=== PATIENT | female | born 1950 | race Caucasian/White ===

== ENCOUNTER 2020-04-23 10:06 | Inpatient (IN) | payer OTHER ==
[2020-04-23] MEDS ORDERED: methylPREDNISolone SOD SUCCI 125 MG/2 ML VIAL IV STA (10:11)
[2020-04-23] MEDS ORDERED: IPRATROPIUM-ALBUTEROL 3 ML NEB INHALATION STA (10:11)
--- NOTE | 2020-04-23 10:20 | ED ---
General Adult HPI - General Chief complaint: Shortness of Breath Stated complaint: respiratory distress Time Seen by Provider: 04/23/20 10:11 Source: patient, EMS, RN notes reviewed Mode of arrival: EMS Limitations: physical limitation - History of Present Illness Initial comments: Patient is a pleasant 69-year-old female presenting to the emergency department difficulty in breathing by EMS. Patient was having difficulty in breathing at home and became unresponsive for family. EMS found patient awake and short of breath. Pulse ox was 88% without improvement with oxygen and therefore put patient on CPAP. Patient states dyspnea just started this morning. Patient states she does have history of similar symptoms previously associated with her asthma and humidity changes. Patient states this is worse that is been. No chest pain. No headache or weakness or confusion. No cough. - Related Data Home Medications Medication Instructions Recorded Confirmed Clotrimazole/Betamethasone Dip 1 applic TOPICAL BID 04/23/20 04/23/20 [Lotrisone Cream] Irbesartan [Avapro] 150 mg PO DAILY 04/23/20 04/23/20 Levothyroxine Sodium [Tirosint] 200 mcg PO DAILY 04/23/20 04/23/20 Allergies Allergy/AdvReac Type Severity Reaction Status Date / Time furosemide [From Lasix] Allergy Anaphylaxis Verified 04/23/20 10:26 Sulfa (Sulfonamide Allergy Anaphylaxis Verified 04/23/20 10:25 Antibiotics) Review of Systems ROS Statement: Those systems with pertinent positive or pertinent negative responses have been documented in the HPI. ROS Other: All systems not noted in ROS Statement are negative. Constitutional: Denies: fever Eyes: Denies: eye pain ENT: Denies: ear pain Respiratory: Reports: dyspnea. Denies: cough Cardiovascular: Denies: chest pain Endocrine: Denies: fatigue Gastrointestinal: Denies: abdominal pain Genitourinary: Denies: dysuria Musculoskeletal: Denies: back pain Skin: Denies: rash Neurological: Denies: headache Past Medical History Past Medical History: Asthma History of Any Multi-Drug Resistant Organisms: None Reported Past Surgical History: Unable to Obtain Past Psychological History: No Psychological Hx Reported Smoking Status: Never smoker Past Alcohol Use History: Occasional Past Drug Use History: None Reported General Exam Limitations: physical limitation (Patient on CPAP) General appearance: alert Head exam: Present: atraumatic Eye exam: Present: normal appearance, PERRL, EOMI ENT exam: Present: normal exam Neck exam: Present: normal inspection Respiratory exam: Present: respiratory distress, wheezes (Mild expiratory), accessory muscle use, decreased breath sounds Cardiovascular Exam: Present: tachycardia GI/Abdominal exam: Present: soft. Absent: tenderness Extremities exam: Present: normal inspection. Absent: pedal edema, calf tenderness Neurological exam: Present: alert. Absent: motor sensory deficit Expanded Motor strength exam: RUE: 5, LUE: 5, RLE: 5, LLE: 5 Psychiatric exam: Present: normal affect, normal mood Skin exam: Present: normal color Course Vital Signs 04/23/20 04/23/20 04/23/20 10:07 10:35 10:39 Temperature 97.7 F Pulse Rate 94 90 87 Respiratory 26 H 24 Rate Blood Pressure 150/111 145/98 O2 Sat by Pulse 97 100 Oximetry 04/23/20 11:22 Temperature Pulse Rate 86 Respiratory 20 Rate Blood Pressure 122/70 O2 Sat by Pulse 100 Oximetry - Reevaluation(s) Reevaluation #1: 04/23/20 11:28 Patient is criteria for septic shock diagnosed at 11:25 AM. Blood culture and lactic acid ordered. IV antibiotics will be ordered. 04/23/20 11:30 I did fluid bolus of 1840 mL has been ordered based off ideal body weight of 61.4 kg. EKG Findings - EKG Comments: EKG Findings:: Sinus tachycardia with a rate of 108. AR 180. QRS 136. QT 34. QTC 514. Left axis. Left bundle branch block. Nonspecific ST-T wave Medical Decision Making - Medical Decision Making Patient reevaluated and significantly improved with BiPAP. Lung sounds have increased air exchange. Patient updated on results and plan. Dr. Avila was paged for admission, covering for hospital call. There is a question will component of heart failure. Cardiology will be consult and echo will be ordered. Patient also has elevated d-dimer and VQ scan will be ordered. Unable to do computed tomography scan secondary to renal insufficiency. Case was discussed with Dr. man, who will admit. - Lab Data Result diagrams: 04/23/20 10:15 04/23/20 10:15 Lab Results 04/23/20 04/23/20 04/23/20 Range/Units 10:15 10:15 10:15 WBC 15.1 H (3.8-10.6) k/uL RBC 5.00 (3.80-5.40) m/uL Hgb 15.3 (11.4-16.0) gm/dL Hct 49.8 H (34.0-46.0) % MCV 99.6 (80.0-100.0) fL MCH 30.6 (25.0-35.0) pg MCHC 30.7 L (31.0-37.0) g/dL RDW 12.8 (11.5-15.5) % Plt Count 316 (150-450) k/uL MPV 7.9 Neutrophils % 84 % Lymphocytes % 10 % Monocytes % 3 % Eosinophils % 2 % Basophils % 1 % Neutrophils # 12.7 H (1.3-7.7) k/uL Lymphocytes # 1.5 (1.0-4.8) k/uL Monocytes # 0.5 (0-1.0) k/uL Eosinophils # 0.3 (0-0.7) k/uL Basophils # 0.1 (0-0.2) k/uL Hypochromasia Slight PT 10.1 (9.0-12.0) sec INR 0.9 (<1.2) APTT 21.0 L (22.0-30.0) sec D-Dimer 9.24 H (<0.60) mg/L FEU Sodium 138 (137-145) mmol/L Potassium 5.1 (3.5-5.1) mmol/L Chloride 107 (98-107) mmol/L Carbon Dioxide 17 L (22-30) mmol/L Anion Gap 14 mmol/L BUN 39 H (7-17) mg/dL Creatinine 2.17 H (0.52-1.04) mg/dL Est GFR (CKD-EPI)AfAm 26 (>60 ml/min/1.73 sqM) Est GFR (CKD-EPI)NonAf 23 (>60 ml/min/1.73 sqM) Glucose 346 H (74-99) mg/dL Plasma Lactic Acid Casper (0.7-2.0) mmol/L Calcium 8.4 (8.4-10.2) mg/dL Total Bilirubin 0.7 (0.2-1.3) mg/dL AST 77 H (14-36) U/L ALT 53 H (4-34) U/L Alkaline Phosphatase 120 (38-126) U/L Troponin I (0.000-0.034) ng/mL C-Reactive Protein (<10.0) mg/L NT-Pro-B Natriuret Pep pg/mL Total Protein 7.4 (6.3-8.2) g/dL Albumin 3.9 (3.5-5.0) g/dL Coronavirus (PCR) (Not Detectd) 04/23/20 04/23/20 04/23/20 Range/Units 10:15 10:15 10:15 WBC (3.8-10.6) k/uL RBC (3.80-5.40) m/uL Hgb (11.4-16.0) gm/dL Hct (34.0-46.0) % MCV (80.0-100.0) fL MCH (25.0-35.0) pg MCHC (31.0-37.0) g/dL RDW (11.5-15.5) % Plt Count (150-450) k/uL MPV Neutrophils % % Lymphocytes % % Monocytes % % Eosinophils % % Basophils % % Neutrophils # (1.3-7.7) k/uL Lymphocytes # (1.0-4.8) k/uL Monocytes # (0-1.0) k/uL Eosinophils # (0-0.7) k/uL Basophils # (0-0.2) k/uL Hypochromasia PT (9.0-12.0) sec INR (<1.2) APTT (22.0-30.0) sec D-Dimer (<0.60) mg/L FEU Sodium (137-145) mmol/L Potassium (3.5-5.1) mmol/L Chloride (98-107) mmol/L Carbon Dioxide (22-30) mmol/L Anion Gap mmol/L BUN (7-17) mg/dL Creatinine (0.52-1.04) mg/dL Est GFR (CKD-EPI)AfAm (>60 ml/min/1.73 sqM) Est GFR (CKD-EPI)NonAf (>60 ml/min/1.73 sqM) Glucose (74-99) mg/dL Plasma Lactic Acid Casper 6.4 H* (0.7-2.0) mmol/L Calcium (8.4-10.2) mg/dL Total Bilirubin (0.2-1.3) mg/dL AST (14-36) U/L ALT (4-34) U/L Alkaline Phosphatase (38-126) U/L Troponin I 0.049 H* (0.000-0.034) ng/mL C-Reactive Protein (<10.0) mg/L NT-Pro-B Natriuret Pep 5470 pg/mL Total Protein (6.3-8.2) g/dL Albumin (3.5-5.0) g/dL Coronavirus (PCR) (Not Detectd) 04/23/20 04/23/20 04/23/20 Range/Units 10:16 10:31 10:31 WBC (3.8-10.6) k/uL RBC (3.80-5.40) m/uL Hgb (11.4-16.0) gm/dL Hct (34.0-46.0) % MCV (80.0-100.0) fL MCH (25.0-35.0) pg MCHC (31.0-37.0) g/dL RDW (11.5-15.5) % Plt Count (150-450) k/uL MPV Neutrophils % % Lymphocytes % % Monocytes % % Eosinophils % % Basophils % % Neutrophils # (1.3-7.7) k/uL Lymphocytes # (1.0-4.8) k/uL Monocytes # (0-1.0) k/uL Eosinophils # (0-0.7) k/uL Basophils # (0-0.2) k/uL Hypochromasia PT (9.0-12.0) sec INR (<1.2) APTT (22.0-30.0) sec D-Dimer (<0.60) mg/L FEU Sodium (137-145) mmol/L Potassium (3.5-5.1) mmol/L Chloride (98-107) mmol/L Carbon Dioxide (22-30) mmol/L Anion Gap mmol/L BUN (7-17) mg/dL Creatinine (0.52-1.04) mg/dL Est GFR (CKD-EPI)AfAm (>60 ml/min/1.73 sqM) Est GFR (CKD-EPI)NonAf (>60 ml/min/1.73 sqM) Glucose (74-99) mg/dL Plasma Lactic Acid Casper 4.8 H* (0.7-2.0) mmol/L Calcium (8.4-10.2) mg/dL Total Bilirubin (0.2-1.3) mg/dL AST (14-36) U/L ALT (4-34) U/L Alkaline Phosphatase (38-126) U/L Troponin I (0.000-0.034) ng/mL C-Reactive Protein 11.0 H (<10.0) mg/L NT-Pro-B Natriuret Pep pg/mL Total Protein (6.3-8.2) g/dL Albumin (3.5-5.0) g/dL Coronavirus (PCR) Not Detected (Not Detectd) - Radiology Data Radiology results: image reviewed (Chest x-ray shows some increased interstitium. Increased density right lung base with patchy hilar airspace d isease. Correlate for pneumonia versus edema. Question retrocardiac patchy density.) Critical Care Time Critical Care Time: Yes Total Critical Care Time: 33 Disposition Clinical Impression: Septic shock, Pneumonia Disposition: ADMITTED IP TO THIS HOSP Condition: Serious Is patient prescribed a controlled substance at d/c from ED?: No Referrals: None,Stated [REFERRING] - 1-2 days Decision Time: 11:31
[2020-04-23 10:27] LABS: Basophils # (A) 0.1 k/uL (0-0.2); Basophils % (A) 1 %; Eosinophils # (A) 0.3 k/uL (0-0.7); Eosinophils % (A) 2 %; HCT 49.8 % (34.0-46.0); HGB 15.3 gm/dL (11.4-16.0); Hypochromasia Slight; Lymphocytes # (A) 1.5 k/uL (1.0-4.8); Lymphocytes % (A) 10 %; MCH 30.6 pg (25.0-35.0); MCHC 30.7 g/dL (31.0-37.0); MCV 99.6 fL (80.0-100.0); Mean Platelet Volume 7.9; Monocytes # (A) 0.5 k/uL (0-1.0); Monocytes % (A) 3 %; Neutrophils # (A) 12.7 k/uL (1.3-7.7); Neutrophils % (A) 84 %; Platelet Count 316 k/uL (150-450); RDW 12.8 % (11.5-15.5); WBC 15.1 k/uL (3.8-10.6)
--- NOTE | 2020-04-23 10:35 | XR ---
EXAMINATION TYPE: XR chest 1V portable DATE OF EXAM: 04/23/2020 COMPARISON: NONE HISTORY: Dyspnea, shortness of breath TECHNIQUE: Single frontal view of the chest is obtained. FINDINGS: Patient is rotated. Patchy perihilar airspace disease is present on the right, increased d ensity at the right lung base. Heart size may be accentuated by rotation. Suspect aorta is dense. No evident pneumothorax, there are overlying leads. Interstitium is increased. Question retrocardiac pat kelsey density. IMPRESSION: Correlate for pneumonia versus edema, follow-up suggested. Suspect borderline cardiac si ze.
[2020-04-23 10:37] LABS: Albumin 3.9 g/dL (3.5-5.0); Calcium 8.4 mg/dL (8.4-10.2); Potassium 5.1 mmol/L (3.5-5.1); Total Bilirubin 0.7 mg/dL (0.2-1.3); Total Protein 7.4 g/dL (6.3-8.2)
[2020-04-23 10:50] LABS: INR 0.9 (<1.2); Prothrombin Time 10.1 sec (9.0-12.0)
[2020-04-23] MEDS ORDERED: AZITHROMYCIN 500 MG in SODIUM CHLORIDE 0.9% 250 ML IVPB STA (10:54)
[2020-04-23] MEDS ORDERED: PNEUMONIA PROTOCOL UTILIZED 1 EACH MISC PO PRN (10:54)
[2020-04-23] MEDS ORDERED: IPRATROPIUM-ALBUTEROL 3 ML NEB INHALATION PRN (10:54)
[2020-04-23 10:58] LABS: D-Dimer 9.24 mg/L FEU (<0.60)
[2020-04-23] MEDS ORDERED: SODIUM CHLORIDE 0.9% 850 ML IV STA (11:29)
[2020-04-23] MEDS ORDERED: SODIUM CHLORIDE 0.9% 1,000 ML IV STA (11:29)
[2020-04-23] MEDS ORDERED: NALOXONE 0.4 MG/ML 1 ML VIAL IV PRN (11:32)
[2020-04-23] MEDS ORDERED: HEPARIN SODIUM,PORCINE 10,000 UNIT/ML 1 ML VIAL IV ONE (11:36)
[2020-04-23] MEDS ORDERED: HEPARIN SODIUM,PORCINE 5,000 UNIT/ML 1 ML VIAL IV PRN (11:36)
[2020-04-23] MEDS: HEPARIN SOD,PORK IN 0.45% NACL 25,000 UNIT in 0.45% NACL 1 250ML.BAG IV SCH (11:59)
--- NOTE | 2020-04-23 12:12 | ED ---
Medical Decision Making - Medical Decision Making Patient placed on high-dose heparin pending V/Q results - Lab Data Result diagrams: 04/23/20 10:15 04/23/20 10:15 Lab Results 04/23/20 04/23/20 04/23/20 Range/Units 10:15 10:15 10:15 WBC 15.1 H (3.8-10.6) k/uL RBC 5.00 (3.80-5.40) m/uL Hgb 15.3 (11.4-16.0) gm/dL Hct 49.8 H (34.0-46.0) % MCV 99.6 (80.0-100.0) fL MCH 30.6 (25.0-35.0) pg MCHC 30.7 L (31.0-37.0) g/dL RDW 12.8 (11.5-15.5) % Plt Count 316 (150-450) k/uL MPV 7.9 Neutrophils % 84 % Lymphocytes % 10 % Monocytes % 3 % Eosinophils % 2 % Basophils % 1 % Neutrophils # 12.7 H (1.3-7.7) k/uL Lymphocytes # 1.5 (1.0-4.8) k/uL Monocytes # 0.5 (0-1.0) k/uL Eosinophils # 0.3 (0-0.7) k/uL Basophils # 0.1 (0-0.2) k/uL Hypochromasia Slight PT 10.1 (9.0-12.0) sec INR 0.9 (<1.2) APTT 21.0 L (22.0-30.0) sec D-Dimer 9.24 H (<0.60) mg/L FEU Sodium 138 (137-145) mmol/L Potassium 5.1 (3.5-5.1) mmol/L Chloride 107 (98-107) mmol/L Carbon Dioxide 17 L (22-30) mmol/L Anion Gap 14 mmol/L BUN 39 H (7-17) mg/dL Creatinine 2.17 H (0.52-1.04) mg/dL Est GFR (CKD-EPI)AfAm 26 (>60 ml/min/1.73 sqM) Est GFR (CKD-EPI)NonAf 23 (>60 ml/min/1.73 sqM) Glucose 346 H (74-99) mg/dL Plasma Lactic Acid Casper (0.7-2.0) mmol/L Calcium 8.4 (8.4-10.2) mg/dL Total Bilirubin 0.7 (0.2-1.3) mg/dL AST 77 H (14-36) U/L ALT 53 H (4-34) U/L Alkaline Phosphatase 120 (38-126) U/L Troponin I (0.000-0.034) ng/mL C-Reactive Protein (<10.0) mg/L NT-Pro-B Natriuret Pep pg/mL Total Protein 7.4 (6.3-8.2) g/dL Albumin 3.9 (3.5-5.0) g/dL Coronavirus (PCR) (Not Detectd) 04/23/20 04/23/20 04/23/20 Range/Units 10:15 10:15 10:15 WBC (3.8-10.6) k/uL RBC (3.80-5.40) m/uL Hgb (11.4-16.0) gm/dL Hct (34.0-46.0) % MCV (80.0-100.0) fL MCH (25.0-35.0) pg MCHC (31.0-37.0) g/dL RDW (11.5-15.5) % Plt Count (150-450) k/uL MPV Neutrophils % % Lymphocytes % % Monocytes % % Eosinophils % % Basophils % % Neutrophils # (1.3-7.7) k/uL Lymphocytes # (1.0-4.8) k/uL Monocytes # (0-1.0) k/uL Eosinophils # (0-0.7) k/uL Basophils # (0-0.2) k/uL Hypochromasia PT (9.0-12.0) sec INR (<1.2) APTT (22.0-30.0) sec D-Dimer (<0.60) mg/L FEU Sodium (137-145) mmol/L Potassium (3.5-5.1) mmol/L Chloride (98-107) mmol/L Carbon Dioxide (22-30) mmol/L Anion Gap mmol/L BUN (7-17) mg/dL Creatinine (0.52-1.04) mg/dL Est GFR (CKD-EPI)AfAm (>60 ml/min/1.73 sqM) Est GFR (CKD-EPI)NonAf (>60 ml/min/1.73 sqM) Glucose (74-99) mg/dL Plasma Lactic Acid Casper 6.4 H* (0.7-2.0) mmol/L Calcium (8.4-10.2) mg/dL Total Bilirubin (0.2-1.3) mg/dL AST (14-36) U/L ALT (4-34) U/L Alkaline Phosphatase (38-126) U/L Troponin I 0.049 H* (0.000-0.034) ng/mL C-Reactive Protein (<10.0) mg/L NT-Pro-B Natriuret Pep 5470 pg/mL Total Protein (6.3-8.2) g/dL Albumin (3.5-5.0) g/dL Coronavirus (PCR) (Not Detectd) 04/23/20 04/23/20 04/23/20 Range/Units 10:16 10:31 10:31 WBC (3.8-10.6) k/uL RBC (3.80-5.40) m/uL Hgb (11.4-16.0) gm/dL Hct (34.0-46.0) % MCV (80.0-100.0) fL MCH (25.0-35.0) pg MCHC (31.0-37.0) g/dL RDW (11.5-15.5) % Plt Count (150-450) k/uL MPV Neutrophils % % Lymphocytes % % Monocytes % % Eosinophils % % Basophils % % Neutrophils # (1.3-7.7) k/uL Lymphocytes # (1.0-4.8) k/uL Monocytes # (0-1.0) k/uL Eosinophils # (0-0.7) k/uL Basophils # (0-0.2) k/uL Hypochromasia PT (9.0-12.0) sec INR (<1.2) APTT (22.0-30.0) sec D-Dimer (<0.60) mg/L FEU Sodium (137-145) mmol/L Potassium (3.5-5.1) mmol/L Chloride (98-107) mmol/L Carbon Dioxide (22-30) mmol/L Anion Gap mmol/L BUN (7-17) mg/dL Creatinine (0.52-1.04) mg/dL Est GFR (CKD-EPI)AfAm (>60 ml/min/1.73 sqM) Est GFR (CKD-EPI)NonAf (>60 ml/min/1.73 sqM) Glucose (74-99) mg/dL Plasma Lactic Acid Casper 4.8 H* (0.7-2.0) mmol/L Calcium (8.4-10.2) mg/dL Total Bilirubin (0.2-1.3) mg/dL AST (14-36) U/L ALT (4-34) U/L Alkaline Phosphatase (38-126) U/L Troponin I (0.000-0.034) ng/mL C-Reactive Protein 11.0 H (<10.0) mg/L NT-Pro-B Natriuret Pep pg/mL Total Protein (6.3-8.2) g/dL Albumin (3.5-5.0) g/dL Coronavirus (PCR) Not Detected (Not Detectd) Disposition Clinical Impression: Septic shock, Pneumonia Disposition: ADMITTED IP TO THIS HOSP Condition: Serious Is patient prescribed a controlled substance at d/c from ED?: No Procedures - [place] Protocol (Time Out) Nurse: Kayla Delgado - Sepsis Sepsis Focused Exam #1 Time Sepsis Criteria Met: 11:25 Sepsis Focused Exam Date: 04/23/20 Sepsis Focused Exam Time: 12:12 Sepsis Focused Exam Complete: Yes Vital Signs & RN Notes Reviewed: Yes Capillary Refill: < 2 Seconds: Fingers, Toes Peripheral Pulses: Normal: Radial (R), Radial (L) Skin Color: Normal for Patient Respiratory Exam: wheezes Cardiovascular Exam: regular rate, normal rhythm
[2020-04-23 13:18] LABS: Glucose,Whole Blood 167 mg/dL (75-99)
[2020-04-23] MEDS: INSULIN ASPART (NovoLOG) 100 UNIT/ML VIAL SQ SCH ×3 (13:23→20:48)
--- NOTE | 2020-04-23 13:24 | US ---
EXAMINATION TYPE: US venous doppler duplex LE DATE OF EXAM: 04/23/2020 12:16 PM COMPARISON: NONE CLINICAL HISTORY: 69-year-old female edema, elevated d dimer. SIDE PERFORMED: Bilateral TECHNIQUE: The lower extremity deep venous system is examined utilizing real time linear array sonog titi with graded compression, doppler sonography and color-flow sonography. FINDINGS: VESSELS IMAGED: Common Femoral Vein Deep Femoral Vein Greater Saphenous Vein * Femoral Vein Popliteal Vein Small Saphenous Vein * Proximal Calf Veins (* superficial vessels) Right Leg: Negative for DVT Left Leg: Negative for DVT IMPRESSION: No evidence for DVT within the bilateral lower extremities imaged from the groin to the upper calves.
--- NOTE | 2020-04-23 13:28 | ECHOF ---
Referral Reason:Heart failure, respiratory failure MEASUREMENTS -------- HEIGHT: 170.2 cm WEIGHT: 109.8 kg BP: RVIDd: 3.0 cm (< 3.3) IVSd: 1.8 cm (0.6 - 1.1) LVIDd: 4.0 cm (3.9 - 5.3) LVPWd: 1.8 cm (0.6 - 1.1) IVSs: 2.3 cm LVIDs: 2.4 cm LVPWs: 2.5 cm Ao Diam: 3.1 cm (2.0 - 3.7) AV Cusp: 2.3 cm (1.5 - 2.6) LA Diam: 3.3 cm (2.7 - 3.8) MV EXCURSION: 14.013 mm (> 18.000) MV EF SLOPE: 79 mm/s (70 - 150) EPSS: 1.1 cm MV E Mac: 0.58 m/s MV DecT: 192 ms MV A Mac: 0.70 m/s MV E/A Ratio: 0.83 RAP: 5.00 mmHg RVSP: 9.35 mmHg FINDINGS -------- This was a technically difficult study with suboptimal views. Poor apicals. Study taken from [facility] [facility]. The left ventricular size is normal. There is severe concentric left ventricular hypertrophy. Ove rall left ventricular systolic function is normal with, an EF between 55 - 60 %. The right ventricle is normal in size. The left atrial size is normal. The right atrial size is normal. Lumason used The aortic valve is trileaflet and appears structurally normal. The mitral valve is normal. There is trace mitral regurgitation. The tricuspid valve appears structurally normal. Mild tricuspid regurgitation present. Right vent ricular systolic pressure is normal at < 35 mmHg. There is no pulmonic regurgitation present. The ascending aorta is dilated measuring up to 4.2 cm IVC Not well visulized. There is no pericardial effusion. CONCLUSIONS -------- 1. Poor apicals. Study taken from [facility]. 2. The left ventricular size is normal. 3. There is severe concentric left ventricular hypertrophy. 4. Overall left ventricular systolic function is normal with, an EF between 55 - 60 %. 5. There is trace mitral regurgitation. 6. Mild tricuspid regurgitation present. 7. The ascending aorta is dilated measuring up to 4.2 cm 8. There is no pericardial effusion. ADVENTURE GUIDE: Coleen Hunt RDCS
--- NOTE | 2020-04-23 14:20 | P.CNPUL ---
History of Present Illness Consult date: 04/23/20 Reason for consult: dyspnea, asthma, COPD, hypoxemia Chief complaint: Shortness of breath. History of present illness: 69-year-old female who does not see doctors in this area but rather sees physicians at [facility], who apparently comes into the emergency room, brought in by EMS, for difficulty in breathing. Apparently, for the last day or 2, the patient's breathing has gotten more difficult. She apparently became unresponsive according to her family. The patient was found by EMS to be awake and short of breath. Her pulse ox saturations were 88%. The patient was therefore placed on CPAP. She apparently carries with her a diagnosis of asthma, hypothyroidism, and hypertension. Again, we do not see her in this area. She sees a community outreach coordinator at [facility]. Currently, in the emergency department, she is on BiPAP, with settings of 12/6 and 60%. Currently, the patient appears to be short of breath. She also seemed a little lethargic and sleepy. There is no audible wheezing. She was not using accessory muscles. She did have some mild conversational dyspnea, she was made worse by the BiPAP mask. The patient denied any fever or chills. The patient also denied any cough or phlegm production. She was not having any chest pain or chest discomfort. The patient end terminal proBNP was elevated and her chest x-ray my opinion was consistent with either fluid overload/heart failure versus possible pneumonia. She was behaving more like heart failure and she did have lower extremity edema. Review of Systems REVIEW OF SYSTEMS: CONSTITUTIONAL: [Negative.] NEUROLOGIC: [ Negative.] HEENT: [ Negative.] CARDIAC: Lower extremity edema. PULMONARY: Shortness of breath. GI: [Negative.] : [Negative.] RHEUMATOLOGIC: [ Negative.] IMMUNOLOGIC: [ Negative.] ENDOCRINE: [Negative. ] DERMATOLOGIC: [Negative.] Past Medical History Past Medical History: Asthma History of Any Multi-Drug Resistant Organisms: None Reported Past Surgical History: Unable to Obtain Past Psychological History: No Psychological Hx Reported Smoking Status: Never smoker Past Alcohol Use History: Occasional Past Drug Use History: None Reported Medications and Allergies Home Medications Medication Instructions Recorded Confirmed Type Clotrimazole/Betamethasone Dip 1 applic TOPICAL BID 04/23/20 04/23/20 History [Lotrisone Cream] Irbesartan [Avapro] 150 mg PO DAILY 04/23/20 04/23/20 History Levothyroxine Sodium [Tirosint] 200 mcg PO DAILY 04/23/20 04/23/20 History Allergies Allergy/AdvReac Type Severity Reaction Status Date / Time furosemide [From Lasix] Allergy Anaphylaxis Verified 04/23/20 10:26 Sulfa (Sulfonamide Allergy Anaphylaxis Verified 04/23/20 10:25 Antibiotics) Physical Exam Osteopathic Statement: *. No significant issues noted on an osteopathic structural exam other than those noted in the History and Physical/Consult. Vitals: Vital Signs Temp Pulse Resp BP Pulse Ox 04/23/20 13:27 80 20 136/79 97 04/23/20 11:22 86 20 122/70 100 04/23/20 10:39 87 24 145/98 100 04/23/20 10:35 90 04/23/20 10:07 97.7 F 94 26 H 150/111 97 Intake and Output 04/22/20 04/23/20 04/23/20 22:59 06:59 14:59 Other: Weight 109.769 kg Mild conversational dyspnea, no use of accessory muscles or audible wheezing. BiPAP mask in place. HEENT examination is grossly unremarkable. HEENT examination difficult to assess because of the BiPAP device. Neck supple. Full range of motion. No adenopathy thyromegaly or neck vein distention. Cardiovascular examination reveals regular rhythm rate. S1-S2 normal. No S3 or S4. No discernible murmur noted. Heart sounds are distant. Heart rate 80 bpm. Lungs reveal scattered crackles and rhonchi. Breath sounds equal bilaterally. No wheezes. Breath sounds equal bilaterally. Abdomen obese, but soft, without masses or tenderness. Extremities are intact. No cyanosis or clubbing. There is 1-2+ pitting edema in the lower extremities. Skin is without rash or lesion. Neurologic examination is brief but nonfocal. Results - Laboratory Findings CBC and BMP: 04/23/20 10:15 04/23/20 10:15 PT/INR, D-dimer PT 10.1 sec (9.0-12.0) 04/23/20 10:15 INR 0.9 (<1.2) 04/23/20 10:15 D-Dimer 9.24 mg/L FEU (<0.60) H 04/23/20 10:15 Abnormal lab findings: Abnormal Labs 04/23/20 04/23/20 04/23/20 10:15 10:15 10:15 WBC 15.1 H Hct 49.8 H MCHC 30.7 L Neutrophils # 12.7 H APTT 21.0 L D-Dimer 9.24 H Carbon Dioxide 17 L BUN 39 H Creatinine 2.17 H Glucose 346 H POC Glucose (mg/dL) Plasma Lactic Acid Casper AST 77 H ALT 53 H Troponin I C-Reactive Protein 04/23/20 04/23/20 04/23/20 10:15 10:15 10:31 WBC Hct MCHC Neutrophils # APTT D-Dimer Carbon Dioxide BUN Creatinine Glucose POC Glucose (mg/dL) Plasma Lactic Acid Casper 6.4 H* AST ALT Troponin I 0.049 H* C-Reactive Protein 11.0 H 04/23/20 04/23/20 04/23/20 10:31 12:25 13:15 WBC Hct MCHC Neutrophils # APTT D-Dimer Carbon Dioxide BUN Creatinine Glucose POC Glucose (mg/dL) Plasma Lactic Acid Casper 4.8 H* 2.4 H* AST ALT Troponin I 0.474 H* C-Reactive Protein 04/23/20 13:15 WBC Hct MCHC Neutrophils # APTT D-Dimer Carbon Dioxide BUN Creatinine Glucose POC Glucose (mg/dL) 167 H Plasma Lactic Acid Casper AST ALT Troponin I C-Reactive Protein - Diagnostic Findings Chest x-ray: image reviewed (No computed tomography scan as yet.) CT scan - chest: image reviewed U/S of Legs: report reviewed Assessment and Plan Assessment: Acute hypoxemic respiratory failure, likely multifactorial, in part related to the patient's underlying chronic bronchial asthma, possible pneumonia, and probable CHF/heart failure. Obesity. History of chronic bronchial asthma. History of hypertension. History of hypothyroidism. Plan: Plan dated 04/23/2020. The patient will be placed on medications for Pulmicort 1 mg, mixed with formoterol, 20 g, twice a day. She'll also get albuterol and ipratropium bromide updrafts 4 times a day and when necessary. We'll give her side Medrol 60 mg every 6 hours. She should also be evaluated by cardiology for the potential of CHF and have a echocardiogram. It does not appear that she has infection, so I will start antibiotics. I will check a pro-calcitonin level. Additional recommendations and suggestions are forthcoming. Time with Patient: Greater than 30
[2020-04-23 15:06] LABS: Ferritin 136.1 ng/mL (10.0-291.0)
--- NOTE | 2020-04-23 16:08 | NM ---
EXAMINATION TYPE: NM pul perfusion DATE OF EXAM: 04/23/2020 COMPARISON: Correlation radiograph same day HISTORY: 69-year-old female shortness of breath, respiratory failure TECHNIQUE: Following administration of 5 mCi Tc 99m MAA. Images obtained post injection. FINDINGS: There is normal perfusion seen throughout the bilateral lungs. No perfusion defect is identified. IMPRESSION: Very low probability for pulmonary embolus.
[2020-04-23] MEDS: IPRATROPIUM-ALBUTEROL 3 ML NEB INHALATION SCH ×3 (16:40→20:37)
[2020-04-23] MEDS ORDERED: LORazepam 2 MG/ML INJ IV STA (16:42)
[2020-04-23 16:47] LABS: Glucose,Whole Blood 169 mg/dL (75-99)
[2020-04-23] MEDS: methylPREDNISolone SOD SUCCI 125 MG/2 ML VIAL IV SCH (17:42)
[2020-04-23] MEDS ORDERED: FLUMAZENIL 0.1 MG/ML 5 ML VIAL IVP ONE (17:44)
[2020-04-23 17:58] LABS: Glucose,Whole Blood 217 mg/dL (75-99)
[2020-04-23] MEDS ORDERED: METOPROLOL TARTRATE 25 MG TAB PO STA (18:28)
[2020-04-23] MEDS ORDERED: ASPIRIN 325 MG TAB PO SCH (18:30)
--- NOTE | 2020-04-23 18:34 | P.PN ---
Progress Note - Text Progress Note Date: 04/23/20 Rapid response was called because patient became unresponsive. Earlier she received Ativan for some confusion and anxiety. When I arrived to the room-and patient on BiPAP. Due to being unresponsive this was switched to 100% nonrebreather mask. Her sats were in the lower 90s. Initially in the evaluation patient was not following commands but within the next few minutes she started coming along, opening her eyes to commands and squeezing fingers. He was tachycardic in the 110s. Her blood pressure was as high as 180/100. Blood glucose at that time was 217. Assessment and plan Unresponsiveness likely secondary to benzodiazepine Acute myocardial infarction with subsequent congestive heart failure exacerbation Doubt pneumonia Plan Patient was given flumazenil Start aspirin, continue heparin drip Start metoprolol 25 mg twice a day Check procalcitonin Discussed with nursing staff.
[2020-04-23] MEDS ORDERED: ALPRAZolam 0.25 MG TAB PO PRN (19:33)
[2020-04-23] MEDS: BUDESONIDE 1 MG/2 ML NEBU INHALATION SCH (20:37)
[2020-04-23] MEDS: FORMOTEROL FUMARATE 20 MCG/2 ML NEBU INHALATION SCH (20:37)
[2020-04-23 20:44] LABS: Glucose,Whole Blood 189 mg/dL (75-99)
[2020-04-24] MEDS: methylPREDNISolone SOD SUCCI 125 MG/2 ML VIAL IV SCH ×4 (00:13→17:21)
[2020-04-24] MEDS: HEPARIN SOD,PORK IN 0.45% NACL 25,000 UNIT in 0.45% NACL 1 250ML.BAG IV SCH ×2 (05:39→14:45)
[2020-04-24 06:18] LABS: Glucose,Whole Blood 142 mg/dL (75-99)
[2020-04-24] MEDS: INSULIN ASPART (NovoLOG) 100 UNIT/ML VIAL SQ SCH ×4 (06:27→20:56)
--- NOTE | 2020-04-24 07:51 | XR ---
EXAMINATION TYPE: XR chest 1V portable DATE OF EXAM: 04/24/2020 COMPARISON: Prior chest x-ray 04/23/2020 HISTORY: Pneumonia, abnormal chest x-ray shortness of breath TECHNIQUE: Single frontal view of the chest is obtained. FINDINGS: No evident pneumothorax or pleural effusion. Heart size appears accentuated possibly due t o rotation. Bilateral airspace disease is suspected. There are overlying cardiac leads. IMPRESSION: Correlate for pneumonia. Pulmonary edema not excluded. Follow-up recommended.
[2020-04-24] MEDS: FORMOTEROL FUMARATE 20 MCG/2 ML NEBU INHALATION SCH ×2 (08:15→19:33)
[2020-04-24] MEDS: BUDESONIDE 1 MG/2 ML NEBU INHALATION SCH ×2 (08:15→19:33)
[2020-04-24] MEDS: IPRATROPIUM-ALBUTEROL 3 ML NEB INHALATION SCH ×4 (08:15→19:33)
[2020-04-24] MEDS ORDERED: PANTOPRAZOLE 40 MG/10 ML VIAL IV SCH (09:00)
[2020-04-24] MEDS ORDERED: LOSARTAN 50 MG TAB PO SCH (09:00)
[2020-04-24] MEDS: AZITHROMYCIN 500 MG TAB PO SCH (09:22)
[2020-04-24] MEDS: METOPROLOL TARTRATE 25 MG TAB PO SCH ×2 (09:22→20:56)
[2020-04-24] MEDS: ASPIRIN 81 MG PO SCH (09:24)
[2020-04-24 09:32] LABS: Basophils % (A) 0 %; Eosinophils % (A) 0 %; HCT 41.4 % (34.0-46.0); HGB 13.1 gm/dL (11.4-16.0); Hypochromasia Slight; Lymphocytes # (A) 0.8 k/uL (1.0-4.8); Lymphocytes % (A) 5 %; MCH 30.6 pg (25.0-35.0); MCHC 31.6 g/dL (31.0-37.0); MCV 97.1 fL (80.0-100.0); Monocytes # (A) 0.4 k/uL (0-1.0); Monocytes % (A) 2 %; Neutrophils # (A) 14.4 k/uL (1.3-7.7); Neutrophils % (A) 92 %; Platelet Count 235 k/uL (150-450); RBC 4.27 m/uL (3.80-5.40); RDW 12.5 % (11.5-15.5); WBC 15.6 k/uL (3.8-10.6)
[2020-04-24 09:36] LABS: Partial Thromboplastin Time 56.6 sec (22.0-30.0)
--- NOTE | 2020-04-24 09:42 | P.HPIM ---
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 She presents because of 2 days of worsening shortness of breath with coughing and with some phlegm and no chest pain or fever. Patient was very anxious and wanted her mask to be taken off, however she agrees to keep it on with small doses of benzodiazepine 0.5 mg She denies change in urine or bowel habits. Denies headache, syncope or dizziness. No weakness or numbness She denies smoking, alcohol or illicit drugs On admission Vitas looks stable except for patient feels tachypneic at 26 which is improved with BiPAP which was present on admission with oxygen saturation of 97% Labs showing leukocytosis of 15.1 K, INR 0.9, d-dimer is elevated at 9.2. Lactic acid elevated at 6.4, coming down to 2.4 procalcitonin is 0.08, coronavirus not detected VQ scan showed low probability for PE, Doppler of the lower extremity is negative for DVT. Echocardiogram showing normal ejection fraction of 55-60% with severe concentric left ventricular hypertrophy Review of Systems CONSTITUTIONAL: No fever, no malaise, no fatigue. HEENT: No recent visual problems or hearing problems. Denied any sore throat. CARDIOVASCULAR: No PND, no palpitations, no syncope. -PULMONARY: No chest wall tenderness, no hemoptysis. GASTROINTESTINAL: No diarrhea, no nausea, no vomiting, no abdominal pain. Normoactive bowel sounds. NEUROLOGICAL: No headaches, no weakness, no numbness. HEMATOLOGICAL: Denies any bleeding or petechiae. GENITOURINARY: Denies any burning micturition, frequency, or urgency. MUSCULOSKELETAL/RHEUMATOLOGICAL: Denies any joint pain, swelling, or any muscle pain. ENDOCRINE: Denies any polyuria or polydipsia. Past Medical History Past Medical History: Asthma History of Any Multi-Drug Resistant Organisms: None Reported Past Surgical History: Unable to Obtain Past Psychological History: No Psychological Hx Reported Smoking Status: Never smoker Past Alcohol Use History: Occasional Past Drug Use History: None Reported Medications and Allergies Home Medications Medication Instructions Recorded Confirmed Type Clotrimazole/Betamethasone Dip 1 applic TOPICAL BID 04/23/20 04/23/20 History [Lotrisone Cream] Irbesartan [Avapro] 150 mg PO DAILY 04/23/20 04/23/20 History Levothyroxine Sodium [Tirosint] 200 mcg PO DAILY 04/23/20 04/23/20 History Allergies Allergy/AdvReac Type Severity Reaction Status Date / Time furosemide [From Lasix] Allergy Anaphylaxis Verified 04/23/20 10:26 Sulfa (Sulfonamide Allergy Anaphylaxis Verified 04/23/20 10:25 Antibiotics) Physical Exam Vitals: Vital Signs Temp Pulse Resp BP Pulse Ox 04/23/20 13:27 80 20 136/79 97 04/23/20 11:22 86 20 122/70 100 04/23/20 10:39 87 24 145/98 100 04/23/20 10:35 90 04/23/20 10:07 97.7 F 94 26 H 150/111 97 Intake and Output 04/23/20 04/23/20 04/23/20 06:59 14:59 22:59 Other: Weight 109.769 kg -GENERAL: The patient is alert and oriented x3, in mild to moderate respiratory distress, on BiPAP, she looks anxious, has orthopnea HEENT: Pupils are round and equally reacting to light. EOMI. No scleral icterus. No conjunctival pallor. Normocephalic, atraumatic. No pharyngeal erythema. No thyromegaly. CARDIOVASCULAR: S1 and S2 present. No murmurs, rubs, or gallops. -PULMONARY: Chest is clear to auscultation, bilateral scattered wheezing ABDOMEN: Soft, nontender, nondistended, normoactive bowel sounds. No palpable organomegaly. MUSCULOSKELETAL: No joint swelling or deformity. EXTREMITIES: No cyanosis, clubbing, or pedal edema. NEUROLOGICAL: Gross neurological examination did not reveal any focal deficits. SKIN: No rashes. No petechiae Results CBC & Chem 7: 04/23/20 10:15 04/23/20 10:15 Labs: Abnormal Lab Results - Last 24 Hours (Table) 04/23/20 04/23/20 04/23/20 Range/Units 10:15 10:15 10:15 WBC 15.1 H (3.8-10.6) k/uL Hct 49.8 H (34.0-46.0) % MCHC 30.7 L (31.0-37.0) g/dL Neutrophils # 12.7 H (1.3-7.7) k/uL APTT 21.0 L (22.0-30.0) sec D-Dimer 9.24 H (<0.60) mg/L FEU Carbon Dioxide 17 L (22-30) mmol/L BUN 39 H (7-17) mg/dL Creatinine 2.17 H (0.52-1.04) mg/dL Glucose 346 H (74-99) mg/dL POC Glucose (mg/dL) (75-99) mg/dL Plasma Lactic Acid Casper (0.7-2.0) mmol/L AST 77 H (14-36) U/L ALT 53 H (4-34) U/L Troponin I (0.000-0.034) ng/mL C-Reactive Protein (<10.0) mg/L 04/23/20 04/23/20 04/23/20 Range/Units 10:15 10:15 10:31 WBC (3.8-10.6) k/uL Hct (34.0-46.0) % MCHC (31.0-37.0) g/dL Neutrophils # (1.3-7.7) k/uL APTT (22.0-30.0) sec D-Dimer (<0.60) mg/L FEU Carbon Dioxide (22-30) mmol/L BUN (7-17) mg/dL Creatinine (0.52-1.04) mg/dL Glucose (74-99) mg/dL POC Glucose (mg/dL) (75-99) mg/dL Plasma Lactic Acid Casper 6.4 H* (0.7-2.0) mmol/L AST (14-36) U/L ALT (4-34) U/L Troponin I 0.049 H* (0.000-0.034) ng/mL C-Reactive Protein 11.0 H (<10.0) mg/L 04/23/20 04/23/20 04/23/20 Range/Units 10:31 12:25 13:15 WBC (3.8-10.6) k/uL Hct (34.0-46.0) % MCHC (31.0-37.0) g/dL Neutrophils # (1.3-7.7) k/uL APTT (22.0-30.0) sec D-Dimer (<0.60) mg/L FEU Carbon Dioxide (22-30) mmol/L BUN (7-17) mg/dL Creatinine (0.52-1.04) mg/dL Glucose (74-99) mg/dL POC Glucose (mg/dL) (75-99) mg/dL Plasma Lactic Acid Casper 4.8 H* 2.4 H* (0.7-2.0) mmol/L AST (14-36) U/L ALT (4-34) U/L Troponin I 0.474 H* (0.000-0.034) ng/mL C-Reactive Protein (<10.0) mg/L 04/23/20 Range/Units 13:15 WBC (3.8-10.6) k/uL Hct (34.0-46.0) % MCHC (31.0-37.0) g/dL Neutrophils # (1.3-7.7) k/uL APTT (22.0-30.0) sec D-Dimer (<0.60) mg/L FEU Carbon Dioxide (22-30) mmol/L BUN (7-17) mg/dL Creatinine (0.52-1.04) mg/dL Glucose (74-99) mg/dL POC Glucose (mg/dL) 167 H (75-99) mg/dL Plasma Lactic Acid Casper (0.7-2.0) mmol/L AST (14-36) U/L ALT (4-34) U/L Troponin I (0.000-0.034) ng/mL C-Reactive Protein (<10.0) mg/L Assessment and Plan Assessment: Acute asthma exacerbation Rule out acute diastolic CHF, echocardiogram showing severe concentric left ventricular hypertrophy Elevated troponin, rule out cardiac disease. Could be also due to elevated creatinine Elevated creatinine, no baseline. Acute kidney injury versus chronic kidney disease Hyperglycemia Mildly elevated liver enzymes Elevated lactic acid Plan: Continue with steroids, continue with oxygen as needed and BiPAP. Pulmonary and cardiology consult. This is a pleasant 69 years old female who presents with asthma and high troponin. Labs and medication were reviewed.. Continue same treatment. Continue with symptomatic treatment. Resume home medication. Monitor lytes and vitals. DVT and GI prophylaxis. Further recommendations depends on the clinical course of the patient DVT prophylaxis: Subcutaneous heparin GI Prophylaxis: Ppi PT/OT: Pending Prognosis is guarded
[2020-04-24 10:00] LABS: Albumin 3.2 g/dL (3.5-5.0); Calcium 7.9 mg/dL (8.4-10.2); Magnesium 2.2 mg/dL (1.6-2.3); Potassium 4.7 mmol/L (3.5-5.1); Total Bilirubin 0.5 mg/dL (0.2-1.3); Total Protein 6.3 g/dL (6.3-8.2)
[2020-04-24 12:01] LABS: Glucose,Whole Blood 150 mg/dL (75-99)
--- NOTE | 2020-04-24 12:09 | P.PN ---
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 She presents because of 2 days of worsening shortness of breath with coughing and with some phlegm and no chest pain or fever. Patient was very anxious and wanted her mask to be taken off, however she agrees to keep it on with small doses of benzodiazepine 0.5 mg She denies change in urine or bowel habits. Denies headache, syncope or dizziness. No weakness or numbness She denies smoking, alcohol or illicit drugs On admission Vitas looks stable except for patient feels tachypneic at 26 which is improved with BiPAP which was present on admission with oxygen saturation of 97% Labs showing leukocytosis of 15.1 K, INR 0.9, d-dimer is elevated at 9.2. Lactic acid elevated at 6.4, coming down to 2.4 procalcitonin is 0.08, coronavirus not detected VQ scan showed low probability for PE, Doppler of the lower extremity is negative for DVT. Echocardiogram showing normal ejection fraction of 55-60% with severe concentric left ventricular hypertrophy 04/24/2020 Patient is fully awake and alert, more calm and less in respiratory distress compared to yesterday, she is on BiPAP with a breathing rate of about 48. She still have some wheezing. She is oxygen saturation 97% while on BiPAP. She has leukocytosis of 15.6. Creatinine is slightly down to 1.9 Chest x-ray showing right sided pneumonia, possible pulmonary edema Yesterday patient become unresponsive because of extra dose of benzodiazepine, she was placed also on heparin drip and metoprolol added for elevated troponin. Cardiology team on the case Review of Systems CONSTITUTIONAL: No fever, no malaise, no fatigue. HEENT: No recent visual problems or hearing problems. Denied any sore throat. CARDIOVASCULAR: No PND, no palpitations, no syncope. -PULMONARY: No chest wall tenderness, no hemoptysis. GASTROINTESTINAL: No diarrhea, no nausea, no vomiting, no abdominal pain. Normoactive bowel sounds. NEUROLOGICAL: No headaches, no weakness, no numbness. Active Medications Generic Name Dose Route Start Last Admin Trade Name Freq PRN Reason Stop Dose Admin Albuterol/Ipratropium 3 ml 04/23/20 12:00 04/24/20 11:28 Ipratropium-Albuterol 3 Ml Neb INHALATION 3 ml RT-QID JORI Administration Albuterol/Ipratropium 3 ml 04/23/20 10:54 Ipratropium-Albuterol 3 Ml Neb INHALATION RT-Q4H PRN shortness of breath Aspirin 81 mg 04/24/20 09:00 04/24/20 09:24 Aspirin 81 Mg PO 81 mg DAILY JORI Administration Azithromycin 500 mg 04/24/20 09:00 04/24/20 09:22 Azithromycin 500 Mg Tab PO 04/28/20 09:01 500 mg DAILY JORI Administration Betamethasone/Clotrimazole 1 applic 04/24/20 21:00 Clotrimazole/Betameth 1-0.05% Cream 45 Gm Tube TOPICAL BID JORI Budesonide 1 mg 04/23/20 20:00 04/24/20 08:15 Budesonide 1 Mg/2 Ml Nebu INHALATION 1 mg RT-BID JORI Administration Formoterol Fumarate 20 mcg 04/23/20 20:00 04/24/20 08:15 Formoterol Fumarate 20 Mcg/2 Ml Nebu INHALATION 20 mcg RT-BID JORI Administration Heparin Sodium (Porcine) 0 unit 04/23/20 11:36 Heparin Sodium,Porcine 5,000 Unit/Ml 1 Ml Vial IV PER PROTOCOL PRN Low PTT Protocol Ceftriaxone Sodium 2 gm/ 50 mls @ 100 mls/hr 04/24/20 09:00 04/24/20 09:22 Sodium Chloride IVPB 04/26/20 09:01 100 mls/hr Q24HR JORI Administration Heparin Sodium/Sodium Chloride 250 mls @ 19.758 mls/hr 04/23/20 11:45 04/24 10:48 25,000 unit/ Sodium Chloride IV 13.75 units/kg/hr .[id number] JORI 15.093 mls/hr Titration Protocol 18 UNITS/KG/HR Insulin Aspart 0 unit 04/23/20 12:30 04/24/20 06:27 Insulin Aspart (Novolog) 100 Unit/Ml Vial SQ Not Given ACHS [facility] Protocol Levothyroxine Sodium 200 mcg 04/25/20 06:30 Levothyroxine 100 Mcg [place] 0630 [facility] Losartan Potassium 50 mg 04/24/20 09:00 04/24/20 09:22 Losartan 50 Mg Tab PO 50 mg DAILY JORI Administration Methylprednisolone Sodium Succinate 60 mg 04/23/20 18:00 04/24/20 05:40 Methylprednisolone Sod Succi 125 Mg/2 Ml Vial IV 60 mg Q6HR JORI Administration Metoprolol Tartrate 25 mg 04/24/20 09:00 04/24/20 09:22 Metoprolol Tartrate 25 Mg Tab PO 25 mg BID JORI Administration Miscellaneous Information 1 each 04/23/20 10:54 Pneumonia Protocol Utilized 1 Each Misc PO ONCE PRN Per Protocol Naloxone HCl 0.2 mg 04/23/20 11:32 Naloxone 0.4 Mg/Ml 1 Ml Vial IV Q2M PRN Opioid Reversal Pantoprazole Sodium 40 mg 04/24/20 09:00 04/24/20 09:22 Pantoprazole 40 Mg/10 Ml Vial IV 40 mg DAILY JORI Administration Objective - Vital Signs Vital signs: Vital Signs Temp 97.6 F 04/24/20 08:00 Pulse 88 04/24/20 11:37 Resp 18 04/24/20 08:00 BP 138/98 04/24/20 08:00 Pulse Ox 97 04/24/20 08:00 Intake & Output 04/23/20 04/24/20 04/24/20 18:59 06:59 18:59 Intake Total 250.000 77.729 Output Total 500 200 Balance -250.000 -122.271 Weight 109.769 kg 107 kg Intake: Intake, IV Titration 250.000 77.729 Amount Heparin Sod,Pork in 0.45% 250.000 77.729 NaCl 25,000 unit In 0.45 % NaCl 1 250ml.bag @ 18 UNITS/KG/HR 19.758 mls/hr IV .[id number] JORI Rx#: [id number] Oral 0 Output: Urine 500 200 Other: Voiding Method Bedpan Bedpan # Voids 1 1 - Exam -GENERAL: The patient is alert and oriented x3, in mild to moderate respiratory distress, on BiPAP, she looks anxious, has orthopnea HEENT: Pupils are round and equally reacting to light. EOMI. No scleral icterus. No conjunctival pallor. Normocephalic, atraumatic. No pharyngeal erythema. No thyromegaly. CARDIOVASCULAR: S1 and S2 present. No murmurs, rubs, or gallops. -PULMONARY: Chest is clear to auscultation, bilateral scattered wheezing ABDOMEN: Soft, nontender, nondistended, normoactive bowel sounds. No palpable organomegaly. MUSCULOSKELETAL: No joint swelling or deformity. EXTREMITIES: No cyanosis, clubbing, or pedal edema. NEUROLOGICAL: Gross neurological examination did not reveal any focal deficits. SKIN: No rashes. No petechiae - Labs CBC & Chem 7: 04/24/20 09:09 04/24/20 09:09 Labs: Abnormal Lab Results - Last 24 Hours (Table) 04/23/20 04/23/20 04/23/20 Range/Units 12:25 13:15 13:15 WBC (3.8-10.6) k/uL Neutrophils # (1.3-7.7) k/uL Lymphocytes # (1.0-4.8) k/uL APTT (22.0-30.0) sec Chloride (98-107) mmol/L Carbon Dioxide (22-30) mmol/L BUN (7-17) mg/dL Creatinine (0.52-1.04) mg/dL Glucose (74-99) mg/dL POC Glucose (mg/dL) 167 H (75-99) mg/dL Plasma Lactic Acid Casper 2.4 H* (0.7-2.0) mmol/L Calcium (8.4-10.2) mg/dL AST (14-36) U/L ALT (4-34) U/L Troponin I 0.474 H* (0.000-0.034) ng/mL Albumin (3.5-5.0) g/dL Procalcitonin (0.02-0.09) ng/mL 04/23/20 04/23/20 04/23/20 Range/Units 16:29 16:29 16:45 WBC (3.8-10.6) k/uL Neutrophils # (1.3-7.7) k/uL Lymphocytes # (1.0-4.8) k/uL APTT (22.0-30.0) sec Chloride (98-107) mmol/L Carbon Dioxide (22-30) mmol/L BUN (7-17) mg/dL Creatinine (0.52-1.04) mg/dL Glucose (74-99) mg/dL POC Glucose (mg/dL) 169 H (75-99) mg/dL Plasma Lactic Acid Casper 2.4 H* (0.7-2.0) mmol/L Calcium (8.4-10.2) mg/dL AST (14-36) U/L ALT (4-34) U/L Troponin I 2.160 H* (0.000-0.034) ng/mL Albumin (3.5-5.0) g/dL Procalcitonin (0.02-0.09) ng/mL 04/23/20 04/23/20 04/23/20 Range/Units 17:20 17:55 19:44 WBC (3.8-10.6) k/uL Neutrophils # (1.3-7.7) k/uL Lymphocytes # (1.0-4.8) k/uL APTT 187.2 H* (22.0-30.0) sec Chloride (98-107) mmol/L Carbon Dioxide (22-30) mmol/L BUN (7-17) mg/dL Creatinine (0.52-1.04) mg/dL Glucose (74-99) mg/dL POC Glucose (mg/dL) 217 H (75-99) mg/dL Plasma Lactic Acid Casper (0.7-2.0) mmol/L Calcium (8.4-10.2) mg/dL AST (14-36) U/L ALT (4-34) U/L Troponin I (0.000-0.034) ng/mL Albumin (3.5-5.0) g/dL Procalcitonin 7.82 H (0.02-0.09) ng/mL 04/23/20 04/23/20 04/24/20 Range/Units 19:44 20:42 02:16 WBC (3.8-10.6) k/uL Neutrophils # (1.3-7.7) k/uL Lymphocytes # (1.0-4.8) k/uL APTT >200.0 H* (22.0-30.0) sec Chloride (98-107) mmol/L Carbon Dioxide (22-30) mmol/L BUN (7-17) mg/dL Creatinine (0.52-1.04) mg/dL Glucose (74-99) mg/dL POC Glucose (mg/dL) 189 H (75-99) mg/dL Plasma Lactic Acid Casper 2.3 H* (0.7-2.0) mmol/L Calcium (8.4-10.2) mg/dL AST (14-36) U/L ALT (4-34) U/L Troponin I (0.000-0.034) ng/mL Albumin (3.5-5.0) g/dL Procalcitonin (0.02-0.09) ng/mL 04/24/20 04/24/20 04/24/20 Range/Units 06:16 09:09 09:09 WBC 15.6 H (3.8-10.6) k/uL Neutrophils # 14.4 H (1.3-7.7) k/uL Lymphocytes # 0.8 L (1.0-4.8) k/uL APTT (22.0-30.0) sec Chloride 114 H (98-107) mmol/L Carbon Dioxide 21 L (22-30) mmol/L BUN 47 H (7-17) mg/dL Creatinine 1.90 H (0.52-1.04) mg/dL Glucose 164 H (74-99) mg/dL POC Glucose (mg/dL) 142 H (75-99) mg/dL Plasma Lactic Acid Casper (0.7-2.0) mmol/L Calcium 7.9 L (8.4-10.2) mg/dL AST 53 H (14-36) U/L ALT 57 H (4-34) U/L Troponin I (0.000-0.034) ng/mL Albumin 3.2 L (3.5-5.0) g/dL Procalcitonin (0.02-0.09) ng/mL 04/24/20 04/24/20 Range/Units 09:09 11:55 WBC (3.8-10.6) k/uL Neutrophils # (1.3-7.7) k/uL Lymphocytes # (1.0-4.8) k/uL APTT 56.6 H (22.0-30.0) sec Chloride (98-107) mmol/L Carbon Dioxide (22-30) mmol/L BUN (7-17) mg/dL Creatinine (0.52-1.04) mg/dL Glucose (74-99) mg/dL POC Glucose (mg/dL) 150 H (75-99) mg/dL Plasma Lactic Acid Casper (0.7-2.0) mmol/L Calcium (8.4-10.2) mg/dL AST (14-36) U/L ALT (4-34) U/L Troponin I (0.000-0.034) ng/mL Albumin (3.5-5.0) g/dL Procalcitonin (0.02-0.09) ng/mL Assessment and Plan Assessment: Acute asthma exacerbation Possible right-sided pneumonia Rule out acute diastolic CHF, echocardiogram showing severe concentric left ventricular hypertrophy Elevated troponin, rule out cardiac disease. Could be also due to elevated creatinine Elevated creatinine, no baseline. Acute kidney injury versus chronic kidney disease Hyperglycemia Mildly elevated liver enzymes Elevated lactic acid Plan: This is a pleasant 69 years old female who presents with asthma and high troponin. Continue with steroids, continue with oxygen as needed and BiPAP. Pulmonary and cardiology consult. Labs and medication were reviewed.. Continue same treatment. Continue with symptomatic treatment. Resume home medication. Monitor lytes and vitals. DVT and GI prophylaxis. Further recommendations depends on the clinical course of the patient DVT prophylaxis: heparin GI Prophylaxis: Ppi PT/OT: Pending Prognosis is guarded
--- NOTE | 2020-04-24 12:23 | P.CRDCN ---
History of Present Illness History of present illness: HISTORY OF PRESENTING ILLNESS This is a pleasant 69-year-old female past medical history significant for hypertension, asthma, hypothyroidism and possible myocardial infarction in the past exact details unavailable. She follows in the office with a help aid at [facility]. We have been asked to see in consultation for shortness of breath. She presented to the hospital with symptoms of shortness of breath that was somewhat of an acute onset. She denies any sympt oms of chest pain, dizziness or palpitations. EMS arrived and found her pulse ox to be 88%. She was transported to the hospital where BiPAP was applied. She has been initiated on IV antibiotics along with steroids and IV heparin secondary to elevated troponin. The patient states approximately 2 years ago she had a similar type respiratory illness and was treated at [facility] at that time she was told she had a mild heart attack however to her recollection she never underwent cardiac catheterization. She denies any stents or open heart surgery. Echocardiogram obtained on this admission reveals preserved LV systolic function with ejection fraction 55-60%, mild tricuspid regurgitation and ascending aorta dilation measuring 4.2 cm. DIAGNOSTICS EKG reveals sinus tachycardia with left bundle branch block and left axis deviation heart rate of 108. There is no old EKG for review. Telemetry tracings indicate sinus mechanism. Chest xray on admission reveals increased density at the right lung base suspicious for pneumonia. Repeat today reveals pneumonia and pulmonary edema. VQ scan is low probability for PE. Bilateral lower extremity Doppler negative for DVT Laboratory reviewed, WBC 15.6, hemoglobin 13.1, platelets 235, d-dimer 9.24, Covid negative, lactic acid on admission 6. 4 repeat 2.0,. Troponin 0.049, 0.474 and 2.1, creatinine on admission 2.17 repeat today 1.9, NT proBNP 5470 and pro-calcitonin 7.82 Current cardiac medications include irbesartan 150 mg daily. REVIEW OF SYSTEMS At the time of my exam: CONSTITUTIONAL: Denies fever or chills. CARDIOVASCULAR: Complains of shortness of breath. Denies chest pain, shortness of breath, orthopnea, PND or palpitations. RESPIRATORY: Denies cough. GASTROINTESTINAL: Denies abdominal pain, diarrhea, constipation, nausea or vomiting. MUSCULOSKELETAL: Denies myalgias. NEUROLOGIC: Denies numbness, tingling, headacbe or weakness. ENDOCRINE: Denies fatigue, weight change, polydipsia or polyurina. GENITOURINARY: Denies burning, hematuria or urgency with micturation. HEMATOLOGIC: Denies history of anemia or bleeding. PHYSICAL EXAMINATION Blood pressure 138/98 heart rate 88 afebrile and maintaining oxygen saturation on BiPAP. CONSTITUTIONAL: No apparent distress. HEENT: Head is normocephalic. Pupils are equal, round. Sclerae anicteric. Mucous membranes of the mouth are moist. No JVD. No carotid bruit. CHEST EXAMINATION: Scattered rhonchi, faint expiratory wheeze, no rales. No chest wall tenderness is noted on palpation or with deep breathing. HEART EXAMINATION: Regular rate and rhythm. S1, S2 heard. No murmurs, gallops or rub. ABDOMEN: Soft, nontender. Positive bowel sounds. EXTREMITIES: 2+ peripheral pulses, left lower extremity 2+ pitting edema and erythema, trace edema on the right and no calf tenderness. NEUROLOGIC EXAMINATION: Patient is awake, alert and oriented x3. ASSESSMENT Pneumonia Leukocytosis Lactic acidosis Acute kidney injury Non-ST elevated myocardial infarction Hypertension Obesity, BMI 36 PLAN Patient's clinical picture more infectious in nature with elevated procalc itonin, leukocytosis and lactic acidosis. She may have a component of fluid overload secondary to acute kidney injury. Continue heparin infusion for another 24 hours. Initiate aspirin 81 mg daily. Hold irbesartan due to EFREN and repeat BMP in the morning. Request records from her help aid on Sunday. Further recommendations to follow based on clinical course. Thank you kindly for this consultation. Nurse Practitioner note has been reviewed, I agree with a documented findings and plan of care. Patient was seen and examined. Past Medical History Past Medical History: Asthma History of Any Multi-Drug Resistant Organisms: None Reported Past Surgical History: Unable to Obtain Past Anesthesia/Blood Transfusion Reactions: Unable to Obtain Past Psychological History: No Psychological Hx Reported Smoking Status: Never smoker Past Alcohol Use History: Occasional Past Drug Use History: None Reported Medications and Allergies Home Medications Medication Instructions Recorded Confirmed Type Clotrimazole/Betamethasone Dip 1 applic TOPICAL BID 04/23/20 04/23/20 History [Lotrisone Cream] Irbesartan [Avapro] 150 mg PO DAILY 04/23/20 04/23/20 History Levothyroxine Sodium [Tirosint] 200 mcg PO DAILY 04/23/20 04/23/20 History Allergies Allergy/AdvReac Type Severity Reaction Status Date / Time furosemide [From Lasix] Allergy Anaphylaxis Verified 04/23/20 10:26 Sulfa (Sulfonamide Allergy Anaphylaxis Verified 04/23/20 10:25 Antibiotics) Physical Exam Vitals: Vital Signs Temp Pulse Pulse Resp BP BP Pulse Ox 04/24/20 11:37 88 04/24/20 11:28 88 04/24/20 08:34 92 04/24/20 08:25 84 04/24/20 08:17 88 04/24/20 08:00 97.6 F 94 18 138/98 97 04/24/20 04:00 97.8 F 87 32 H 139/78 04/24/20 02:00 28 H 04/24/20 00:48 97.8 F 86 26 H 139/76 04/23/20 20:54 88 04/23/20 20:48 97.9 F 89 32 H 146/86 98 04/23/20 20:47 86 04/23/20 20:37 86 04/23/20 18:43 158/90 04/23/20 17:02 96 04/23/20 17:00 98.7 F 95 22 186/112 95 04/23/20 16:42 96 04/23/20 16:23 95 22 186/112 95 04/23/20 13:27 80 20 136/79 97 Intake and Output 04/23/20 04/24/20 04/24/20 22:59 06:59 14:59 Intake Total 148.844 101.156 77.729 Output Total 500 200 Balance 148.844 -398.844 -122.271 Intake: Intake, IV Titration 148.844 101.156 77.729 Amount Heparin Sod,Pork in 0.45% 148.844 101.156 77.729 NaCl 25,000 unit In 0.45 % NaCl 1 250ml.bag @ 18 UNITS/KG/HR 19.758 mls/hr IV .[id number] [facility] Rx#: [id number] Oral 0 Output: Urine 500 200 Other: Voiding Method Bedpan Bedpan Bedpan # Voids 1 1 Weight 109.769 kg 107 kg Results 04/24/20 09:09 04/24/20 09:09 Cardiac Enzymes 04/23/20 04/23/20 04/24/20 Range/Units 12:25 16:29 09:09 AST 53 H (14-36) U/L Troponin I 0.474 H* 2.160 H* (0.000-0.034) ng/mL Coagulation 04/23/20 04/24/20 04/24/20 Range/Units 17:20 02:16 09:09 PT 11.0 (9.0-12.0) sec APTT 187.2 H* >200.0 H* 56.6 H (22.0-30.0) sec CBC 04/24/20 Range/Units 09:09 WBC 15.6 H (3.8-10.6) k/uL RBC 4.27 (3.80-5.40) m/uL Hgb 13.1 (11.4-16.0) gm/dL Hct 41.4 (34.0-46.0) % Plt Count 235 (150-450) k/uL Comprehensive Metabolic Panel 04/24/20 Range/Units 09:09 Sodium 142 (137-145) mmol/L Potassium 4.7 (3.5-5.1) mmol/L Chloride 114 H (98-107) mmol/L Carbon Dioxide 21 L (22-30) mmol/L BUN 47 H (7-17) mg/dL Creatinine 1.90 H (0.52-1.04) mg/dL Glucose 164 H (74-99) mg/dL Calcium 7.9 L (8.4-10.2) mg/dL AST 53 H (14-36) U/L ALT 57 H (4-34) U/L Alkaline Phosphatase 94 (38-126) U/L Total Protein 6.3 (6.3-8.2) g/dL Albumin 3.2 L (3.5-5.0) g/dL Current Medications Generic Name Dose Route Start Last Admin Trade Name Freq PRN Reason Stop Dose Admin Albuterol/Ipratropium 3 ml 04/23/20 12:00 04/24/20 11:28 Ipratropium-Albuterol 3 Ml Neb INHALATION 3 ml RT-QID JORI Administration Albuterol/Ipratropium 3 ml 04/23/20 10:54 Ipratropium-Albuterol 3 Ml Neb INHALATION RT-Q4H PRN shortness of breath Aspirin 81 mg 04/24/20 09:00 04/24/20 09:24 Aspirin 81 Mg PO 81 mg DAILY JORI Administration Azithromycin 500 mg 04/24/20 09:00 04/24/20 09:22 Azithromycin 500 Mg Tab PO 04/28/20 09:01 500 mg DAILY JORI Administration Betamethasone/Clotrimazole 1 applic 04/24/20 21:00 Clotrimazole/Betameth 1-0.05% Cream 45 Gm Tube TOPICAL BID JORI Budesonide 1 mg 04/23/20 20:00 04/24/20 08:15 Budesonide 1 Mg/2 Ml Nebu INHALATION 1 mg RT-BID JORI Administration Formoterol Fumarate 20 mcg 04/23/20 20:00 04/24/20 08:15 Formoterol Fumarate 20 Mcg/2 Ml Nebu INHALATION 20 mcg RT-BID JORI Administration Heparin Sodium (Porcine) 0 unit 04/23/20 11:36 Heparin Sodium,Porcine 5,000 Unit/Ml 1 Ml Vial IV PER PROTOCOL PRN Low PTT Protocol Ceftriaxone Sodium 2 gm/ 50 mls @ 100 mls/hr 04/24/20 09:00 04/24/20 09:22 Sodium Chloride IVPB 04/26/20 09:01 100 mls/hr Q24HR JORI Administration Heparin Sodium/Sodium Chloride 250 mls @ 19.758 mls/hr 04/23/20 11:45 04/24/20 10:48 25,000 unit/ Sodium Chloride IV 13.75 units/kg/hr .[id number] [facility] 15.093 mls/hr Titration Protocol 18 UNITS/KG/HR Insulin Aspart 0 unit 04/23/20 12:30 04/24/20 06:27 Insulin Aspart (Novolog) 100 Unit/Ml Vial SQ Not Given ACHS [facility] Protocol Levothyroxine Sodium 200 mcg 04/25/20 06:30 Levothyroxine 100 Mc[place] 0630 JORI Losartan Potassium 50 mg 04/24/20 09:00 04/24/20 09:22 Losartan 50 Mg Tab PO 50 mg DAILY JORI Administration Methylprednisolone Sodium Succinate 60 mg 04/23/20 18:00 04/24/20 05:40 Methylprednisolone Sod Succi 125 Mg/2 Ml Vial IV 60 mg Q6HR JORI Administration Metoprolol Tartrate 25 mg 04/24/20 09:00 04/24/20 09:22 Metoprolol Tartrate 25 Mg Tab PO 25 mg BID JORI Administration Miscellaneous Information 1 each 04/23/20 10:54 Pneumonia Protocol Utilized 1 Each Misc PO ONCE PRN Per Protocol Naloxone HCl 0.2 mg 04/23/20 11:32 Naloxone 0.4 Mg/Ml 1 Ml Vial IV Q2M PRN Opioid Reversal Pantoprazole Sodium 40 mg 04/24/20 09:00 04/24/20 09:22 Pantoprazole 40 Mg/10 Ml Vial IV 40 mg DAILY JORI Administration Intake and Output 04/23/20 04/24/20 04/24/20 22:59 06:59 14:59 Intake Total 148.844 101.156 77.729 Output Total 500 200 Balance 148.844 -398.844 -122.271 Intake: Intake, IV Titration 148.844 101.156 77.729 Amount Heparin Sod,Pork in 0.45% 148.844 101.156 77.729 NaCl 25,000 unit In 0.45 % NaCl 1 250ml.bag @ 18 UNITS/KG/HR 19.758 mls/hr IV .[id number] [facility] Rx#: [id number] Oral 0 Output: Urine 500 200 Other: Voiding Method Bedpan Bedpan Bedpan # Voids 1 1 Weight 109.769 kg 107 kg 04/24/20 09:09 04/24/20 09:09
--- NOTE | 2020-04-24 16:16 | P.PN ---
Subjective Progress Note Date: 04/24/20 Principal diagnosis: Acute exacerbation of chronic obstructive pulmonary disease/asthma 69-year-old female who does not see doctors in this area but rather sees physicians at [facility], who apparently comes into the emergency room, brought in by EMS, for difficulty in breathing. Apparently, for the last day or 2, the patient's breathing has gotten more difficult. She apparently became unresponsive according to her family. The patient was found by EMS to be awake and short of breath. Her pulse ox saturations were 88%. The patient was therefore placed on CPAP. She apparently carries with her a diagnosis of asthma, hypothyroidism, and hypertension. Again, we do not see her in this area. She sees a development scientist at [facility]. Currently, in the emergency department, she is on BiPAP, with settings of 12/6 and 60%. Currently, the patient appears to be short of breath. She also seemed a little lethargic and sleepy. There is no audible wheezing. She was not using accessory muscles. She did have some mild conversational dyspnea, she was made worse by the BiPAP mask. The patient denied any fever or chills. The patient also denied any cough or phlegm production. She was not having any chest pain or chest discomfort. The patient end terminal proBNP was elevated and her chest x-ray my opinion was consistent with either fluid overload/heart failure versus possible pneumonia. She was behaving more like heart failure and she did have lower extremity edema. The patient is seen today 09/22/2020 and follow-up on the selective care unit. She is currently resting comfortably in bed. Awake and alert in no acute distress. Maintained on BiPAP 12/6 and 50% FiO2. 0.9 normal sinus 25 ML's per hour. Currently on a heparin drip. Chest x-ray reveals bilateral airspace disease. No pneumothorax. Possible pulmonary edema. Echocardiogram reveals preserved left ventricular systolic function with ejection fraction 55-60% Dopplers were negative for DVT of the bilateral lower extremities. Sodium 142. Potassium 4.7. Creatinine 1.90. White count 15.6. Hemoglobin 13.1. Peak troponin 2.16. Pro-calcitonin 7.82. She remains on ceftriaxone and azithromycin along with bronchodilators. Objective - Vital Signs Vital signs: Vital Signs Temp 97.6 F 04/24/20 08:00 Pulse 88 04/24/20 16:00 Resp 18 04/24/20 14:00 BP 131/84 04/24/20 12:00 Pulse Ox 95 04/24/20 12:00 Intake & Output 04/23/20 04/24/20 04/24/20 18:59 06:59 18:59 Intake Total 250.000 77.729 Output Total 500 200 Balance -250.000 -122.271 Weight 109.769 kg 107 kg Intake: Intake, IV Titration 250.000 77.729 Amount Heparin Sod,Pork in 0.45% 250.000 77.729 NaCl 25,000 unit In 0.45 % NaCl 1 250ml.bag @ 18 UNITS/KG/HR 19.758 mls/hr IV .[id number] [facility] Rx#: [id number] Oral 0 Output: Urine 500 200 Other: Voiding Method Bedpan Bedpan # Voids 1 1 - Exam GENERAL EXAM: Alert, wasn't 69-year-old female patient currently on BiPAP comfortable in no apparent distress. HEAD: Normocephalic. EYES: Normal reaction of pupils, equal size. NOSE: Clear with pink turbinates. THROAT: No erythema or exudates. NECK: No masses, no JVD. CHEST: No chest wall deformity. LUNGS: Equal air entry with basilar crackles CVS: S1 and S2 normal with no audible murmur, regular rhythm. ABDOMEN: No hepatosplenomegaly, normal bowel sounds, no guarding or rigidity. SPINE: No scoliosis or deformity SKIN: No rashes CENTRAL NERVOUS SYSTEM: No focal deficits, tone is normal in all 4 extremities. EXTREMITIES: There is no peripheral edema. No clubbing, no cyanosis. Pe ripheral pulses are intact. - Labs CBC & Chem 7: 04/24/20 09:09 04/24/20 09:09 Labs: Abnormal Lab Results - Last 24 Hours (Table) 04/23/20 04/23/20 04/23/20 Range/Units 16:29 16:29 16:45 WBC (3.8-10.6) k/uL Neutrophils # (1.3-7.7) k/uL Lymphocytes # (1.0-4.8) k/uL APTT (22.0-30.0) sec Chloride (98-107) mmol/L Carbon Dioxide (22-30) mmol/L BUN (7-17) mg/dL Creatinine (0.52-1.04) mg/dL Glucose (74-99) mg/dL POC Glucose (mg/dL) 169 H (75-99) mg/dL Plasma Lactic Acid Casper 2.4 H* (0.7-2.0) mmol/L Calcium (8.4-10.2) mg/dL AST (14-36) U/L ALT (4-34) U/L Troponin I 2.160 H* (0.000-0.034) ng/mL Albumin (3.5-5.0) g/dL Procalcitonin (0.02-0.09) ng/mL 04/23/20 04/23/20 04/23/20 Range/Units 17:20 17:55 19:44 WBC (3.8-10.6) k/uL Neutrophils # (1.3-7.7) k/uL Lymphocytes # (1.0-4.8) k/uL APTT 187.2 H* (22.0-30.0) sec Chloride (98-107) mmol/L Carbon Dioxide (22-30) mmol/L BUN (7-17) mg/dL Creatinine (0.52-1.04) mg/dL Glucose (74-99) mg/dL POC Glucose (mg/dL) 217 H (75-99) mg/dL Plasma Lactic Acid Casper (0.7-2.0) mmol/L Calcium (8.4-10.2) mg/dL AST (14-36) U/L ALT (4-34) U/L Troponin I (0.000-0.034) ng/mL Albumin (3.5-5.0) g/dL Procalcitonin 7.82 H (0.02-0.09) ng/mL 04/23/20 04/23/20 04/24/20 Range/Units 19:44 20:42 02:16 WBC (3.8-10.6) k/uL Neutrophils # (1.3-7.7) k/uL Lymphocytes # (1.0-4.8) k/uL APTT >200.0 H* (22.0-30.0) sec Chloride (98-107) mmol/L Carbon Dioxide (22-30) mmol/L BUN (7-17) mg/dL Creatinine (0.52-1.04) mg/dL Glucose (74-99) mg/dL POC Glucose (mg/dL) 189 H (75-99) mg/dL Plasma Lactic Acid Casper 2.3 H* (0.7-2.0) mmol/L Calcium (8.4-10.2) mg/dL AST (14-36) U/L ALT (4-34) U/L Troponin I (0.000-0.034) ng/mL Albumin (3.5-5.0) g/dL Procalcitonin (0.02-0.09) ng/mL 04/24/20 04/24/20 04/24/20 Range/Units 06:16 09:09 09:09 WBC 15.6 H (3.8-10.6) k/uL Neutrophils # 14.4 H (1.3-7.7) k/uL Lymphocytes # 0.8 L (1.0-4.8) k/uL APTT (22.0-30.0) sec Chloride 114 H (98-107) mmol/L Carbon Dioxide 21 L (22-30) mmol/L BUN 47 H (7-17) mg/dL Creatinine 1.90 H (0.52-1.04) mg/dL Glucose 164 H (74-99) mg/dL POC Glucose (mg/dL) 142 H (75-99) mg/dL Plasma Lactic Acid Casper (0.7-2.0) mmol/L Calcium 7.9 L (8.4-10.2) mg/dL AST 53 H (14-36) U/L ALT 57 H (4-34) U/L Troponin I (0.000-0.034) ng/mL Albumin 3.2 L (3.5-5.0) g/dL Procalcitonin (0.02-0.09) ng/mL 04/24/20 04/24/20 Range/Units 09:09 11:55 WBC (3.8-10.6) k/uL Neutrophils # (1.3-7.7) k/uL Lymphocytes # (1.0-4.8) k/uL APTT 56.6 H (22.0-30.0) sec Chloride (98-107) mmol/L Carbon Dioxide (22-30) mmol/L BUN (7-17) mg/dL Creatinine (0.52-1.04) mg/dL Glucose (74-99) mg/dL POC Glucose (mg/dL) 150 H (75-99) mg/dL Plasma Lactic Acid Casper (0.7-2.0) mmol/L Calcium (8.4-10.2) mg/dL AST (14-36) U/L ALT (4-34) U/L Troponin I (0.000-0.034) ng/mL Albumin (3.5-5.0) g/dL Procalcitonin (0.02-0.09) ng/mL Microbiology - Last 24 Hours (Table) 04/23/20 11:09 Blood Culture - Preliminary Blood No Growth after 24 hours Assessment and Plan Assessment: 1 Acute hypoxemic respiratory failure, likely multifactorial, in part related to the patient's underlying acute exacerbation of chronic bronchial asthma, possible pneumonia, and probable diastolic CHF. 2 Troponin leak, currently on heparin drip 3 Obesity. 4 History of chronic bronchial asthma. 5 History of hypertension. 6 History of hypothyroidism. Plan: The patient was seen and evaluated by Dr. Stevenson Continue current treatment plan Follow-up chest x-ray in a.m. We'll continue to follow. I, the cosigning physician, performed a history & physical examination of the patient. Lungs sounds bibasilar crackles. Maintaining good O2 saturations in the 90s on 50% FiO2 via BiPAP. I discussed the assessment and plan of care with my nurse practitioner, Mini John. I attest to the above note as dictated by her.
[2020-04-24 17:04] LABS: Glucose,Whole Blood 156 mg/dL (75-99)
[2020-04-24 20:38] LABS: Glucose,Whole Blood 222 mg/dL (75-99)
[2020-04-24] MEDS: CLOTRIMAZOLE/BETAMETH 1-0.05% CREAM 45 GM TUBE TOPICAL SCH (20:56)
[2020-04-25] MEDS: methylPREDNISolone SOD SUCCI 125 MG/2 ML VIAL IV SCH ×5 (00:14→23:40)
[2020-04-25 06:02] LABS: Glucose,Whole Blood 193 mg/dL (75-99)
[2020-04-25] MEDS: INSULIN ASPART (NovoLOG) 100 UNIT/ML VIAL SQ SCH ×4 (06:23→20:44)
[2020-04-25] MEDS: HEPARIN SOD,PORK IN 0.45% NACL 25,000 UNIT in 0.45% NACL 1 250ML.BAG IV SCH ×2 (06:27→17:31)
[2020-04-25] MEDS ORDERED: LEVOTHYROXINE 100 MCG TAB PO SCH (06:30)
[2020-04-25] MEDS: METOPROLOL TARTRATE 25 MG TAB PO SCH ×2 (08:11→20:43)
[2020-04-25] MEDS: AZITHROMYCIN 500 MG TAB PO SCH (08:11)
[2020-04-25] MEDS: PANTOPRAZOLE 40 MG TABLET PO SCH (08:11)
[2020-04-25] MEDS: ASPIRIN 81 MG PO SCH (08:11)
[2020-04-25] MEDS: CLOTRIMAZOLE/BETAMETH 1-0.05% CREAM 45 GM TUBE TOPICAL SCH ×2 (08:12→20:43)
[2020-04-25] MEDS: FORMOTEROL FUMARATE 20 MCG/2 ML NEBU INHALATION SCH ×2 (08:15→20:11)
[2020-04-25] MEDS: BUDESONIDE 1 MG/2 ML NEBU INHALATION SCH ×2 (08:15→20:11)
[2020-04-25] MEDS: IPRATROPIUM-ALBUTEROL 3 ML NEB INHALATION SCH ×4 (08:15→20:11)
[2020-04-25] MEDS: LEVOTHYROXINE 100 MCG TAB PO SCH (09:20)
[2020-04-25] MEDS: ALPRAZolam 0.25 MG TAB PO PRN ×2 (09:25→20:42)
[2020-04-25 09:37] LABS: Basophils % (A) 0 %; Eosinophils % (A) 0 %; HCT 42.7 % (34.0-46.0); HGB 13.4 gm/dL (11.4-16.0); Hypochromasia Slight; Lymphocytes # (A) 0.7 k/uL (1.0-4.8); Lymphocytes % (A) 3 %; MCH 30.6 pg (25.0-35.0); MCHC 31.2 g/dL (31.0-37.0); MCV 98.1 fL (80.0-100.0); Mean Platelet Volume 8.8; Monocytes % (A) 5 %; Neutrophils % (A) 92 %; Platelet Count 268 k/uL (150-450); RBC 4.36 m/uL (3.80-5.40); WBC 21.9 k/uL (3.8-10.6)
[2020-04-25 10:17] LABS: INR 1.1 (<1.2); Partial Thromboplastin Time 98.1 sec (22.0-30.0); Prothrombin Time 11.3 sec (9.0-12.0)
[2020-04-25 10:36] LABS: Calcium 8.2 mg/dL (8.4-10.2); Potassium 4.8 mmol/L (3.5-5.1)
--- NOTE | 2020-04-25 10:47 | P.PN ---
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 She presents because of 2 days of worsening shortness of breath with coughing and with some phlegm and no chest pain or fever. Patient was very anxious and wanted her mask to be taken off, however she agrees to keep it on with small doses of benzodiazepine 0.5 mg She denies change in urine or bowel habits. Denies headache, syncope or dizziness. No weakness or numbness She denies smoking, alcohol or illicit drugs On admission Vitas looks stable except for patient feels tachypneic at 26 which is improved with BiPAP which was present on admission with oxygen saturation of 97% Labs showing leukocytosis of 15.1 K, INR 0.9, d-dimer is elevated at 9.2. Lactic acid elevated at 6.4, coming down to 2.4 procalcitonin is 0.08, coronavirus not detected VQ scan showed low probability for PE, Doppler of the lower extremity is negative for DVT. Echocardiogram showing normal ejection fraction of 55-60% with severe concentric left ventricular hypertrophy 04/24/2020 Patient is fully awake and alert, more calm and less in respiratory distress compared to yesterday, she is on BiPAP with a breathing rate of about 48. She still have some wheezing. She is oxygen saturation 97% while on BiPAP. She has leukocytosis of 15.6. Creatinine is slightly down to 1.9 Chest x-ray showing right sided pneumonia, possible pulmonary edema Yesterday patient become unresponsive because of extra dose of benzodiazepine, she was placed also on heparin drip and metoprolol added for elevated troponin. Cardiology team on the case 04/25/2020 This is a pleasant 69 years old female who was admitted with respiratory distress needind BiPAP for the first 24-48 hours. Her respiratory status improved however she still dyspneic needing 5-6 L oxygen and she is somewhat tachypneic. She is coughing but denies chest pain. There are some Vitas looks stable. Her leukocytosis went up to 21.9 but she is on steroids. Creatinine is stable at 1.9. Her pro-calcitonin is elevated at 7.8 Patient currently is covered with Rocephin and Zithromax. Also she is on some Medrol 60 mg per pulmonology team recommendation. She is on heparin drip for high troponin. Bellows Assembler recommended discontinue heparin and 24 hours Losartan stopped due to EFREN. No reflux is added for hypertension Review of Systems CONSTITUTIONAL: No fever, no malaise, no fatigue. HEENT: No recent visual problems or hearing problems. Denied any sore throat. CARDIOVASCULAR: No PND, no palpitations, no syncope. -PULMONARY: No chest wall tenderness, no hemoptysis. GASTROINTESTINAL: No diarrhea, no nausea, no vomiting, no abdominal pain. Normoactive bowel sounds. NEUROLOGICAL: No headaches, no weakness, no numbness. Active Medications Generic Name Dose Route Start Last Admin Trade Name Freq PRN Reason Stop Dose Admin Albuterol/Ipratropium 3 ml 04/23/20 12:00 04/25/20 08:15 Ipratropium-Albuterol 3 Ml Neb INHALATION 3 ml RT-QID JORI Administration Albuterol/Ipratropium 3 ml 04/23/20 10:54 Ipratropium-Albuterol 3 Ml Neb INHALATION RT-Q4H PRN shortness of breath Alprazolam 0.25 mg 04/25/20 08:47 04/25/20 09:25 Alprazolam 0.25 Mg Tab PO 0.25 mg BID PRN Administration Anxiety Aspirin 81 mg 04/24/20 09:00 04/25/20 08:11 Aspirin 81 Mg PO 81 mg DAILY JORI Administration Azithromycin 500 mg 04/24/20 09:00 04/25/20 08:11 Azithromycin 500 Mg Tab PO 04/28/20 09:01 500 mg DAILY JORI Administration Betamethasone/Clotrimazole 1 applic 04/24/20 21:00 04/25/20 08:12 Clotrimazole/Betameth 1-0.05% Cream 45 Gm Tube TOPICAL 1 applic BID JORI Administration Budesonide 1 mg 04/23/20 20:00 04/25/20 08:15 Budesonide 1 Mg/2 Ml Nebu INHALATION 1 mg RT-BID JORI Administration Formoterol Fumarate 20 mcg 04/23/20 20:00 04/25/20 08:15 Formoterol Fumarate 20 Mcg/2 Ml Nebu INHALATION 20 mcg RT-BID JORI Administration Heparin Sodium (Porcine) 0 unit 04/23/20 11:36 Heparin Sodium,Porcine 5,000 Unit/Ml 1 Ml Vial IV PER PROTOCOL PRN Low PTT Protocol Ceftriaxone Sodium 2 gm/ 50 mls @ 100 mls/hr 04/24/20 09:00 04/25/20 08:11 Sodium Chloride IVPB 04/26/20 09:01 100 mls/hr Q24HR JORI Administration Heparin Sodium/Sodium Chloride 250 mls @ 19.758 mls/hr 04/23/20 11:45 04/25/20 10:27 25,000 unit/ Sodium Chloride IV 0 units/kg/hr .[id number] JORI 0 mls/hr Titration Protocol 18 UNITS/KG/HR Insulin Aspart 0 unit 04/23/20 12:30 04/25/20 06:23 Insulin Aspart (Novolog) 100 Unit/Ml Vial SQ 2 unit ACHS JORI Administration Protocol Levothyroxine Sodium 200 mcg 04/25/20 08:30 04/25/20 09:20 Levothyroxine 100 Mcg Tab PO 200 mcg 0630 JORI Administration Methylprednisolone Sodium Succinate 60 mg 04/23/20 18:00 04/25/20 06:23 Methylprednisolone Sod Succi 125 Mg/2 Ml Vial IV 60 mg Q6HR JORI Administration Metoprolol Tartrate 25 mg 04/24/20 09:00 04/25/20 08:11 Metoprolol Tartrate 25 Mg Tab PO 25 mg BID JORI Administration Miscellaneous Information 1 each 04/23/20 10:54 Pneumonia Protocol Utilized 1 Each Misc PO ONCE PRN Per Protocol Naloxone HCl 0.2 mg 04/23/20 11:32 Naloxone 0.4 Mg/Ml 1 Ml Vial IV Q2M PRN Opioid Reversal Pantoprazole Sodium 40 mg 04/25/20 09:00 04/25/20 08:11 Pantoprazole 40 Mg Tablet PO 40 mg DAILY JORI Administration Objective - Vital Signs Vital signs: Vital Signs Temp 98.3 F 04/25/20 08:00 Pulse 100 04/25/20 08:40 Resp 27 H 04/25/20 08:00 BP 175/102 04/25/20 08:00 Pulse Ox 95 04/25/20 08:00 Intake & Output 04/24/20 04/25/20 04/25/20 18:59 06:59 18:59 Intake Total 77.729 172.271 60.372 Output Total 600 Balance -522.271 172.271 60.372 Weight 106.5 kg Intake: Intake, IV Titration 77.729 172.271 60.372 Amount Heparin Sod,Pork in 0.45% 77.729 172.271 60.372 NaCl 25,000 unit In 0.45 % NaCl 1 250ml.bag @ 18 UNITS/KG/HR 19.758 mls/hr IV .[id number] [facility] Rx#: [id number] Output: Urine 600 Other: Voiding Method Bedpan Bedpan Bedpan # Voids 1 1 # Bowel Movements 1 - Exam -GENERAL: The patient is alert and oriented x3, in mild to moderate respiratory distress, on BiPAP, she looks anxious, has orthopnea HEENT: Pupils are round and equally reacting to light. EOMI. No scleral icterus. No conjunctival pallor. Normocephalic, atraumatic. No pharyngeal erythema. No thyromegaly. CARDIOVASCULAR: S1 and S2 present. No murmurs, rubs, or gallops. -PULMONARY: Chest is clear to auscultation, bilateral scattered wheezing ABDOMEN: Soft, nontender, nondistended, normoactive bowel sounds. No palpable organomegaly. MUSCULOSKELETAL: No joint swelling or deformity. EXTREMITIES: No cyanosis, clubbing, or pedal edema. NEUROLOGICAL: Gross neurological examination did not reveal any focal deficits. SKIN: No rashes. No petechiae - Labs CBC & Chem 7: 04/25/20 08:37 04/25/20 08:37 Labs: Abnormal Lab Results - Last 24 Hours (Table) 04/24/20 04/24/20 04/24/20 Range/Units 11:55 16:54 20:37 WBC (3.8-10.6) k/uL Neutrophils # (1.3-7.7) k/uL Lymphocytes # (1.0-4.8) k/uL APTT (22.0-30.0) sec Chloride (98-107) mmol/L Carbon Dioxide (22-30) mmol/L BUN (7-17) mg/dL Creatinine (0.52-1.04) mg/dL Glucose (74-99) mg/dL POC Glucose (mg/dL) 150 H 156 H 222 H (75-99) mg/dL Calcium (8.4-10.2) mg/dL 04/25/20 04/25/20 04/25/20 Range/Units 06:01 08:37 08:37 WBC (3.8-10.6) k/uL Neutrophils # (1.3-7.7) k/uL Lymphocytes # (1.0-4.8) k/uL APTT 98.1 H (22.0-30.0) sec Chloride 111 H (98-107) mmol/L Carbon Dioxide 20 L (22-30) mmol/L BUN 61 H (7-17) mg/dL Creatinine 1.94 H (0.52-1.04) mg/dL Glucose 200 H (74-99) mg/dL POC Glucose (mg/dL) 193 H (75-99) mg/dL Calcium 8.2 L (8.4-10.2) mg/dL 04/25/20 Range/Units 08:37 WBC 21.9 H (3.8-10.6) k/uL Neutrophils # 20.0 H (1.3-7.7) k/uL Lymphocytes # 0.7 L (1.0-4.8) k/uL APTT (22.0-30.0) sec Chloride (98-107) mmol/L Carbon Dioxide (22-30) mmol/L BUN (7-17) mg/dL Creatinine (0.52-1.04) mg/dL Glucose (74-99) mg/dL POC Glucose (mg/dL) (75-99) mg/dL Calcium (8.4-10.2) mg/dL Microbiology - Last 24 Hours (Table) 04/23/20 11:09 Blood Culture - Preliminary Blood No Growth after 24 hours Assessment and Plan Assessment: Acute hypoxic respiratory failure Most likely right-sided pneumonia, rather than acute asthma exacerbation Rule out acute diastolic CHF, echocardiogram showing severe concentric left ventricular hypertrophy Elevated troponin, rule out cardiac disease. Could be also due to elevated creatinine Elevated creatinine, no baseline. Acute kidney injury versus chronic kidney disease Hyperglycemia Mildly elevated liver enzymes Elevated lactic acid Plan: This is a pleasant 69 years old female who presents with asthma and high troponin. Continue with steroids, continue with oxygen as needed and BiPAP. Pulmonary and cardiology consult. Labs and medication were reviewed.. Continue same treatment. Continue with symptomatic treatment. Resume home medication. Monitor lytes and vitals. DVT and GI prophylaxis. Further recommendations depends on the clinical course of the patient DVT prophylaxis: heparin GI Prophylaxis: Ppi PT/OT: Pending Prognosis is guarded
[2020-04-25] MEDS: amLODIPine 5 MG TAB PO SCH (11:25)
[2020-04-25 11:51] LABS: Glucose,Whole Blood 216 mg/dL (75-99)
--- NOTE | 2020-04-25 15:43 | P.PN ---
Subjective Progress Note Date: 04/25/20 Principal diagnosis: Shortness of breath. 69-year-old female who does not see doctors in this area but rather sees physicians at [facility], who apparently comes into the emergency room, brought in by EMS, for difficulty in breathing. Apparently, for the last day or 2, the patient's breathing has gotten more difficult. She apparently became unresponsive according to her family. The patient was found by EMS to be awake and short of breath. Her pulse ox saturations were 88%. The patient was therefore placed on CPAP. She apparently carries with her a diagnosis of asthma, hypothyroidism, and hypertension. Again, we do not see her in this area. 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 Currently, in the emergency department, she is on BiPAP, with settings of 12/6 and 60%. Currently, the patient appears to be short of breath. She also seemed a little lethargic and sleepy. There is no audible wheezing. She was not using accessory muscles. She did have some mild conversational dyspnea, she was made worse by the BiPAP mask. The patient denied any fever or chills. The patient also denied any cough or phlegm production. She was not having any chest pain or chest discomfort. The patient end terminal proBNP was elevated and her chest x-ray my opinion was consistent with either fluid overload/heart failure versus possible pneumonia. She was behaving more like heart failure and she did have lower extremity edema. The patient is seen today 09/22/2020 and follow-up on the selective care unit. She is currently resting comfortably in bed. Awake and alert in no acute distress. Maintained on BiPAP 12/6 and 50% FiO2. 0.9 normal sinus 25 ML's per hour. Currently on a heparin drip. Chest x-ray reveals bilateral airspace disease. No pneumothorax. Possible pulmonary edema. Echocardiogram reveals preserved left ventricular systolic function with ejection fraction 55-60% Dopplers were negative for DVT of the bilateral lower extremities. Sodium 142. Potassium 4.7. Creatinine 1.90. White count 15.6. Hemoglobin 13.1. Peak t roponin 2.16. Pro-calcitonin 7.82. She remains on ceftriaxone and azithromycin along with bronchodilators. Progress note dated 04/25/2020. Currently, the patient's on 6 L nasal cannula. She is afebrile. Heart rate is 83, and respiratory rate is about 20 breaths per minute. She remains on a he alla drip, via weightbase protocol, and saline at 20 mL an hour. The patient appears to be resting comfortably. She has no complaints today. Currently, white count is 21.9, hemoglobin 13.4, hematocrit 42.7, and platelet count 268,000. Sodium is 140 with a potassium of 4.8, chloride is 111, CO2 20, anion gap 9, BUN 61, and creatinine 1.94. She carries with her a diagnosis of hypertension, hypothyroidism, and chronic bronchial asthma. Objective - Vital Signs Vital signs: Vital Signs Temp 98.3 F 04/25/20 08:00 Pulse 83 04/25/20 12:46 Resp 24 04/25/20 12:46 BP 160/90 04/25/20 11:40 Pulse Ox 92 L 04/25/20 11:40 Intake & Output 04/24/20 04/25/20 04/25/20 18:59 06:59 18:59 Intake Total 77.729 172.271 60.372 Output Total 600 300 Balance -522.271 172.271 -239.628 Weight 106.5 kg Intake: Intake, IV Titration 77.729 172.271 60.372 Amount Heparin Sod,Pork in 0.45% 77.729 172.271 60.372 NaCl 25,000 unit In 0.45 % NaCl 1 250ml.bag @ 18 UNITS/KG/HR 19.758 mls/hr IV .[id number] [facility] Rx#: [id number] Output: Urine 600 300 Other: Voiding Method Bedpan Bedpan Bedpan # Voids 1 1 # Bowel Movements 1 - Exam No acute distress, oriented 3. Currently, the patient's on 6 L nasal cannula. HEENT examination is grossly unremarkable. Mucous membranes are moist. No oral lesions. Neck supple. Full range of motion. No adenopathy thyromegaly or neck vein distention. Cardiovascular examination reveals regular rhythm rate. S1-S2 normal. No S3 or S4. No discernible murmur noted. Lungs reveal bibasilar crackles. Breath sounds equal. No wheezes or rhonchi.. Abdomen soft bowel sounds are heard. No masses or tenderness. Extremities are intact. No cyanosis clubbing or edema. Skin is without rash or lesion. Neurologic examination is brief but nonfocal. - Labs CBC & Chem 7: 04/25/20 08:37 04/25/20 08:37 Labs: Abnormal Lab Results - Last 24 Hours (Table) 04/24/20 04/24/20 04/25/20 Range/Units 16:54 20:37 06:01 WBC (3.8-10.6) k/uL Neutrophils # (1.3-7.7) k/uL Lymphocytes # (1.0-4.8) k/uL APTT (22.0-30.0) sec Chloride (98-107) mmol/L Carbon Dioxide (22-30) mmol/L BUN (7-17) mg/dL Creatinine (0.52-1.04) mg/dL Glucose (74-99) mg/dL POC Glucose (mg/dL) 156 H 222 H 193 H (75-99) mg/dL Calcium (8.4-10.2) mg/dL 04/25/20 04/25/20 04/25/20 Range/Units 08:37 08:37 08:37 WBC 21.9 H (3.8-10.6) k/uL Neutrophils # 20.0 H (1.3-7.7) k/uL Lymphocytes # 0.7 L (1.0-4.8) k/uL APTT 98.1 H (22.0-30.0) sec Chloride 111 H (98-107) mmol/L Carbon Dioxide 20 L (22-30) mmol/L BUN 61 H (7-17) mg/dL Creatinine 1.94 H (0.52-1.04) mg/dL Glucose 200 H (74-99) mg/dL POC Glucose (mg/dL) (75-99) mg/dL Calcium 8.2 L (8.4-10.2) mg/dL 04/25/20 Range/Units 11:38 WBC (3.8-10.6) k/uL Neutrophils # (1.3-7.7) k/uL Lymphocytes # (1.0-4.8) k/uL APTT (22.0-30.0) sec Chloride (98-107) mmol/L Carbon Dioxide (22-30) mmol/L BUN (7-17) mg/dL Creatinine (0.52-1.04) mg/dL Glucose (74-99) mg/dL POC Glucose (mg/dL) 216 H (75-99) mg/dL Calcium (8.4-10.2) mg/dL Microbiology - Last 24 Hours (Table) 04/23/20 11:09 Blood Culture - Preliminary Blood No Growth after 48 hours Assessment and Plan Assessment: Acute hypoxemic respiratory failure, likely multifactorial, in part related to the patient's underlying chronic bronchial asthma, possible pneumonia, and probable CHF/heart failure. Elevated troponins, rule out cardiac ischemia. Obesity. History of chronic bronchial asthma. History of hypertension. History of hypothyroidism. Plan: Plan dated 04/25/2020. Currently, the patient seemed to be doing better. We first met her, she was in the trauma one room in the emergency department. At that time, she was requiring BiPAP. Currently, the patient's on 6 L nasal cannula. She remains on IV heparin. Her saline IV is running at 20 mL an hour. Her respiratory status is much improved. Chest x-ray, dated 04/24/2020 is consistent with either pneumonia and/or heart failure. The patient remains on albuterol sulfate and ipratropium bromide, corticosteroids, as well as Pulmicort and formoterol. We will continue to follow. Prognosis is guarded. No additional recommendations are made at this time. Time with Patient: Less than 30
[2020-04-25 16:53] LABS: Glucose,Whole Blood 199 mg/dL (75-99)
--- NOTE | 2020-04-25 19:14 | P.PN ---
Subjective HISTORY OF PRESENTING ILLNESS This is a pleasant 69-year-old female past medical history significant for hypertension, asthma, hypothyroidism and possible myocardial infarction in the past exact details unavailable. She follows in the office with a office machinery or equipment installer at [facility]. We have been asked to see in consultation for shortness of breath. She presented to the hospital with symptoms of shortness of breath that was somewhat of an acute onset. She denies any symptoms of chest pain, dizziness or palpitations. EMS arrived and found her pulse ox to be 88%. She was transported to the hospital where BiPAP was applied. She has been initiated on IV antibiotics along with steroids and IV heparin secondary to elevated troponin. The patient states approximately 2 years ago she had a similar type respiratory illness and was treated at [facility] at that time she was told she had a mild heart attack however to h er recollection she never underwent cardiac catheterization. She denies any stents or open heart surgery. Echocardiogram obtained on this admission reveals preserved LV systolic function with ejection fraction 55-60%, mild tricuspid regurgitation and ascending aorta dilation measuring 4.2 cm. 04/25/20 Patient seen and examined. Patient feels her breathing is somewhat more labored today. She denies any chest pain or pressure. She states overall she is not feeling as well as yesterday mainly from a respiratory standpoint however has not been on the BiPAP recently. REVIEW OF SYSTEMS At the time of my exam: CONSTITUTIONAL: Denies fever or chills. CARDIOVASCULAR: Complains of shortness of breath. Denies chest pain, shortness of breath, orthopnea, PND or palpitations. RESPIRATORY: Denies cough. GASTROINTESTINAL: Denies abdominal pain, diarrhea, constipation, nausea or vomiting. MUSCULOSKELETAL: Denies myalgias. NEUROLOGIC: Denies numbness, tingling, headacbe or weakness. ENDOCRINE: Denies fatigue, weight change, polydipsia or polyurina. GENITOURINARY: Denies burning, hematuria or urgency with micturation. HEMATOLOGIC: Denies history of anemia or bleeding. PHYSICAL EXAMINATION Blood pressure 145/72 heart rate 86 afebrile and maintaining oxygen saturation on 6 L high flow CONSTITUTIONAL: Ill-appearing HEENT: Head is normocephalic. Pupils are equal, round. Sclerae anicteric. Mucous membranes of the mouth are moist. No JVD. No carotid bruit. CHEST EXAMINATION: Scattered rhonchi, faint expiratory wheeze, no rales. No chest wall tenderness is noted on palpation or with deep breathing. HEART EXAMINATION: Regular rate and rhythm. S1, S2 heard. No murmurs, gallops or rub. ABDOMEN: Soft, nontender. Positive bowel sounds. EXTREMITIES: 2+ peripheral pulses, left lower extremity 2+ pitting edema and erythema, trace edema on the right and no calf tenderness. NEUROLOGIC EXAMINATION: Patient is awake, alert and oriented x3. ASSESSMENT Pneumonia Leukocytosis Lactic acidosis Acute kidney injury Non-ST elevated myocardial infarction Hypertension Obesity, BMI 36 Acute on chronic respiratory failure PLAN Patient's clinical picture more infectious in nature with elevated procalcitonin, leukocytosis and lactic acidosis. She may have a component of fluid overload secondary to acute kidney injury, diastolic heart failure. Continue heparin infusion pending further workup Continue aspirin 81 mg daily. Hold irbesartan due to EFREN and repeat BMP in the morning. Request records from her office machinery or equipment installer on Sunday. If fluid status or heart failure is a concern or if her respiratory status is deteriorating, may consider right heart catheterization to assess left and righ t-sided filling pressures however suspicion of majority of symptoms related to infectious etiology at this time. Objective - Vital Signs Vital signs: Vital Signs Temp 98.3 F 04/25/20 08:00 Pulse 86 04/25/20 16:00 Resp 22 04/25/20 16:00 BP 145/72 04/25/20 16:00 Pulse Ox 97 04/25/20 16:00 Intake & Output 04/25/20 04/25/20 04/26/20 06:59 18:59 06:59 Intake Total 172.271 139.910 Output Total 300 Balance 172.271 -160.090 Weight 106.5 kg Intake: Intake, IV Titration 172.271 139.910 Amount Heparin Sod,Pork in 0.45% 172.271 139.910 NaCl 25,000 unit In 0.45 % NaCl 1 250ml.bag @ 18 UNITS/KG/HR 19.758 mls/hr IV .[id number] ON LICENSE OF [facility] Rx#: [id number] Output: Urine 300 Other: Voiding Method Bedpan Bedpan # Voids 1 # Bowel Movements 1 - Labs CBC & Chem 7: 04/25/20 08:37 04/25/20 08:37 Labs: Abnormal Lab Results - Last 24 Hours (Table) 04/24/20 04/25/20 04/25/20 Range/Units 20:37 06:01 08:37 WBC (3.8-10.6) k/uL Neutrophils # (1.3-7.7) k/uL Lymphocytes # (1.0-4.8) k/uL APTT 98.1 H (22.0-30.0) sec Chloride (98-107) mmol/L Carbon Dioxide (22-30) mmol/L BUN (7-17) mg/dL Creatinine (0.52-1.04) mg/dL Glucose (74-99) mg/dL POC Glucose (mg/dL) 222 H 193 H (75-99) mg/dL Calcium (8.4-10.2) mg/dL 04/25/20 04/25/20 04/25/20 Range/Units 08:37 08:37 11:38 WBC 21.9 H (3.8-10.6) k/uL Neutrophils # 20.0 H (1.3-7.7) k/uL Lymphocytes # 0.7 L (1.0-4.8) k/uL APTT (22.0-30.0) sec Chloride 111 H (98-107) mmol/L Carbon Dioxide 20 L (22-30) mmol/L BUN 61 H (7-17) mg/dL Creatinine 1.94 H (0.52-1.04) mg/dL Glucose 200 H (74-99) mg/dL POC Glucose (mg/dL) 216 H (75-99) mg/dL Calcium 8.2 L (8.4-10.2) mg/dL 04/25/20 04/25/20 Range/Units 15:24 16:38 WBC (3.8-10.6) k/uL Neutrophils # (1.3-7.7) k/uL Lymphocytes # (1.0-4.8) k/uL APTT 44.2 H (22.0-30.0) sec Chloride (98-107) mmol/L Carbon Dioxide (22-30) mmol/L BUN (7-17) mg/dL Creatinine (0.52-1.04) mg/dL Glucose (74-99) mg/dL POC Glucose (mg/dL) 199 H (75-99) mg/dL Calcium (8.4-10.2) mg/dL Microbiology - Last 24 Hours (Table) 04/23/20 11:09 Blood Culture - Preliminary Blood No Growth after 48 hours
[2020-04-25 20:21] LABS: Glucose,Whole Blood 196 mg/dL (75-99)
[2020-04-26] MEDS: LEVOTHYROXINE 100 MCG TAB PO SCH (06:26)
[2020-04-26] MEDS: methylPREDNISolone SOD SUCCI 125 MG/2 ML VIAL IV SCH ×3 (06:31→17:25)
[2020-04-26 06:34] LABS: Glucose,Whole Blood 173 mg/dL (75-99)
[2020-04-26] MEDS: INSULIN ASPART (NovoLOG) 100 UNIT/ML VIAL SQ SCH ×4 (06:57→21:55)
[2020-04-26] MEDS: HEPARIN SOD,PORK IN 0.45% NACL 25,000 UNIT in 0.45% NACL 1 250ML.BAG IV SCH (06:58)
[2020-04-26 07:28] LABS: Basophils % (A) 0 %; Eosinophils % (A) 0 %; HCT 40.5 % (34.0-46.0); HGB 13.1 gm/dL (11.4-16.0); Hypochromasia Slight; Lymphocytes # (A) 0.3 k/uL (1.0-4.8); Lymphocytes % (A) 2 %; MCH 31.6 pg (25.0-35.0); MCHC 32.2 g/dL (31.0-37.0); MCV 98.1 fL (80.0-100.0); Mean Platelet Volume 8.3; Monocytes # (A) 0.6 k/uL (0-1.0); Monocytes % (A) 4 %; Neutrophils # (A) 16.3 k/uL (1.3-7.7); Neutrophils % (A) 94 %; Platelet Count 208 k/uL (150-450); RBC 4.13 m/uL (3.80-5.40); RDW 12.6 % (11.5-15.5); WBC 17.3 k/uL (3.8-10.6)
[2020-04-26 07:34] LABS: Partial Thromboplastin Time 63.4 sec (22.0-30.0); Prothrombin Time 10.7 sec (9.0-12.0)
[2020-04-26] MEDS: IPRATROPIUM-ALBUTEROL 3 ML NEB INHALATION SCH ×4 (08:30→19:15)
[2020-04-26] MEDS: FORMOTEROL FUMARATE 20 MCG/2 ML NEBU INHALATION SCH ×2 (08:30→19:14)
[2020-04-26] MEDS: BUDESONIDE 1 MG/2 ML NEBU INHALATION SCH ×2 (08:30→19:14)
[2020-04-26] MEDS: amLODIPine 5 MG TAB PO SCH (08:53)
[2020-04-26] MEDS: PANTOPRAZOLE 40 MG TABLET PO SCH (08:53)
[2020-04-26] MEDS: ASPIRIN 81 MG PO SCH (08:53)
[2020-04-26] MEDS: METOPROLOL TARTRATE 25 MG TAB PO SCH ×2 (08:53→21:54)
[2020-04-26] MEDS: AZITHROMYCIN 500 MG TAB PO SCH (08:53)
[2020-04-26] MEDS: ALPRAZolam 0.25 MG TAB PO PRN ×2 (08:54→21:54)
[2020-04-26] MEDS: CLOTRIMAZOLE/BETAMETH 1-0.05% CREAM 45 GM TUBE TOPICAL SCH ×2 (08:58→21:57)
--- NOTE | 2020-04-26 10:49 | P.PN ---
Subjective Progress Note Date: 04/26/20 69-year-old female who does not see doctors in this area but rather sees physicians at [facility], who apparently comes into the emergency room, brought in by EMS, for difficulty in breathing. Apparently, for the last day or 2, the patient's breathing has gotten more difficult. She apparently became unresponsive according to her family. The patient was found by EMS to be awake and short of breath. Her pulse ox saturations were 88%. The patient was therefore placed on CPAP. She apparently carries with her a diagnosis of asthma, hypothyroidism, and hypertension. Again, we do not see her in this area. She sees a meeting planner at [facility]. Currently, in the emergency department, she is on BiPAP, with settings of 12/6 and 60%. Currently, the patient appears to be short of breath. She also seemed a little lethargic and sleepy. She has been initiated on IV antibiotics along with steroids and IV heparin secondary to elevated troponin. The patient states approximately 2 years ago she had a similar type respiratory illness and was treated at [facility] at that time she was told she had a mild heart attack however to her recollection she never underwent cardiac catheterization. She denies any stents or open heart surgery. Echocardiogram obtained on this admission reveals preserved LV systolic function with ejection fraction 55-60%, mild tricuspid regurgitation and ascending aorta dilation measuring 4.2 cm. Sodium 142. Potassium 4.7. Creatinine 1.90. White count 15.6. Hemoglobin 13.1. Peak troponin 2.16. Pro-calcitonin 7.82. She remains on ceftriaxone and azithromycin along with bronchodilators. The procalcitonin is elevated the CXR is showing a consolidation of the RLL consistent with pneumonias. On 04/26/2020, the patient was sent remains to be elevated. The patient is still on BiPAP at a pressure of 12/6 cm of water with an FiO2 of 50%. Earlier this morning, while having breakfast, she was taken off the BiPAP. She does much better while on the BiPAP. On examination, she is still having crackles in lung bases bilaterally. The chest x-ray was showing breath and pulmonary infiltrates worse on the right. No fever. No altered mentation. Her minute ventilation is still high as 15 L and the patient is able to generate tidal volumes of about 500 respiratory rate ranging between 30 and 32. Objective - Vital Signs Vital signs: Vital Signs Temp 98.2 F 04/26/20 08:00 Pulse 82 04/26/20 08:40 Resp 20 04/26/20 08:00 BP 170/102 04/26/20 08:00 Pulse Ox 94 L 04/26/20 09:04 Intake & Output 04/25/20 04/26/20 04/26/20 18:59 06:59 18:59 Intake Total 139.910 600 125 Output Total 300 1000 260 Balance -160.090 -400 -135 Weight 109 kg Intake: Intake, IV Titration 139.910 Amount Heparin Sod,Pork in 0.45% 139.910 NaCl 25,000 unit In 0.45 % NaCl 1 250ml.bag @ 18 UNITS/KG/HR 19.758 mls/hr IV .[id number] JORI Rx#: [id number] Oral 600 125 Output: Urine 300 1000 260 Other: Voiding Method Bedpan External Catheter External Catheter # Voids 1 - Exam No acute distress, oriented 3. Currently, patient is on BiPAP. Nevertheless she is alternating between BiPAP and high flow oxygen by nasal cannula HEENT examination is grossly unremarkable. Mucous membranes are moist. No oral lesions. Neck supple. Full range of motion. No adenopathy thyromegaly or neck vein distention. Cardiovascular examination reveals regular rhythm rate. S1-S2 normal. No S3 or S4. No discernible murmur noted. Lungs reveal bibasilar crackles. Breath sounds equal. No wheezes or rhonchi.. Abdomen soft bowel sounds are heard. No masses or tenderness. Extremities are intact. No cyanosis clubbing or edema. Skin is without rash or lesion. Neurologic examination is brief but nonfocal. - Labs CBC & Chem 7: 04/26/20 06:50 04/25/20 08:37 Labs: Abnormal Lab Results - Last 24 Hours (Table) 04/25/20 04/25/20 04/25/20 Range/Units 11:38 15:24 16:38 WBC (3.8-10.6) k/uL Neutrophils # (1.3-7.7) k/uL Lymphocytes # (1.0-4.8) k/uL APTT 44.2 H (22.0-30.0) sec POC Glucose (mg/dL) 216 H 199 H (75-99) mg/dL 04/25/20 04/26/20 04/26/20 Range/Units 20:12 06:24 06:50 WBC 17.3 H (3.8-10.6) k/uL Neutrophils # 16.3 H (1.3-7.7) k/uL Lymphocytes # 0.3 L (1.0-4.8) k/uL APTT (22.0-30.0) sec POC Glucose (mg/dL) 196 H 173 H (75-99) mg/dL 04/26/20 Range/Units 06:50 WBC (3.8-10.6) k/uL Neutrophils # (1.3-7.7) k/uL Lymphocytes # (1.0-4.8) k/uL APTT 63.4 H (22.0-30.0) sec POC Glucose (mg/dL) (75-99) mg/dL Microbiology - Last 24 Hours (Table) 04/23/20 11:09 Blood Culture - Preliminary Blood No Growth after 48 hours Assessment and Plan Plan: 1 Acute hypoxemic respiratory failure, likely multifactorial, in part related to the patient's underlying chronic bronchial asthma, bilateral pneumonia (right more than left), and probable CHF/heart failure. Patient is on a combination of antibiotics including Rocephin and zithromax. Echo showed a normal LV function 2 Elevated troponins, rule out cardiac ischemia. 3 Obesity. 4 History of chronic bronchial asthma. 5 History of hypertension. 6 History of hypothyroidism. 7 EFREN, improving Plan: Obtain follow-up chest x-ray, patient is back on BiPAP, she states she is uncomfortable BiPAP nasal cannula. We'll prevent breaks off the BiPAP and high flow nasal cannula for meals. Continue same antibiotics. We'll obtain CT chest Inflammatory markers The patient remains on albuterol sulfate and ipratropium bromide, corticosteroids, as well as Pulmicort and formoterol. We will continue to follow. Prognosis is guarded. Time with Patient: Less than 30
--- NOTE | 2020-04-26 10:54 | P.PN ---
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 She presents because of 2 days of worsening shortness of breath with coughing and with some phlegm and no chest pain or fever. Patient was very anxious and wanted her mask to be taken off, however she agrees to keep it on with small doses of benzodiazepine 0.5 mg She denies change in urine or bowel habits. Denies headache, syncope or dizziness. No weakness or numbness She denies smoking, alcohol or illicit drugs On admission Vitas looks stable except for patient feels tachypneic at 26 which is improved with BiPAP which was present on admission with oxygen saturation of 97% Labs showing leukocytosis of 15.1 K, INR 0.9, d-dimer is elevated at 9.2. Lactic acid elevated at 6.4, coming down to 2.4 procalcitonin is 0.08, coronavirus not detected VQ scan showed low probability for PE, Doppler of the lower extremity is negative for DVT. Echocardiogram showing normal ejection fraction of 55-60% with severe concentric left ventricular hypertrophy 04/24/2020 Patient is fully awake and alert, more calm and less in respiratory distress compared to yesterday, she is on BiPAP with a breathing rate of about 48. She still have some wheezing. She is oxygen saturation 97% while on BiPAP. She has leukocytosis of 15.6. Creatinine is slightly down to 1.9 Chest x-ray showing right sided pneumonia, possible pulmonary edema Yesterday patient become unresponsive because of extra dose of benzodiazepine, she was placed also on heparin drip and metoprolol added for elevated troponin. Cardiology team on the case 04/25/2020 This is a pleasant 69 years old female who was admitted with respiratory distress needind BiPAP for the first 24-48 hours. Her respiratory status improved however she still dyspneic needing 5-6 L oxygen and she is somewhat tachypneic. She is coughing but denies chest pain. There are some Vitas looks stable. Her leukocytosis went up to 21.9 but she is on steroids. Creatinine is stable at 1.9. Her pro-calcitonin is elevated at 7.8 Patient currently is covered with Rocephin and Zithromax. Also she is on some Medrol 60 mg per pulmonology team recommendation. She is on heparin drip for high troponin. Real Estate Leasing Manager recommended discontinue heparin and 24 hours Losartan stopped due to EFREN. No reflux is added for hypertension 04/26/2020 Patient is awake and sitting up in bed, she uses BiPAP most of the time however this morning when she was off BiPAP for eating she was really tachypneic with breathing rate 22 through 26/m, her oxygen saturation was 90s on 5-6 L via nasal cannula. Blood pressure on the high side 170/102, on examination she has mild prolonged expiratory wheezing WBC 17.3, creatinine is stable at 1.9, it looks like patient has chronic kidney disease however patient does not know about previous kidney disease She still on heparin drip, which might be stopped today. Real Estate Leasing Manager. Most likely patient has pneumonia on the right side with elevated pro-calcitonin at 7.8, patient continue on some traction on Zithromax. Also she is on some Medrol 60 mg. She is on aspirin and metoprolol for high troponin. Pulmonary team input is appreciated and they recommended CAT scan of the chest without contrast Review of Systems CONSTITUTIONAL: No fever, no malaise, no fatigue. HEENT: No recent visual problems or hearing problems. Denied any sore throat. CARDIOVASCULAR: no palpitations, no syncope. -PULMONARY: No chest wall tenderness, no hemoptysis. GASTROINTESTINAL: No diarrhea, no nausea, no vomiting, no abdominal pain. Normoactive bowel sounds. Active Medications Generic Name Dose Route Start Last Admin Trade Name Freq PRN Reason Stop Dose Admin Albuterol/Ipratropium 3 ml 04/23/20 12:00 04/26/20 08:30 Ipratropium-Albuterol 3 Ml Neb INHALATION 3 ml RT-QID JORI Administration Albuterol/Ipratropium 3 ml 04/23/20 10:54 Ipratropium-Albuterol 3 Ml Neb INHALATION RT-Q4H PRN shortness of breath Alprazolam 0.25 mg 04/25/20 08:47 04/26/20 08:54 Alprazolam 0.25 Mg Tab PO 0.25 mg BID PRN Administration Anxiety Amlodipine Besylate 5 mg 04/25/20 11:00 04/26/20 08:53 Amlodipine 5 Mg Tab PO 5 mg DAILY JORI Administration Aspirin 81 mg 04/24/20 09:00 04/26/20 08:53 Aspirin 81 Mg PO 81 mg DAILY JORI Administration Azithromycin 500 mg 04/24/20 09:00 04/26/20 08:53 Azithromycin 500 Mg Tab PO 04/28/20 09:01 500 mg DAILY JORI Administration Betamethasone/Clotrimazole 1 applic 04/24/20 21:00 04/26/20 08:58 Clotrimazole/Betameth 1-0.05% Cream 45 Gm Tube TOPICAL 1 applic BID JORI Administration Budesonide 1 mg 04/23/20 20:00 04/26/20 08:30 Budesonide 1 Mg/2 Ml Nebu INHALATION 1 mg RT-BID JORI Administration Formoterol Fumarate 20 mcg 04/23/20 20:00 04/26/20 08:30 Formoterol Fumarate 20 Mcg/2 Ml Nebu INHALATION 20 mcg RT-BID JORI Administration Heparin Sodium (Porcine) 5,000 unit 04/26/20 16:00 Heparin Sodium,Porcine 5,000 Unit/Ml 1 Ml Vial SQ Q8HR [facility] Insulin Aspart 0 unit 04/23/20 12:30 04/26/20 06:57 Insulin Aspart (Novolog) 100 Unit/Ml Vial SQ 2 unit ACHS JORI Administration Protocol Levothyroxine Sodium 200 mcg 04/25/20 08:30 04/26/20 06:26 Levothyroxine 100 Mcg Tab PO Not Given 0630 [facility] Methylprednisolone Sodium Succinate 60 mg 04/23/20 18:00 04/26/20 06:31 Methylprednisolone Sod Succi 125 Mg/2 Ml Vial IV 60 mg Q6HR JORI Administration Metoprolol Tartrate 25 mg 04/24/20 09:00 04/26/20 08:53 Metoprolol Tartrate 25 Mg Tab PO 25 mg BID JORI Administration Miscellaneous Information 1 each 04/23/20 10:54 Pneumonia Protocol Utilized 1 Each Misc PO ONCE PRN Per Protocol Naloxone HCl 0.2 mg 04/23/20 11:32 Naloxone 0.4 Mg/Ml 1 Ml Vial IV Q2M PRN Opioid Reversal Pantoprazole Sodium 40 mg 04/25/20 09:00 04/26/20 08:53 Pantoprazole 40 Mg Tablet PO 40 mg DAILY JORI Administration Objective - Vital Signs Vital signs: Vital Signs Temp 98.2 F 04/26/20 08:00 Pulse 82 04/26/20 08:40 Resp 20 04/26/20 08:00 BP 170/102 04/26/20 08:00 Pulse Ox 94 L 04/26/20 09:04 Intake & Output 04/25/20 04/26/20 04/26/20 18:59 06:59 18:59 Intake Total 139.910 600 125 Output Total 300 1000 260 Balance -160.090 -400 -135 Weight 109 kg Intake: Intake, IV Titration 139.910 Amount Heparin Sod,Pork in 0.45% 139.910 NaCl 25,000 unit In 0.45 % NaCl 1 250ml.bag @ 18 UNITS/KG/HR 19.758 mls/hr IV .[id number] JORI Rx#: [id number] Oral 600 125 Output: Urine 300 1000 260 Other: Voiding Method Bedpan External Catheter External Catheter # Voids 1 - Exam -GENERAL: The patient is alert and oriented x3, in mild to moderate respiratory distress, on BiPAP, she looks anxious, has orthopnea HEENT: Pupils are round and equally reacting to light. EOMI. No scleral icterus. No conjunctival pallor. Normocephalic, atraumatic. No pharyngeal erythema. No thyromegaly. CARDIOVASCULAR: S1 and S2 present. No murmurs, rubs, or gallops. -PULMONARY: Chest is clear to auscultation, bilateral scattered wheezing ABDOMEN: Soft, nontender, nondistended, normoactive bowel sounds. No palpable organomegaly. MUSCULOSKELETAL: No joint swelling or deformity. EXTREMITIES: No cyanosis, clubbing, or pedal edema. NEUROLOGICAL: Gross neurological examination did not reveal any focal deficits. SKIN: No rashes. No petechiae - Labs CBC & Chem 7: 04/26/20 06:50 04/25/20 08:37 Labs: Abnormal Lab Results - Last 24 Hours (Table) 04/25/20 04/25/20 04/25/20 Range/Units 11:38 15:24 16:38 WBC (3.8-10.6) k/uL Neutrophils # (1.3-7.7) k/uL Lymphocytes # (1.0-4.8) k/uL APTT 44.2 H (22.0-30.0) sec POC Glucose (mg/dL) 216 H 199 H (75-99) mg/dL 04/25/20 04/26/20 04/26/20 Range/Units 20:12 06:24 06:50 WBC 17.3 H (3.8-10.6) k/uL Neutrophils # 16.3 H (1.3-7.7) k/uL Lymphocytes # 0.3 L (1.0-4.8) k/uL APTT (22.0-30.0) sec POC Glucose (mg/dL) 196 H 173 H (75-99) mg/dL 04/26/20 Range/Units 06:50 WBC (3.8-10.6) k/uL Neutrophils # (1.3-7.7) k/uL Lymphocytes # (1.0-4.8) k/uL APTT 63.4 H (22.0-30.0) sec POC Glucose (mg/dL) (75-99) mg/dL Microbiology - Last 24 Hours (Table) 04/23/20 11:09 Blood Culture - Preliminary Blood No Growth after 48 hours Assessment and Plan Assessment: Acute hypoxic respiratory failure Most likely right-sided pneumonia, rather than acute asthma exacerbation Rule out acute diastolic CHF, echocardiogram showing severe concentric left ventricular hypertrophy, normal ejection fraction Elevated troponin, rule out cardiac disease. Could be also due to elevated creatinine Elevated creatinine, no baseline. Acute kidney injury versus chronic kidney disease Hyperglycemia Mildly elevated liver enzymes Elevated lactic acid Plan: This is a pleasant 69 years old female who presents with asthma and high troponin. Continue with steroids, continue with oxygen as needed and BiPAP. Pulmonary and cardiology consult. Labs and medication were reviewed.. Continue same treatment. Continue with symptomatic treatment. Resume home medication. Monitor lytes and vitals. DVT and GI prophylaxis. Further recommendations depends on the clinical course of the patient DVT prophylaxis: heparin GI Prophylaxis: Ppi PT/OT: Pending Prognosis is guarded continue with ceftriaxone and Zithromax.
[2020-04-26 11:27] LABS: C Reactive Protein <5.0 mg/L (<10.0); LDH 746 U/L (313-618)
--- NOTE | 2020-04-26 11:39 | XR ---
EXAMINATION TYPE: XR chest 1V portable DATE OF EXAM: 04/26/2020 Comparison: 04/24/2020 Clinical History: 69-year-old female pneumonia Findings: Leftward patient rotation alters the normal cardiac and mediastinal contours. Heart is borderline enl arged. Left base underpenetrated and not well assessed. Diffuse interstitial densities. Continued pat kelsey opacity right lower lobe. Impression: Interstitial infiltrates increased from 04/24/2020. Patchy airspace disease right lower lobe persists. Correlate for possible worsening in CHF with pulmonary vascular congestion and persistent right lowe r lobe pneumonia. Left base underpenetrated and not well assessed.
[2020-04-26 12:24] LABS: Glucose,Whole Blood 171 mg/dL (75-99)
--- NOTE | 2020-04-26 12:29 | CT ---
EXAMINATION TYPE: CT chest wo con DATE OF EXAM: 04/26/2020 COMPARISON: Chest x-ray earlier today and older x-rays April 23, 2020 HISTORY: Follow up pneumonia. CT DLP: 496.9 mGycm. Automated Exposure Control for Dose Reduction was Utilized. TECHNIQUE: CT scan of the thorax is performed without IV contrast. FINDINGS: LUNGS: There are small to tiny bilateral pleural effusions with associated compressive atelectasis. M ultifocal groundglass opacities in the upper lungs extend into the lower lungs with areas of organizi ng consolidation identified bilaterally in the lower lungs. Largest area in the left lower lobe measu res roughly 4.5 x 3.2 cm axial image 30 is slightly more suspicious without air bronchograms, underly ing mass cannot be excluded and will need follow-up. No pneumothorax seen bilaterally. MEDIASTINUM: Lack of IV contrast is noted to limit evaluation for mediastinal and especially hilar ad enopathy. There are no definitive greater than 1 cm mediastinal lymph nodes. Prominent but subcentim eter right tracheobronchial lymph node on image 20 incidentally noted. No significant pericardial eff usion is seen. Cardiomegaly is present with moderate left atrial and mild to moderate left ventricula r dilatation thought present. Enlarged main pulmonary artery of 3.[address] findings suggesting underl joan pulmonary hypertension. The adjacent ascending aorta measures up to 4.9 cm in diameter axial yazmin ge 24. No aneurysm extension into the arch or descending aorta. Bovine type arch which is normal vari ant. Thyroid may be surgically absent or atrophic, correlate clinically. OTHER: Prominent bilateral axillary lymph nodes , for reference right axillary lymph node measures 1. 4 x 1.2 cm axial image 15. Stone filled somewhat contracted gallbladder partially imaged. Subtle unde rlying scoliotic curvature with multilevel spurring. IMPRESSION: Small bilateral pleural effusions. Multifocal groundglass opacities and organizing consol idations, correlate clinically for covid 19 infection. One area left lower lobe slightly more suspici ous, underlying mass is not excluded. Follow-up CT and/or PET CT after treatment is advised. Underlyi ng cardiomegaly along with ascending aortic aneurysm and pulmonary artery hypertension. Slightly enla rged right axillary lymph node noted also requires nonurgent follow-up.
--- NOTE | 2020-04-26 13:23 | P.PN ---
Subjective Progress Note Date: 04/26/20 HISTORY OF PRESENT ILLNESS: Patient examined at the bedside. She continues to complain of shortness of breath. She remains on a BiPAP at 50%. Denies chest pain or pressure. Echocardiogram completed reveals ejection fraction 55-60% with mild tricuspid regurgitation. She remains on IV antibiotic for pneumonia. WBC 17.3. PHYSICAL EXAM: VITAL SIGNS: Reviewed. GENERAL: Well-developed in no acute distress. NECK: Supple. No JVD or thyromegaly LUNGS: Respirations even and unlabored. Lungs finished with scattered rhonchi. HEART: Regular rate and rhythm. S1 and S2 heard. EXTREMITIES: Normal range of motion. No clubbing or cyanosis. Peripheral pulses intact. Trace bilateral lower extremity edema ASSESSMENT: Pneumonia Acute hypoxic respiratory failure, currently on BiPAP Leukocytosis Lactic acidosis Acute kidney injury Abnormal troponins, may be secondary to infectious process, no evidence of acute coronary syndrome Hypertension Obesity, BMI 36 PLAN: Continue antibiotic therapy for pneumonia Discontinue IV heparin Begin subcu heparin Irbesartan on hold due to EFREN. Repeat kidney function in AM Obtain records from patients rod placer, Dr Zhou, out of [facility] Further recommendations pending patient's course Nurse practitioner note has been reviewed by physician. Signing provider agrees with the documented findings, assessment, and plan of care. Objective - Vital Signs Vital signs: Vital Signs Temp 98.2 F 04/26/20 08:00 Pulse 84 04/26/20 11:58 Resp 28 H 04/26/20 12:24 BP 168/89 04/26/20 11:18 Pulse Ox 91 L 04/26/20 12:24 Intake & Output 04/25/20 04/26/20 04/26/20 18:59 06:59 18:59 Intake Total 139.910 600 125 Output Total 300 1000 260 Balance -160.090 -400 -135 Weight 109 kg Intake: Intake, IV Titration 139.910 Amount Heparin Sod,Pork in 0.45% 139.910 NaCl 25,000 unit In 0.45 % NaCl 1 250ml.bag @ 18 UNITS/KG/HR 19.758 mls/hr IV .[id number] JORI Rx#: [id number] Oral 600 125 Output: Urine 300 1000 260 Other: Voiding Method Bedpan External Catheter External Catheter # Voids 1 - Labs CBC & Chem 7: 04/26/20 06:50 04/25/20 08:37 Labs: Abnormal Lab Results - Last 24 Hours (Table) 04/25/20 04/25/20 04/25/20 Range/Units 15:24 16:38 20:12 WBC (3.8-10.6) k/uL Neutrophils # (1.3-7.7) k/uL Lymphocytes # (1.0-4.8) k/uL APTT 44.2 H (22.0-30.0) sec POC Glucose (mg/dL) 199 H 196 H (75-99) mg/dL Lactate Dehydrogenase (313-618) U/L 04/26/20 04/26/20 04/26/20 Range/Units 06:24 06:50 06:50 WBC 17.3 H (3.8-10.6) k/uL Neutrophils # 16.3 H (1.3-7.7) k/uL Lymphocytes # 0.3 L (1.0-4.8) k/uL APTT 63.4 H (22.0-30.0) sec POC Glucose (mg/dL) 173 H (75-99) mg/dL Lactate Dehydrogenase (313-618) U/L 04/26/20 04/26/20 Range/Units 06:50 12:18 WBC (3.8-10.6) k/uL Neutrophils # (1.3-7.7) k/uL Lymphocytes # (1.0-4.8) k/uL APTT (22.0-30.0) sec POC Glucose (mg/dL) 171 H (75-99) mg/dL Lactate Dehydrogenase 746 H (313-618) U/L Microbiology - Last 24 Hours (Table) 04/23/20 11:09 Blood Culture - Preliminary Blood No Growth after 48 hours
[2020-04-26 16:34] LABS: Glucose,Whole Blood 212 mg/dL (75-99)
[2020-04-26] MEDS: HEPARIN SODIUM,PORCINE 5,000 UNIT/ML 1 ML VIAL SQ SCH (17:25)
[2020-04-26 20:54] LABS: Glucose,Whole Blood 255 mg/dL (75-99)
[2020-04-27] MEDS: HEPARIN SODIUM,PORCINE 5,000 UNIT/ML 1 ML VIAL SQ SCH ×4 (00:20→23:34)
[2020-04-27] MEDS: methylPREDNISolone SOD SUCCI 125 MG/2 ML VIAL IV SCH ×5 (00:20→23:33)
[2020-04-27 06:20] LABS: Glucose,Whole Blood 167 mg/dL (75-99)
[2020-04-27] MEDS: LEVOTHYROXINE 100 MCG TAB PO SCH (06:49)
[2020-04-27] MEDS: INSULIN ASPART (NovoLOG) 100 UNIT/ML VIAL SQ SCH ×4 (06:49→20:55)
[2020-04-27] MEDS: FORMOTEROL FUMARATE 20 MCG/2 ML NEBU INHALATION SCH ×2 (08:29→20:47)
[2020-04-27] MEDS: BUDESONIDE 1 MG/2 ML NEBU INHALATION SCH ×2 (08:29→20:47)
[2020-04-27] MEDS: IPRATROPIUM-ALBUTEROL 3 ML NEB INHALATION SCH ×4 (08:29→20:47)
[2020-04-27 08:30] LABS: Basophils % (A) 0 %; Eosinophils % (A) 0 %; HGB 13.4 gm/dL (11.4-16.0); Lymphocytes # (A) 0.4 k/uL (1.0-4.8); Lymphocytes % (A) 3 %; MCH 30.8 pg (25.0-35.0); MCV 96.4 fL (80.0-100.0); Mean Platelet Volume 8.4; Monocytes # (A) 0.7 k/uL (0-1.0); Monocytes % (A) 5 %; Neutrophils # (A) 13.1 k/uL (1.3-7.7); Neutrophils % (A) 92 %; Platelet Count 232 k/uL (150-450); RBC 4.36 m/uL (3.80-5.40); RDW 12.7 % (11.5-15.5); WBC 14.2 k/uL (3.8-10.6)
[2020-04-27 08:38] LABS: Calcium 8.5 mg/dL (8.4-10.2); Potassium 4.7 mmol/L (3.5-5.1)
[2020-04-27] MEDS: METOPROLOL TARTRATE 25 MG TAB PO SCH ×2 (09:21→20:55)
[2020-04-27] MEDS: ASPIRIN 81 MG PO SCH (09:21)
[2020-04-27] MEDS: amLODIPine 5 MG TAB PO SCH (09:21)
[2020-04-27] MEDS: CLOTRIMAZOLE/BETAMETH 1-0.05% CREAM 45 GM TUBE TOPICAL SCH ×2 (09:21→20:55)
[2020-04-27] MEDS: AZITHROMYCIN 500 MG TAB PO SCH (09:21)
[2020-04-27] MEDS: PANTOPRAZOLE 40 MG TABLET PO SCH (09:21)
--- NOTE | 2020-04-27 10:58 | P.PN ---
Subjective Progress Note Date: 04/27/20 69-year-old female who does not see doctors in this area but rather sees physicians at [facility], who apparently comes into the emergency room, brought in by EMS, for difficulty in breathing. Apparently, for the last day or 2, the patient's breathing has gotten more difficult. She apparently became unresponsive according to her family. The patient was found by EMS to be awake and short of breath. Her pulse ox saturations were 88%. The patient was therefore placed on CPAP. She apparently carries with her a diagnosis of asthma, hypothyroidism, and hypertension. Again, we do not see her in this area. She sees a patient companion at [facility]. Currently, in the emergency department, she is on BiPAP, with settings of 12/6 and 60%. Currently, the patient appears to be short of breath. She also seemed a little lethargic and sleepy. She has been initiated on IV antibiotics along with steroids and IV heparin secondary to elevated troponin. The patient states approximately 2 years ago she had a similar type respiratory illness and was treated at [facility] at that time she was told she had a mild heart attack however to her recollection she never underwent cardiac catheterization. She denies any stents or open heart surgery. Echocardiogram obtained on this admission reveals preserved LV systolic function with ejection fraction 55-60%, mild tricuspid regurgitation and ascending aorta dilation measuring 4.2 cm. Sodium 142. Potassium 4.7. Creatinine 1.90. White count 15.6. Hemoglobin 13.1. Peak troponin 2.16. Pro-calcitonin 7.82. She remains on ceftriaxone and azithromycin along with bronchodilators. The procalcitonin is elevated the CXR is showing a consolidation of the RLL consistent with pneumonias. On 04/26/2020, the patient was sent remains to be elevated. The patient is still on BiPAP at a pressure of 12/6 cm of water with an FiO2 of 50%. Earlier this morning, while having breakfast, she was taken off the BiPAP. She does much better while on the BiPAP. On examination, she is still having crackles in lung bases bilaterally. The chest x-ray was showing breath and pulmonary infiltrates worse on the right. No fever. No altered mentation. Her minute ventilation is still high as 15 L and the patient is able to generate tidal volumes of about 500 respiratory rate ranging between 30 and 32. Location of 04/27/2020, the patient is feeling slightly better compared to yesterday. Note that she was quite short of breath and she was placed on a BiPAP and currently she is weaned down to 6 L of oxygen by nasal cannula. She is able to sit up on a recliner. Her pulse ox is 95% on 6 L of oxygen by nasal cannula. The chest CAT scan of the chest was done yesterday and the CAT scan showed bilateral pulmonary infiltrates with areas of consolidation of the left lower lobe. There was also small bilateral pleural effusions. There was areas of multifocal groundglass opacities in the upper lobes yet the findings are more consolidating in the left lower lobe and this along with an elevated pro- calcitonin level is highly suggestive of an underlying bacterial infection. Initial pro-calcitonin level was at 7.8 and a drop down to 4.6. The white cell count is also improving and is down to 14.2 from as high as 21.9. The renal function is also improving and the creatinine is at 1.62. The patient free of any chest pain. She is on subcu heparin for now. She is on DuoNeb nebulized treatments around the clock. Echocardiogram that was obtained on 04/23/2019 showed a preserved LV function. Note that she had a non-STEMI with an elevated troponin level of 2.1 Objective - Vital Signs Vital signs: Vital Signs Temp 97.5 F L 04/26/20 20:00 Pulse 86 04/27/20 08:52 Resp 24 04/27/20 04:00 BP 139/85 04/27/20 04:00 Pulse Ox 98 04/27/20 04:00 Intake & Output 04/26/20 04/27/20 04/27/20 18:59 06:59 18:59 Intake Total 597 236 Output Total 1420 1050 Balance -823 -1050 236 Weight 108 kg Intake: Oral 597 236 Output: Urine 1420 1050 Other: Voiding Method External Catheter External Catheter - Exam No acute distress, oriented 3. Currently, patient is on 6 L of oxygen by nasal cannula and she is currently off the BiPAP. She is able to speak of longer sentences. She is not using a scissor muscles of breathing. HEENT examination is grossly unremarkable. Mucous membranes are moist. No oral lesions. Neck supple. Full range of motion. No adenopathy thyromegaly or neck vein distention. Cardiovascular examination reveals regular rhythm rate. S1-S2 normal. No S3 or S4. No discernible murmur noted. Lungs reveal bibasilar crackles. Breath sounds equal. No wheezes or rhonchi.. Abdomen soft bowel sounds are heard. No masses or tenderness. Extremities are intact. No cyanosis clubbing or edema. Skin is without rash or lesion. Neurologic examination is brief but nonfocal. - Labs CBC & Chem 7: 04/27/20 07:56 04/27/20 07:56 Labs: Abnormal Lab Results - Last 24 Hours (Table) 04/26/20 04/26/20 04/26/20 Range/Units 06:50 06:50 12:18 WBC (3.8-10.6) k/uL Neutrophils # (1.3-7.7) k/uL Lymphocytes # (1.0-4.8) k/uL Chloride (98-107) mmol/L BUN (7-17) mg/dL Creatinine (0.52-1.04) mg/dL Glucose (74-99) mg/dL POC Glucose (mg/dL) 171 H (75-99) mg/dL Lactate Dehydrogenase 746 H (313-618) U/L Procalcitonin 4.63 H (0.02-0.09) ng/mL 04/26/20 04/26/20 04/27/20 Range/Units 16:33 20:51 06:18 WBC (3.8-10.6) k/uL Neutrophils # (1.3-7.7) k/uL Lymphocytes # (1.0-4.8) k/uL Chloride (98-107) mmol/L BUN (7-17) mg/dL Creatinine (0.52-1.04) mg/dL Glucose (74-99) mg/dL POC Glucose (mg/dL) 212 H 255 H 167 H (75-99) mg/dL Lactate Dehydrogenase (313-618) U/L Procalcitonin (0.02-0.09) ng/mL 04/27/20 04/27/20 Range/Units 07:56 07:56 WBC 14.2 H (3.8-10.6) k/uL Neutrophils # 13.1 H (1.3-7.7) k/uL Lymphocytes # 0.4 L (1.0-4.8) k/uL Chloride 108 H (98-107) mmol/L BUN 61 H (7-17) mg/dL Creatinine 1.62 H (0.52-1.04) mg/dL Glucose 171 H (74-99) mg/dL POC Glucose (mg/dL) (75-99) mg/dL Lactate Dehydrogenase (313-618) U/L Procalcitonin (0.02-0.09) ng/mL Microbiology - Last 24 Hours (Table) 04/23/20 11:09 Blood Culture - Preliminary Blood No Growth after 72 hours Assessment and Plan Plan: Plan: 1 Acute hypoxemic respiratory failure, likely multifactorial, in part related to the patient's underlying chronic bronchial asthma, bilateral pneumonia (right more than left), and probable CHF/heart failure. Patient is on a combination of antibiotics including Rocephin and zithromax. Echo showed a normal LV function. I was concerned about her respiratory status and the CAT scan of the chest was obtained yesterday that showed bilateral groundglass changes with areas of consolidation of the left lower lobe and this along with an elevated pro- calcitonin level and elevated white cell count is consistent with bacterial infection/pneumonia. Cultures of been negative and the patient was given a combination of Rocephin and Zithromax. Her white cell count is improving. Clinically she is also improving. She is down to 6 L of oxygen by nasal cannula and currently she is off the BiPAP. 2 Elevated troponins, most likely consistent with an acute non-STEMI, this occurred in the setting of an acute pneumonia, currently free of any chest pain and the patient's echocardiogram is within normal limits and she is currently off IV heparin. 3 Obesity. 4 History of chronic bronchial asthma. 5 History of hypertension. 6 History of hypothyroidism. 7 EFREN, improving , creatinine is improving Plan: Repeat chest x-ray tomorrow Repeat pro-calcitonin level tomorrow Continue antibiotic coverage with a combination of cefepime and Zithromax I noted the development of small bilateral pleural effusion that is going to be monitored Take the patient off the BiPAP and keep her on 6 L of oxygen by nasal cannula The patient remains on albuterol sulfate and ipratropium bromide, corticosteroids, as well as Pulmicort and formoterol. We will continue to follow. Prognosis is guarded. Time with Patient: Less than 30
--- NOTE | 2020-04-27 11:09 | P.PN ---
Subjective This is a pleasant 69 years old female with past medical history of asthma, she follows up with knobber at [facility]. She presents because of 2 days of worsening shortness of breath with coughing and with some phlegm and no chest pain or fever. Patient was very anxious and wanted her mask to be taken off, however she agrees to keep it on with small doses of benzodiazepine 0.5 mg She denies change in urine or bowel habits. Denies headache, syncope or dizziness. No weakness or numbness She denies smoking, alcohol or illicit drugs On admission Vitas looks stable except for patient feels tachypneic at 26 which is improved with BiPAP which was present on admission with oxygen saturation of 97% Labs showing leukocytosis of 15.1 K, INR 0.9, d-dimer is elevated at 9.2. Lactic acid elevated at 6.4, coming down to 2.4 procalcitonin is 0.08, coronavirus not detected VQ scan showed low probability for PE, Doppler of the lower extremity is negative for DVT. Echocardiogram showing normal ejection fraction of 55-60% with severe concentric left ventricular hypertrophy 04/24/2020 Patient is fully awake and alert, more calm and less in respiratory distress compared to yesterday, she is on BiPAP with a breathing rate of about 48. She still have some wheezing. She is oxygen saturation 97% while on BiPAP. She has leukocytosis of 15.6. Creatinine is slightly down to 1.9 Chest x-ray showing right sided pneumonia, possible pulmonary edema Yesterday patient become unresponsive because of extra dose of benzodiazepine, she was placed also on heparin drip and metoprolol added for elevated troponin. Cardiology team on the case 04/25/2020 This is a pleasant 69 years old female who was admitted with respiratory distress needind BiPAP for the first 24-48 hours. Her respiratory status improved however she still dyspneic needing 5-6 L oxygen and she is somewhat tachypneic. She is coughing but denies chest pain. There are some Vitas looks stable. Her leukocytosis went up to 21.9 but she is on steroids. Creatinine is stable at 1.9. Her pro-calcitonin is elevated at 7.8 Patient currently is covered with Rocephin and Zithromax. Also she is on some Medrol 60 mg per pulmonology team recommendation. She is on heparin drip for high troponin. Engineering Laboratory Technician recommended discontinue heparin and 24 hours Losartan stopped due to EFREN. No reflux is added for hypertension 04/26/2020 Patient is awake and sitting up in bed, she uses BiPAP most of the time however this morning when she was off BiPAP for eating she was really tachypneic with breathing rate 22 through 26/m, her oxygen saturation was 90s on 5-6 L via nasal cannula. Blood pressure on the high side 170/102, on examination she has mild prolonged expiratory wheezing WBC 17.3, creatinine is stable at 1.9, it looks like patient has chronic kidney disease however patient does not know about previous kidney disease She still on heparin drip, which might be stopped today. Engineering Laboratory Technician. Most likely patient has pneumonia on the right side with elevated pro-calcitonin at 7.8, patient continue on some traction on Zithromax. Also she is on some Medrol 60 mg. She is on aspirin and metoprolol for high troponin. Pulmonary team input is appreciated and they recommended CAT scan of the chest without contrast 04/27/2020 Patient remains significantly dyspneic however it looks better for me compared to yesterday. She still needs 6 L of oxygen to keep her oxygen saturation in the 90s WBC is trending down, creatinine is down from 1.9 down to 1.6. Glucose controlled. Coronavirus not detected. Chest CAT scan showed bilateral groundglass opacity with left lower lobe area suspicious for a mass and they recommended either follow-up CAT scan for need for PET scan. Indwelling chest x-ray yesterday showed more CHF with right lower lobe pneumonia. Workup for pneumonia with urine legionella is still pending. Her pro-calcitonin is trending down She is currently on ceftriaxone, Zithromax, Solu-Medrol for possible asthma, no diuretics and heparin drip was stopped and switched to subcu heparin Review of Systems CONSTITUTIONAL: No fever, no malaise, no fatigue. HEENT: No recent visual problems or hearing problems. Denied any sore throat. CARDIOVASCULAR: no palpitations, no syncope. -PULMONARY: No chest wall tenderness, no hemoptysis. GASTROINTESTINAL: No diarrhea, no nausea, no vomiting, no abdominal pain. Normoactive bowel sounds. Active Medications Generic Name Dose Route Start Last Admin Trade Name Freq PRN Reason Stop Dose Admin Albuterol/Ipratropium 3 ml 04/23/20 12:00 04/27/20 08:29 Ipratropium-Albuterol 3 Ml Neb INHALATION 3 ml RT-QID JORI Administration Albuterol/Ipratropium 3 ml 04/23/20 10:54 Ipratropium-Albuterol 3 Ml Neb INHALATION RT-Q4H PRN shortness of breath Alprazolam 0.25 mg 04/25/20 08:47 04/26/20 21:54 Alprazolam 0.25 Mg Tab PO 0.25 mg BID PRN Administration Anxiety Amlodipine Besylate 5 mg 04/25/20 11:00 04/27/20 09:21 Amlodipine 5 Mg Tab PO 5 mg DAILY JORI Administration Aspirin 81 mg 04/24/20 09:00 04/27/20 09:21 Aspirin 81 Mg PO 81 mg DAILY JORI Administration Azithromycin 500 mg 04/28/20 09:00 Azithromycin 500 Mg Tab PO DAILY JORI Betamethasone/Clotrimazole 1 applic 04/24/20 21:00 04/27/20 09:21 Clotrimazole/Betameth 1-0.05% Cream 45 Gm Tube TOPICAL 1 applic BID JORI Administration Budesonide 1 mg 04/23/20 20:00 04/27/20 08:29 Budesonide 1 Mg/2 Ml Nebu INHALATION 1 mg RT-BID JORI Administration Formoterol Fumarate 20 mcg 04/23/20 20:00 04/27/20 08:29 Formoterol Fumarate 20 Mcg/2 Ml Nebu INHALATION 20 mcg RT-BID JORI Administration Heparin Sodium (Porcine) 5,000 unit 04/26/20 16:00 04/27/20 09:21 Heparin Sodium,Porcine 5,000 Unit/Ml 1 Ml Vial SQ 5,000 unit Q8HR JORI Administration Cefepime HCl 1 gm/ Sodium 50 mls @ 12.5 mls/hr 04/27/20 11:00 Chloride IVPB Q12HR JORI Insulin Aspart 0 unit 04/23/20 12:30 04/27/20 06:49 Insulin Aspart (Novolog) 100 Unit/Ml Vial SQ 2 unit ACHS JORI Administration Protocol Levothyroxine Sodium 200 mcg 04/25/20 08:30 04/27/20 06:49 Levothyroxine 100 Mcg Tab PO 200 mcg 0630 JORI Administration Methylprednisolone Sodium Succinate 60 mg 04/23/20 18:00 04/27/20 06:50 Methylprednisolone Sod Succi 125 Mg/2 Ml Vial IV 60 mg Q6HR JORI Administration Metoprolol Tartrate 25 mg 04/24/20 09:00 04/27/20 09:21 Metoprolol Tartrate 25 Mg Tab PO 25 mg BID JORI Administration Miscellaneous Information 1 each 04/23/20 10:54 Pneumonia Protocol Utilized 1 Each Misc PO ONCE PRN Per Protocol Naloxone HCl 0.2 mg 04/23/20 11:32 Naloxone 0.4 Mg/Ml 1 Ml Vial IV Q2M PRN Opioid Reversal Pantoprazole Sodium 40 mg 04/25/20 09:00 04/27/20 09:21 Pantoprazole 40 Mg Tablet PO 40 mg DAILY JORI Administration Objective - Vital Signs Vital signs: Vital Signs Temp 97.6 F 04/27/20 08:00 Pulse 86 04/27/20 08:52 Resp 22 04/27/20 08:00 BP 173/86 04/27/20 08:00 Pulse Ox 95 04/27/20 08:00 Intake & Output 04/26/20 04/27/20 04/27/20 18:59 06:59 18:59 Intake Total 597 236 Output Total 1420 1050 Balance -823 -1050 236 Weight 108 kg Intake: Oral 597 236 Output: Urine 1420 1050 Other: Voiding Method External Catheter External Catheter - Exam -GENERAL: The patient is alert and oriented x3, in mild to moderate respiratory distress, on BiPAP, she looks anxious, has orthopnea HEENT: Pupils are round and equally reacting to light. EOMI. No scleral icterus. No conjunctival pallor. Normocephalic, atraumatic. No pharyngeal erythema. No thyromegaly. CARDIOVASCULAR: S1 and S2 present. No murmurs, rubs, or gallops. -PULMONARY: Chest is clear to auscultation, bilateral scattered wheezing ABDOMEN: Soft, nontender, nondistended, normoactive bowel sounds. No palpable organomegaly. MUSCULOSKELETAL: No joint swelling or deformity. EXTREMITIES: No cyanosis, clubbing, or pedal edema. NEUROLOGICAL: Gross neurological examination did not reveal any focal deficits. SKIN: No rashes. No petechiae - Labs CBC & Chem 7: 04/27/20 07:56 04/27/20 07:56 Labs: Abnormal Lab Results - Last 24 Hours (Table) 04/26/20 04/26/20 04/26/20 Range/Units 06:50 06:50 12:18 WBC (3.8-10.6) k/uL Neutrophils # (1.3-7.7) k/uL Lymphocytes # (1.0-4.8) k/uL Chloride (98-107) mmol/L BUN (7-17) mg/dL Creatinine (0.52-1.04) mg/dL Glucose (74-99) mg/dL POC Glucose (mg/dL) 171 H (75-99) mg/dL Lactate Dehydrogenase 746 H (313-618) U/L Procalcitonin 4.63 H (0.02-0.09) ng/mL 04/26/20 04/26/20 04/27/20 Range/Units 16:33 20:51 06:18 WBC (3.8-10.6) k/uL Neutrophils # (1.3-7.7) k/uL Lymphocytes # (1.0-4.8) k/uL Chloride (98-107) mmol/L BUN (7-17) mg/dL Creatinine (0.52-1.04) mg/dL Glucose (74-99) mg/dL POC Glucose (mg/dL) 212 H 255 H 167 H (75-99) mg/dL Lactate Dehydrogenase (313-618) U/L Procalcitonin (0.02-0.09) ng/mL 04/27/20 04/27/20 Range/Units 07:56 07:56 WBC 14.2 H (3.8-10.6) k/uL Neutrophils # 13.1 H (1.3-7.7) k/uL Lymphocytes # 0.4 L (1.0-4.8) k/uL Chloride 108 H (98-107) mmol/L BUN 61 H (7-17) mg/dL Creatinine 1.62 H (0.52-1.04) mg/dL Glucose 171 H (74-99) mg/dL POC Glucose (mg/dL) (75-99) mg/dL Lactate Dehydrogenase (313-618) U/L Procalcitonin (0.02-0.09) ng/mL Microbiology - Last 24 Hours (Table) 01/15/21 11:09 Blood Culture - Preliminary Blood No Growth after 72 hours Assessment and Plan Assessment: Acute hypoxic respiratory failure Most likely right-sided pneumonia, rather than acute asthma exacerbation, CHF is less likely Elevated troponin, rule out cardiac disease. Could be also due to elevated creatinine Elevated creatinine, no baseline. Acute kidney injury versus chronic kidney dis ease Hyperglycemia Mildly elevated liver enzymes Elevated lactic acid Plan: This is a pleasant 69 years old female who presents with asthma and high troponin. Continue with steroids, continue with oxygen as needed and BiPAP. Pulmonary and cardiology consult. Labs and medication were reviewed.. Continue same treatment. Continue with symptomatic treatment. Resume home medication. Monitor lytes and vitals. DVT and GI prophylaxis. Further recommendations depends on the clinical course of the patient DVT prophylaxis: heparin GI Prophylaxis: Ppi PT/OT: Pending Prognosis is guarded continue with ceftriaxone and Zithromax.
[2020-04-27 11:50] LABS: Glucose,Whole Blood 198 mg/dL (75-99)
[2020-04-27] MEDS: CEFEPIME 1 GM in SODIUM CHLORIDE 0.9% 50 ML IVPB SCH ×2 (12:22→20:54)
--- NOTE | 2020-04-27 12:26 | CDI ---
Documentation Clarification Form Date: 04/27/2020 12:22 PM CDS: Le MadrigalVegaGABRIEL smith, CCDS Admit Date: 04/23/2020 11:32 AM Patient Name: Marleni Layton Discharge Date: ATTENTION: The Clinical Documentation Specialists (CDI) and [facility] Coding Staff appreciate your assistance in clarifying documentation. Please respond to the clarification below the line at the bottom and electronically sign. The CDI & [facility] Coding staff will review the response and follow-up if needed. Please note: Queries are made part of the Legal Health Record. If you have any questions, please contact the author of this message via ITS. Dear Dr. Hodge Sheet: Myocardial Infarction is documented in the following notes: Per the 04/23 H/P: "Rule out acute diastolic CHF, echocardiogram showing severe concentric left ventricular hypertrophy Elevated troponin, rule out cardiac disease." Per the 04/23 Rapid Response Team Progress Note: "Acute myocardial infarction with subsequent congestive heart failure exacerbation." Per the 04/24 Cardiology Consult and subsequent 04/25 Progress Note: "Non-ST elevated myocardial infarction." Per the 04/27 Pulmonary Progress Note: "Note that she had a non-STEMI with an elevated troponin. Patient History/Risk Factors: Asthma, Hypertension, Hypothyroidism, possible previous DE per patient. Clinical Indicators: Presented to the ED on 04/23 with SOB in respiratory distress via EMS. ED Impression: Septic shock & Pneumonia. Per H/P, admitted with Acute asthma exacerbation, r/o acute diastolic CHF, Elevated troponin, r/o cardiac disease, EFREN vs CKD, Hyperglycemia, Mildly elevated liver enzymes and Elevated Lactic Acid. Troponin 04/23: 0.049^^, 0.474^^, 2.160^^ EKG Results 04/23: R 108 Sinus tachycardia w/PACs, Left axis deviation, LBBB, abnormal. Treatment 04/23: INH Duoneb: Albuterol/Ipratropium, IV Soumedrol, IV Azithromycin, IV Rocephin, IV fluid bolus 850 mls @ 999 mls/hr q52M & 1,000 mls @ 999 mls/hr q1, IV Heparin In order to capture the severity of condition and necessary documentation specificity, please clarify: Myocardial Infarction ruled out Myocardial Infarction ruled in, please specify type: o NSTEMI o NSTEMI, Type II Unable to determine Other Condition, please specify Present on Admission: Yes or No (Last Revision: January 2017) i will refer to cardiology note (Abnormal troponins, may be secondary to infectious process, no evidence of acute coronary syndrome) [facility]
--- NOTE | 2020-04-27 15:04 | P.PN ---
Subjective Progress Note Date: 04/27/20 HISTORY OF PRESENT ILLNESS: 04/26/2020 Patient examined at the bedside. She continues to complain of shortness of breath. She remains on a BiPAP at 50%. Denies chest pain or pressure. Echocardiogram completed reveals ejection fraction 55-60% with mild tricuspid regurgitation. She remains on IV antibiotic for pneumonia. WBC 17.3. 04/27/2020 Patient examined sitting up in the chair. She still complains of being short of breath today. She is currently on 6 L nasal cannula. She denies chest pain or pressure. Creatinine has improved today to 1.62. WBC 14.2. She remains on antibiotics. PHYSICAL EXAM: VITAL SIGNS: Reviewed. GENERAL: Well-developed in no acute distress. NECK: Supple. No JVD or thyromegaly LUNGS: Respirations even and unlabored. Lungs diminished with scattered rhonchi. HEART: Regular rate and rhythm. S1 and S2 heard. EXTREMITIES: Normal range of motion. No clubbing or cyanosis. Peripheral pulses intact. Trace bilateral lower extremity edema ASSESSMENT: Pneumonia Acute hypoxic respiratory failure Leukocytosis Lactic acidosis Acute kidney injury Abnormal troponins, may be secondary to infectious process, no evidence of acute coronary syndrome Hypertension Obesity, BMI 36 PLAN: Continue antibiotic therapy for pneumonia Pulmonary following Irbesartan on hold due to EFREN. Repeat kidney function in AM Still awaiting records from patients dental insurance coordinator, Dr Zhou, out of [facility] No plans for cardiac cath at this time Further recommendations pending patient's course Nurse practitioner note has been reviewed by physician. Signing provider agrees with the documented findings, assessment, and plan of care. Objective - Vital Signs Vital signs: Vital Signs Temp 97.6 F 04/27/20 08:00 Pulse 77 04/27/20 12:00 Resp 20 04/27/20 12:00 BP 137/78 04/27/20 12:00 Pulse Ox 97 04/27/20 12:00 Intake & Output 04/26/20 04/27/20 04/27/20 18:59 06:59 18:59 Intake Total 597 472 Output Total 1420 1050 Balance -823 -1050 472 Weight 108 kg Intake: Oral 597 472 Output: Urine 1420 1050 Other: Voiding Method External Catheter External Catheter External Catheter - Labs CBC & Chem 7: 04/27/20 07:56 04/27/20 07:56 Labs: Abnormal Lab Results - Last 24 Hours (Table) 04/26/20 04/26/20 04/26/20 Range/Units 06:50 16:33 20:51 WBC (3.8-10.6) k/uL Neutrophils # (1.3-7.7) k/uL Lymphocytes # (1.0-4.8) k/uL Chloride (98-107) mmol/L BUN (7-17) mg/dL Creatinine (0.52-1.04) mg/dL Glucose (74-99) mg/dL POC Glucose (mg/dL) 212 H 255 H (75-99) mg/dL Procalcitonin 4.63 H (0.02-0.09) ng/mL 04/27/20 04/27/20 04/27/20 Range/Units 06:18 07:56 07:56 WBC 14.2 H (3.8-10.6) k/uL Neutrophils # 13.1 H (1.3-7.7) k/uL Lymphocytes # 0.4 L (1.0-4.8) k/uL Chloride 108 H (98-107) mmol/L BUN 61 H (7-17) mg/dL Creatinine 1.62 H (0.52-1.04) mg/dL Glucose 171 H (74-99) mg/dL POC Glucose (mg/dL) 167 H (75-99) mg/dL Procalcitonin (0.02-0.09) ng/mL 04/27/20 Range/Units 11:41 WBC (3.8-10.6) k/uL Neutrophils # (1.3-7.7) k/uL Lymphocytes # (1.0-4.8) k/uL Chloride (98-107) mmol/L BUN (7-17) mg/dL Creatinine (0.52-1.04) mg/dL Glucose (74-99) mg/dL POC Glucose (mg/dL) 198 H (75-99) mg/dL Procalcitonin (0.02-0.09) ng/mL Microbiology - Last 24 Hours (Table) 04/23/20 11:09 Blood Culture - Preliminary Blood No Growth after 96 hours
[2020-04-27 16:55] LABS: Glucose,Whole Blood 253 mg/dL (75-99)
[2020-04-27 20:50] LABS: Glucose,Whole Blood 227 mg/dL (75-99)
[2020-04-28 05:53] LABS: Glucose,Whole Blood 161 mg/dL (75-99)
[2020-04-28] MEDS: LEVOTHYROXINE 100 MCG TAB PO SCH (06:36)
[2020-04-28] MEDS: methylPREDNISolone SOD SUCCI 125 MG/2 ML VIAL IV SCH ×4 (06:36→23:43)
[2020-04-28] MEDS: INSULIN ASPART (NovoLOG) 100 UNIT/ML VIAL SQ SCH ×4 (06:36→21:12)
[2020-04-28] MEDS: BUDESONIDE 1 MG/2 ML NEBU INHALATION SCH ×2 (07:57→19:00)
[2020-04-28] MEDS: FORMOTEROL FUMARATE 20 MCG/2 ML NEBU INHALATION SCH ×2 (07:57→19:01)
[2020-04-28] MEDS: IPRATROPIUM-ALBUTEROL 3 ML NEB INHALATION SCH ×4 (07:58→19:00)
[2020-04-28 09:26] LABS: Calcium 8.2 mg/dL (8.4-10.2); Potassium 4.9 mmol/L (3.5-5.1)
--- NOTE | 2020-04-28 10:04 | XR ---
EXAMINATION TYPE: XR chest 1V portable DATE OF EXAM: 04/28/2020 COMPARISON: 04/26/2020 INDICATION: Pneumonia TECHNIQUE: Single frontal view of the chest is obtained. FINDINGS: The heart size is mildly prominent. The pulmonary vasculature is prominent. Some minimal increased lung markings are present which are nonspecific. Consider resolving volume ove rload. Resolving atypical pneumonia could be considered. Findings are improving from comparison IMPRESSION: 1. Improving mild lung infiltrates. Resolving atypical pneumonia or volume overload could be consider ed.
--- NOTE | 2020-04-28 10:39 | P.PN ---
Subjective Progress Note Date: 04/28/20 69-year-old female who does not see doctors in this area but rather sees physicians at [facility], who apparently comes into the emergency room, brought in by EMS, for difficulty in breathing. Apparently, for the last day or 2, the patient's breathing has gotten more difficult. She apparently became unresponsive according to her family. The patient was found by EMS to be awake and short of breath. Her pulse ox saturations were 88%. The patient was therefore placed on CPAP. She apparently carries with her a diagnosis of asthma, hypothyroidism, and hypertension. Again, we do not see her in this area. She sees a experimental plastics fabricator at [facility]. Currently, in the emergency department, she is on BiPAP, with settings of 12/6 and 60%. Currently, the patient appears to be short of breath. She also seemed a little lethargic and sleepy. She has been initiated on IV antibiotics along with steroids and IV heparin secondary to elevated troponin. The patient states approximately 2 years ago she had a similar type respiratory illness and was treated at [facility] at that time she was told she had a mild heart attack however to her recollection she never underwent cardiac catheterization. She denies any stents or open heart surgery. Echocardiogram obtained on this admission reveals preserved LV systolic function with ejection fraction 55-60%, mild tricuspid regurgitation and ascending aorta dilation measuring 4.2 cm. Sodium 142. Potassium 4.7. Creatinine 1.90. White count 15.6. Hemoglobin 13.1. Peak troponin 2.16. Pro-calcitonin 7.82. She remains on ceftriaxone and azithromycin along with bronchodilators. The procalcitonin is elevated the CXR is showing a consolidation of the RLL consistent with pneumonias. On 04/26/2020, the patient was sent remains to be elevated. The patient is still on BiPAP at a pressure of 12/6 cm of water with an FiO2 of 50%. Earlier this morning, while having breakfast, she was taken off the BiPAP. She does much better while on the BiPAP. On examination, she is still having crackles in lung bases bilaterally. The chest x-ray was showing breath and pulmonary infiltrates worse on the right. No fever. No altered mentation. Her minute ventilation is still high as 15 L and the patient is able to generate tidal volumes of about 500 respiratory rate ranging between 30 and 32. 04/27/2020, the patient is feeling slightly better compared to yesterday. Note that she was quite short of breath and she was placed on a BiPAP and currently she is weaned down to 6 L of oxygen by nasal cannula. She is able to sit up on a recliner. Her pulse ox is 95% on 6 L of oxygen by nasal cannula. The chest CAT scan of the chest was done yesterday and the CAT scan showed bilateral pulmonary infiltrates with areas of consolidation of the left lower lobe. There was also small bilateral pleural effusions. There was areas of multifocal groundglass opacities in the upper lobes yet the findings are more consolidating in the left lower lobe and this along with an elevated pro-calcitonin level is highly suggestive of an underlying bacterial infection. Initial pro-calcitonin level was at 7.8 and a drop down to 4.6. The white cell count is also improving and is down to 14.2 from as high as 21.9. The renal function is also improving and the creatinine is at 1.62. The patient free of any chest pain. She is on subcu heparin for now. She is on DuoNeb nebulized treatments around the clock. Echocardiogram that was obtained on 04/23/2019 showed a preserved LV function. Note that she had a non-STEMI with an elevated troponin level of 2.1 04/28/2020, the patient is doing better. She is a bit angry while watching television as the patient is unhappy with the results of the presidential election. I told her to get politics out of her head and concentrate on her pneumonia recovery for now. A repeat chest x-ray was done and is gradually improvement of the bilateral pulmonary infiltrates described earlier. The patient remains on examination of Rocephin and Zithromax. Her pro-calcitonin level was improving. She also has improvement in her renal function and creatinine is down to 1.57. Oxidation is also improved and she is down to 3 L about 2 by nasal cannula. No significant sputum production. No fever or chills. Troponin peaked at 2.1 and she had an obvious non-STEMI. She sees a grain combine driver Dr. Krishnamurthy and a experimental plastics fabricator, Dr. mcnair at [facility] in Levels Objective - Vital Signs Vital signs: Vital Signs Temp 98.2 F 04/28/20 04:00 Pulse 80 04/28/20 08:15 Resp 23 04/28/20 04:00 BP 158/90 04/28/20 04:00 Pulse Ox 95 04/28/20 04:00 Intake & Output 04/27/20 04/28/20 04/28/20 18:59 06:59 18:59 Intake Total 712 240 Output Total 1350 Balance 712 -1350 240 Weight 109.5 kg Intake: Oral 712 240 Output: Urine 1350 Other: Voiding Method External Catheter External Catheter - Exam No acute distress, oriented 3. Currently, patient is on 3 L of oxygen by nasal cannula and she is currently off the BiPAP. She is able to speak of longer sentences. She is not using a scissor muscles of breathing. HEENT examination is grossly unremarkable. Mucous membranes are moist. No oral lesions. Neck supple. Full range of motion. No adenopathy thyromegaly or neck vein distention. Cardiovascular examination reveals regular rhythm rate. S1-S2 normal. No S3 or S4. No discernible murmur noted. Lungs reveal bibasilar crackles. Breath sounds equal. No wheezes or rhonchi.. Abdomen soft bowel sounds are heard. No masses or tenderness. Extremities are intact. No cyanosis clubbing or edema. Skin is without rash or lesion. Neurologic examination is brief but nonfocal. - Labs CBC & Chem 7: 04/27/20 07:56 04/28/20 08:06 Labs: Abnormal Lab Results - Last 24 Hours (Table) 04/27/20 04/27/20 04/27/20 Range/Units 11:41 16:43 20:48 D-Dimer (<0.60) mg/L FEU BUN (7-17) mg/dL Creatinine (0.52-1.04) mg/dL Glucose (74-99) mg/dL POC Glucose (mg/dL) 198 H 253 H 227 H (75-99) mg/dL Calcium (8.4-10.2) mg/dL 04/28/20 04/28/20 04/28/20 Range/Units 05:52 08:06 08:06 D-Dimer 1.01 H (<0.60) mg/L FEU BUN 66 H (7-17) mg/dL Creatinine 1.57 H (0.52-1.04) mg/dL Glucose 219 H (74-99) mg/dL POC Glucose (mg/dL) 161 H (75-99) mg/dL Calcium 8.2 L (8.4-10.2) mg/dL Microbiology - Last 24 Hours (Table) 04/23/20 11:09 Blood Culture - Preliminary Blood No Growth after 96 hours Assessment and Plan Plan: Plan: 1 Acute hypoxemic respiratory failure, likely multifactorial, in part related to the patient's underlying chronic bronchial asthma, bilateral pneumonia (right more than left), and probable CHF/heart failure. Patient is on a combination of antibiotics including Rocephin and zithromax. Echo showed a normal LV function. I was concerned about her respiratory status and the CAT scan of the chest was obtained yesterday that showed bilateral groundglass changes with areas of consolidation of the left lower lobe and this along with an elevated pro- calcitonin level and elevated white cell count is consistent with bacterial infection/pneumonia. Cultures of been negative and the patient was given a combination of Rocephin and Zithromax. Her white cell count is improving. Clinically she is also improving. She is down to 3 L of oxygen by nasal cannula and currently she is off the BiPAP. Today's evaluation, I still some further improvement in the patient's respiratory status and I also saw some further improvement in the chest x-ray findings which shows improvement in the groundglass changes in the consolidation specially on the right. Clinically the patient is also improving. 2 Elevated troponins, most likely consistent with an acute non-STEMI, this occurred in the setting of an acute pneumonia, currently free of any chest pain and the patient's echocardiogram is within normal limits and she is currently off IV heparin. 3 Obesity. 4 History of chronic bronchial asthma. 5 History of hypertension. 6 History of hypothyroidism. 7 EFREN, improving , creatinine is improving, creatinine is down to 1.57 Plan: Wean down the FiO2 further currently she is at 3 L per minute nasal cannula Continue antibiotic coverage with a combination of cefepime and Zithromax I noted the development of small bilateral pleural effusion that is going to be monitored The patient remains on albuterol sulfate and ipratropium bromide, corticosteroids, as well as Pulmicort and formoterol. We will continue to follow. Prognosis is guarded. Time with Patient: Less than 30
[2020-04-28] MEDS: METOPROLOL TARTRATE 25 MG TAB PO SCH ×2 (10:49→21:13)
[2020-04-28] MEDS: amLODIPine 5 MG TAB PO SCH (10:49)
[2020-04-28] MEDS: PANTOPRAZOLE 40 MG TABLET PO SCH (10:49)
[2020-04-28] MEDS: ASPIRIN 81 MG PO SCH (10:49)
[2020-04-28] MEDS: AZITHROMYCIN 500 MG TAB PO SCH (10:50)
[2020-04-28] MEDS: HEPARIN SODIUM,PORCINE 5,000 UNIT/ML 1 ML VIAL SQ SCH ×3 (10:50→23:44)
[2020-04-28] MEDS: CEFEPIME 1 GM in SODIUM CHLORIDE 0.9% 50 ML IVPB SCH ×2 (10:52→21:12)
[2020-04-28] MEDS: CLOTRIMAZOLE/BETAMETH 1-0.05% CREAM 45 GM TUBE TOPICAL SCH ×2 (10:53→21:12)
--- NOTE | 2020-04-28 12:01 | P.PN ---
Subjective This is a pleasant 69 years old female with past medical history of asthma, she follows up with cake cutter machine at [facility]. She presents because of 2 days of worsening shortness of breath with coughing and with some phlegm and no chest pain or fever. Patient was very anxious and wanted her mask to be taken off, however she agrees to keep it on with small doses of benzodiazepine 0.5 mg She denies change in urine or bowel habits. Denies headache, syncope or dizziness. No weakness or numbness She denies smoking, alcohol or illicit drugs On admission Vitas looks stable except for patient feels tachypneic at 26 which is improved with BiPAP which was present on admission with oxygen saturation of 97% Labs showing leukocytosis of 15.1 K, INR 0.9, d-dimer is elevated at 9.2. Lactic acid elevated at 6.4, coming down to 2.4 procalcitonin is 0.08, coronavirus not detected VQ scan showed low probability for PE, Doppler of the lower extremity is negative for DVT. Echocardiogram showing normal ejection fraction of 55-60% with severe concentric left ventricular hypertrophy 04/24/2020 Patient is fully awake and alert, more calm and less in respiratory distress compared to yesterday, she is on BiPAP with a breathing rate of about 48. She still have some wheezing. She is oxygen saturation 97% while on BiPAP. She has leukocytosis of 15.6. Creatinine is slightly down to 1.9 Chest x-ray showing right sided pneumonia, possible pulmonary edema Yesterday patient become unresponsive because of extra dose of benzodiazepine, she was placed also on heparin drip and metoprolol added for elevated troponin. Cardiology team on the case 04/25/2020 This is a pleasant 69 years old female who was admitted with respiratory distress needind BiPAP for the first 24-48 hours. Her respiratory status improved however she still dyspneic needing 5-6 L oxygen and she is somewhat tachypneic. She is coughing but denies chest pain. There are some Vitas looks stable. Her leukocytosis went up to 21.9 but she is on steroids. Creatinine is stable at 1.9. Her pro-calcitonin is elevated at 7.8 Patient currently is covered with Rocephin and Zithromax. Also she is on some Medrol 60 mg per pulmonology team recommendation. She is on heparin drip for high troponin. Leather Colorer recommended discontinue heparin and 24 hours Losartan stopped due to EFREN. No reflux is added for hypertension 04/26/2020 Patient is awake and sitting up in bed, she uses BiPAP most of the time however this morning when she was off BiPAP for eating she was really tachypneic with breathing rate 22 through 26/m, her oxygen saturation was 90s on 5-6 L via nasal cannula. Blood pressure on the high side 170/102, on examination she has mild prolonged expiratory wheezing WBC 17.3, creatinine is stable at 1.9, it looks like patient has chronic kidney disease however patient does not know about previous kidney disease She still on heparin drip, which might be stopped today. Leather Colorer. Most likely patient has pneumonia on the right side with elevated pro-calcitonin at 7.8, patient continue on some traction on Zithromax. Also she is on some Medrol 60 mg. She is on aspirin and metoprolol for high troponin. Pulmonary team input is appreciated and they recommended CAT scan of the chest without contrast 04/27/2020 Patient remains significantly dyspneic however it looks better for me compared to yesterday. She still needs 6 L of oxygen to keep her oxygen saturation in the 90s WBC is trending down, creatinine is down from 1.9 down to 1.6. Glucose controlled. Coronavirus not detected. Chest CAT scan showed bilateral groundglass opacity with left lower lobe area suspicious for a mass and they recommended either follow-up CAT scan for need for PET scan. Indwelling chest x-ray yesterday showed more CHF with right lower lobe pneumonia. Workup for pneumonia with urine legionella is still pending. Her pro-calcitonin is trending down She is currently on ceftriaxone, Zithromax, Solu-Medrol for possible asthma, no diuretics and heparin drip was stopped and switched to subcu heparin 04/28/2020 Patient dyspnea is improving an improving myoclonic infiltrates. Resolving atypical pneumonia or volume overload could be considered. d currently she is saturating 95% on 3-4 L oxygen via nasal cannula, her breathing is still difficult for her about its improving and she can say it. She still uses BiPAP at night only. No chest pain. No other significant complaint Repeat chest x-ray today: Improving mild infiltrates of the lungs. Resolving atypical pneumonia Creatinine is trending down to 1.6 to 1.5. D-dimer is trending down from 9 down to 1. Sugar is controlled. The rest vitals are stable Her antibiotics were changed to cefepime and continued with Zithromax. She is also on Solu-Medrol 60 mg. Objective - Vital Signs Vital signs: Vital Signs Temp 97.6 F 04/28/20 08:00 Pulse 72 04/28/20 11:44 Resp 23 04/28/20 04:00 BP 158/92 04/28/20 08:00 Pulse Ox 95 04/28/20 08:00 Intake & Output 04/27/20 04/28/20 04/28/20 18:59 06:59 18:59 Intake Total 712 290 Output Total 1350 Balance 712 -1350 290 Weight 109.5 kg Intake: Intake, IV Titration 50 Amount Cefepime 1 gm In Sodium 50 Chloride 0.9% 50 ml @ 12. 5 mls/hr IVPB Q12HR [facility] Rx#:[id number] Oral 712 240 Output: Urine 1350 Other: Voiding Method External Catheter External Catheter External Catheter - Exam -GENERAL: The patient is alert and oriented x3, in mild to moderate respiratory distress, on BiPAP, she looks anxious, has orthopnea HEENT: Pupils are round and equally reacting to light. EOMI. No scleral icterus. No conjunctival pallor. Normocephalic, atraumatic. No pharyngeal erythema. No thyromegaly. CARDIOVASCULAR: S1 and S2 present. No murmurs, rubs, or gallops. -PULMONARY: Chest is clear to auscultation, bilateral scattered wheezing ABDOMEN: Soft, nontender, nondistended, normoactive bowel sounds. No palpable organomegaly. MUSCULOSKELETAL: No joint swelling or deformity. EXTREMITIES: No cyanosis, clubbing, or pedal edema. NEUROLOGICAL: Gross neurological examination did not reveal any focal deficits. SKIN: No rashes. No petechiae - Labs CBC & Chem 7: 04/27/20 07:56 04/28/20 08:06 Labs: Abnormal Lab Results - Last 24 Hours (Table) 04/27/20 04/27/20 04/28/20 Range/Units 16:43 20:48 05:52 D-Dimer (<0.60) mg/L FEU BUN (7-17) mg/dL Creatinine (0.52-1.04) mg/dL Glucose (74-99) mg/dL POC Glucose (mg/dL) 253 H 227 H 161 H (75-99) mg/dL Calcium (8.4-10.2) mg/dL 04/28/20 04/28/20 Range/Units 08:06 08:06 D-Dimer 1.01 H (<0.60) mg/L FEU BUN 66 H (7-17) mg/dL Creatinine 1.57 H (0.52-1.04) mg/dL Glucose 219 H (74-99) mg/dL POC Glucose (mg/dL) (75-99) mg/dL Calcium 8.2 L (8.4-10.2) mg/dL Microbiology - Last 24 Hours (Table) 04/23/20 11:09 Blood Culture - Preliminary Blood No Growth after 96 hours Assessment and Plan Assessment: Acute hypoxic respiratory failure Most likely right-sided pneumonia, rather than acute asthma exacerbation, CHF is less likely Elevated troponin, rule out cardiac disease. Could be also due to elevated creatinine Elevated creatinine, no baseline. Acute kidney injury versus chronic kidney disease Hyperglycemia Mildly elevated liver enzymes Elevated lactic acid Plan: This is a pleasant 69 years old female who presents with asthma and high troponin. Continue with steroids, continue with oxygen as needed and BiPAP. Pu lmonary and cardiology consult. Labs and medication were reviewed.. Continue same treatment. Continue with symptomatic treatment. Resume home medication. Monitor lytes and vitals. DVT and GI prophylaxis. Further recommendations depends on the clinical course of the patient DVT prophylaxis: heparin GI Prophylaxis: Ppi PT/OT: Pending Prognosis is guarded continue with ceftriaxone and Zithromax.
[2020-04-28 12:12] LABS: Glucose,Whole Blood 204 mg/dL (75-99)
--- NOTE | 2020-04-28 14:06 | P.PN ---
Subjective Progress Note Date: 04/28/20 HISTORY OF PRESENT ILLNESS: 04/26/2020 Patient examined at the bedside. She continues to complain of shortness of breath. She remains on a BiPAP at 50%. Denies chest pain or pressure. Echocardiogram completed reveals ejection fraction 55-60% with mild tricuspid regurgitation. She remains on IV antibiotic for pneumonia. WBC 17.3. 04/27/2020 Patient examined sitting up in the chair. She still complains of being short of breath today. She is currently on 6 L nasal cannula. She denies chest pain or pressure. Creatinine has improved today to 1.62. WBC 14.2. She remains on antibiotics. 04/28/2020 Patient examined this morning at the bedside. Patient is currently on 3 L nasal cannula. She states her shortness of breath is improving. Creatinine today is 1.57. PHYSICAL EXAM: VITAL SIGNS: Reviewed. GENERAL: Well-developed in no acute distress. NECK: Supple. No JVD or thyromegaly LUNGS: Respirations even and unlabored. Lungs diminished with scattered rhonchi. HEART: Regular rate and rhythm. S1 and S2 heard. EXTREMITIES: Normal range of motion. No clubbing or cyanosis. Peripheral pulses intact. Trace bilateral lower extremity edema ASSESSMENT: Pneumonia Acute hypoxic respiratory failure Leukocytosis Lactic acidosis Acute kidney injury Abnormal troponins, may be secondary to infectious process, no evidence of acute coronary syndrome Hypertension Obesity, BMI 36 PLAN: Continue antibiotic therapy for pneumonia Pulmonary following Irbesartan on hold due to EFREN. 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 Signing provider agrees with the documented findings, assessment, and plan of care. Objective - Vital Signs Vital signs: Vital Signs Temp 97.6 F 04/28/20 08:00 Pulse 72 04/28/20 11:44 Resp 23 04/28/20 04:00 BP 158/92 04/28/20 08:00 Pulse Ox 95 04/28/20 08:00 Intake & Output 04/27/20 04/28/20 04/28/20 18:59 06:59 18:59 Intake Total 712 290 Output Total 1350 Balance 712 -1350 290 Weight 109.5 kg Intake: Intake, IV Titration 50 Amount Cefepime 1 gm In Sodium 50 Chloride 0.9% 50 ml @ 12. 5 mls/hr IVPB Q12HR [facility] Rx#:[id number] Oral 712 240 Output: Urine 1350 Other: Voiding Method External Catheter External Catheter External Catheter - Labs CBC & Chem 7: 04/27/20 07:56 04/28/20 08:06 Labs: Abnormal Lab Results - Last 24 Hours (Table) 04/27/20 04/27/20 04/28/20 Range/Units 16:43 20:48 05:52 D-Dimer (<0.60) mg/L FEU BUN (7-17) mg/dL Creatinine (0.52-1.04) mg/dL Glucose (74-99) mg/dL POC Glucose (mg/dL) 253 H 227 H 161 H (75-99) mg/dL Calcium (8.4-10.2) mg/dL 04/28/20 04/28/20 04/28/20 Range/Units 08:06 08:06 12:11 D-Dimer 1.01 H (<0.60) mg/L FEU BUN 66 H (7-17) mg/dL Creatinine 1.57 H (0.52-1.04) mg/dL Glucose 219 H (74-99) mg/dL POC Glucose (mg/dL) 204 H (75-99) mg/dL Calcium 8.2 L (8.4-10.2) mg/dL Microbiology - Last 24 Hours (Table) 04/23/20 11:09 Blood Culture - Preliminary Blood No Growth after 120 hours
[2020-04-28 16:46] LABS: Glucose,Whole Blood 182 mg/dL (75-99)
[2020-04-28 20:55] LABS: Glucose,Whole Blood 277 mg/dL (75-99)
[2020-04-29 06:07] LABS: Glucose,Whole Blood 175 mg/dL (75-99)
[2020-04-29] MEDS: LEVOTHYROXINE 100 MCG TAB PO SCH (06:33)
[2020-04-29] MEDS: INSULIN ASPART (NovoLOG) 100 UNIT/ML VIAL SQ SCH ×4 (06:33→21:50)
[2020-04-29] MEDS: methylPREDNISolone SOD SUCCI 125 MG/2 ML VIAL IV SCH (06:33)
[2020-04-29] MEDS: BUDESONIDE 1 MG/2 ML NEBU INHALATION SCH ×2 (08:12→19:18)
[2020-04-29] MEDS: IPRATROPIUM-ALBUTEROL 3 ML NEB INHALATION SCH ×4 (08:12→19:18)
[2020-04-29] MEDS: FORMOTEROL FUMARATE 20 MCG/2 ML NEBU INHALATION SCH ×2 (08:12→19:19)
[2020-04-29 08:32] LABS: Calcium 8.3 mg/dL (8.4-10.2); Potassium 4.7 mmol/L (3.5-5.1)
[2020-04-29] MEDS: ASPIRIN 81 MG PO SCH (09:46)
[2020-04-29] MEDS: amLODIPine 5 MG TAB PO SCH (09:46)
[2020-04-29] MEDS: PANTOPRAZOLE 40 MG TABLET PO SCH (09:46)
[2020-04-29] MEDS: HEPARIN SODIUM,PORCINE 5,000 UNIT/ML 1 ML VIAL SQ SCH ×3 (09:46→23:23)
[2020-04-29] MEDS: AZITHROMYCIN 500 MG TAB PO SCH (09:46)
[2020-04-29] MEDS: METOPROLOL TARTRATE 25 MG TAB PO SCH ×2 (09:46→21:50)
[2020-04-29] MEDS: CLOTRIMAZOLE/BETAMETH 1-0.05% CREAM 45 GM TUBE TOPICAL SCH ×2 (09:46→21:50)
--- NOTE | 2020-04-29 10:22 | P.PN ---
Subjective Progress Note Date: 04/29/20 69-year-old female who does not see doctors in this area but rather sees physicians at [facility], who apparently comes into the emergency room, brought in by EMS, for difficulty in breathing. Apparently, for the last day or 2, the patient's breathing has gotten more difficult. She apparently became unresponsive according to her family. The patient was found by EMS to be awake and short of breath. Her pulse ox saturations were 88%. The patient was therefore placed on CPAP. She apparently carries with her a diagnosis of asthma, hypothyroidism, and hypertension. Again, we do not see her in this area. She sees a commercial project manager at [facility]. Currently, in the emergency department, she is on BiPAP, with settings of 12/6 and 60%. Currently, the patient appears to be short of breath. She also seemed a little lethargic and sleepy. She has been initiated on IV antibiotics along with steroids and IV heparin secondary to elevated troponin. The patient states approximately 2 years ago she had a similar type respiratory illness and was treated at [facility] at that time she was told she had a mild heart attack however to her recollection she never underwent cardiac catheterization. She denies any stents or open heart surgery. Echocardiogram obtained on this admission reveals preserved LV systolic function with ejection fraction 55-60%, mild tricuspid regurgitation and ascending aorta dilation measuring 4.2 cm. Sodium 142. Potassium 4.7. Creatinine 1.90. White count 15.6. Hemoglobin 13.1. Peak troponin 2.16. Pro-calcitonin 7.82. She remains on ceftriaxone and azithromycin along with bronchodilators. The procalcitonin is elevated the CXR is showing a consolidation of the RLL consistent with pneumonias. On 04/26/2020, the patient was sent remains to be elevated. The patient is still on BiPAP at a pressure of 12/6 cm of water with an FiO2 of 50%. Earlier this morning, while having breakfast, she was taken off the BiPAP. She does much better while on the BiPAP. On examination, she is still having crackles in lung bases bilaterally. The chest x-ray was showing breath and pulmonary infiltrates worse on the right. No fever. No altered mentation. Her minute ventilation is still high as 15 L and the patient is able to generate tidal volumes of about 500 respiratory rate ranging between 30 and 32. 04/27/2020, the patient is feeling slightly better compared to yesterday. Note that she was quite short of breath and she was placed on a BiPAP and currently she is weaned down to 6 L of oxygen by nasal cannula. She is able to sit up on a recliner. Her pulse ox is 95% on 6 L of oxygen by nasal cannula. The chest CAT scan of the chest was done yesterday and the CAT scan showed bilateral pulmonary infiltrates with areas of consolidation of the left lower lobe. There was also small bilateral pleural effusions. There was areas of multifocal groundglass opacities in the upper lobes yet the findings are more consolidating in the left lower lobe and this along with an elevated pro-calcitonin level is highly suggestive of an underlying bacterial infection. Initial pro-calcitonin level was at 7.8 and a drop down to 4.6. The white cell count is also improving and is down to 14.2 from as high as 21.9. The renal function is also improving and the creatinine is at 1.62. The patient free of any chest pain. She is on subcu heparin for now. She is on DuoNeb nebulized treatments around the clock. Echocardiogram that was obtained on 04/23/2019 showed a preserved LV function. Note that she had a non-STEMI with an elevated troponin level of 2.1 04/28/2020, the patient is doing better. She is a bit angry while watching television as the patient is unhappy with the results of the presidential election. I told her to get politics out of her head and concentrate on her pneumonia recovery for now. A repeat chest x-ray was done and is gradually improvement of the bilateral pulmonary infiltrates described earlier. The patient remains on examination of Rocephin and Zithromax. Her pro-calcitonin level was improving. She also has improvement in her renal function and creatinine is down to 1.57. Oxidation is also improved and she is down to 3 L about 2 by nasal cannula. No significant sputum production. No fever or chills. Troponin peaked at 2.1 and she had an obvious non-STEMI. She sees a ui developer Dr. Krishnamurthy and a commercial project manager, Dr. mcnair at [facility] in [place] [address], the patient is doing better. She is less short of breath. She is coughing up some minimal amount of brownish mucus. She is on 2 L of oxygen by nasal cannula and she is using incentive spirometer and she is pulling approximately 1500. She remains on antibiotics. She remains on IV Solu-Medrol. Her pro-calcitonin level was on the decline. She is less short of breath. She is weak. She is moving around without help of a walker. She may need some rehabilitation at a later stage. Meanwhile, no fever. No chills. No significant leukocytosis and the patient is with a hemoglobin of 13.4. Objective - Vital Signs Vital signs: Vital Signs Temp 98.9 F 04/28/20 20:00 Pulse 72 04/29/20 08:28 Resp 17 04/29/20 04:00 BP 139/76 04/29/20 00:00 Pulse Ox 98 04/29/20 04:00 Intake & Output 04/28/20 04/29/20 04/29/20 18:59 06:59 18:59 Intake Total 1220 540 Output Total 600 Balance 1220 -600 540 Weight 79 kg Intake: Intake, IV Titration 100 Amount Cefepime 1 gm In Sodium 100 Chloride 0.9% 50 ml @ 12. 5 mls/hr IVPB Q12HR [facility] Rx#:[id number] Oral 1120 540 Output: Urine 600 Other: Voiding Method External Catheter External Catheter # Voids 1 # Bowel Movements 1 - Exam No acute distress, oriented 3. Currently, patient is on 3 L of oxygen by nasal cannula and she is currently off the BiPAP. She is able to speak of longer sentences. She is not using a scissor muscles of breathing. HEENT examination is grossly unremarkable. Mucous membranes are moist. No oral lesions. Neck supple. Full range of motion. No adenopathy thyromegaly or neck vein distention. Cardiovascular examination reveals regular rhythm rate. S1-S2 normal. No S3 or S4. No discernible murmur noted. Lungs reveal bibasilar crackles. Breath sounds equal. No wheezes or rhonchi.. Abdomen soft bowel sounds are heard. No masses or tenderness. Extremities are intact. No cyanosis clubbing or edema. Skin is without rash or lesion. Neurologic examination is brief but nonfocal. - Labs CBC & Chem 7: 04/27/20 07:56 04/29/20 07:41 Labs: Abnormal Lab Results - Last 24 Hours (Table) 04/28/20 04/28/20 04/28/20 Range/Units 08:06 12:11 16:44 Chloride (98-107) mmol/L BUN (7-17) mg/dL Creatinine (0.52-1.04) mg/dL Glucose (74-99) mg/dL POC Glucose (mg/dL) 204 H 182 H (75-99) mg/dL Calcium (8.4-10.2) mg/dL Procalcitonin 1.04 H (0.02-0.09) ng/mL 04/28/20 04/29/20 04/29/20 Range/Units 20:53 05:59 07:41 Chloride 108 H (98-107) mmol/L BUN 70 H (7-17) mg/dL Creatinine 1.50 H (0.52-1.04) mg/dL Glucose 171 H (74-99) mg/dL POC Glucose (mg/dL) 277 H 175 H (75-99) mg/dL Calcium 8.3 L (8.4-10.2) mg/dL Procalcitonin (0.02-0.09) ng/mL Microbiology - Last 24 Hours (Table) 04/23/20 11:09 Blood Culture - Preliminary Blood No Growth after 120 hours Assessment and Plan Plan: Plan: 1 Acute hypoxemic respiratory failure, likely multifactorial, in part related to the patient's underlying chronic bronchial asthma, bilateral pneumonia (right more than left), and probable CHF/heart failure. Patient is on a combination of antibiotics including Rocephin and zithromax. Echo showed a normal LV function. I was concerned about her respiratory status and the CAT scan of the chest was obtained yesterday that showed bilateral groundglass changes with areas of consolidation of the left lower lobe and this along with an elevated pro- calcitonin level and elevated white cell count is consistent with bacterial infection/pneumonia. Cultures of been negative and the patient was given a combination of Rocephin and Zithromax. Her white cell count is improving. Clinically she is also improving. She is down to 3 L of oxygen by nasal cannula and currently she is off the BiPAP. Today's evaluation, I still some further improvement in the patient's respiratory status and I also saw some further improvement in the chest x-ray findings which shows improvement in the groundglass changes in the consolidation specially on the right. Clinically the patient is also improving. 2 Elevated troponins, most likely consistent with an acute non-STEMI, this occurred in the setting of an acute pneumonia, currently free of any chest pain and the patient's echocardiogram is within normal limits and she is currently off IV heparin. 3 Obesity. 4 History of chronic bronchial asthma. 5 History of hypertension. 6 History of hypothyroidism. 7 EFREN, improving , creatinine is improving, creatinine is down to 1.50 Plan: Wean down the FiO2 further currently she is at 2 L per minute nasal cannula Continue antibiotic coverage with a combination of cefepime and Zithromax Repeat chest x-ray in the morning Stopped IV Solu Medrol and proceed with a prednisone burst taper I noted the development of small bilateral pleural effusion that is going to be monitored The patient remains on albuterol sulfate and ipratropium bromide, corticosteroids, as well as Pulmicort and formoterol. Possible further cardiac workup for non-STEMI at a later stage We will continue to follow. Prognosis is guarded. Time with Patient: Less than 30
--- NOTE | 2020-04-29 11:10 | P.PN ---
Subjective This is a pleasant 69 years old female with past medical history of asthma, she follows up with enrollment clerk at [facility]. She presents because of 2 days of worsening shortness of breath with coughing and with some phlegm and no chest pain or fever. Patient was very anxious and wanted her mask to be taken off, however she agrees to keep it on with small doses of benzodiazepine 0.5 mg She denies change in urine or bowel habits. Denies headache, syncope or dizziness. No weakness or numbness She denies smoking, alcohol or illicit drugs On admission Vitas looks stable except for patient feels tachypneic at 26 which is improved with BiPAP which was present on admission with oxygen saturation of 97% Labs showing leukocytosis of 15.1 K, INR 0.9, d-dimer is elevated at 9.2. Lactic acid elevated at 6.4, coming down to 2.4 procalcitonin is 0.08, coronavirus not detected VQ scan showed low probability for PE, Doppler of the lower extremity is negative for DVT. Echocardiogram showing normal ejection fraction of 55-60% with severe concentric left ventricular hypertrophy 04/24/2020 Patient is fully awake and alert, more calm and less in respiratory distress compared to yesterday, she is on BiPAP with a breathing rate of about 48. She still have some wheezing. She is oxygen saturation 97% while on BiPAP. She has leukocytosis of 15.6. Creatinine is slightly down to 1.9 Chest x-ray showing right sided pneumonia, possible pulmonary edema Yesterday patient become unresponsive because of extra dose of benzodiazepine, she was placed also on heparin drip and metoprolol added for elevated troponin. Cardiology team on the case 04/25/2020 This is a pleasant 69 years old female who was admitted with respiratory distress needind BiPAP for the first 24-48 hours. Her respiratory status improved however she still dyspneic needing 5-6 L oxygen and she is somewhat tachypneic. She is coughing but denies chest pain. There are some Vitas looks stable. Her leukocytosis went up to 21.9 but she is on steroids. Creatinine is stable at 1.9. Her pro-calcitonin is elevated at 7.8 Patient currently is covered with Rocephin and Zithromax. Also she is on some Medrol 60 mg per pulmonology team recommendation. She is on heparin drip for high troponin. Environmental Services Aide recommended discontinue heparin and 24 hours Losartan stopped due to EFREN. No reflux is added for hypertension 04/26/2020 Patient is awake and sitting up in bed, she uses BiPAP most of the time however this morning when she was off BiPAP for eating she was really tachypneic with breathing rate 22 through 26/m, her oxygen saturation was 90s on 5-6 L via nasal cannula. Blood pressure on the high side 170/102, on examination she has mild prolonged expiratory wheezing WBC 17.3, creatinine is stable at 1.9, it looks like patient has chronic kidney disease however patient does not know about previous kidney disease She still on heparin drip, which might be stopped today. Environmental Services Aide. Most likely patient has pneumonia on the right side with elevated pro-calcitonin at 7.8, patient continue on some traction on Zithromax. Also she is on some Medrol 60 mg. She is on aspirin and metoprolol for high troponin. Pulmonary team input is appreciated and they recommended CAT scan of the chest without contrast 04/27/2020 Patient remains significantly dyspneic however it looks better for me compared to yesterday. She still needs 6 L of oxygen to keep her oxygen saturation in the 90s WBC is trending down, creatinine is down from 1.9 down to 1.6. Glucose controlled. Coronavirus not detected. Chest CAT scan showed bilateral groundglass opacity with left lower lobe area suspicious for a mass and they recommended either follow-up CAT scan for need for PET scan. Indwelling chest x-ray yesterday showed more CHF with right lower lobe pneumonia. Workup for pneumonia with urine legionella is still pending. Her pro-calcitonin is trending down She is currently on ceftriaxone, Zithromax, Solu-Medrol for possible asthma, no diuretics and heparin drip was stopped and switched to subcu heparin 04/28/2020 Patient dyspnea is improving an improving myoclonic infiltrates. Resolving atypical pneumonia or volume overload could be considered. d currently she is saturating 95% on 3-4 L oxygen via nasal cannula, her breathing is still difficult for her about its improving and she can say it. She still uses BiPAP at night only. No chest pain. No other significant complaint Repeat chest x-ray today: Improving mild infiltrates of the lungs. Resolving atypical pneumonia Creatinine is trending down to 1.6 to 1.5. D-dimer is trending down from 9 down to 1. Sugar is controlled. The rest vitals are stable Her antibiotics were changed to cefepime and continued with Zithromax. She is also on Solu-Medrol 60 mg. 04/29/2020 Patient is alert and awake, she is breathing easier although she still somewhat tachypneic at 20 breaths per minute. She is saturating 94% on 2 L oxygen via nasal cannula Creatinine is stable at 1.5 which looks like her chronic kidney disease level, with GFR of 36 make her stage III. Sugar is controlled. Environmental Services Aide on board for her elevated troponin, pending records from [facility]. Change her Solu-Medrol to prednisone. Continue with antibiotics of cefepime and Zithromax. Objective - Vital Signs Vital signs: Vital Signs Temp 97.8 F 04/29/20 08:00 Pulse 72 04/29/20 08:28 Resp 17 04/29/20 04:00 BP 151/81 04/29/20 08:00 Pulse Ox 94 L 04/29/20 08:00 Intake & Output 04/28/20 04/29/20 04/29/20 18:59 06:59 18:59 Intake Total 1220 540 Output Total 600 Balance 1220 -600 540 Weight 79 kg Intake: Intake, IV Titration 100 Amount Cefepime 1 gm In Sodium 100 Chloride 0.9% 50 ml @ 12. 5 mls/hr IVPB Q12HR [facility] Rx#:[id number] Oral 1120 540 Output: Urine 600 Other: Voiding Method External Catheter External Catheter External Catheter # Voids 1 # Bowel Movements 1 - Exam -GENERAL: The patient is alert and oriented x3,no respiratory distress, HEENT: Pupils are round and equally reacting to light. EOMI. No scleral icterus. No conjunctival pallor. Normocephalic, atraumatic. No pharyngeal erythema. No thyromegaly. CARDIOVASCULAR: S1 and S2 present. No murmurs, rubs, or gallops. -PULMONARY: Chest is clear to auscultation, no wheezing. Mild crepitation in the right ABDOMEN: Soft, nontender, nondistended, normoactive bowel sounds. No palpable organomegaly. MUSCULOSKELETAL: No joint swelling or deformity. EXTREMITIES: No cyanosis, clubbing, or pedal edema. NEUROLOGICAL: Gross neurological examination did not reveal any focal deficits. SKIN: No rashes. No petechiae - Labs CBC & Chem 7: 04/27/20 07:56 04/29/20 07:41 Labs: Abnormal Lab Results - Last 24 Hours (Table) 04/28/20 04/28/20 04/28/20 Range/Units 08:06 12:11 16:44 Chloride (98-107) mmol/L BUN (7-17) mg/dL Creatinine (0.52-1.04) mg/dL Glucose (74-99) mg/dL POC Glucose (mg/dL) 204 H 182 H (75-99) mg/dL Calcium (8.4-10.2) mg/dL Procalcitonin 1.04 H (0.02-0.09) ng/mL 04/28/20 04/29/20 04/29/20 Range/Units 20:53 05:59 07:41 Chloride 108 H (98-107) mmol/L BUN 70 H (7-17) mg/dL Creatinine 1.50 H (0.52-1.04) mg/dL Glucose 171 H (74-99) mg/dL POC Glucose (mg/dL) 277 H 175 H (75-99) mg/dL Calcium 8.3 L (8.4-10.2) mg/dL Procalcitonin (0.02-0.09) ng/mL Microbiology - Last 24 Hours (Table) 04/23/20 11:09 Blood Culture - Preliminary Blood No Growth after 120 hours Assessment and Plan Assessment: Acute hypoxic respiratory failure right-sided pneumonia, rather than acute asthma exacerbation, CHF is less likely Elevated troponin, rule out cardiac disease. Could be also due to elevated creatinine Elevated creatinine, no baseline. Acute kidney injury versus chronic kidney disease Hyperglycemia Mildly elevated liver enzymes Elevated lactic acid Plan: This is a pleasant 69 years old female who presents with asthma and high troponin. Continue with steroids, continue with oxygen as needed and BiPAP. Pulmonary and cardiology consult. continue with ceftriaxone and Zithromax. Labs and medication were reviewed.. Continue same treatment. Continue with symptomatic treatment. Resume home medication. Monitor lytes and vitals. DVT and GI prophylaxis. Further recommendations depends on the clinical course of the patient DVT prophylaxis: heparin GI Prophylaxis: Ppi PT/OT: Subacute rehab to which patient agrees to talk to social work Prognosis is guarded
[2020-04-29 11:23] VITALS: BMI 27.2
[2020-04-29 12:25] LABS: Glucose,Whole Blood 173 mg/dL (75-99)
[2020-04-29] MEDS: CEFEPIME 1 GM in SODIUM CHLORIDE 0.9% 50 ML IVPB SCH ×2 (13:06→21:50)
--- NOTE | 2020-04-29 13:52 | P.PN ---
Subjective Progress Note Date: 04/29/20 HISTORY OF PRESENT ILLNESS: 04/26/2020 Patient examined at the bedside. She continues to complain of shortness of breath. She remains on a BiPAP at 50%. Denies chest pain or pressure. Echocardiogram completed reveals ejection fraction 55-60% with mild tricuspid regurgitation. She remains on IV antibiotic for pneumonia. WBC 17.3. 04/27/2020 Patient examined sitting up in the chair. She still complains of being short of breath today. She is currently on 6 L nasal cannula. She denies chest pain or pressure. Creatinine has improved today to 1.62. WBC 14.2. She remains on antibiotics. 04/28/2020 Patient examined this morning at the bedside. Patient is currently on 3 L nasal cannula. She states her shortness of breath is improving. Creatinine today is 1.57. 04/29/2020 Patient examined at the bedside with Dr. Cesar. Patient denies chest pain or pressure. She states her shortness of breath is improving. She remains on 2 L nasal cannula with oxygen saturations greater than 92%. Vital signs are stable. Creatinine 1.50. Records from Dr. Zhou reviewed. No evidence of previous myocardial infarction per records obtained. PHYSICAL EXAM: VITAL SIGNS: Reviewed. GENERAL: Well-developed in no acute distress. NECK: Supple. No JVD or thyromegaly LUNGS: Respirations even and unlabored. Lungs diminished with scattered rhonchi. HEART: Regular rate and rhythm. S1 and S2 heard. EXTREMITIES: Normal range of motion. No clubbing or cyanosis. Peripheral pulses intact. Trace bilateral lower extremity edema ASSESSMENT: Pneumonia Acute hypoxic respiratory failure Leukocytosis Lactic acidosis Acute kidney injury Abnormal troponins, may be secondary to infectious process, no evidence of acute coronary syndrome Hypertension Obesity, BMI 36 PLAN: Continue antibiotic therapy for pneumonia Pulmonary following Irbesartan on hold due to EFREN. Repeat kidney function in AM No plans for cardiac cath at this time. When patient is more stable, she will require further workup for CAD. She may follow up with Dr. Hills locally or with Dr. Zhou, whichever patient prefers. We will sign off. Please reconsult if needed. Nurse practitioner note has been reviewed by physician. Signing provider agrees with the documented findings, assessment, and plan of care. Objective - Vital Signs Vital signs: Vital Signs Temp 97.8 F 04/29/20 08:00 Pulse 68 04/29/20 11:36 Resp 17 04/29/20 04:00 BP 151/81 04/29/20 08:00 Pulse Ox 94 L 04/29/20 08:00 Intake & Output 04/28/20 04/29/20 04/29/20 18:59 06:59 18:59 Intake Total 1220 540 Output Total 600 Balance 1220 -600 540 Weight 79 kg 79 kg Intake: Intake, IV Titration 100 Amount Cefepime 1 gm In Sodium 100 Chloride 0.9% 50 ml @ 12. 5 mls/hr IVPB Q12HR [facility] Rx#:[id number] Oral 1120 540 Output: Urine 600 Other: Voiding Method External Catheter External Catheter External Catheter # Voids 1 # Bowel Movements 1 - Labs CBC & Chem 7: 04/27/20 07:56 04/29/20 07:41 Labs: Abnormal Lab Results - Last 24 Hours (Table) 04/28/20 04/28/20 04/28/20 Range/Units 08:06 16:44 20:53 Chloride (98-107) mmol/L BUN (7-17) mg/dL Creatinine (0.52-1.04) mg/dL Glucose (74-99) mg/dL POC Glucose (mg/dL) 182 H 277 H (75-99) mg/dL Calcium (8.4-10.2) mg/dL Procalcitonin 1.04 H (0.02-0.09) ng/mL 04/29/20 04/29/20 04/29/20 Range/Units 05:59 07:41 12:23 Chloride 108 H (98-107) mmol/L BUN 70 H (7-17) mg/dL Creatinine 1.50 H (0.52-1.04) mg/dL Glucose 171 H (74-99) mg/dL POC Glucose (mg/dL) 175 H 173 H (75-99) mg/dL Calcium 8.3 L (8.4-10.2) mg/dL Procalcitonin (0.02-0.09) ng/mL Microbiology - Last 24 Hours (Table) 04/23/20 11:09 Blood Culture - Final Blood No Growth after 144 hours
[2020-04-29 17:09] LABS: Glucose,Whole Blood 236 mg/dL (75-99)
[2020-04-29 20:47] LABS: Glucose,Whole Blood 251 mg/dL (75-99)
[2020-04-30 06:06] LABS: Glucose,Whole Blood 107 mg/dL (75-99)
[2020-04-30] MEDS: INSULIN ASPART (NovoLOG) 100 UNIT/ML VIAL SQ SCH ×4 (06:08→20:04)
[2020-04-30] MEDS: LEVOTHYROXINE 100 MCG TAB PO SCH (06:31)
--- NOTE | 2020-04-30 07:25 | XR ---
EXAMINATION TYPE: XR chest 1V portable DATE OF EXAM: 04/30/2020 COMPARISON: 04/28/2020 HISTORY: Shortness of breath. TECHNIQUE: Single frontal view of the chest is obtained. FINDINGS: There is diffuse interstitial pattern with cardiomegaly. No pneumothorax. No sizable pleur al effusion. Hypertrophic and degenerative changes of the spine. IMPRESSION: Stable interstitial pattern correlate for interstitial pneumonia.
[2020-04-30] MEDS: BUDESONIDE 1 MG/2 ML NEBU INHALATION SCH ×2 (08:01→20:43)
[2020-04-30] MEDS: IPRATROPIUM-ALBUTEROL 3 ML NEB INHALATION SCH ×4 (08:02→20:43)
[2020-04-30] MEDS: FORMOTEROL FUMARATE 20 MCG/2 ML NEBU INHALATION SCH ×2 (08:02→20:43)
[2020-04-30 08:10] LABS: Basophils # (A) 0.1 k/uL (0-0.2); Basophils % (A) 1 %; Eosinophils # (A) 0.2 k/uL (0-0.7); Eosinophils % (A) 1 %; HGB 14.4 gm/dL (11.4-16.0); Lymphocytes # (A) 1.2 k/uL (1.0-4.8); Lymphocytes % (A) 6 %; MCH 31.4 pg (25.0-35.0); MCHC 32.8 g/dL (31.0-37.0); MCV 95.8 fL (80.0-100.0); Mean Platelet Volume 7.8; Monocytes # (A) 1.1 k/uL (0-1.0); Monocytes % (A) 5 %; Neutrophils # (A) 17.4 k/uL (1.3-7.7); Neutrophils % (A) 87 %; Platelet Count 217 k/uL (150-450); RBC 4.59 m/uL (3.80-5.40); RDW 12.9 % (11.5-15.5); WBC 20.1 k/uL (3.8-10.6)
[2020-04-30] MEDS: CEFEPIME 1 GM in SODIUM CHLORIDE 0.9% 50 ML IVPB SCH ×2 (09:25→20:04)
[2020-04-30] MEDS: PANTOPRAZOLE 40 MG TABLET PO SCH (09:26)
[2020-04-30] MEDS: predniSONE 20 MG TAB PO SCH (09:26)
[2020-04-30] MEDS: amLODIPine 5 MG TAB PO SCH (09:26)
[2020-04-30] MEDS: ASPIRIN 81 MG PO SCH (09:26)
[2020-04-30] MEDS: HEPARIN SODIUM,PORCINE 5,000 UNIT/ML 1 ML VIAL SQ SCH ×3 (09:26→23:16)
[2020-04-30] MEDS: CLOTRIMAZOLE/BETAMETH 1-0.05% CREAM 45 GM TUBE TOPICAL SCH ×2 (09:26→20:04)
[2020-04-30] MEDS: AZITHROMYCIN 500 MG TAB PO SCH (09:26)
[2020-04-30] MEDS: METOPROLOL TARTRATE 25 MG TAB PO SCH ×2 (09:26→20:04)
[2020-04-30 12:17] LABS: Glucose,Whole Blood 106 mg/dL (75-99)
--- NOTE | 2020-04-30 12:55 | P.PN ---
Subjective This is a pleasant 69 years old female with past medical history of asthma, she follows up with typewriter repairer at [facility]. She presents because of 2 days of worsening shortness of breath with coughing and with some phlegm and no chest pain or fever. Patient was very anxious and wanted her mask to be taken off, however she agrees to keep it on with small doses of benzodiazepine 0.5 mg She denies change in urine or bowel habits. Denies headache, syncope or dizziness. No weakness or numbness She denies smoking, alcohol or illicit drugs On admission Vitas looks stable except for patient feels tachypneic at 26 which is improved with BiPAP which was present on admission with oxygen saturation of 97% Labs showing leukocytosis of 15.1 K, INR 0.9, d-dimer is elevated at 9.2. Lactic acid elevated at 6.4, coming down to 2.4 procalcitonin is 0.08, coronavirus not detected VQ scan showed low probability for PE, Doppler of the lower extremity is negative for DVT. Echocardiogram showing normal ejection fraction of 55-60% with severe concentric left ventricular hypertrophy 04/24/2020 Patient is fully awake and alert, more calm and less in respiratory distress compared to yesterday, she is on BiPAP with a breathing rate of about 48. She still have some wheezing. She is oxygen saturation 97% while on BiPAP. She has leukocytosis of 15.6. Creatinine is slightly down to 1.9 Chest x-ray showing right sided pneumonia, possible pulmonary edema Yesterday patient become unresponsive because of extra dose of benzodiazepine, she was placed also on heparin drip and metoprolol added for elevated troponin. Cardiology team on the case 04/25/2020 This is a pleasant 69 years old female who was admitted with respiratory distress needind BiPAP for the first 24-48 hours. Her respiratory status improved however she still dyspneic needing 5-6 L oxygen and she is somewhat tachypneic. She is coughing but denies chest pain. There are some Vitas looks stable. Her leukocytosis went up to 21.9 but she is on steroids. Creatinine is stable at 1.9. Her pro-calcitonin is elevated at 7.8 Patient currently is covered with Rocephin and Zithromax. Also she is on some Medrol 60 mg per pulmonology team recommendation. She is on heparin drip for high troponin. Hole Digger recommended discontinue heparin and 24 hours Losartan stopped due to EFREN. No reflux is added for hypertension 04/26/2020 Patient is awake and sitting up in bed, she uses BiPAP most of the time however this morning when she was off BiPAP for eating she was really tachypneic with breathing rate 22 through 26/m, her oxygen saturation was 90s on 5-6 L via nasal cannula. Blood pressure on the high side 170/102, on examination she has mild prolonged expiratory wheezing WBC 17.3, creatinine is stable at 1.9, it looks like patient has chronic kidney disease however patient does not know about previous kidney disease She still on heparin drip, which might be stopped today. Hole Digger. Most likely patient has pneumonia on the right side with elevated pro-calcitonin at 7.8, patient continue on some traction on Zithromax. Also she is on some Medrol 60 mg. She is on aspirin and metoprolol for high troponin. Pulmonary team input is appreciated and they recommended CAT scan of the chest without contrast 04/27/2020 Patient remains significantly dyspneic however it looks better for me compared to yesterday. She still needs 6 L of oxygen to keep her oxygen saturation in the 90s WBC is trending down, creatinine is down from 1.9 down to 1.6. Glucose controlled. Coronavirus not detected. Chest CAT scan showed bilateral groundglass opacity with left lower lobe area suspicious for a mass and they recommended either follow-up CAT scan for need for PET scan. Indwelling chest x-ray yesterday showed more CHF with right lower lobe pneumonia. Workup for pneumonia with urine legionella is still pending. Her pro-calcitonin is trending down She is currently on ceftriaxone, Zithromax, Solu-Medrol for possible asthma, no diuretics and heparin drip was stopped and switched to subcu heparin 04/28/2020 Patient dyspnea is improving an improving myoclonic infiltrates. Resolving atypical pneumonia or volume overload could be considered. d currently she is saturating 95% on 3-4 L oxygen via nasal cannula, her breathing is still difficult for her about its improving and she can say it. She still uses BiPAP at night only. No chest pain. No other significant complaint Repeat chest x-ray today: Improving mild infiltrates of the lungs. Resolving atypical pneumonia Creatinine is trending down to 1.6 to 1.5. D-dimer is trending down from 9 down to 1. Sugar is controlled. The rest vitals are stable Her antibiotics were changed to cefepime and continued with Zithromax. She is also on Solu-Medrol 60 mg. 04/29/2020 Patient is alert and awake, she is breathing easier although she still somewhat tachypneic at 20 breaths per minute. She is saturating 94% on 2 L oxygen via nasal cannula Creatinine is stable at 1.5 which looks like her chronic kidney disease level, with GFR of 36 make her stage III. Sugar is controlled. Hole Digger on board for her elevated troponin, pending records from [facility]. Change her Solu-Medrol to prednisone. Continue with antibiotics of cefepime and Zithromax. 04/30/2020 Patient is doing better every day although she still dyspneic but she is improving. Currently she saturating 95% on 2 L oxygen via nasal cannula. Rectal vitals are stable. WBC is 20.1 while she is on steroids. Chest x-ray: Stable interstitial pneumonia. Hole Digger sign of the case. Pulmonary team are still following and most likely we will clear the patient for discharge I discussed the case with the social services coordinator, patient has complex insurance and that will delay her discharge most likely coming Sunday. Objective - Vital Signs Vital signs: Vital Signs Temp 98.2 F 04/30/20 09:23 Pulse 80 04/30/20 11:43 Resp 16 04/30/20 09:23 BP 124/69 04/30/20 09:23 Pulse Ox 95 04/30/20 09:23 Intake & Output 04/29/20 04/30/20 04/30/20 18:59 06:59 18:59 Intake Total 1670 870 Output Total 1100 675 600 Balance 570 -675 270 Weight 79 kg 102.3 kg Intake: Intake, IV Titration 50 Amount Cefepime 1 gm In Sodium 50 Chloride 0.9% 50 ml @ 12. 5 mls/hr IVPB Q12HR [facility] Rx#:[id number] Oral 1620 870 Output: Urine 1100 675 600 Other: Voiding Method External Catheter External Catheter External Catheter - Exam -GENERAL: The patient is alert and oriented x3,no respiratory distress, HEENT: Pupils are round and equally reacting to light. EOMI. No scleral icterus. No conjunctival pallor. Normocephalic, atraumatic. No pharyngeal erythema. No thyromegaly. CARDIOVASCULAR: S1 and S2 present. No murmurs, rubs, or gallops. -PULMONARY: Chest is clear to auscultation, no wheezing. Mild crepitation in the right ABDOMEN: Soft, nontender, nondistended, normoactive bowel sounds. No palpable organomegaly. MUSCULOSKELETAL: No joint swelling or deformity. EXTREMITIES: No cyanosis, clubbing, or pedal edema. NEUROLOGICAL: Gross neurological examination did not reveal any focal deficits. SKIN: No rashes. No petechiae - Labs CBC & Chem 7: 04/30/20 07:52 04/29/20 07:41 Labs: Abnormal Lab Results - Last 24 Hours (Table) 04/29/20 04/29/20 04/30/20 Range/Units 17:05 20:46 06:05 WBC (3.8-10.6) k/uL Neutrophils # (1.3-7.7) k/uL Monocytes # (0-1.0) k/uL POC Glucose (mg/dL) 236 H 251 H 107 H (75-99) mg/dL 04/30/20 04/30/20 Range/Units 07:52 12:14 WBC 20.1 H (3.8-10.6) k/uL Neutrophils # 17.4 H (1.3-7.7) k/uL Monocytes # 1.1 H (0-1.0) k/uL POC Glucose (mg/dL) 106 H (75-99) mg/dL Microbiology - Last 24 Hours (Table) 04/23/20 11:09 Blood Culture - Final Blood No Growth after 144 hours Assessment and Plan Assessment: Acute hypoxic respiratory failure right-sided pneumonia, rather than acute asthma exacerbation, CHF is less likely Elevated troponin, rule out cardiac disease. Could be also due to elevated creatinine Elevated creatinine, no baseline. Acute kidney injury versus chronic kidney disease Hyperglycemia Mildly elevated liver enzymes Elevated lactic acid Plan: This is a pleasant 69 years old female who presents with asthma and high troponin. Continue with steroids, continue with oxygen as needed and BiPAP. Pulmonary and cardiology consult. continue with ceftriaxone and Zithromax. Labs and medication were reviewed.. Continue same treatment. Continue with symptomatic treatment. Resume home medication. Monitor lytes and vitals. DVT and GI prophylaxis. Further recommendations depends on the clinical course of the patient DVT prophylaxis: heparin GI Prophylaxis: Ppi PT/OT: Subacute rehab to which patient agrees to talk to social work Patient is medically stable for discharge pending placement
--- NOTE | 2020-04-30 13:41 | P.PN ---
Subjective Progress Note Date: 04/30/20 Principal diagnosis: Acute exacerbation of chronic obstructive pulmonary disease/asthma 69-year-old female who does not see doctors in this area but rather sees physicians at [facility], who apparently comes into the emergency room, brought in by EMS, for difficulty in breathing. Apparently, for the last day or 2, the patient's breathing has gotten more difficult. She apparently became unresponsive according to her family. The patient was found by EMS to be awake and short of breath. Her pulse ox saturations were 88%. The patient was therefore placed on CPAP. She apparently carries with her a diagnosis of asthma, hypothyroidism, and hypertension. Again, we do not see her in this area. She sees a electric power line examiner at [facility]. Currently, in the emergency department, she is on BiPAP, with settings of 12/6 and 60%. Currently, the patient appears to be short of breath. She also seemed a little lethargic and sleepy. There is no audible wheezing. She was not using accessory muscles. She did have some mild conversational dyspnea, she was made worse by the BiPAP mask. The patient denied any fever or chills. The patient also denied any cough or phlegm production. She was not having any chest pain or chest discomfort. The patient end terminal proBNP was elevated and her chest x-ray my opinion was consistent with either fluid overload/heart failure versus possible pneumonia. She was behaving more like heart failure and she did have lower extremity edema. The patient is seen today 04/24/2020 and follow-up on the selective care unit. She is currently resting comfortably in bed. Awake and alert in no acute distress. Maintained on BiPAP 12/6 and 50% FiO2. 0.9 normal sinus 25 ML's per hour. Currently on a heparin drip. Chest x-ray reveals bilateral airspace disease. No pneumothorax. Possible pulmonary edema. Echocardiogram reveals preserved left ventricular systolic function with ejection fraction 55-60% Dopplers were negative for DVT of the bilateral lower extremities. Sodium 142. Potassium 4.7. Creatinine 1.90. White count 15.6. Hemoglobin 13.1. Peak troponin 2.16. Pro-calcitonin 7.82. She remains on ceftriaxone and azithromycin along with bronchodilators. The patient is seen today 04/30/2020 in follow-up on the selective care unit. She is currently sitting up in bed. Awake and alert in no acute distress. Maintaining O2 saturations in the mid 90s on 2 L/m per nasal cannula. She's afebrile. Hemodynamically stable. Asked x-ray reveals diffuse interstitial pattern with cardiomegaly. No pneumothorax. No sizable pleural effusion. Stable compared to previous. Blood culture reveals no growth. White count 20.1. Hemoglobin 14.4. Remains on DuoNeb inhalations, Pulmicort inhalations. Antibiotics in the form of cefepime and azithromycin, prednisone taper. Objective - Vital Signs Vital signs: Vital Signs Temp 98.2 F 04/30/20 09:23 Pulse 80 04/30/20 11:43 Resp 16 04/30/20 09:23 BP 124/69 04/30/20 09:23 Pulse Ox 95 04/30/20 09:23 Intake & Output 04/29/20 04/30/20 04/30/20 18:59 06:59 18:59 Intake Total 1670 870 Output Total 1100 675 600 Balance 570 -675 270 Weight 79 kg 102.3 kg Intake: Intake, IV Titration 50 Amount Cefepime 1 gm In Sodium 50 Chloride 0.9% 50 ml @ 12. 5 mls/hr IVPB Q12HR [facility] Rx#:[id number] Oral 1620 870 Output: Urine 1100 675 600 Other: Voiding Method External Catheter External Catheter External Catheter - Exam GENERAL EXAM: Alert, pleasant 70-year-old female patient currently on 2 L/m per nasal cannula, comfortable in no apparent distress. HEAD: Normocephalic. EYES: Normal reaction of pupils, equal size. NOSE: Clear with pink turbinates. THROAT: No erythema or exudates. NECK: No masses, no JVD. CHEST: No chest wall deformity. LUNGS: Equal air entry with basilar crackles CVS: S1 and S2 normal with no audible murmur, regular rhythm. ABDOMEN: No hepatosplenomegaly, normal bowel sounds, no guarding or rigidity. SPINE: No scoliosis or deformity SKIN: No rashes CENTRAL NERVOUS SYSTEM: No focal deficits, tone is normal in all 4 extremities. EXTREMITIES: There is no peripheral edema. No clubbing, no cyanosis. Peripheral pulses are intact. - Labs CBC & Chem 7: 04/30/20 07:52 04/29/20 07:41 Labs: Abnormal Lab Results - Last 24 Hours (Table) 04/29/20 04/29/20 04/30/20 Range/Units 17:05 20:46 06:05 WBC (3.8-10.6) k/uL Neutrophils # (1.3-7.7) k/uL Monocytes # (0-1.0) k/uL POC Glucose (mg/dL) 236 H 251 H 107 H (75-99) mg/dL 04/30/20 04/30/20 Range/Units 07:52 12:14 WBC 20.1 H (3.8-10.6) k/uL Neutrophils # 17.4 H (1.3-7.7) k/uL Monocytes # 1.1 H (0-1.0) k/uL POC Glucose (mg/dL) 106 H (75-99) mg/dL Microbiology - Last 24 Hours (Table) 04/23/20 11:09 Blood Culture - Final Blood No Growth after 144 hours Assessment and Plan Assessment: 1 Acute hypoxemic respiratory failure, likely multifactorial, in part related to the patient's underlying pneumonia, acute exacerbation of chronic bronchial asthma, possible pneumonia, and diastolic CHF. Preserved left ventricular systolic function with ejection fraction 55-60%. 2 Troponin leak, no plans for intervention per cardiology. 3 Obesity. 4 History of chronic bronchial asthma. 5 History of hypertension. 6 History of hypothyroidism. Plan: The patient was seen and evaluated by Dr. Ruperto Zhu from the pulmonary standpoint Continue bronchodilators and prednisone taper Complete course of antibiotics The plan is for discharge to subacute rehabilitation I, the cosigning physician, performed a history & physical examination of the patient. Lungs sounds bibasilar crackles. Maintaining good O2 saturations in the 90s on 2 L/m per nasal cannula. I discussed the assessment and plan of care with my nurse practitioner, Mini John. I attest to the above note as dictated by her.
[2020-04-30 16:55] LABS: Glucose,Whole Blood 178 mg/dL (75-99)
[2020-04-30 19:57] LABS: Glucose,Whole Blood 208 mg/dL (75-99)
[2020-05-01 06:08] LABS: Glucose,Whole Blood 92 mg/dL (75-99)
[2020-05-01] MEDS: INSULIN ASPART (NovoLOG) 100 UNIT/ML VIAL SQ SCH ×4 (06:19→21:07)
[2020-05-01] MEDS: LEVOTHYROXINE 100 MCG TAB PO SCH (06:52)
[2020-05-01] MEDS: FORMOTEROL FUMARATE 20 MCG/2 ML NEBU INHALATION SCH ×2 (08:18→21:08)
[2020-05-01] MEDS: BUDESONIDE 1 MG/2 ML NEBU INHALATION SCH ×2 (08:18→21:07)
[2020-05-01] MEDS: IPRATROPIUM-ALBUTEROL 3 ML NEB INHALATION SCH ×4 (08:18→21:08)
[2020-05-01] MEDS: AZITHROMYCIN 500 MG TAB PO SCH (09:31)
[2020-05-01] MEDS: predniSONE 20 MG TAB PO SCH (09:31)
[2020-05-01] MEDS: METOPROLOL TARTRATE 25 MG TAB PO SCH ×2 (09:31→21:06)
[2020-05-01] MEDS: CEFEPIME 1 GM in SODIUM CHLORIDE 0.9% 50 ML IVPB SCH ×3 (09:31→21:10)
[2020-05-01] MEDS: PANTOPRAZOLE 40 MG TABLET PO SCH (09:31)
[2020-05-01] MEDS: ASPIRIN 81 MG PO SCH (09:31)
[2020-05-01] MEDS: amLODIPine 5 MG TAB PO SCH (09:31)
[2020-05-01] MEDS: HEPARIN SODIUM,PORCINE 5,000 UNIT/ML 1 ML VIAL SQ SCH ×3 (09:32→23:13)
[2020-05-01] MEDS: CLOTRIMAZOLE/BETAMETH 1-0.05% CREAM 45 GM TUBE TOPICAL SCH ×2 (09:32→21:07)
--- NOTE | 2020-05-01 10:15 | P.PN ---
Subjective Progress Note Date: 05/01/20 69-year-old female who does not see doctors in this area but rather sees physicians at [facility], who apparently comes into the emergency room, brought in by EMS, for difficulty in breathing. Apparently, for the last day or 2, the patient's breathing has gotten more difficult. She apparently became unresponsive according to her family. The patient was found by EMS to be awake and short of breath. Her pulse ox saturations were 88%. The patient was therefore placed on CPAP. She apparently carries with her a diagnosis of asthma, hypothyroidism, and hypertension. Again, we do not see her in this area. She sees a biometrics analyst at [facility]. Currently, in the emergency department, she is on BiPAP, with settings of 12/6 and 60%. Currently, the patient appears to be short of breath. She also seemed a little lethargic and sleepy. She has been initiated on IV antibiotics along with steroids and IV heparin secondary to elevated troponin. The patient states approximately 2 years ago she had a similar type respiratory illness and was treated at [facility] at that time she was told she had a mild heart attack however to her recollection she never underwent cardiac catheterization. She denies any stents or open heart surgery. Echocardiogram obtained on this admission reveals preserved LV systolic function with ejection fraction 55-60%, mild tricuspid regurgitation and ascending aorta dilation measuring 4.2 cm. Sodium 142. Potassium 4.7. Creatinine 1.90. White count 15.6. Hemoglobin 13.1. Peak troponin 2.16. Pro-calcitonin 7.82. She remains on ceftriaxone and azithromycin along with bronchodilators. The procalcitonin is elevated the CXR is showing a consolidation of the RLL consistent with pneumonias. On 04/26/2020, the patient was sent remains to be elevated. The patient is still on BiPAP at a pressure of 12/6 cm of water with an FiO2 of 50%. Earlier this morning, while having breakfast, she was taken off the BiPAP. She does much better while on the BiPAP. On examination, she is still having crackles in lung bases bilaterally. The chest x-ray was showing breath and pulmonary infiltrates worse on the right. No fever. No altered mentation. Her minute ventilation is still high as 15 L and the patient is able to generate tidal volumes of about 500 respiratory rate ranging between 30 and 32. 04/27/2020, the patient is feeling slightly better compared to yesterday. Note that she was quite short of breath and she was placed on a BiPAP and currently she is weaned down to 6 L of oxygen by nasal cannula. She is able to sit up on a recliner. Her pulse ox is 95% on 6 L of oxygen by nasal cannula. The chest CAT scan of the chest was done yesterday and the CAT scan showed bilateral pulmonary infiltrates with areas of consolidation of the left lower lobe. There was also small bilateral pleural effusions. There was areas of multifocal groundglass opacities in the upper lobes yet the findings are more consolidating in the left lower lobe and this along with an elevated pro-calcitonin level is highly suggestive of an underlying bacterial infection. Initial pro-calcitonin level was at 7.8 and a drop down to 4.6. The white cell count is also improving and is down to 14.2 from as high as 21.9. The renal function is also improving and the creatinine is at 1.62. The patient free of any chest pain. She is on subcu heparin for now. She is on DuoNeb nebulized treatments around the clock. Echocardiogram that was obtained on 04/23/2019 showed a preserved LV function. Note that she had a non-STEMI with an elevated troponin level of 2.1 04/28/2020, the patient is doing better. She is a bit angry while watching television as the patient is unhappy with the results of the presidential election. I told her to get politics out of her head and concentrate on her pneumonia recovery for now. A repeat chest x-ray was done and is gradually improvement of the bilateral pulmonary infiltrates described earlier. The patient remains on examination of Rocephin and Zithromax. Her pro-calcitonin level was improving. She also has improvement in her renal function and creatinine is down to 1.57. Oxidation is also improved and she is down to 3 L about 2 by nasal cannula. No significant sputum production. No fever or chills. Troponin peaked at 2.1 and she had an obvious non-STEMI. She sees a business project manager Dr. Krishnamurthy and a biometrics analyst, Dr. mcnair at [facility] in [place] [address], the patient is doing better. She is less short of breath. She is coughing up some minimal amount of brownish mucus. She is on 2 L of oxygen by nasal cannula and she is using incentive spirometer and she is pulling approximately 1500. She remains on antibiotics. She remains on IV Solu-Medrol. Her pro-calcitonin level was on the decline. She is less short of breath. She is weak. She is moving around without help of a walker. She may need some rehabilitation at a later stage. Meanwhile, no fever. No chills. No significant leukocytosis and the patient is with a hemoglobin of 13.4. On 05/01/2020 on seeing the patient for a follow-up and she is on room air oxygen and she is feeling better. She is less short of breath. She remains on a combination of cefepime and Zithromax and she is completing a prednisone burst taper. In terms of her labs, the patient's blood work is still pending from this morning. The blood sugars from this morning's at 92. No chest pain. No angina. No palpitation. She is weak and she may be considering rehabilitation at time of discharge. Objective - Vital Signs Vital signs: Vital Signs Temp 97.1 F L 05/01/20 08:30 Pulse 86 05/01/20 08:48 Resp 18 05/01/20 08:30 BP 140/81 05/01/20 08:30 Pulse Ox 97 05/01/20 08:30 Intake & Output 04/30/20 05/01/20 05/01/20 18:59 06:59 18:59 Intake Total 1890 540 Output Total 1600 500 Balance 290 -500 540 Weight 101.4 kg Intake: Oral 1890 540 Output: Urine 1600 500 Other: Voiding Method External Catheter Toilet # Voids 2 1 # Bowel Movements 2 - Exam No acute distress, oriented 3. Currently, patient is on 2 L of oxygen by nasal cannula . HEENT examination is grossly unremarkable. Mucous membranes are moist. No oral lesions. Neck supple. Full range of motion. No adenopathy thyromegaly or neck vein distention. Cardiovascular examination reveals regular rhythm rate. S1-S2 normal. No S3 or S4. No discernible murmur noted. Lungs reveal bibasilar crackles. Breath sounds equal. No wheezes or rhonchi.. Abdomen soft bowel sounds are heard. No masses or tenderness. Extremities are intact. No cyanosis clubbing or edema. Skin is without rash or lesion. Neurologic examination is brief but nonfocal. Generalized global weakness. - Labs CBC & Chem 7: 04/30/20 07:52 04/29/20 07:41 Labs: Abnormal Lab Results - Last 24 Hours (Table) 04/30/20 04/30/20 04/30/20 Range/Units 12:14 16:50 19:56 POC Glucose (mg/dL) 106 H 178 H 208 H (75-99) mg/dL Assessment and Plan Plan: Plan: 1 Acute hypoxemic respiratory failure, likely multifactorial, in part related to the patient's underlying chronic bronchial asthma, bilateral pneumonia (right more than left), and probable CHF/heart failure. Patient is on a combination of antibiotics including cefepime and zithromax. Echo showed a normal LV function. I was concerned about her respiratory status and the CAT scan of the chest was obtained yesterday that showed bilateral groundglass changes with areas of consolidation of the left lower lobe and this along with an elevated pro- calcitonin level and elevated white cell count is consistent with bacterial infection/pneumonia. Note that the patient over the past few days has been progressively improving. The pro-calcitonin level was declining. Her chest x- ray was also clearing. She was taken done on an FiO2 and I'm putting her on room air oxygen today. She has global generalized weakness and she would benefit from rehabilitation, she may benefit from going to [facility] and this is the plan for Sunday. 2 Elevated troponins, most likely consistent with an acute non-STEMI, this occurred in the setting of an acute pneumonia, currently free of any chest pain and the patient's echocardiogram is within normal limits and she is currently off IV heparin. 3 Obesity. 4 History of chronic bronchial asthma. 5 History of hypertension. 6 History of hypothyroidism. 7 EFREN, improving , creatinine is improving, creatinine is down to 1.50 awaiting a follow-up creatinine level from today. Plan: Pro-calcitonin level and wean down the FiO2 possibly down to room air Continue antibiotic coverage with a combination of cefepime and Zithromax prednisone burst taper I noted the development of small bilateral pleural effusion that is going to be monitored The patient remains on albuterol sulfate and ipratropium bromide, corticosteroids, as well as Pulmicort and formoterol. Possible further cardiac workup for non-STEMI at a later stage We will continue to follow. We are looking for possible discharge on Sunday to [facility]
[2020-05-01 12:10] LABS: Glucose,Whole Blood 109 mg/dL (75-99)
--- NOTE | 2020-05-01 14:59 | P.PN ---
Subjective This is a pleasant 69 years old female with past medical history of asthma, she follows up with loan and credit manager at [facility]. She presents because of 2 days of worsening shortness of breath with coughing and with some phlegm and no chest pain or fever. Patient was very anxious and wanted her mask to be taken off, however she agrees to keep it on with small doses of benzodiazepine 0.5 mg She denies change in urine or bowel habits. Denies headache, syncope or dizziness. No weakness or numbness She denies smoking, alcohol or illicit drugs On admission Vitas looks stable except for patient feels tachypneic at 26 which is improved with BiPAP which was present on admission with oxygen saturation of 97% Labs showing leukocytosis of 15.1 K, INR 0.9, d-dimer is elevated at 9.2. Lactic acid elevated at 6.4, coming down to 2.4 procalcitonin is 0.08, coronavirus not detected VQ scan showed low probability for PE, Doppler of the lower extremity is negative for DVT. Echocardiogram showing normal ejection fraction of 55-60% with severe concentric left ventricular hypertrophy 04/24/2020 Patient is fully awake and alert, more calm and less in respiratory distress compared to yesterday, she is on BiPAP with a breathing rate of about 48. She still have some wheezing. She is oxygen saturation 97% while on BiPAP. She has leukocytosis of 15.6. Creatinine is slightly down to 1.9 Chest x-ray showing right sided pneumonia, possible pulmonary edema Yesterday patient become unresponsive because of extra dose of benzodiazepine, she was placed also on heparin drip and metoprolol added for elevated troponin. Cardiology team on the case 04/25/2020 This is a pleasant 69 years old female who was admitted with respiratory distress needind BiPAP for the first 24-48 hours. Her respiratory status improved however she still dyspneic needing 5-6 L oxygen and she is somewhat tachypneic. She is coughing but denies chest pain. There are some Vitas looks stable. Her leukocytosis went up to 21.9 but she is on steroids. Creatinine is stable at 1.9. Her pro-calcitonin is elevated at 7.8 Patient currently is covered with Rocephin and Zithromax. Also she is on some Medrol 60 mg per pulmonology team recommendation. She is on heparin drip for high troponin. Head Strength And Conditioning Coach recommended discontinue heparin and 24 hours Losartan stopped due to EFREN. No reflux is added for hypertension 04/26/2020 Patient is awake and sitting up in bed, she uses BiPAP most of the time however this morning when she was off BiPAP for eating she was really tachypneic with breathing rate 22 through 26/m, her oxygen saturation was 90s on 5-6 L via nasal cannula. Blood pressure on the high side 170/102, on examination she has mild prolonged expiratory wheezing WBC 17.3, creatinine is stable at 1.9, it looks like patient has chronic kidney disease however patient does not know about previous kidney disease She still on heparin drip, which might be stopped today. Head Strength And Conditioning Coach. Most likely patient has pneumonia on the right side with elevated pro-calcitonin at 7.8, patient continue on some traction on Zithromax. Also she is on some Medrol 60 mg. She is on aspirin and metoprolol for high troponin. Pulmonary team input is appreciated and they recommended CAT scan of the chest without contrast 04/27/2020 Patient remains significantly dyspneic however it looks better for me compared to yesterday. She still needs 6 L of oxygen to keep her oxygen saturation in the 90s WBC is trending down, creatinine is down from 1.9 down to 1.6. Glucose controlled. Coronavirus not detected. Chest CAT scan showed bilateral groundglass opacity with left lower lobe area suspicious for a mass and they recommended either follow-up CAT scan for need for PET scan. Indwelling chest x-ray yesterday showed more CHF with right lower lobe pneumonia. Workup for pneumonia with urine legionella is still pending. Her pro-calcitonin is trending down She is currently on ceftriaxone, Zithromax, Solu-Medrol for possible asthma, no diuretics and heparin drip was stopped and switched to subcu heparin 04/28/2020 Patient dyspnea is improving an improving myoclonic infiltrates. Resolving atypical pneumonia or volume overload could be considered. d currently she is saturating 95% on 3-4 L oxygen via nasal cannula, her breathing is still difficult for her about its improving and she can say it. She still uses BiPAP at night only. No chest pain. No other significant complaint Repeat chest x-ray today: Improving mild infiltrates of the lungs. Resolving atypical pneumonia Creatinine is trending down to 1.6 to 1.5. D-dimer is trending down from 9 down to 1. Sugar is controlled. The rest vitals are stable Her antibiotics were changed to cefepime and continued with Zithromax. She is also on Solu-Medrol 60 mg. 04/29/2020 Patient is alert and awake, she is breathing easier although she still somewhat tachypneic at 20 breaths per minute. She is saturating 94% on 2 L oxygen via nasal cannula Creatinine is stable at 1.5 which looks like her chronic kidney disease level, with GFR of 36 make her stage III. Sugar is controlled. Head Strength And Conditioning Coach on board for her elevated troponin, pending records from [facility]. Change her Solu-Medrol to prednisone. Continue with antibiotics of cefepime and Zithromax. 04/30/2020 Patient is doing better every day although she still dyspneic but she is improving. Currently she saturating 95% on 2 L oxygen via nasal cannula. Rectal vitals are stable. WBC is 20.1 while she is on steroids. Chest x-ray: Stable interstitial pneumonia. Head Strength And Conditioning Coach sign of the case. Pulmonary team are still following and most likely we will clear the patient for discharge I discussed the case with the social media manager, patient has complex insurance and that will delay her discharge most likely coming Sunday. 05/01/2020 Patient breathing is a stable, even she could go to the bathroom while on room air She's continued on antibiotics with cefepime and Zithromax, also she is on a prednisone 40 mg Patient is medically stable pending placement Objective - Vital Signs Vital signs: Vital Signs Temp 97.1 F L 05/01/20 08:30 Pulse 80 05/01/20 12:19 Resp 17 05/01/20 12:00 BP 115/69 05/01/20 12:00 Pulse Ox 98 05/01/20 12:00 Intake & Output 04/30/20 05/01/20 05/01/20 18:59 06:59 18:59 Intake Total 1890 1080 Output Total 1600 500 600 Balance 290 -500 480 Weight 101.4 kg Intake: Oral 1890 1080 Output: Urine 1600 500 600 Other: Voiding Method External Catheter Toilet # Voids 2 1 2 # Bowel Movements 2 - Exam -GENERAL: The patient is alert and oriented x3,no respiratory distress, HEENT: Pupils are round and equally reacting to light. EOMI. No scleral icterus. No conjunctival pallor. Normocephalic, atraumatic. No pharyngeal erythema. No thyromegaly. CARDIOVASCULAR: S1 and S2 present. No murmurs, rubs, or gallops. -PULMONARY: Chest is clear to auscultation, no wheezing. Mild crepitation in the right ABDOMEN: Soft, nontender, nondistended, normoactive bowel sounds. No palpable organomegaly. MUSCULOSKELETAL: No joint swelling or deformity. EXTREMITIES: No cyanosis, clubbing, or pedal edema. NEUROLOGICAL: Gross neurological examination did not reveal any focal deficits. SKIN: No rashes. No petechiae - Labs CBC & Chem 7: 04/30/20 07:52 04/29/20 07:41 Labs: Abnormal Lab Results - Last 24 Hours (Table) 04/30/20 04/30/20 05/01/20 Range/Units 16:50 19:56 12:08 POC Glucose (mg/dL) 178 H 208 H 109 H (75-99) mg/dL Assessment and Plan Assessment: Acute hypoxic respiratory failure right-sided pneumonia, rather than acute asthma exacerbation, CHF is less likely Elevated troponin, rule out cardiac disease. Could be also due to elevated creatinine Elevated creatinine, no baseline. Acute kidney injury versus chronic kidney disease Hyperglycemia Mildly elevated liver enzymes Elevated lactic acid Plan: This is a pleasant 69 years old female who presents with asthma and high troponin. Continue with steroids, continue with oxygen as needed and BiPAP. P ulmonary and cardiology consult. continue with ceftriaxone and Zithromax. Labs and medication were reviewed.. Continue same treatment. Continue with symptomatic treatment. Resume home medication. Monitor lytes and vitals. DVT and GI prophylaxis. Further recommendations depends on the clinical course of the patient DVT prophylaxis: heparin GI Prophylaxis: Ppi PT/OT: Subacute rehab to which patient agrees to talk to social work Patient is medically stable for discharge pending placement
[2020-05-01 16:47] LABS: Glucose,Whole Blood 235 mg/dL (75-99)
[2020-05-01 20:23] LABS: Glucose,Whole Blood 220 mg/dL (75-99)
[2020-05-02] MEDS: LEVOTHYROXINE 100 MCG TAB PO SCH (05:40)
[2020-05-02 07:02] LABS: Glucose,Whole Blood 85 mg/dL (75-99)
[2020-05-02] MEDS: INSULIN ASPART (NovoLOG) 100 UNIT/ML VIAL SQ SCH ×4 (07:15→20:47)
[2020-05-02] MEDS: HEPARIN SODIUM,PORCINE 5,000 UNIT/ML 1 ML VIAL SQ SCH ×3 (07:58→23:09)
[2020-05-02] MEDS: predniSONE 20 MG TAB PO SCH (07:58)
[2020-05-02] MEDS: METOPROLOL TARTRATE 25 MG TAB PO SCH ×2 (07:59→20:47)
[2020-05-02] MEDS: AZITHROMYCIN 500 MG TAB PO SCH (07:59)
[2020-05-02] MEDS: PANTOPRAZOLE 40 MG TABLET PO SCH (07:59)
[2020-05-02] MEDS: ASPIRIN 81 MG PO SCH (07:59)
[2020-05-02] MEDS: amLODIPine 5 MG TAB PO SCH (07:59)
[2020-05-02] MEDS: CLOTRIMAZOLE/BETAMETH 1-0.05% CREAM 45 GM TUBE TOPICAL SCH ×2 (08:00→20:47)
[2020-05-02 08:15] LABS: Basophils # (A) 0.1 k/uL (0-0.2); Basophils % (A) 1 %; Eosinophils # (A) 0.4 k/uL (0-0.7); Eosinophils % (A) 3 %; HCT 42.8 % (34.0-46.0); Lymphocytes # (A) 1.2 k/uL (1.0-4.8); Lymphocytes % (A) 8 %; MCH 31.4 pg (25.0-35.0); MCHC 32.7 g/dL (31.0-37.0); MCV 95.9 fL (80.0-100.0); Mean Platelet Volume 8.1; Monocytes # (A) 0.9 k/uL (0-1.0); Monocytes % (A) 6 %; Neutrophils # (A) 12.4 k/uL (1.3-7.7); Neutrophils % (A) 82 %; Platelet Count 184 k/uL (150-450); RBC 4.47 m/uL (3.80-5.40); RDW 12.9 % (11.5-15.5); WBC 15.2 k/uL (3.8-10.6)
[2020-05-02] MEDS: IPRATROPIUM-ALBUTEROL 3 ML NEB INHALATION SCH ×4 (09:00→19:20)
[2020-05-02] MEDS: BUDESONIDE 1 MG/2 ML NEBU INHALATION SCH (09:00)
[2020-05-02] MEDS: FORMOTEROL FUMARATE 20 MCG/2 ML NEBU INHALATION SCH (09:00)
--- NOTE | 2020-05-02 10:30 | P.PN ---
Subjective Progress Note Date: 05/02/20 69-year-old female who does not see doctors in this area but rather sees physicians at [facility], who apparently comes into the emergency room, brought in by EMS, for difficulty in breathing. Apparently, for the last day or 2, the patient's breathing has gotten more difficult. She apparently became unresponsive according to her family. The patient was found by EMS to be awake and short of breath. Her pulse ox saturations were 88%. The patient was therefore placed on CPAP. She apparently carries with her a diagnosis of asthma, hypothyroidism, and hypertension. Again, we do not see her in this area. She sees a inpatient services rn at [facility]. Currently, in the emergency department, she is on BiPAP, with settings of 12/6 and 60%. Currently, the patient appears to be short of breath. She also seemed a little lethargic and sleepy. She has been initiated on IV antibiotics along with steroids and IV heparin secondary to elevated troponin. The patient states approximately 2 years ago she had a similar type respiratory illness and was treated at [facility] at that time she was told she had a mild heart attack however to her recollection she never underwent cardiac catheterization. She denies any stents or open heart surgery. Echocardiogram obtained on this admission reveals preserved LV systolic function with ejection fraction 55-60%, mild tricuspid regurgitation and ascending aorta dilation measuring 4.2 cm. Sodium 142. Potassium 4.7. Creatinine 1.90. White count 15.6. Hemoglobin 13.1. Peak troponin 2.16. Pro-calcitonin 7.82. She remains on ceftriaxone and azithromycin along with bronchodilators. The procalcitonin is elevated the CXR is showing a consolidation of the RLL consistent with pneumonias. On 04/26/2020, the patient was sent remains to be elevated. The patient is still on BiPAP at a pressure of 12/6 cm of water with an FiO2 of 50%. Earlier this morning, while having breakfast, she was taken off the BiPAP. She does much better while on the BiPAP. On examination, she is still having crackles in lung bases bilaterally. The chest x-ray was showing breath and pulmonary infiltrates worse on the right. No fever. No altered mentation. Her minute ventilation is still high as 15 L and the patient is able to generate tidal volumes of about 500 respiratory rate ranging between 30 and 32. 04/27/2020, the patient is feeling slightly better compared to yesterday. Note that she was quite short of breath and she was placed on a BiPAP and currently she is weaned down to 6 L of oxygen by nasal cannula. She is able to sit up on a recliner. Her pulse ox is 95% on 6 L of oxygen by nasal cannula. The chest CAT scan of the chest was done yesterday and the CAT scan showed bilateral pulmonary infiltrates with areas of consolidation of the left lower lobe. There was also small bilateral pleural effusions. There was areas of multifocal groundglass opacities in the upper lobes yet the findings are more consolidating in the left lower lobe and this along with an elevated pro-calcitonin level is highly suggestive of an underlying bacterial infection. Initial pro-calcitonin level was at 7.8 and a drop down to 4.6. The white cell count is also improving and is down to 14.2 from as high as 21.9. The renal function is also improving and the creatinine is at 1.62. The patient free of any chest pain. She is on subcu heparin for now. She is on DuoNeb nebulized treatments around the clock. Echocardiogram that was obtained on 04/23/2019 showed a preserved LV function. Note that she had a non-STEMI with an elevated troponin level of 2.1 04/28/2020, the patient is doing better. She is a bit angry while watching television as the patient is unhappy with the results of the presidential election. I told her to get politics out of her head and concentrate on her pneumonia recovery for now. A repeat chest x-ray was done and is gradually improvement of the bilateral pulmonary infiltrates described earlier. The patient remains on examination of Rocephin and Zithromax. Her pro-calcitonin level was improving. She also has improvement in her renal function and creatinine is down to 1.57. Oxidation is also improved and she is down to 3 L about 2 by nasal cannula. No significant sputum production. No fever or chills. Troponin peaked at 2.1 and she had an obvious non-STEMI. She sees a environmental air specialist Dr. Krishnamurthy and a inpatient services rn, Dr. mcnair at [facility] in [place] [address], the patient is doing better. She is less short of breath. She is coughing up some minimal amount of brownish mucus. She is on 2 L of oxygen by nasal cannula and she is using incentive spirometer and she is pulling approximately 1500. She remains on antibiotics. She remains on IV Solu-Medrol. Her pro-calcitonin level was on the decline. She is less short of breath. She is weak. She is moving around without help of a walker. She may need some rehabilitation at a later stage. Meanwhile, no fever. No chills. No significant leukocytosis and the patient is with a hemoglobin of 13.4. On 05/01/2020 on seeing the patient for a follow-up and she is on room air oxygen and she is feeling better. She is less short of breath. She remains on a combination of cefepime and Zithromax and she is completing a prednisone burst taper. In terms of her labs, the patient's blood work is still pending from this morning. The blood sugars from this morning's at 92. No chest pain. No angina. No palpitation. She is weak and she may be considering rehabilitation at time of discharge. 05/02/2020, the patient is weak. Overall poor status is stabilized. The lilia hidalgo is currently on room air oxygen. The pro-calcitonin level has dropped down to 0.24. She remains on a combination of cefepime and Zithromax. She is also completing a prednisone burst taper. The white cell count from today is 15.2. She should be able to get out of the bed and she has a walker at the bedside. She is not utilizing any BiPAP. The plan is to send this patient to [facility] at [place] the next 24 hours. Objective - Vital Signs Vital signs: Vital Signs Temp 98.2 F 05/02/20 07:34 Pulse 84 05/02/20 09:24 Resp 16 05/02/20 08:00 BP 142/85 05/02/20 07:34 Pulse Ox 90 L 05/02/20 07:34 Intake & Output 05/01/20 05/02/20 05/02/20 18:59 06:59 18:59 Intake Total 1080 Output Total 600 Balance 480 Weight 98.3 kg Intake: Oral 1080 Output: Urine 600 Other: Voiding Method Toilet Incontinent # Voids 2 4 - Exam No acute distress, oriented 3. Currently, patient is on 2 L of oxygen by nasal cannula . HEENT examination is grossly unremarkable. Mucous membranes are moist. No oral lesions. Neck supple. Full range of motion. No adenopathy thyromegaly or neck vein distention. Cardiovascular examination reveals regular rhythm rate. S1-S2 normal. No S3 or S4. No discernible murmur noted. Lungs reveal bibasilar crackles. Breath sounds equal. No wheezes or rhonchi.. Abdomen soft bowel sounds are heard. No masses or tenderness. Extremities are intact. No cyanosis clubbing or edema. Skin is without rash or lesion. Neurologic examination is brief but nonfocal. Generalized global weakness. - Labs CBC & Chem 7: 05/02/20 07:40 04/29/20 07:41 Labs: Abnormal Lab Results - Last 24 Hours (Table) 05/01/20 05/01/20 05/01/20 Range/Units 10:30 12:08 16:45 WBC (3.8-10.6) k/uL Neutrophils # (1.3-7.7) k/uL POC Glucose (mg/dL) 109 H 235 H (75-99) mg/dL Procalcitonin 0.24 H (0.02-0.09) ng/mL 05/01/20 05/02/20 Range/Units 20:20 07:40 WBC 15.2 H (3.8-10.6) k/uL Neutrophils # 12.4 H (1.3-7.7) k/uL POC Glucose (mg/dL) 220 H (75-99) mg/dL Procalcitonin (0.02-0.09) ng/mL Assessment and Plan Plan: Plan: 1 Acute hypoxemic respiratory failure, likely multifactorial, in part related to the patient's underlying chronic bronchial asthma, bilateral pneumonia (right more than left), and probable CHF/heart failure. Patient is on a combination of antibiotics including cefepime and zithromax. Echo showed a normal LV function. I was concerned about her respiratory status and the CAT scan of the chest was obtained yesterday that showed bilateral groundglass changes with areas of consolidation of the left lower lobe and this along with an elevated pro-c alcitonin level and elevated white cell count is consistent with bacterial infection/pneumonia. Note that the patient over the past few days has been progressively improving. The pro-calcitonin level was declining. Her chest x- ray was also clearing. She was taken done on an FiO2 and I'm putting her on room air oxygen today. She has global generalized weakness and she would benefit from rehabilitation, she may benefit from going to [facility]CF and this is the plan for Sunday. 2 Elevated troponins, most likely consistent with an acute non-STEMI, this occurred in the setting of an acute pneumonia, currently free of any chest pain and the patient's echocardiogram is within normal limits and she is currently off IV heparin. 3 Obesity. 4 History of chronic bronchial asthma. 5 History of hypertension. 6 History of hypothyroidism. 7 EFREN, improving , creatinine is improving, creatinine is down to 1.50 awaiting a follow-up creatinine level from today. Plan: Pro-calcitonin level is improving and the FiO2 possibly down to room air Continue antibiotic coverage with a combination of cefepime and Zithromax for a combination of Ceftin and oral Zithromax to complete a total of 10 day course at the time of discharge. prednisone burst taper to be continued at a time of discharge I noted the development of small bilateral pleural effusion that is going to be monitored The patient remains on albuterol sulfate and ipratropium bromide and I'm going to stop the Pulmicort and the Perforomist for now Possible further cardiac workup for non-STEMI at a later stage We will continue to follow. We are looking for [facility]
[2020-05-02] MEDS: CEFEPIME 1 GM in SODIUM CHLORIDE 0.9% 50 ML IVPB SCH ×2 (10:40→20:47)
[2020-05-02 10:55] LABS: African American GFR (CKD) 41.1 (60.0-200.0); Albumin 3.4 g/dL (3.80-4.90); Albumin/Globulin Ratio 1.7 (1.60-3.17); Anion Gap 4.7 mmol/L (4.00-12.00); Calcium 8.2 mg/dL (8.7-10.3); Carbon Dioxide 27.3 mmol/L (21.6-31.8); Non-African American GFR(CKD) 35.4 (60.0-200.0); Potassium 4.9 mmol/L (3.5-5.5); Total Bilirubin 0.9 mg/dL (0.3-1.2); Total Protein 5.4 g/dL (6.2-8.2)
[2020-05-02 11:58] LABS: Glucose,Whole Blood 117 mg/dL (75-99)
--- NOTE | 2020-05-02 13:42 | P.PN ---
Subjective This is a pleasant 69 years old female with past medical history of asthma, she follows up with gastroenterology physician at [facility]. She presents because of 2 days of worsening shortness of breath with coughing and with some phlegm and no chest pain or fever. Patient was very anxious and wanted her mask to be taken off, however she agrees to keep it on with small doses of benzodiazepine 0.5 mg She denies change in urine or bowel habits. Denies headache, syncope or dizziness. No weakness or numbness She denies smoking, alcohol or illicit drugs On admission Vitas looks stable except for patient feels tachypneic at 26 which is improved with BiPAP which was present on admission with oxygen saturation of 97% Labs showing leukocytosis of 15.1 K, INR 0.9, d-dimer is elevated at 9.2. Lactic acid elevated at 6.4, coming down to 2.4 procalcitonin is 0.08, coronavirus not detected VQ scan showed low probability for PE, Doppler of the lower extremity is negative for DVT. Echocardiogram showing normal ejection fraction of 55-60% with severe concentric left ventricular hypertrophy 04/24/2020 Patient is fully awake and alert, more calm and less in respiratory distress compared to yesterday, she is on BiPAP with a breathing rate of about 48. She still have some wheezing. She is oxygen saturation 97% while on BiPAP. She has leukocytosis of 15.6. Creatinine is slightly down to 1.9 Chest x-ray showing right sided pneumonia, possible pulmonary edema Yesterday patient become unresponsive because of extra dose of benzodiazepine, she was placed also on heparin drip and metoprolol added for elevated troponin. Cardiology team on the case 04/25/2020 This is a pleasant 69 years old female who was admitted with respiratory distress needind BiPAP for the first 24-48 hours. Her respiratory status improved however she still dyspneic needing 5-6 L oxygen and she is somewhat tachypneic. She is coughing but denies chest pain. There are some Vitas looks stable. Her leukocytosis went up to 21.9 but she is on steroids. Creatinine is stable at 1.9. Her pro-calcitonin is elevated at 7.8 Patient currently is covered with Rocephin and Zithromax. Also she is on some Medrol 60 mg per pulmonology team recommendation. She is on heparin drip for high troponin. Dry Clipper Tender recommended discontinue heparin and 24 hours Losartan stopped due to EFREN. No reflux is added for hypertension 04/26/2020 Patient is awake and sitting up in bed, she uses BiPAP most of the time however this morning when she was off BiPAP for eating she was really tachypneic with breathing rate 22 through 26/m, her oxygen saturation was 90s on 5-6 L via nasal cannula. Blood pressure on the high side 170/102, on examination she has mild prolonged expiratory wheezing WBC 17.3, creatinine is stable at 1.9, it looks like patient has chronic kidney disease however patient does not know about previous kidney disease She still on heparin drip, which might be stopped today. Dry Clipper Tender. Most likely patient has pneumonia on the right side with elevated pro-calcitonin at 7.8, patient continue on some traction on Zithromax. Also she is on some Medrol 60 mg. She is on aspirin and metoprolol for high troponin. Pulmonary team input is appreciated and they recommended CAT scan of the chest without contrast 04/27/2020 Patient remains significantly dyspneic however it looks better for me compared to yesterday. She still needs 6 L of oxygen to keep her oxygen saturation in the 90s WBC is trending down, creatinine is down from 1.9 down to 1.6. Glucose controlled. Coronavirus not detected. Chest CAT scan showed bilateral groundglass opacity with left lower lobe area suspicious for a mass and they recommended either follow-up CAT scan for need for PET scan. Indwelling chest x-ray yesterday showed more CHF with right lower lobe pneumonia. Workup for pneumonia with urine legionella is still pending. Her pro-calcitonin is trending down She is currently on ceftriaxone, Zithromax, Solu-Medrol for possible asthma, no diuretics and heparin drip was stopped and switched to subcu heparin 04/28/2020 Patient dyspnea is improving an improving myoclonic infiltrates. Resolving atypical pneumonia or volume overload could be considered. d currently she is saturating 95% on 3-4 L oxygen via nasal cannula, her breathing is still difficult for her about its improving and she can say it. She still uses BiPAP at night only. No chest pain. No other significant complaint Repeat chest x-ray today: Improving mild infiltrates of the lungs. Resolving atypical pneumonia Creatinine is trending down to 1.6 to 1.5. D-dimer is trending down from 9 down to 1. Sugar is controlled. The rest vitals are stable Her antibiotics were changed to cefepime and continued with Zithromax. She is also on Solu-Medrol 60 mg. 04/29/2020 Patient is alert and awake, she is breathing easier although she still somewhat tachypneic at 20 breaths per minute. She is saturating 94% on 2 L oxygen via nasal cannula Creatinine is stable at 1.5 which looks like her chronic kidney disease level, with GFR of 36 make her stage III. Sugar is controlled. Dry Clipper Tender on board for her elevated troponin, pending records from [facility]. Change her Solu-Medrol to prednisone. Continue with antibiotics of cefepime and Zithromax. 04/30/2020 Patient is doing better every day although she still dyspneic but she is improving. Currently she saturating 95% on 2 L oxygen via nasal cannula. Rectal vitals are stable. WBC is 20.1 while she is on steroids. Chest x-ray: Stable interstitial pneumonia. Dry Clipper Tender sign of the case. Pulmonary team are still following and most likely we will clear the patient for discharge I discussed the case with the social contact worker, patient has complex insurance and that will delay her discharge most likely coming Sunday. 05/01/2020 Patient breathing is a stable, even she could go to the bathroom while on room air She's continued on antibiotics with cefepime and Zithromax, also she is on a prednisone 40 mg Patient is medically stable pending placement 05/02/2020 Patient is clinically doing well, she is on room air now although she still have some shortness of breath even at rest, I explained for the patient and this is expected because of her pneumonia and asthma and that she still been treated with oral antibiotics and prednisone All her questions were answered. Also she agrees to go to rehab. Also I instructed the patient to follow-up with take out waitress Dr. Hills in 1 week after discharge and she agrees to call and make appointment Objective - Vital Signs Vital signs: Vital Signs Temp 97.6 F 05/02/20 11:58 Pulse 81 05/02/20 12:38 Resp 17 05/02/20 11:58 BP 131/70 05/02/20 11:58 Pulse Ox 96 05/02/20 11:58 Intake & Output 05/01/20 05/02/20 05/02/20 18:59 06:59 18:59 Intake Total 1080 Output Total 600 Balance 480 Weight 98.3 kg Intake: Oral 1080 Output: Urine 600 Other: Voiding Method Toilet Incontinent # Voids 2 4 - Exam -GENERAL: The patient is alert and oriented x3,no respiratory distress, HEENT: Pupils are round and equally reacting to light. EOMI. No scleral icterus. No conjunctival pallor. Normocephalic, atraumatic. No pharyngeal erythema. No thyromegaly. CARDIOVASCULAR: S1 and S2 present. No murmurs, rubs, or gallops. -PULMONARY: Chest is clear to auscultation, no wheezing. Mild crepitation in the right ABDOMEN: Soft, nontender, nondistended, normoactive bowel sounds. No palpable organomegaly. MUSCULOSKELETAL: No joint swelling or deformity. EXTREMITIES: No cyanosis, clubbing, or pedal edema. NEUROLOGICAL: Gross neurological examination did not reveal any focal deficits. SKIN: No rashes. No petechiae - Labs CBC & Chem 7: 05/02/20 07:40 05/02/20 07:40 Labs: Abnormal Lab Results - Last 24 Hours (Table) 05/01/20 05/01/20 05/01/20 Range/Units 10:30 16:45 20:20 WBC (3.8-10.6) k/uL Neutrophils # (1.3-7.7) k/uL BUN (9.0-27.0) mg/dL Est GFR (CKD-EPI)AfAm (60.0-200.0) Est GFR (CKD-EPI)NonAf (60.0-200.0) BUN/Creatinine Ratio (12.00-20.00) Ratio POC Glucose (mg/dL) 235 H 220 H (75-99) mg/dL Calcium (8.7-10.3) mg/dL AST (13-35) U/L ALT (8-44) U/L Total Protein (6.2-8.2) g/dL Albumin (3.80-4.90) g/dL Procalcitonin 0.24 H (0.02-0.09) ng/mL 01/24/21 01/24/21 01/24/21 Range/Units 07:40 07:40 11:55 WBC 15.2 H (3.8-10.6) k/uL Neutrophils # 12.4 H (1.3-7.7) k/uL BUN 54.0 H (9.0-27.0) mg/dL Est GFR (CKD-EPI)AfAm 41.1 L (60.0-200.0) Est GFR (CKD-EPI)NonAf 35.4 L (60.0-200.0) BUN/Creatinine Ratio 36.00 H (12.00-20.00) Ratio POC Glucose (mg/dL) 117 H (75-99) mg/dL Calcium 8.2 L (8.7-10.3) mg/dL AST 37 H (13-35) U/L ALT 89 H (8-44) U/L Total Protein 5.4 L (6.2-8.2) g/dL Albumin 3.40 L (3.80-4.90) g/dL Procalcitonin (0.02-0.09) ng/mL Assessment and Plan Assessment: Acute hypoxic respiratory failure right-sided pneumonia, rather than acute asthma exacerbation, CHF is less likely Elevated troponin, rule out cardiac disease. Could be also due to elevated creatinine Elevated creatinine, no baseline. Acute kidney injury versus chronic kidney disease Hyperglycemia Mildly elevated liver enzymes Elevated lactic acid Plan: This is a pleasant 69 years old female who presents with asthma and high troponin. Continue with steroids, continue with oxygen as needed and BiPAP. Pulmonary and cardiology consult. continue with ceftriaxone and Zithromax. Labs and medication were reviewed.. Continue same treatment. Continue with symptomatic treatment. Resume home medication. Monitor lytes and vitals. DVT and GI prophylaxis. Further recommendations depends on the clinical course of the patient DVT prophylaxis: heparin GI Prophylaxis: Ppi PT/OT: Subacute rehab to which patient agrees to talk to social work Patient is medically stable for discharge pending placement
[2020-05-02 17:02] LABS: Glucose,Whole Blood 211 mg/dL (75-99)
[2020-05-02 20:40] LABS: Glucose,Whole Blood 239 mg/dL (75-99)
[2020-05-03] MEDS: LEVOTHYROXINE 100 MCG TAB PO SCH (05:56)
[2020-05-03 07:33] LABS: Glucose,Whole Blood 72 mg/dL (75-99)
[2020-05-03] MEDS: INSULIN ASPART (NovoLOG) 100 UNIT/ML VIAL SQ SCH ×4 (07:35→20:55)
[2020-05-03 08:15] LABS: Basophils % (A) 0 %; Eosinophils # (A) 0.4 k/uL (0-0.7); Eosinophils % (A) 3 %; HCT 43.3 % (34.0-46.0); HGB 13.8 gm/dL (11.4-16.0); Lymphocytes # (A) 1.5 k/uL (1.0-4.8); Lymphocytes % (A) 11 %; MCH 30.4 pg (25.0-35.0); MCHC 31.8 g/dL (31.0-37.0); MCV 95.4 fL (80.0-100.0); Mean Platelet Volume 8.1; Monocytes # (A) 0.7 k/uL (0-1.0); Monocytes % (A) 5 %; Neutrophils # (A) 11.1 k/uL (1.3-7.7); Neutrophils % (A) 80 %; Platelet Count 175 k/uL (150-450); RBC 4.54 m/uL (3.80-5.40); RDW 13.2 % (11.5-15.5); WBC 13.9 k/uL (3.8-10.6)
[2020-05-03] MEDS: AZITHROMYCIN 500 MG TAB PO SCH (08:15)
[2020-05-03] MEDS: ASPIRIN 81 MG PO SCH (08:15)
[2020-05-03] MEDS: METOPROLOL TARTRATE 25 MG TAB PO SCH ×2 (08:15→20:55)
[2020-05-03] MEDS: amLODIPine 5 MG TAB PO SCH (08:15)
[2020-05-03] MEDS: predniSONE 20 MG TAB PO SCH (08:15)
[2020-05-03] MEDS: CLOTRIMAZOLE/BETAMETH 1-0.05% CREAM 45 GM TUBE TOPICAL SCH ×2 (08:16→20:54)
[2020-05-03] MEDS: HEPARIN SODIUM,PORCINE 5,000 UNIT/ML 1 ML VIAL SQ SCH ×3 (08:16→22:56)
[2020-05-03] MEDS: PANTOPRAZOLE 40 MG TABLET PO SCH (08:16)
[2020-05-03] MEDS: CEFEPIME 1 GM in SODIUM CHLORIDE 0.9% 50 ML IVPB SCH ×2 (08:16→20:55)
[2020-05-03] MEDS: IPRATROPIUM-ALBUTEROL 3 ML NEB INHALATION SCH ×4 (08:28→21:34)
[2020-05-03 10:58] LABS: African American GFR (CKD) 48.8 (60.0-200.0); Albumin 3.3 g/dL (3.80-4.90); Albumin/Globulin Ratio 1.74 (1.60-3.17); Anion Gap 8.3 mmol/L (4.00-12.00); BUN/Creat Ratio 37.69 Ratio (12.00-20.00); Calcium 8.3 mg/dL (8.7-10.3); Carbon Dioxide 27.7 mmol/L (21.6-31.8); Globulin 1.9 g/dL (1.6-3.3); Non-African American GFR(CKD) 42.1 (60.0-200.0); Potassium 4.6 mmol/L (3.5-5.5); Total Protein 5.2 g/dL (6.2-8.2)
[2020-05-03 11:37] LABS: Glucose,Whole Blood 102 mg/dL (75-99)
--- NOTE | 2020-05-03 14:15 | P.DS ---
Providers Date of admission: 04/23/20 11:32 Attending physician: Naveen Aranda MD Consults: 04/23/20 11:32 Consult Physician Urgent Consulting Provider: Nabeel Stevenson Consult Reason/Comments: Respiratory failure, pneumonia, septic shock Do you want consulting provider notified?: Yes Primary care physician: Physician Nonstaff Hospital Course: 69 years old female with past medical history of asthma, she follows up with lead burner supervisor at [facility]. She presents because of 2 days of worsening shortness of breath with coughing and with some phlegm and no chest pain or fever. Patient was very anxious and wanted her mask to be taken off, however she agrees to keep it on with small doses of benzodiazepine 0.5 mg She denies change in urine or bowel habits. Denies headache, syncope or dizz iness. No weakness or numbness She denies smoking, alcohol or illicit drugs On admission Vitas looks stable except for patient feels tachypneic at 26 which is improved with BiPAP which was present on admission with oxygen saturation of 97% Labs showing leukocytosis of 15.1 K, INR 0.9, d-dimer is elevated at 9.2. Lactic acid elevated at 6.4, coming down to 2.4 procalcitonin is 0.08, coronavirus not detected VQ scan showed low probability for PE, Doppler of the lower extremity is negative for DVT. Echocardiogram showing normal ejection fraction of 55-60% with severe concentric left ventricular hypertrophy 04/24/2020 Patient is fully awake and alert, more calm and less in respiratory distress compared to yesterday, she is on BiPAP with a breathing rate of about 48. She still have some wheezing. She is oxygen saturation 97% while on BiPAP. She has leukocytosis of 15.6. Creatinine is slightly down to 1.9 Chest x-ray showing right sided pneumonia, possible pulmonary edema Yesterday patient become unresponsive because of extra dose of benzodiazepine, she was placed also on heparin drip and metoprolol added for elevated troponin. Cardiology team on the case 04/25/2020 This is a pleasant 69 years old female who was admitted with respiratory distress needind BiPAP for the first 24-48 hours. Her respiratory status improved however she still dyspneic needing 5-6 L oxygen and she is somewhat tachypneic. She is coughing but denies chest pain. There are some Vitas looks stable. Her leukocytosis went up to 21.9 but she is on steroids. Creatinine is stable at 1.9. Her pro-calcitonin is elevated at 7.8 Patient currently is covered with Rocephin and Zithromax. Also she is on some Medrol 60 mg per pulmonology team recommendation. She is on heparin drip for high troponin. Disability Examiner recommended discontinue heparin and 24 hours Losartan stopped due to EFREN. No reflux is added for hypertension 04/26/2020 Patient is awake and sitting up in bed, she uses BiPAP most of the time however this morning when she was off BiPAP for eating she was really tachypneic with breathing rate 22 through 26/m, her oxygen saturation was 90s on 5-6 L via nasal cannula. Blood pressure on the high side 170/102, on examination she has mild prolonged expiratory wheezing WBC 17.3, creatinine is stable at 1.9, it looks like patient has chronic kidney disease however patient does not know about previous kidney disease She still on heparin drip, which might be stopped today. Disability Examiner. Most likely patient has pneumonia on the right side with elevated pro-calcitonin at 7.8, patient continue on some traction on Zithromax. Also she is on some Medrol 60 mg. She is on aspirin and metoprolol for high troponin. Pulmonary team input is appreciated and they recommended CAT scan of the chest without contrast 04/27/2020 Patient remains significantly dyspneic however it looks better for me compared to yesterday. She still needs 6 L of oxygen to keep her oxygen saturation in th e 90s WBC is trending down, creatinine is down from 1.9 down to 1.6. Glucose controlled. Coronavirus not detected. Chest CAT scan showed bilateral groundglass opacity with left lower lobe area suspicious for a mass and they recommended either follow-up CAT scan for need for PET scan. Indwelling chest x-ray yesterday showed more CHF with right lower lobe pneumonia. Workup for pneumonia with urine legionella is still pending. Her pro-calcitonin is trending down She is currently on ceftriaxone, Zithromax, Solu-Medrol for possible asthma, no diuretics and heparin drip was stopped and switched to subcu heparin 04/28/2020 Patient dyspnea is improving an improving myoclonic infiltrates. Resolving atypical pneumonia or volume overload could be considered. d currently she is saturating 95% on 3-4 L oxygen via nasal cannula, her breathing is still difficult for her about its improving and she can say it. She still uses BiPAP at night only. No chest pain. No other significant complaint Repeat chest x-ray today: Improving mild infiltrates of the lungs. Resolving atypical pneumonia Creatinine is trending down to 1.6 to 1.5. D-dimer is trending down from 9 down to 1. Sugar is controlled. The rest vitals are stable Her antibiotics were changed to cefepime and continued with Zithromax. She is also on Solu-Medrol 60 mg. 04/29/2020 Patient is alert and awake, she is breathing easier although she still somewhat tachypneic at 20 breaths per minute. She is saturating 94% on 2 L oxygen via nasal cannula Creatinine is stable at 1.5 which looks like her chronic kidney disease level, with GFR of 36 make her stage III. Sugar is controlled. Disability Examiner on board for her elevated troponin, pending records from [facility]. Change her Solu-Medrol to prednisone. Continue with antibiotics of cefepime and Zithromax. 04/30/2020 Patient is doing better every day although she still dyspneic but she is improving. Currently she saturating 95% on 2 L oxygen via nasal cannula. Rectal vitals are stable. WBC is 20.1 while she is on steroids. Chest x-ray: Stable interstitial pneumonia. Disability Examiner sign of the case. Pulmonary team are still following and most likely we will clear the patient for discharge I discussed the case with the social insurance administrator, patient has complex insurance and that will delay her discharge most likely coming Sunday. 05/01/2020 Patient breathing is a stable, even she could go to the bathroom while on room air She's continued on antibiotics with cefepime and Zithromax, also she is on a prednisone 40 mg Patient is medically stable pending placement 05/02/2020 Patient is clinically doing well, she is on room air now although she still have some shortness of breath even at rest, I explained for the patient and this is expected because of her pneumonia and asthma and that she still been treated with oral antibiotics and prednisone All her questions were answered. Also she agrees to go to rehab. Also I instructed the patient to follow-up with university demonstrator Dr. Hills in 1 week after discharge and she agrees to call and make appointment 05/03/2020 Patient is not requiring oxygen clinically doing well and completed 10 days of antibiotic therapy will not require any more antibiotics patient will be discharged to subacute rehabilitation today - Exam -GENERAL: The patient is alert and oriented x3,no respiratory distress, HEENT: Pupils are round and equally reacting to light. EOMI. No scleral icterus. No conjunctival pallor. Normocephalic, atraumatic. No pharyngeal erythema. No thyromegaly. CARDIOVASCULAR: S1 and S2 present. No murmurs, rubs, or gallops. -PULMONARY: Chest is clear to auscultation, no wheezing. Mild crepitation in the right ABDOMEN: Soft, nontender, nondistended, normoactive bowel sounds. No palpable organomegaly. MUSCULOSKELETAL: No joint swelling or deformity. EXTREMITIES: No cyanosis, clubbing, or pedal edema. NEUROLOGICAL: Gross neurological examination did not reveal any focal deficits. SKIN: No rashes. No petechiae Assessment and Plan Assessment: Acute hypoxic respiratory failure secondary to pneumonia with possible asthma exacerbation right-sided pneumonia Elevated troponin, secondary to sepsis and hypoxemia Elevated creatinine, no baseline. Acute kidney injury versus chronic kidney disease Hyperglycemia Mildly elevated liver enzymes Elevated lactic acid Patient Condition at Discharge: Serious Plan - Discharge Summary Discharge Rx Participant: No New Discharge Prescriptions: New Aspirin 81 mg PO DAILY chew Metoprolol Tartrate [Lopressor] 25 mg PO BID #0 tab amLODIPine [Norvasc] 5 mg PO DAILY tab Famotidine [Pepcid] 20 mg PO BID #30 tablet predniSONE 10 mg PO DAILY #30 tab Continue Levothyroxine Sodium [Tirosint] 200 mcg PO DAILY Clotrimazole/Betamethasone Dip [Lotrisone Cream] 1 applic TOPICAL BID Discontinued Irbesartan [Avapro] 150 mg PO DAILY Discharge Medication List Clotrimazole/Betamethasone Dip [Lotrisone Cream] 1 applic TOPICAL BID 04/23/20 [History] Levothyroxine Sodium [Tirosint] 200 mcg PO DAILY 04/23/20 [History] Aspirin 81 mg PO DAILY chew 05/03/20 [Rx] Famotidine [Pepcid] 20 mg PO BID #30 tablet 05/03/20 [Rx] Metoprolol Tartrate [Lopressor] 25 mg PO BID #0 tab 05/03/20 [Rx] amLODIPine [Norvasc] 5 mg PO DAILY tab 05/03/20 [Rx] predniSONE 10 mg PO DAILY #30 tab 05/03/20 [Rx] Follow up Appointment(s)/Referral(s): Oliver Hills DO [STAFF PHYSICIAN] - 1 Week ([facility] will call patient with a time and date for a follow up appointment, Per Caroline/office staff. ) Nabeel Stevenson DO [Doctor of Osteopathic Medicine] - 05/06/20 1:30 pm () None,Stated [REFERRING] - 1-2 days Activity/Diet/Wound Care/Special Instructions: Heart healthy diet Activities restricted until you see your doctor We are comment U Need further workup for your heart disease [coronary artery disease, CAD] either with Dr. Hills locally or with your university demonstrator Dr. Zhou
--- NOTE | 2020-05-03 14:25 | P.PN ---
Subjective Progress Note Date: 05/03/20 Principal diagnosis: Acute hypoxemic respiratory failure, multifactorial 69-year-old female who does not see doctors in this area but rather sees physicians at [facility], who apparently comes into the emergency room, brought in by EMS, for difficulty in breathing. Apparently, for the last day or 2, the patient's breathing has gotten more difficult. She apparently became unresponsive according to her family. The patient was found by EMS to be awake and short of breath. Her pulse ox saturations were 88%. The patient was therefore placed on CPAP. She apparently carries with her a diagnosis of asthma, hypothyroidism, and hypertension. Again, we do not see her in this area. She sees a chemical process equipment operator at [facility]. Currently, in the emergency department, she is on BiPAP, with settings of 12/6 and 60%. Currently, the patient appears to be short of breath. She also seemed a little lethargic and sleepy. She has been initiated on IV antibiotics along with steroids and IV heparin secondary to elevated troponin. The patient states approximately 2 years ago she had a similar type respiratory illness and was treated at [facility] at that time she was told she had a mild heart attack however to her recollection she never underwent cardiac catheterization. She denies any stents or open heart surgery. Echocardiogram obtained on this admission reveals preserved LV systolic function with ejection fraction 55-60%, mild tricuspid regurgitation and ascending aorta dilation measuring 4.2 cm. Sodium 142. Potassium 4.7. Creatinine 1.90. White count 15.6. Hemoglobin 13.1. Peak troponin 2.16. Pro-calcitonin 7.82. She remains on ceftriaxone and azithromycin along with bronchodilators. The procalcitonin is elevated the CXR is showing a consolidation of the RLL consistent with pneumonias. On 04/26/2020, the patient was sent remains to be elevated. The patient is still on BiPAP at a pressure of 12/6 cm of water with an FiO2 of 50%. Earlier this morning, while having breakfast, she was taken off the BiPAP. She does much b shreya while on the BiPAP. On examination, she is still having crackles in lung bases bilaterally. The chest x-ray was showing breath and pulmonary infiltrates worse on the right. No fever. No altered mentation. Her minute ventilation is still high as 15 L and the patient is able to generate tidal volumes of about 500 respiratory rate ranging between 30 and 32. 04/27/2020, the patient is feeling slightly better compared to yesterday. Note that she was quite short of breath and she was placed on a BiPAP and currently she is weaned down to 6 L of oxygen by nasal cannula. She is able to sit up on a recliner. Her pulse ox is 95% on 6 L of oxygen by nasal cannula. The chest CAT scan of the chest was done yesterday and the CAT scan showed bilateral pulmonary infiltrates with areas of consolidation of the left lower lobe. There was also small bilateral pleural effusions. There was areas of multifocal groundglass opacities in the upper lobes yet the findings are more consolidating in the left lower lobe and this along with an elevated pro-calcitonin level is highly suggestive of an underlying bacterial infection. Initial pro-calcitonin level was at 7.8 and a drop down to 4.6. The white cell count is also improving and is down to 14.2 from as high as 21.9. The renal function is also improving and the creatinine is at 1.62. The patient free of any chest pain. She is on subcu heparin for now. She is on DuoNeb nebulized treatments around the clock. Echocardiogram that was obtained on 04/23/2019 showed a preserved LV function. Note that she had a non-STEMI with an elevated troponin level of 2.1 04/28/2020, the patient is doing better. She is a bit angry while watching television as the patient is unhappy with the results of the presidential election. I told her to get politics out of her head and concentrate on her pneumonia recovery for now. A repeat chest x-ray was done and is gradually improvement of the bilateral pulmonary infiltrates described earlier. The patient remains on examination of Rocephin and Zithromax. Her pro-calcitonin level was improving. She also has improvement in her renal function and creatinine is down to 1.57. Oxidation is also improved and she is down to 3 L about 2 by nasal cannula. No significant sputum production. No fever or chills. Troponin peaked at 2.1 and she had an obvious non-STEMI. She sees a living nurse Dr. Krishnamurthy and a chemical process equipment operator, done at [facility] in [place] [address], the patient is doing better. She is less short of breath. She is coughing up some minimal amount of brownish mucus. She is on 2 L of oxygen by nasal cannula and she is using incentive spirometer and she is pulling approximately 1500. She remains on antibiotics. She remains on IV Solu-Medrol. Her pro-calcitonin level was on the decline. She is less short of breath. She is weak. She is moving around without help of a walker. She may need some rehabilitation at a later stage. Meanwhile, no fever. No chills. No significant leukocytosis and the patient is with a hemoglobin of 13.4. On 05/01/2020 on seeing the patient for a follow-up and she is on room air oxygen and she is feeling better. She is less short of breath. She remains on a combination of cefepime and Zithromax and she is completing a prednisone burst taper. In terms of her labs, the patient's blood work is still pending from this morning. The blood sugars from this morning's at 92. No chest pain. No angina. No palpitation. She is weak and she may be considering rehabilitation at time of discharge. 05/02/2020, the patient is weak. Overall poor status is stabilized. The pat iemirna is currently on room air oxygen. The pro-calcitonin level has dropped down to 0.24. She remains on a combination of cefepime and Zithromax. She is also completing a prednisone burst taper. The white cell count from today is 15.2. She should be able to get out of the bed and she has a walker at the bedside. She is not utilizing any BiPAP. The plan is to send this patient to medical [place] [facility] [place] the next 24 hours. On 05/03/2020 patient seen in follow-up on medical floor, she is calm and comfortable, sitting up in the recliner, no worsening dyspnea, breathing comfortably, room air pulse ox is 93-95%, no fever or chills, she remains on cefepime and azithromycin, blood cultures have shown no growth, her last chest x-ray was on 04/30/2020 showing stable interstitial pattern. No significant cough or congestion, she does have exertional dyspnea. No chest discomfort, no hemoptysis. Vital signs have been stable overnight, today's labs have been reviewed showing white blood cell count of 13.9, trending down, hemoglobin is 13.8, electrolytes are within normal limits, BUN is 49 creatinine is 1.3, her last pro-calcitonin on now 05/01/2023 was down to 0.24 from 7.82 on 04/23/2020 Objective - Vital Signs Vital signs: Vital Signs Temp 97.6 F 05/03/20 07:14 Pulse 72 05/03/20 12:12 Resp 16 05/03/20 12:12 BP 124/82 05/03/20 07:14 Pulse Ox 93 L 05/03/20 07:14 Intake & Output 05/02/20 05/03/20 05/03/20 18:59 06:59 18:59 Intake Total 360 Balance 360 Weight 98.1 kg Intake: Oral 360 Other: Voiding Method Toilet Diaper Incontinent # Voids 2 1 # Bowel Movements 1 1 - Exam GENERAL EXAM: Alert, very pleasant, 70-year-old white female on room air with pulse ox of 93-95% comfortable in no apparent distress. HEAD: Normocephalic/atraumatic. EYES: Normal reaction of pupils, equal size. Conjunctiva pink, sclera white. NOSE: Clear with pink turbinates. THROAT: No erythema or exudates. NECK: No masses, no JVD, no thyroid enlargement, no adenopathy. CHEST: No chest wall deformity. Symmetrical expansion. LUNGS: Equal air entry with bibasilar crackles CVS: Regular rate and rhythm, normal S1 and S2, no gallops, no murmurs, no rubs ABDOMEN: Soft, nontender. No hepatosplenomegaly, normal bowel sounds, no guarding or rigidity. EXTREMITIES: No clubbing, no edema, no cyanosis, 2+ pulses and upper and lower extremities. MUSCULOSKELETAL: Muscle strength and tone normal. SPINE: No scoliosis or deformity SKIN: No rashes CENTRAL NERVOUS SYSTEM: Alert and oriented -3. No focal deficits, tone is normal in all 4 extremities. PSYCHIATRIC: Alert and oriented -3. Appropriate affect. Intact judgment and insight. - Labs CBC & Chem 7: 05/03/20 07:28 05/03/20 07:28 Labs: Abnormal Lab Results - Last 24 Hours (Table) 05/02/20 05/02/20 05/03/20 Range/Units 16:56 20:38 07:28 WBC 13.9 H (3.8-10.6) k/uL Neutrophils # 11.1 H (1.3-7.7) k/uL BUN (9.0-27.0) mg/dL Est GFR (CKD-EPI)AfAm (60.0-200.0) Est GFR (CKD-EPI)NonAf (60.0-200.0) BUN/Creatinine Ratio (12.00-20.00) Ratio POC Glucose (mg/dL) 211 H 239 H (75-99) mg/dL Calcium (8.7-10.3) mg/dL ALT (8-44) U/L Total Protein (6.2-8.2) g/dL Albumin (3.80-4.90) g/dL 05/03/20 05/03/20 05/03/20 Range/Units 07:28 07:30 11:35 WBC (3.8-10.6) k/uL Neutrophils # (1.3-7.7) k/uL BUN 49.0 H (9.0-27.0) mg/dL Est GFR (CKD-EPI)AfAm 48.8 L (60.0-200.0) Est GFR (CKD-EPI)NonAf 42.1 L (60.0-200.0) BUN/Creatinine Ratio 37.69 H (12.00-20.00) Ratio POC Glucose (mg/dL) 72 L 102 H (75-99) mg/dL Calcium 8.3 L (8.7-10.3) mg/dL ALT 85 H (8-44) U/L Total Protein 5.2 L (6.2-8.2) g/dL Albumin 3.30 L (3.80-4.90) g/dL Assessment and Plan Plan: Assessment: 1 Acute hypoxemic respiratory failure, likely multifactorial, in part related to the patient's underlying chronic bronchial asthma, bilateral pneumonia (right more than left), and probable CHF/heart failure. Patient is on a combination of antibiotics including cefepime and zithromax. Echo showed a normal LV function. I was concerned about her respiratory status and the CAT scan of the chest was obtained yesterday that showed bilateral groundglass changes with areas of consolidation of the left lower lobe and this along with an elevated pro- calcitonin level and elevated white cell count is consistent with bacterial i nfection/pneumonia. Note that the patient over the past few days has been progressively improving. The pro-calcitonin level was declining. Her chest x- ray was also clearing. She was taken done on an FiO2 and I'm putting her on room air oxygen today. She has global generalized weakness and she would benefit from rehabilitation, she may benefit from going to ECF and this is the plan for Sunday. 2 Elevated troponins, most likely consistent with an acute non-STEMI, this occurred in the setting of an acute pneumonia, currently free of any chest pain and the patient's echocardiogram is within normal limits and she is currently off IV heparin. 3 Obesity. 4 History of chronic bronchial asthma. 5 History of hypertension. 6 History of hypothyroidism. 7 EFREN, improving, today's creatinine on 05/03/2020 is down to 1.3 Plan: Patient continues to improve from pulmonary perspective, no worsening dyspnea, she remains on room air, her pro-calcitonin level is improving, she continues on cefepime and azithromycin, she's had no fever or chills, blood cultures show no growth, no altered mentation, however she is a generally weak, and the plan is for discharge to ECF for rehabilitation. From pulmonary perspective patient is stable for discharge to ECF today and she will need outpatient follow-up with Dr. Stevenson in the office in 7-10 days I performed a history & physical examination of the patient and discussed their management with my nurse practitioner, Brina Nick. I reviewed the nurse practitioner's note and agree with the documented findings and plan of care. Lung sounds are positive for diminished breath sounds at the bases. The findings and the impression was discussed with the patient. I attest to the documentation by the nurse practitioner. Time with Patient: Less than 30
[2020-05-03 16:50] LABS: Glucose,Whole Blood 247 mg/dL (75-99)
--- NOTE | 2020-05-03 16:56 | CDI ---
Documentation Clarification Form Date: 05/03/2020 CDS: Le VegaGABRIEL, CCDS Admit Date: 04/23/2020 11:32 Patient Name: Marleni Layton Discharge Date: ATTENTION: The Clinical Documentation Specialists (CDI) and [facility] Coding Staff appreciate your assistance in clarifying documentation. Please respond to the clarification below the line at the bottom and electronically sign. The CDI & [facility] Coding staff will review the response and follow-up if needed. Please note: Queries are made part of the Legal Health Record. If you have any questions, please contact the author of this message via ITS. Dear Dr. Sharona Balderrama: Asthma without further specificity is documented throughout the chart beginning in the 04/23 ED note. Per the 04/23 Pulmonary Consult: History of Chronic bronchial asthma. Per the 04/23 History & Physical, Subsequent Progress Notes and the 05/03 Discharge Summary: Acute asthma exacerbation. History/risk factors: Asthma, Non Smoker, Clinical Indicators: Presented to the ED on 04/23 with SOB via EMS. Having difficulty breathing and became unresponsive at home per family. Per EMS: PO 88 w/o improvement with O2, put on CPAP. ED impression: Septic shock & pneumonia. Per 04/23 History & Physical Assessment: Acute asthma exacerbation, rule out Acute Diastolic CHF, Elevated troponin, rule out cardiac cause, EFREN vs CKD, Hyperglycemia, Mildly elevated liver enzymes and Elevated Lactic Acid. 04/23 VS: T 97.7, P 94, R 26^, BP 150/111^, PO 97 BiPAP RAD: 04/23 CXR: Correlate for pneumonia vs edema. Treatment: INH Duoneb, IV Solumedrol, IV Azithromycin, IV Rocephin, IV fluid bolus 850 mls @ 999 mls/hr q1, IV fluid bolus 1,000 mls @ 999 mls/hr q1, IV Heparin, IV Romazicon, INH Pulmicort, INH Perforomist In your professional opinion, can you please further specify the following, if known? Asthma: o With Acute Exacerbation o Without Acute Exacerbation o With Status asthmaticus o With COPD (specify with or without exacerbation) o Other, please specify o Unable to determine Severity: o Mild intermittent o Mild persistent o Moderate persistent o Severe persistent o Other, please specify ____ o Unable to determine Form or Type o Cough variant o Exercise induced bronchospasm o Extrinsic allergic o Intrinsic nonallergic o Late-onset o Mixed o Other, please specify____ o Unable to determine (Last Revision: July 2017) MTDD
[2020-05-03 20:43] LABS: Glucose,Whole Blood 206 mg/dL (75-99)
[2020-05-04] MEDS: LEVOTHYROXINE 100 MCG TAB PO SCH (04:39)
[2020-05-04 06:56] LABS: Glucose,Whole Blood 79 mg/dL (75-99)
[2020-05-04 07:01] LABS: HCT 41.8 % (34.0-46.0); HGB 13.7 gm/dL (11.4-16.0); MCH 31.6 pg (25.0-35.0); MCHC 32.7 g/dL (31.0-37.0); MCV 96.6 fL (80.0-100.0); Mean Platelet Volume 8.4; Platelet Count 170 k/uL (150-450); RBC 4.32 m/uL (3.80-5.40); RDW 12.9 % (11.5-15.5); WBC 15.2 k/uL (3.8-10.6)
[2020-05-04] MEDS: INSULIN ASPART (NovoLOG) 100 UNIT/ML VIAL SQ SCH ×3 (07:57→17:15)
[2020-05-04] MEDS: METOPROLOL TARTRATE 25 MG TAB PO SCH (08:06)
[2020-05-04] MEDS: predniSONE 20 MG TAB PO SCH (08:06)
[2020-05-04] MEDS: CEFEPIME 1 GM in SODIUM CHLORIDE 0.9% 50 ML IVPB SCH (08:06)
[2020-05-04] MEDS: ASPIRIN 81 MG PO SCH (08:06)
[2020-05-04] MEDS: AZITHROMYCIN 500 MG TAB PO SCH (08:07)
[2020-05-04] MEDS: amLODIPine 5 MG TAB PO SCH (08:07)
[2020-05-04] MEDS: HEPARIN SODIUM,PORCINE 5,000 UNIT/ML 1 ML VIAL SQ SCH ×2 (08:07→16:04)
[2020-05-04] MEDS: PANTOPRAZOLE 40 MG TABLET PO SCH (08:07)
[2020-05-04] MEDS: IPRATROPIUM-ALBUTEROL 3 ML NEB INHALATION SCH ×3 (08:29→15:40)
[2020-05-04 08:41] VITALS: RESP 18
[2020-05-04 11:39] LABS: Glucose,Whole Blood 153 mg/dL (75-99)
--- NOTE | 2020-05-04 12:48 | P.DS ---
Providers Date of admission: 04/23/20 11:32 Attending physician: Naveen Aranda MD Consults: 04/23/20 11:32 Consult Physician Urgent Consulting Provider: Nabeel Stevenson Consult Reason/Comments: Respiratory failure, pneumonia, septic shock Do you want consulting provider notified?: Yes Primary care physician: Physician Nonstaff Hospital Course: 89 years old male with past medical history of dementia and atrial fibrillation. Patient presents because of altered mental status. Patient is poor historian and could not provide information so it was obtained from the records.and could not remember most of the information . As per document Patient was eating with a family history when he become unresponsive for about 12 hours a walk up but he was confused for the rest of the day and this morning he remained to be confused where he had 2-3 hours episodes of unresponsiveness Patient was brought to emergency room per recommendation of his doctor . As per report patient also has history of dementia which can contribute to his confusion Patient he does not on the hospital, he does not know the name of the hospital or the city. He could not tell the ureter or the name of the president, he cou ld not know why he was in the hospital however he [employer] Conversation and Follows Commands As per staff patient fell at home and he has skin tears in both forearms. Patient himself look not in distress and not in pain and comfortable. He is complaining of from cough and some phlegm for the last 4-5 days also he has diarrhea about 2 times per day. Also complaining of from increased frequency of urination but no dysuria. His urine analysis is negative on admission Also he states that he lost weight but he could not tell how much and over how along, patient looks emaciated. pro-calcitonin is normal at 0.08. ProBNP is mildly elevated at 6.4. Vitas looks unremarkable and stable, he had periods of bradycardia at 57-64. Labs are unremarkable including CBC, BMP, liver enzymes, INR, urine analysis and urine drug screen. Chest x-ray: No acute process. CT of the brain showing no acute hemorrhage or midline shift. There is age- related cerebral atrophy Chest x-ray showed CHF versus interstitial pneumonia EKG showed junctional rhythm at [address]-T changes and QTC of 457 In the emergency room patient received ceftriaxone 2 g, Lasix 20 mg once and also was found at 50 mL/h On examination no weakness is appreciated during my examination and his infection both upper and lower extremity looks symmetrical. Cranial nerves are grossly intact 05/02/2020 Today patient is sitting in bed, pleasant is a little bit disoriented but much better than yesterday, he thought he is in the longterm and I told him his hospital he did not remember its [place] but he could say this is [place] referred to [place], he could not remember the year or the name of the president, however he looks oriented to the surrounding. Of note patient is on 2-dimensional medication at home. He denies any specific symptoms, no chest pain, no dyspnea, no coughing, no dizziness, no previous of unresponsiveness, no palpitation. No change in urine or bowel habits. No fever. Repeat urine analysis is negative and we stop his antibiotic. He remains on Eliquis Histopathologist evaluation is appreciated, I recommended to continue monitoring and resume Coreg and amiodarone. Also recommended neurological evaluation. There is no neurologist coverage over the weekend. Besides the patient is back to his baseline and there is no neurological complaint, no weakness or numbness or headache or blurred vision. However we'll keep monitoring for now line discussed with staff 05/03/2020 His mental status is at his baseline. Patient's altered mental status at home is secondary to toxic encephalopathy from medications and his medications of trazodone and tramadol doses were decreased after which patient had significant improvement in his clinical condition there is no evidence of sepsis or urinary tract infection at this time. Patient will be discharged either home with home care or to subacute rehabilitation. Physical therapy and occupational therapy evaluated the patient. Patient is alert oriented 2-3 patient may have some baseline dementia which is probably vascular dementia 05/04/2020 patient is awaiting prior authorization from her insurance for discharge. PHYSICAL EXAMINATION: GENERAL: The patient is alert and oriented x2-3, not in any acute distress. Well developed, well nourished. HEENT: Pupils are round and equally reacting to light. EOMI. No scleral icterus. No conjunctival pallor. Normocephalic, atraumatic. No pharyngeal erythema. No thyromegaly. CARDIOVASCULAR: S1 and S2 present. No murmurs, rubs, or gallops. PULMONARY: Chest is clear to auscultation, no wheezing or crackles. ABDOMEN: Soft, nontender, nondistended, normoactive bowel sounds. No palpable organomegaly. MUSCULOSKELETAL: No joint swelling or deformity. EXTREMITIES: No cyanosis, clubbing, or pedal edema. NEUROLOGICAL: Gross neurological examination did not reveal any focal deficits. SKIN: No rashes. Assessment and Plan Assessment: -Altered mental status: Toxic encephalopathy from medications as mentioned above Periods of unresponsiveness, there is a concern about syncope from atrial fibrillation patient was evaluated by cardiology no further recommendations from them Eliquis is being continued and patient will be continued on present doses of amiodarone and Coreg Dementia: Probably vascular -Hyperlipidemia -Hypertension Paroxysmal atrial fibrillation, on Eliquis Patient Condition at Discharge: Serious Plan - Discharge Summary Discharge Rx Participant: No New Discharge Prescriptions: New Aspirin 81 mg PO DAILY chew Metoprolol Tartrate [Lopressor] 25 mg PO BID #0 tab amLODIPine [Norvasc] 5 mg PO DAILY tab Famotidine [Pepcid] 20 mg PO BID #30 tablet predniSONE 10 mg PO DAILY #30 tab Continue Levothyroxine Sodium [Tirosint] 200 mcg PO DAILY Clotrimazole/Betamethasone Dip [Lotrisone Cream] 1 applic TOPICAL BID Discontinued Irbesartan [Avapro] 150 mg PO DAILY Discharge Medication List Clotrimazole/Betamethasone Dip [Lotrisone Cream] 1 applic TOPICAL BID 04/23/20 [History] Levothyroxine Sodium [Tirosint] 200 mcg PO DAILY 04/23/20 [History] Aspirin 81 mg PO DAILY chew 05/03/20 [Rx] Famotidine [Pepcid] 20 mg PO BID #30 tablet 05/03/20 [Rx] Metoprolol Tartrate [Lopressor] 25 mg PO BID #0 tab 05/03/20 [Rx] amLODIPine [Norvasc] 5 mg PO DAILY tab 05/03/20 [Rx] predniSONE 10 mg PO DAILY #30 tab 05/03/20 [Rx] Follow up Appointment(s)/Referral(s): Kings Duncan MD [REFERRING] - 1 Week Oliver Hills DO [STAFF PHYSICIAN] - 1 Week ([facility] will call patient with a time and date for a follow up appointment, Per Caroline/office staff. ) Nabeel Stevenson DO [Doctor of Osteopathic Medicine] - 05/06/20 1:30 pm () Patient Instructions/Handouts: Pneumonia (DC) Activity/Diet/Wound Care/Special Instructions: Heart healthy diet Activities restricted until you see your doctor We are comment U Need further workup for your heart disease [coronary artery disease, CAD] either with Dr. Hills locally or with your rn gyn Dr. Zhou Discharge Disposition: TRANSFER TO SNF/ECF
[2020-05-04 12:52] LABS: Anion Gap 7.7 mmol/L (4.00-12.00); BUN/Creat Ratio 31.88 Ratio (12.00-20.00); Calcium 8.3 mg/dL (8.7-10.3); Carbon Dioxide 26.3 mmol/L (21.6-31.8); Non-African American GFR(CKD) 32.8 (60.0-200.0); Potassium 4.8 mmol/L (3.5-5.5)
[2020-05-04 15:07] VITALS: BP 148/74; TEMP 98.5
--- NOTE | 2020-05-04 15:10 | P.PN ---
Subjective Progress Note Date: 05/04/20 Principal diagnosis: Acute hypoxemic respiratory failure, multifactorial 69-year-old female who does not see doctors in this area but rather sees physicians at [facility], who apparently comes into the emergency room, brought in by EMS, for difficulty in breathing. Apparently, for the last day or 2, the patient's breathing has gotten more difficult. She apparently became unresponsive according to her family. The patient was found by EMS to be awake and short of breath. Her pulse ox saturations were 88%. The patient was therefore placed on CPAP. She apparently carries with her a diagnosis of asthma, hypothyroidism, and hypertension. Again, we do not see her in this area. She sees a tapeman at [facility]. Currently, in the emergency department, she is on BiPAP, with settings of 12/6 and 60%. Currently, the patient appears to be short of breath. She also seemed a little lethargic and sleepy. She has been initiated on IV antibiotics along with steroids and IV heparin secondary to elevated troponin. The patient states approximately 2 years ago she had a similar type respiratory illness and was treated at [facility] at that time she was told she had a mild heart attack however to her recollection she never underwent cardiac catheterization. She denies any stents or open heart surgery. Echocardiogram obtained on this admission reveals preserved LV systolic function with ejection fraction 55-60%, mild tricuspid regurgitation and ascending aorta dilation measuring 4.2 cm. Sodium 142. Potassium 4.7. Creatinine 1.90. White count 15.6. Hemoglobin 13.1. Peak troponin 2.16. Pro-calcitonin 7.82. She remains on ceftriaxone and azithromycin along with bronchodilators. The procalcitonin is elevated the CXR is showing a consolidation of the RLL consistent with pneumonias. On 04/26/2020, the patient was sent remains to be elevated. The patient is still on BiPAP at a pressure of 12/6 cm of water with an FiO2 of 50%. Earlier this morning, while having breakfast, she was taken off the BiPAP. She does much b shreya while on the BiPAP. On examination, she is still having crackles in lung bases bilaterally. The chest x-ray was showing breath and pulmonary infiltrates worse on the right. No fever. No altered mentation. Her minute ventilation is still high as 15 L and the patient is able to generate tidal volumes of about 500 respiratory rate ranging between 30 and 32. 04/27/2020, the patient is feeling slightly better compared to yesterday. Note that she was quite short of breath and she was placed on a BiPAP and currently she is weaned down to 6 L of oxygen by nasal cannula. She is able to sit up on a recliner. Her pulse ox is 95% on 6 L of oxygen by nasal cannula. The chest CAT scan of the chest was done yesterday and the CAT scan showed bilateral pulmonary infiltrates with areas of consolidation of the left lower lobe. There was also small bilateral pleural effusions. There was areas of multifocal groundglass opacities in the upper lobes yet the findings are more consolidating in the left lower lobe and this along with an elevated pro-calcitonin level is highly suggestive of an underlying bacterial infection. Initial pro-calcitonin level was at 7.8 and a drop down to 4.6. The white cell count is also improving and is down to 14.2 from as high as 21.9. The renal function is also improving and the creatinine is at 1.62. The patient free of any chest pain. She is on subcu heparin for now. She is on DuoNeb nebulized treatments around the clock. Echocardiogram that was obtained on 04/23/2019 showed a preserved LV function. Note that she had a non-STEMI with an elevated troponin level of 2.1 04/28/2020, the patient is doing better. She is a bit angry while watching television as the patient is unhappy with the results of the presidential election. I told her to get politics out of her head and concentrate on her pneumonia recovery for now. A repeat chest x-ray was done and is gradually improvement of the bilateral pulmonary infiltrates described earlier. The patient remains on examination of Rocephin and Zithromax. Her pro-calcitonin level was improving. She also has improvement in her renal function and creatinine is down to 1.57. Oxidation is also improved and she is down to 3 L about 2 by nasal cannula. No significant sputum production. No fever or chills. Troponin peaked at 2.1 and she had an obvious non-STEMI. She sees a director retail brand development Dr. Krishnamurthy and a tapeman, done at [facility] in [place] [address], the patient is doing better. She is less short of breath. She is coughing up some minimal amount of brownish mucus. She is on 2 L of oxygen by nasal cannula and she is using incentive spirometer and she is pulling approximately 1500. She remains on antibiotics. She remains on IV Solu-Medrol. Her pro-calcitonin level was on the decline. She is less short of breath. She is weak. She is moving around without help of a walker. She may need some rehabilitation at a later stage. Meanwhile, no fever. No chills. No significant leukocytosis and the patient is with a hemoglobin of 13.4. On 05/01/2020 on seeing the patient for a follow-up and she is on room air oxygen and she is feeling better. She is less short of breath. She remains on a combination of cefepime and Zithromax and she is completing a prednisone burst taper. In terms of her labs, the patient's blood work is still pending from this morning. The blood sugars from this morning's at 92. No chest pain. No angina. No palpitation. She is weak and she may be considering rehabilitation at time of discharge. 05/02/2020, the patient is weak. Overall poor status is stabilized. The pat iemirna is currently on room air oxygen. The pro-calcitonin level has dropped down to 0.24. She remains on a combination of cefepime and Zithromax. She is also completing a prednisone burst taper. The white cell count from today is 15.2. She should be able to get out of the bed and she has a walker at the bedside. She is not utilizing any BiPAP. The plan is to send this patient to medical [place] at [place] the next 24 hours. On 05/03/2020 patient seen in follow-up on medical floor, she is calm and comfortable, sitting up in the recliner, no worsening dyspnea, breathing comfortably, room air pulse ox is 93-95%, no fever or chills, she remains on cefepime and azithromycin, blood cultures have shown no growth, her last chest x-ray was on 04/30/2020 showing stable interstitial pattern. No significant cough or congestion, she does have exertional dyspnea. No chest discomfort, no hemoptysis. Vital signs have been stable overnight, today's labs have been reviewed showing white blood cell count of 13.9, trending down, hemoglobin is 13.8, electrolytes are within normal limits, BUN is 49 creatinine is 1.3, her last pro-calcitonin on now 05/01/2023 was down to 0.24 from 7.82 on 04/23/2020 On 05/04/2020 patient seen in follow-up on medical floor, she is up in the recliner, no worsening dyspnea, she is awake and alert, oriented 3, she is a generally weak, but appears to be in no acute distress, breathing comfortably, no cough, no chest discomfort. Vital signs have been stable, has been afebrile, room air pulse ox of 95%. No acute events overnight, today's labs have been reviewed showing white blood cell count of 15.2, hemoglobin of 13.7, electrolytes within normal limits, BUN 51 creatinine is 1.6. Her proCalcitonin has significantly improved, her blood cultures have shown no growth, patient has been treated with cefepime and azithromycin. She remains on oral prednisone 40 mg daily in addition to nebulized bronchodilators. Objective - Vital Signs Vital signs: Vital Signs Temp 97.4 F L 05/04/20 07:17 Pulse 103 H 05/04/20 12:17 Resp 18 05/04/20 12:17 BP 147/90 05/04/20 07:17 Pulse Ox 94 L 05/04/20 07:17 Intake & Output 05/03/20 05/04/20 05/04/20 18:59 06:59 18:59 Weight 98.9 kg Other: Voiding Method Toilet Toilet Diaper Diaper Incontinent Incontinent # Voids 3 4 - Exam GENERAL EXAM: Alert, very pleasant, 70-year-old white female on room air with pulse ox of 93-95% comfortable in no apparent distress. HEAD: Normocephalic/atraumatic. EYES: Normal reaction of pupils, equal size. Conjunctiva pink, sclera white. NOSE: Clear with pink turbinates. THROAT: No erythema or exudates. NECK: No masses, no JVD, no thyroid enlargement, no adenopathy. CHEST: No chest wall deformity. Symmetrical expansion. LUNGS: Equal air entry with bibasilar crackles CVS: Regular rate and rhythm, normal S1 and S2, no gallops, no murmurs, no rubs ABDOMEN: Soft, nontender. No hepatosplenomegaly, normal bowel sounds, no guarding or rigidity. EXTREMITIES: No clubbing, no edema, no cyanosis, 2+ pulses and upper and lower extremities. MUSCULOSKELETAL: Muscle strength and tone normal. SPINE: No scoliosis or deformity SKIN: No rashes CENTRAL NERVOUS SYSTEM: Alert and oriented -3. No focal deficits, tone is normal in all 4 extremities. PSYCHIATRIC: Alert and oriented -3. Appropriate affect. Intact judgment and insight. - Labs CBC & Chem 7: 05/04/20 06:39 05/04/20 06:39 Labs: Abnormal Lab Results - Last 24 Hours (Table) 05/03/20 05/03/20 05/04/20 Range/Units 16:47 20:41 06:39 WBC 15.2 H (3.8-10.6) k/uL BUN (9.0-27.0) mg/dL Creatinine (0.6-1.5) mg/dL Est GFR (CKD-EPI)AfAm (60.0-200.0) Est GFR (CKD-EPI)NonAf (60.0-200.0) BUN/Creatinine Ratio (12.00-20.00) Ratio POC Glucose (mg/dL) 247 H 206 H (75-99) mg/dL Calcium (8.7-10.3) mg/dL 05/04/20 05/04/20 Range/Units 06:39 11:37 WBC (3.8-10.6) k/uL BUN 51.0 H (9.0-27.0) mg/dL Creatinine 1.6 H (0.6-1.5) mg/dL Est GFR (CKD-EPI)AfAm 38.0 L (60.0-200.0) Est GFR (CKD-EPI)NonAf 32.8 L (60.0-200.0) BUN/Creatinine Ratio 31.88 H (12.00-20.00) Ratio POC Glucose (mg/dL) 153 H (75-99) mg/dL Calcium 8.3 L (8.7-10.3) mg/dL Assessment and Plan Plan: Assessment: 1 Acute hypoxemic respiratory failure, likely multifactorial, in part related to the patient's underlying chronic bronchial asthma, bilateral pneumonia (right more than left), and probable CHF/heart failure. Patient is on a combination of antibiotics including cefepime and zithromax. Echo showed a normal LV function. I was concerned about her respiratory status and the CAT scan of the chest was obtained yesterday that showed bilateral groundglass changes with areas of consolidation of the left lower lobe and this along with an elevated pro- calcitonin level and elevated white cell count is consistent with bacterial infection/pneumonia. Note that the patient over the past few days has been progressively improving. The pro-calcitonin level was declining. Her chest x- ray was also clearing. She was taken done on an FiO2 and I'm putting her on room air oxygen today. She has global generalized weakness and she would benefit from rehabilitation, she may benefit from going to ECF and this is the plan for Sunday. 2 Elevated troponins, most likely consistent with an acute non-STEMI, this occurred in the setting of an acute pneumonia, currently free of any chest pain and the patient's echocardiogram is within normal limits and she is currently off IV heparin. 3 Obesity. 4 History of chronic bronchial asthma. 5 History of hypertension. 6 History of hypothyroidism. 7 EFREN, improved Plan: Patient has been stable in the last 24 hours a pulmonary perspective, no worsening dyspnea she is on room air, pro-calcitonin has been improving, patient has been treated with cefepime and azithromycin, her last chest x-ray showed stable interstitial pattern. She's had no fever or chills, blood cultures have shown no growth, vital signs have been stable, patient is generally weak, she is awaiting placement to ECF possibly today. She will need outpatient follow-up with in the office in 7-10 days I performed a history & physical examination of the patient and discussed their management with my nurse practitioner, Brina Nick. I reviewed the nurse practitioner's note and agree with the documented findings and plan of care. Lung sounds are positive for diminished breath sounds at the bases. The findings and the impression was discussed with the patient. I attest to the documentation by the nurse practitioner. Time with Patient: Less than 30
[2020-05-04 15:58] VITALS: PULSE 102
[2020-05-04 17:01] LABS: Glucose,Whole Blood 206 mg/dL (75-99)
[2020-05-04] MEDS: CLOTRIMAZOLE/BETAMETH 1-0.05% CREAM 45 GM TUBE TOPICAL SCH (18:07)
[2020-05-05] MEDS ORDERED: CEFEPIME 1 GM in SODIUM CHLORIDE 0.9% 50 ML IVPB SCH (09:00)
--- NOTE | 2020-05-06 10:42 | CDI ---
Documentation Clarification Form Date: 05/06/2020 10:40:00 AM From: Ruth Horne CCS Phone: If you have a question about this query, please contact Zahida Menendez Denitrator at [phone] between 8am and 5pm Admit Date: 04/23/2020 11:32:00 AM Patient Name: Marleni Layton Visit Number: [id number] Discharge Date: 05/04/2020 07:30:00 PM ATTENTION: The Clinical Documentation Specialists (CDI) and [facility] Coding Staff appreciate your assistance in clarifying documentation. Please respond to the clarification below the line at the bottom and electronically sign. The CDI & [facility] Coding staff will review the response and follow-up if needed. Please note: Queries are made part of the Legal Health Record. If you have any questions, please contact the author of this message via ITS. Dr. Naveen Aranda Septic shock is documented in the ED and DS but not is subsequent notes. PN 05/03 documents: right-sided pneumonia Elevated troponin, secondary to sepsis and hypoxemia Elevated creatinine, no baseline. History/Risk Factors: PNA, COPD exac, Acute resp failure, Acidosis, CKD, EFREN Clinical Indicators: Organ failure, tachycardia, Acidosis WBC: 15.1. 15.6, 21.9 Lactic acid: 6.4, 4.8, 2.4 Blood cultures: No growth after 144 hours Vitals signs on admission: BP 145/98, RR 26, NC 94, Temp 97.7, O2 Sat 97 (on CPAP) Treatment: Maxipime 1 gm IV, Rocephin 2 gm IV IV Bolus: 1,000 ml IV 999 mls/hr Other: In your professional opinion, please clarify if these findings signify one of the following conditions, whether the condition is POA, and cause, if known: Condition Sepsis ruled out Sepsis Severe Sepsis Septic Shock Other, please specify Unable to determine Present on Admission Yes No SIRS Criteria (2 or more of the following may indicate SIRS): -Temperature < 96.8F (36C) or > 101.0F (38.3C) -Heart Rate > 90 bpm -Respiratory Rate > 20 breaths/min or PaCO2 < 32 mmHg -White Blood Cell Count > 12,000 or < 4,000 cells/mm3 or > 10% bands -Lactate >2.0 mmol/L (>4.0 is equivalent to septic shock) no sepsis MTDD
== END 2020-05-04 19:30 | DRG 193 ==
LOC: EC 10:06 → 3SCARD 11:32 → 4SSUR 05-01 13:01
PROVIDERS: ADMIT Internal Medicine; ATTEND Internal Medicine
PROC: 5A09557 Assistance with Respiratory Ventilation, Greater than 96 Consecutive Hours, Continuous Positive Airway Pressure (ICD-10-PCS; principal; 2020-04-23)
DX: J18.9 Pneumonia, unspecified organism (principal); J96.01 Acute respiratory failure with hypoxia; I50.31 Acute diastolic (congestive) heart failure; N17.9 Acute kidney failure, unspecified; E87.2 Acidosis; I13.0 Hypertensive heart and chronic kidney disease with heart failure and stage 1 through stage 4 chronic kidney disease, or unspecified chronic kidney disease; J45.21 Mild intermittent asthma with (acute) exacerbation; J44.0 Chronic obstructive pulmonary disease with (acute) lower respiratory infection; J44.1 Chronic obstructive pulmonary disease with (acute) exacerbation; N18.30 Chronic kidney disease, stage 3 unspecified; Z20.822 Contact with and (suspected) exposure to COVID-19; I44.7 Left bundle-branch block, unspecified; R77.8 Other specified abnormalities of plasma proteins; R74.8 Abnormal levels of other serum enzymes; E03.9 Hypothyroidism, unspecified; E66.9 Obesity, unspecified; I25.2 Old myocardial infarction; I07.1 Rheumatic tricuspid insufficiency; F41.9 Anxiety disorder, unspecified; R73.9 Hyperglycemia, unspecified; I77.810 Thoracic aortic ectasia; R00.0 Tachycardia, unspecified; Z71.3 Dietary counseling and surveillance; Z68.27 Body mass index [BMI] 27.0-27.9, adult; Z79.899 Other long term (current) drug therapy; Z79.890 Hormone replacement therapy; Z88.2 Allergy status to sulfonamides; Z88.8 Allergy status to other drugs, medicaments and biological substances
CPT/HCPCS: 36415; 71045; 71250; 78580; 80048; 80053; 82728; 83605; 83615; 83735; 83880; 84145; 84484; 85025; 85027; 85379; 85610; 85730; 86140; 87040; 87449; 87635; 93005; 93306; 93970; 94640; 94660; 96361; 96365; 96366; 96375; 96376; 99291

== ENCOUNTER 2020-05-25 12:29 | Inpatient (IN) | payer OTHER ==
[2020-05-25] MEDS ORDERED: IPRATROPIUM-ALBUTEROL 3 ML NEB INHALATION STA (12:39)
[2020-05-25] MEDS ORDERED: SODIUM CHLORIDE 0.9% 500 ML 500 ML IV STA (12:39)
[2020-05-25] MEDS ORDERED: DILTIAZEM DRIP BOLUS FROM BAG 1 MG SOLN IV ONE ×2 (12:57→16:14)
[2020-05-25] MEDS ORDERED: DILTIAZEM 125 MG in SODIUM CHLORIDE 0.9% 100 ML IV SCH (13:00)
[2020-05-25 13:10] LABS: Basophils # (A) 0.1 k/uL (0-0.2); Basophils % (A) 1 %; Eosinophils # (A) 0.2 k/uL (0-0.7); Eosinophils % (A) 3 %; HCT 37.4 % (34.0-46.0); HGB 12.2 gm/dL (11.4-16.0); Lymphocytes # (A) 0.5 k/uL (1.0-4.8); Lymphocytes % (A) 6 %; MCH 31.2 pg (25.0-35.0); MCHC 32.6 g/dL (31.0-37.0); MCV 95.9 fL (80.0-100.0); Mean Platelet Volume 8.3; Monocytes # (A) 0.7 k/uL (0-1.0); Monocytes % (A) 8 %; Neutrophils # (A) 7.2 k/uL (1.3-7.7); Neutrophils % (A) 82 %; Platelet Count 299 k/uL (150-450); RDW 13.3 % (11.5-15.5); WBC 8.7 k/uL (3.8-10.6)
[2020-05-25 13:14] LABS: Partial Thromboplastin Time 23.8 sec (22.0-30.0); Prothrombin Time 10.7 sec (9.0-12.0)
[2020-05-25 13:17] LABS: Albumin 3.1 g/dL (3.5-5.0); Calcium 8.6 mg/dL (8.4-10.2); Magnesium 2.4 mg/dL (1.6-2.3); Total Bilirubin 1.1 mg/dL (0.2-1.3); Total Protein 6.1 g/dL (6.3-8.2)
--- NOTE | 2020-05-25 13:33 | ED ---
General Adult HPI - General Chief complaint: Shortness of Breath Stated complaint: weakness Time Seen by Provider: 05/25/20 12:32 Source: patient, EMS, RN notes reviewed Mode of arrival: EMS Limitations: no limitations - History of Present Illness Initial comments: This a 62-year-old female presents emergency department via EMS from [facility] with chief complaint shortness of breath. Patient states she's been having increasing shortness breath or last 5 days. Patient states that she believes it was from the cold air bothering her asthma. She states breathing treatments have been helping some but states that she still does not feel well. Patient's found to be tachycardic but patient denies any history of atrial fibrillation no history of CHF. Patient's trauma history is asthma. She states that she was sent to [facility] after hospitalization here from septic shock, pneumonia.Patient states that she became more weak or last few days where she states is difficult to ambulate. Patient denies any chest pain no headache no dizziness currently.Patient states she has mild leg swelling but states that her left leg is usually more swollen than her right. - Related Data Home Medications Medication Instructions Recorded Confirmed Clotrimazole/Betamethasone Dip 1 applic TOPICAL BID 04/23/20 04/23/20 [Lotrisone Cream] Levothyroxine Sodium [Tirosint] 200 mcg PO DAILY 04/23/20 04/23/20 Previous Rx's Medication Instructions Recorded Aspirin 81 mg PO DAILY chew 05/03/20 Famotidine [Pepcid] 20 mg PO BID #30 tablet 05/03/20 Metoprolol Tartrate [Lopressor] 25 mg PO BID #0 tab 05/03/20 amLODIPine [Norvasc] 5 mg PO DAILY tab 05/03/20 predniSONE 10 mg PO DAILY #30 tab 05/03/20 Allergies Allergy/AdvReac Type Severity Reaction Status Date / Time furosemide [From Lasix] Allergy Anaphylaxis Verified 04/23/20 10:26 methimazole Allergy Anaphylaxis Verified 05/25/20 12:42 Sulfa (Sulfonamide Allergy Anaphylaxis Verified 04/23/20 10:25 Antibiotics) Review of Systems ROS Statement: Those systems with pertinent positive or pertinent negative responses have been documented in the HPI. ROS Other: All systems not noted in ROS Statement are negative. Past Medical History Past Medical History: Asthma, Hypertension, Pneumonia, Thyroid Disorder Additional Past Medical History / Comment(s): hyperthyroid, chest tube left, History of Any Multi-Drug Resistant Organisms: None Reported Past Surgical History: Section Additional Past Surgical History / Comment(s): thyroidectomy, Past Anesthesia/Blood Transfusion Reactions: Unable to Obtain Past Psychological History: No Psychological Hx Reported Smoking Status: Never smoker Past Alcohol Use History: Occasional Past Drug Use History: None Reported General Exam Limitations: no limitations General appearance: alert, in no apparent distress Head exam: Present: atraumatic, normocephalic, normal inspection Eye exam: Present: normal appearance, PERRL, EOMI. Absent: scleral icterus, conjunctival injection, periorbital swelling ENT exam: Present: normal exam, normal oropharynx, mucous membranes moist Neck exam: Present: normal inspection, full ROM. Absent: tenderness, meningismus, lymphadenopathy Respiratory exam: Present: wheezes. Absent: normal lung sounds bilaterally, respiratory distress, rales, rhonchi, stridor Cardiovascular Exam: Present: tachycardia, irregular rhythm, normal heart sound s. Absent: regular rate, normal rhythm, systolic murmur, diastolic murmur, rubs, gallop, clicks GI/Abdominal exam: Present: soft, normal bowel sounds. Absent: distended, ten derness, guarding, rebound, rigid Extremities exam: Present: pedal edema (Minimal, Left Greater than right). Absent: calf tenderness Neurological exam: Present: alert, oriented X3, reflexes normal. Absent: motor sensory deficit Skin exam: Present: warm, dry, intact, normal color. Absent: rash Course Vital Signs 05/25/20 05/25/20 05/25/20 12:34 12:57 13:06 Temperature 97.9 F Pulse Rate 150 H 141 H 134 H Respiratory 18 Rate Blood Pressure 108/80 O2 Sat by Pulse 96 Oximetry 05/25/20 05/25/20 13:29 14:14 Temperature Pulse Rate 144 H 120 H Respiratory 18 18 Rate Blood Pressure 105/61 100/73 O2 Sat by Pulse 95 95 Oximetry EKG Findings - EKG Comments: EKG Findings:: EKG performed at 12:52 A. fib with RVR rate of 147 QRS 132 QT/QTC 302/472 - EKG Results: EKG: interpreted by ARON Medical Decision Making - Lab Data Result diagrams: 05/25/20 12:52 05/25/20 12:52 Lab Results 05/25/20 05/25/20 05/25/20 Range/Units 12:52 12:52 12:52 WBC 8.7 (3.8-10.6) k/uL RBC 3.90 (3.80-5.40) m/uL Hgb 12.2 (11.4-16.0) gm/dL Hct 37.4 (34.0-46.0) % MCV 95.9 (80.0-100.0) fL MCH 31.2 (25.0-35.0) pg MCHC 32.6 (31.0-37.0) g/dL RDW 13.3 (11.5-15.5) % Plt Count 299 (150-450) k/uL MPV 8.3 Neutrophils % 82 % Lymphocytes % 6 % Monocytes % 8 % Eosinophils % 3 % Basophils % 1 % Neutrophils # 7.2 (1.3-7.7) k/uL Lymphocytes # 0.5 L (1.0-4.8) k/uL Monocytes # 0.7 (0-1.0) k/uL Eosinophils # 0.2 (0-0.7) k/uL Basophils # 0.1 (0-0.2) k/uL PT 10.7 (9.0-12.0) sec INR 1.0 (<1.2) APTT 23.8 (22.0-30.0) sec Sodium 133 L (137-145) mmol/L Potassium 5.6 H (3.5-5.1) mmol/L Chloride 104 (98-107) mmol/L Carbon Dioxide 20 L (22-30) mmol/L Anion Gap 9 mmol/L BUN 37 H (7-17) mg/dL Creatinine 1.63 H (0.52-1.04) mg/dL Est GFR (CKD-EPI)AfAm 37 (>60 ml/min/1.73 sqM) Est GFR (CKD-EPI)NonAf 32 (>60 ml/min/1.73 sqM) Glucose 130 H (74-99) mg/dL Plasma Lactic Acid Casper (0.7-2.0) mmol/L Calcium 8.6 (8.4-10.2) mg/dL Magnesium 2.4 H (1.6-2.3) mg/dL Total Bilirubin 1.1 (0.2-1.3) mg/dL AST 45 H (14-36) U/L ALT 38 H (4-34) U/L Alkaline Phosphatase 71 (38-126) U/L Troponin I (0.000-0.034) ng/mL Total Protein 6.1 L (6.3-8.2) g/dL Albumin 3.1 L (3.5-5.0) g/dL 05/25/20 05/25/20 Range/Units 12:52 12:52 WBC (3.8-10.6) k/uL RBC (3.80-5.40) m/uL Hgb (11.4-16.0) gm/dL Hct (34.0-46.0) % MCV (80.0-100.0) fL MCH (25.0-35.0) pg MCHC (31.0-37.0) g/dL RDW (11.5-15.5) % Plt Count (150-450) k/uL MPV Neutrophils % % Lymphocytes % % Monocytes % % Eosinophils % % Basophils % % Neutrophils # (1.3-7.7) k/uL Lymphocytes # (1.0-4.8) k/uL Monocytes # (0-1.0) k/uL Eosinophils # (0-0.7) k/uL Basophils # (0-0.2) k/uL PT (9.0-12.0) sec INR (<1.2) APTT (22.0-30.0) sec Sodium (137-145) mmol/L Potassium (3.5-5.1) mmol/L Chloride (98-107) mmol/L Carbon Dioxide (22-30) mmol/L Anion Gap mmol/L BUN (7-17) mg/dL Creatinine (0.52-1.04) mg/dL Est GFR (CKD-EPI)AfAm (>60 ml/min/1.73 sqM) Est GFR (CKD-EPI)NonAf (>60 ml/min/1.73 sqM) Glucose (74-99) mg/dL Plasma Lactic Acid Casper 1.8 (0.7-2.0) mmol/L Calcium (8.4-10.2) mg/dL Magnesium (1.6-2.3) mg/dL Total Bilirubin (0.2-1.3) mg/dL AST (14-36) U/L ALT (4-34) U/L Alkaline Phosphatase (38-126) U/L Troponin I 0.013 (0.000-0.034) ng/mL Total Protein (6.3-8.2) g/dL Albumin (3.5-5.0) g/dL Critical Care Time Critical Care Time: Yes Total Critical Care Time: 35 Critical Care Time: 35 minutes of critical care time. She initially evaluated patient, the past medical history according lab EKG chest x-ray. Patient upon a be in A. fib which is new onset. Patient was started on Cardizem with 5 mg bolus. Patient was also given heparin as she new-onset A. fib. Patient's labs are reviewed patient does have slight hypokalemia though it is hemolyzed. We'll have repeat labs. Case discussed with Dr. Cohen patient will be admitted for further treatment and management with consult cardiology. Patient's x-ray reviewed shows evidence of possible Bibasilar pneumonia. Patient was started on broad spectrum antibiotics. Disposition Clinical Impression: New onset a-fib, Atrial fibrillation with RVR, Pneumonia Disposition: ADMITTED IP TO THIS HOSP Condition: Fair Referrals: None,Stated [Primary Care Provider] - 1-2 days
[2020-05-25 13:36] LABS: Potassium 5.6 mmol/L (3.5-5.1)
--- NOTE | 2020-05-25 13:40 | XR ---
EXAMINATION TYPE: XR chest 2V DATE OF EXAM: 05/25/2020 COMPARISON: 04/30/2020 INDICATION: Difficulty breathing TECHNIQUE: Single frontal view of the chest is obtained. FINDINGS: The heart size is enlarged. The pulmonary vasculature is normal. Some mild lower lobe infiltrate may be present. Correlate for atelectasis. Follow-up can be performed as clinically indicated. IMPRESSION: 1. Mild bibasilar infiltrates. Correlate for atelectasis. Pneumonia could be considered. Follow-up ca n be performed as clinically indicated.
[2020-05-25] MEDS ORDERED: HEPARIN SODIUM,PORCINE 5,000 UNIT/ML 1 ML VIAL IV ONE (14:25)
[2020-05-25] MEDS ORDERED: NALOXONE 0.4 MG/ML 1 ML VIAL IV PRN (14:29)
[2020-05-25] MEDS ORDERED: ACETAMINOPHEN TAB 325 MG TAB PO PRN (14:29)
[2020-05-25] MEDS ORDERED: ONDANSETRON 4 MG/2 ML VIAL IVP PRN (14:29)
[2020-05-25] MEDS ORDERED: AZITHROMYCIN 500 MG in SODIUM CHLORIDE 0.9% 250 ML IVPB STA (14:30)
[2020-05-25 14:35] LABS: Appearance,Urine Cloudy (Clear); Bilirubin,Urine Negative (Negative); Blood,Urine Negative (Negative); Color,Urine Yellow; Glucose,Urine (UA) Negative (Negative); Ketones,Urine Negative (Negative); Leukocyte Esterase,Urine Negative (Negative); Mucus,Urine Rare /hpf; Nitrite,Urine Negative (Negative); Protein,Urine Trace (Negative); RBC,Urine <1 /hpf (0-5); Specific Gravity,Urine 1.017 (1.001-1.035); Squamous Epithelial Cell,Urine 4 /hpf (0-4); Urobilinogen,Urine <2.0 mg/dL (<2.0); WBC,Urine 1 /hpf (0-5)
[2020-05-25] MEDS: HEPARIN SOD,PORK IN 0.45% NACL 25,000 UNIT in 0.45% NACL 1 250ML.BAG IV SCH (15:22)
[2020-05-25] MEDS ORDERED: SODIUM POLYSTYRENE SULFONATE 15 GM/60 ML BOTTLE PO ONE (16:53)
[2020-05-25] MEDS ORDERED: HYDROcodone/APAP 5-325MG 1 EACH TAB PO PRN (16:53)
[2020-05-25 17:29] LABS: C Reactive Protein 64.7 mg/L (<10.0)
--- NOTE | 2020-05-25 17:31 | HP ---
HISTORY AND PHYSICAL DATE OF SERVICE: 05/25/2020 CHIEF COMPLAINT: Shortness of breath. HISTORY OF PRESENT ILLNESS: This 70-year-old woman with a past medical history of multiple medical problems, including asthma, hypertension, pneumonia, hyperthyroid, chest tube on the left side, history of thyroidectomy, [facility], recently was admitted with acute asthma, acute exacerbation, as well as right- sided pneumonia with sepsis and multiple other medical problems. The patient also had elevated troponin and elevated creatinine. Because of gait dysfunction and weakness, the patient was sent to [facility]. The patient apparently was complaining of shortness of breath and the patient was taken to [facility] and admitted for further. Acute exacerbation of asthma was suspected. The patient also had atrial fibrillation with fast ventricular rate. The patient was started on Cardizem drip and IV heparin drip with Cardizem 10 mg/hour. The heart rate is in the 120s. The patient was admitted for further evaluation. There is no history of any fever, rigor or chills. No history of headache, loss of consciousness, seizures. The patient reports that she had pneumonia secondary to using a mask. PAST MEDICAL HISTORY: History of asthma, hypertension, history of pneumonia, history of hyperthyroidism, thyroidectomy. MEDICATIONS: Medications prior to admission: Albuterol, Lopressor, Tirosint, pravastatin, Norvasc, Cozaar, Levaquin, aspirin. ALLERGIES: LASIX, METHIMAZOLE, SULFA. FAMILY HISTORY: No history of heart disease or strokes in the family. SOCIAL HISTORY: No history of smoking. Occasional alcohol intake. REVIEW OF SYSTEMS: ENT: No diminished hearing. No diminished vision. CARDIOVASCULAR SYSTEM: As mentioned earlier. RESPIRATORY SYSTEM: As mentioned earlier. GI: No nausea, vomiting. : No dysuria or retention. NERVOUS SYSTEM: No numbness, weakness. ALLERGY/IMMUNOLOGY: No asthma, hayfever. MUSCULOSKELETAL: As mentioned earlier. HEMATOLOGY/ONCOLOGY: No history of anemia. ENDOCRINE: As mentioned earlier. CONSTITUTIONAL: As mentioned earlier. DERMATOLOGY: Negative. RHEUMATOLOGY: Negative. PSYCHIATRY: As mentioned earlier. PHYSICAL EXAMINATION: Patient alert and oriented x3. Pulse is 130, . Blood pressure is 112/81, respiration 18, temperature normal, pulse ox 96% on 2 L. HEENT: Conjunctivae normal. Oral mucosa moist. NECK: No jugular venous distention. No carotid bruit. No lymph node enlargement. CARDIOVASCULAR: Tachycardic, irregular. RESPIRATORY SYSTEM: Breath sounds diminished at the bases. A few scattered rhonchi and crackles. ABDOMEN: Soft, non-tender. LEGS: Bilateral leg edema. Dry skin also present. NERVOUS SYSTEM: Higher functions as mentioned earlier. Moves all 4 limbs. No focal motor or sensory deficit. LYMPHATICS: No lymph node palpable in neck, axillae or groin. SKIN: As mentioned earlier. JOINTS: No active deforming arthropathy. LABS: WBC 8.6, hemoglobin 12.2. Sodium 133, potassium 5.6. Creatinine is 1.63. The baseline creatinine was 1.6 last month. ASSESSMENT: 1. Atrial fibrillation with a fast ventricular rate. 2. Shortness of breath; possible acute asthma exacerbation. 3. History of recent right lower lobe pneumonia as well as sepsis. 4. Gait dysfunction. 5. Chronic kidney disease, stage 3. 6. Hyperkalemia. 7. Hyponatremia. 8. Elevated AST, ALT. 9. Obesity with body mass index of 32.9. 10.History of asthma. 11.Hypertension. 12.History of pneumonia. 13.History of hyperthyroidism. 14.History of left chest tube insertion. 15.History of thyroidectomy. 16.FULL CODE. RECOMMENDATIONS AND DISCUSSION: In this 70-year-old woman who presented with multiple complex medical issues, we will monitor the patient closely, continue the current medications, continue with symptomatic treatment. Otherwise, Cardizem drip. Continue the beta blockers. I would also recommend a TSH evaluation. I would also recommend a D-dimer, inflammatory markers, as well as procalcitonin. I would also recommend COVID-19 testing. The prognosis is guarded because of multiple complex medical issues. Further recommendations to follow. I also recommend that the patient follow up with primary physician closely after discharge. The patient understands and agrees. MMODL / IJN: [id number] / CHIKI
--- NOTE | 2020-05-25 17:45 | CT ---
EXAMINATION TYPE: CT chest wo con DATE OF EXAM: 05/25/2020 COMPARISON: 04/26/2020 HISTORY: Shortness of breath. CT DLP: 551.5 mGycm Automated exposure control for dose reduction was used. Images obtained from the thoracic inlet to the diaphragm without contrast. There is bilateral pleural effusions and larger on the left side. There is patchy airspace infiltrate and atelectasis in both lower lobes. There is patchy rounded areas of consolidation in the right and left lower lobe. Heart is enlarged. There is no pericardial effusion. There are a few mediastinal ly mph nodes that measure up to 13 mm. Thoracic aorta is dilated involving the ascending aorta measuring up to 4.8 cm. The thoracic vertebra appear intact. There is degenerative hypertrophic spur formation in the thoraci c spine. The upper abdominal soft tissues are intact. IMPRESSION: Patchy bilateral airspace infiltrates and atelectasis mainly in the lower lobes which is improved in the left lower lobe and slightly improved in the right lower lobe compared to recent exam. Bilateral pleural effusions not significantly changed. Cardiomegaly.
[2020-05-25 18:40] LABS: T4, Free (Free Thyroxine) 2.85 ng/dL (0.78-2.19)
[2020-05-25] MEDS ORDERED: ASPIRIN 81 MG PO SCH (21:00)
[2020-05-25] MEDS ORDERED: FAMOTIDINE 20 MG TAB PO SCH (21:00)
[2020-05-25] MEDS: ALPRAZolam 0.25 MG TAB PO PRN (21:17)
[2020-05-25] MEDS: HEPARIN SODIUM,PORCINE 5,000 UNIT/ML 1 ML VIAL IV PRN (21:47)
[2020-05-25] MEDS ORDERED: IPRATROPIUM-ALBUTEROL 3 ML NEB INHALATION PRN (23:22)
[2020-05-25] MEDS: IPRATROPIUM-ALBUTEROL 3 ML NEB INHALATION SCH (23:56)
--- NOTE | 2020-05-26 00:07 | NM ---
EXAMINATION TYPE: NM pul perfusion DATE OF EXAM: 05/25/2020 COMPARISON: 04/23/2020 HISTORY: Short of breath Following administration of 5.3 mCi Tc 99m MAA. Images obtained post injection. FINDINGS: Heart appears enlarged. There are small subsegmental peripheral perfusion defects. There is no segmen mavis type defect. The remainder of exam is unremarkable. IMPRESSION: There is a low probability of pulmonary embolism. There is cardiomegaly. The scan is not significantl y different than old exam.
--- NOTE | 2020-05-26 00:28 | XR ---
EXAM: XR Chest, 1 View CLINICAL HISTORY: Shortness of breath TECHNIQUE: Frontal view of the chest. COMPARISON: No previous chest x-ray. FINDINGS: Lungs: Extensive bilateral pulmonary infiltrates, most pronounced in the right lung base. Pleural space: Small left pleural effusion. No evidence of pneumothorax. Heart: Cardiomegaly. Mediastinum: Unremarkable. Bones/joints: No acute findings. IMPRESSION: Bilateral pulmonary infiltrates, most pronounced in the right lung base. Left pleural effusion.
[2020-05-26] MEDS: ALPRAZolam 0.25 MG TAB PO PRN ×2 (03:13→20:07)
[2020-05-26] MEDS: IPRATROPIUM-ALBUTEROL 3 ML NEB INHALATION SCH ×6 (03:54→23:45)
[2020-05-26 04:54] LABS: Basophils # (A) 0.1 k/uL (0-0.2); Basophils % (A) 1 %; Eosinophils # (A) 0.2 k/uL (0-0.7); Eosinophils % (A) 2 %; HCT 36.9 % (34.0-46.0); HGB 11.5 gm/dL (11.4-16.0); Hypochromasia Slight; Lymphocytes # (A) 0.5 k/uL (1.0-4.8); Lymphocytes % (A) 5 %; MCH 30.2 pg (25.0-35.0); MCHC 31.2 g/dL (31.0-37.0); MCV 96.9 fL (80.0-100.0); Mean Platelet Volume 8.5; Monocytes # (A) 0.8 k/uL (0-1.0); Monocytes % (A) 8 %; Neutrophils # (A) 8.1 k/uL (1.3-7.7); Neutrophils % (A) 83 %; Platelet Count 262 k/uL (150-450); RBC 3.81 m/uL (3.80-5.40); RDW 13.5 % (11.5-15.5); WBC 9.8 k/uL (3.8-10.6)
[2020-05-26 05:07] LABS: Partial Thromboplastin Time 54.3 sec (22.0-30.0); Prothrombin Time 11.1 sec (9.0-12.0)
[2020-05-26 05:26] LABS: Albumin 2.8 g/dL (3.5-5.0); Calcium 8.1 mg/dL (8.4-10.2); Potassium 4.7 mmol/L (3.5-5.1); Total Bilirubin 0.5 mg/dL (0.2-1.3); Total Protein 5.4 g/dL (6.3-8.2)
[2020-05-26] MEDS: LEVOTHYROXINE 100 MCG TAB PO SCH (05:59)
[2020-05-26] MEDS: PANTOPRAZOLE 40 MG TABLET PO SCH (05:59)
[2020-05-26] MEDS ORDERED: METOPROLOL TARTRATE 12.5 MG TAB PO SCH (07:00)
[2020-05-26] MEDS ORDERED: LANSOPRAZOLE 15 MG PO SCH (09:00)
[2020-05-26] MEDS ORDERED: LEVOFLOXACIN 500 MG TAB PO SCH (09:00)
[2020-05-26] MEDS ORDERED: amLODIPine 5 MG TAB PO SCH (09:00)
--- NOTE | 2020-05-26 09:10 | P.CRDCN ---
History of Present Illness Consult date: 05/26/20 Chief complaint: Shortness of breath History of present illness: This is a 70-year-old female patient with a past medical history significant for hypertension as well as history of asthma who was brought to the hospital for further evaluation of increasing shortness of breath and possible asthma exacerbation. The patient somewhat is a poor historian. We requested to see the patient as a consult for further evaluation of cardiac arrhythmia and atrial fibrillation. The patient stated that she has been experiencing increasing shortness of breath lately. No symptoms of chest pain or chest discomfort. No dizziness or lightheadedness and no feeling of heart racing or fluttering and no loss of consciousness or syncope. No lower extremities edema. She was admitted to the hospital and she was restarted on high flow oxygen for possible asthma exacerbation. We requested to see the patient as a consult for further evaluation of atrial fibrillation, the EKG showed narrow complex rhythm seems to be somewhat irregular and seems to be consistent was atrial fibrillation with RVR with a differential diagnosis of multifocal atrial tachycardia. Subsequently the patient was started on Cardizem as well as heparin IV. Her heart rate has been in the 90s at this point. The chest x-ray showed bilateral infiltrate as well as the computed tomography scan of the chest. The patient is not aware of any prior history of atrial fibrillation. An echocardiogram from area of this year revealed normal left ventricle systolic function without s ignificant valvular abnormalities. Past Medical History Past Medical History: Asthma, Hypertension, Pneumonia, Thyroid Disorder Additional Past Medical History / Comment(s): hyperthyroid, chest tube left, History of Any Multi-Drug Resistant Organisms: None Reported Past Surgical History: Section Additional Past Surgical History / Comment(s): thyroidectomy, Past Anesthesia/Blood Transfusion Reactions: No Reported Reaction Past Psychological History: No Psychological Hx Reported Smoking Status: Never smoker Past Alcohol Use History: Occasional Past Drug Use History: None Reported - Past Family History Father Family Medical History: Hypertension Mother Family Medical History: Coronary Artery Disease (CAD) Medications and Allergies Home Medications Medication Instructions Recorded Confirmed Type Levothyroxine Sodium [Tirosint] 200 mcg PO DAILY 04/23/20 05/25/20 History amLODIPine [Norvasc] 5 mg PO DAILY tab 05/03/20 05/25/20 Rx Albuterol Nebulized [Ventolin 2.5 mg INHALATION RT-Q4H PRN 05/25/20 05/25/20 History Nebulized] Aspirin 81 mg PO HS 05/25/20 05/25/20 History Lansoprazole [Prevacid] 15 mg PO DAILY 05/25/20 05/25/20 History Levofloxacin [Levaquin] 500 mg PO DAILY 05/25/20 05/25/20 History Losartan [Cozaar] 50 mg PO HS 05/25/20 05/25/20 History Metoprolol Tartrate [Lopressor] 12.5 mg PO BID@0700,1600 05/25/20 05/25/20 History Allergies Allergy/AdvReac Type Severity Reaction Status Date / Time furosemide [From Lasix] Allergy Anaphylaxis Verified 05/25/20 14:45 methimazole Allergy Anaphylaxis Verified 05/25/20 14:45 Sulfa (Sulfonamide Allergy Anaphylaxis Verified 05/25/20 14:45 Antibiotics) Physical Exam Vitals: Vital Signs Temp Pulse Pulse Resp BP BP Pulse Ox 05/26/20 08:05 97.6 F 95 20 118/71 96 05/26/20 07:51 96 05/26/20 07:37 96 05/26/20 03:56 95 05/26/20 03:48 98 F 94 20 97/68 95 05/26/20 00:47 150 H 28 H 05/26/20 00:42 95 05/26/20 00:25 94 L 05/26/20 00:15 80 05/26/20 00:00 97.8 F 136 H 150 H 28 H 146/95 94 L 05/25/20 20:00 97.9 F 91 18 95/71 95 05/25/20 17:19 97.1 F L 104 H 18 111/96 97 05/25/20 16:38 116 H 106/71 05/25/20 16:06 130 H 18 112/81 95 05/25/20 15:26 97.9 F 98 16 108/66 99 05/25/20 15:10 130 H 18 118/73 96 05/25/20 14:38 130 H 18 108/95 95 05/25/20 14:14 120 H 18 100/73 95 05/25/20 13:29 144 H 18 105/61 95 05/25/20 13:06 134 H 05/25/20 12:57 141 H 05/25/20 12:34 97.9 F 150 H 18 108/80 96 Intake and Output 05/25/20 05/26/20 05/26/20 22:59 06:59 14:59 Intake Total 71.679 Output Total 200 Balance 71.679 -200 Intake: Intake, IV Titration 71.679 Amount Diltiazem 125 mg In 8.833 Sodium Chloride 0.9% 100 ml @ 5 MG/HR 5 mls/hr IV .Q24H [facility] Rx#:[id number] Heparin Sod,Pork in 0.45% 62.846 NaCl 25,000 unit In 0.45 % NaCl 1 250ml.bag @ 10.5 UNITS/KG/HR 10.002 mls/ hr IV .Q24H [facility] Rx#: [id number] Output: Urine 200 Other: Voiding Method Diaper Bedpan Diaper # Voids 1 Weight 95.254 kg 48.5 kg - Constitutional General appearance: mild distress - Respiratory Respiratory: bilateral: CTA - Cardiovascular Rhythm: regular Heart sounds: normal: S1, S2 Results 05/26/20 04:34 05/26/20 04:34 Cardiac Enzymes 05/25/20 05/25/20 05/25/20 Range/Units 12:52 12:52 12:52 AST 45 H (14-36) U/L Lactate Dehydrogenase 1270 H (313-618) U/L Troponin I 0.013 (0.000-0.034) ng/mL 05/26/20 Range/Units 04:34 AST 34 (14-36) U/L Lactate Dehydrogenase (313-618) U/L Troponin I (0.000-0.034) ng/mL Coagulation 05/25/20 05/25/20 05/26/20 Range/Units 12:52 20:28 04:34 PT 10.7 11.1 (9.0-12.0) sec APTT 23.8 36.0 H 54.3 H (22.0-30.0) sec CBC 05/25/20 05/26/20 Range/Units 12:52 04:34 WBC 8.7 9.8 (3.8-10.6) k/uL RBC 3.90 3.81 (3.80-5.40) m/uL Hgb 12.2 11.5 (11.4-16.0) gm/dL Hct 37.4 36.9 (34.0-46.0) % Plt Count 299 262 (150-450) k/uL Comprehensive Metabolic Panel 05/25/20 05/26/20 Range/Units 12:52 04:34 Sodium 133 L 132 L (137-145) mmol/L Potassium 5.6 H 4.7 (3.5-5.1) mmol/L Chloride 104 104 (98-107) mmol/L Carbon Dioxide 20 L 23 (22-30) mmol/L BUN 37 H 37 H (7-17) mg/dL Creatinine 1.63 H 1.67 H (0.52-1.04) mg/dL Glucose 130 H 154 H (74-99) mg/dL Calcium 8.6 8.1 L (8.4-10.2) mg/dL AST 45 H 34 (14-36) U/L ALT 38 H 40 H (4-34) U/L Alkaline Phosphatase 71 88 (38-126) U/L Total Protein 6.1 L 5.4 L (6.3-8.2) g/dL Albumin 3.1 L 2.8 L (3.5-5.0) g/dL Current Medications Generic Name Dose Route Start Last Admin Trade Name Freq PRN Reason Stop Dose Admin Acetaminophen 650 mg 05/25/20 14:29 Acetaminophen Tab 325 Mg Tab PO Q6HR PRN Mild Pain or Fever > 100.5 Hydrocodone Bitart/Acetaminophen 1 each 05/25/20 16:53 Hydrocodone/Apap 5-325mg 1 Each Tab PO Q6HR PRN Pain Albuterol/Ipratropium 3 ml 05/26/20 00:00 05/26/20 07:37 Ipratropium-Albuterol 3 Ml Neb INHALATION 3 ml RT-Q4H JORI Administration Albuterol/Ipratropium 3 ml 05/25/20 23:22 Ipratropium-Albuterol 3 Ml Neb INHALATION RT-QID PRN Shortness Of Breath Or Wheezing Alprazolam 0.25 mg 05/25/20 16:53 05/26/20 03:13 Alprazolam 0.25 Mg Tab PO 0.25 mg TID PRN Administration Anxiety Amlodipine Besylate 5 mg 05/26/20 09:00 05/26/20 08:06 Amlodipine 5 Mg Tab PO 5 mg DAILY JORI Administration Aspirin 81 mg 05/25/20 21:00 05/25/20 21:17 Aspirin 81 Mg PO 81 mg HS JORI Administration Heparin Sodium (Porcine) 0 unit 05/25/20 14:25 05/25/20 21:47 Heparin Sodium,Porcine 5,000 Unit/Ml 1 Ml Vial IV 2,375 unit PER PROTOCOL PRN Administration Low PTT Protocol Diltiazem HCl 125 mg/ Sodium 125 mls @ 5 mls/hr 05/25/20 13:00 05/25/20 15:14 Chloride IV 10 mg/hr .Q24H [facility] 10 mls/hr Infusion 5 MG/HR Heparin Sodium/Sodium Chloride 250 mls @ 10.002 mls/hr 05/25/20 14:30 05/25/20 21:39 25,000 unit/ Sodium Chloride IV 12 units/kg/hr .Q24H [facility] 11.43 mls/hr Titration Protocol 10.5 UNITS/KG/HR Levofloxacin 500 mg 05/26/20 09:00 05/26/20 08:06 Levofloxacin 500 Mg Tab PO 500 mg DAILY [facility]I Administration Levothyroxine Sodium 200 mcg 05/26/20 06:30 05/26/20 05:59 Levothyroxine 100 Mcg Tab PO 200 mcg DAILY@0630 [facility] Administration Metolazone 5 mg 05/26/20 09:00 Metolazone 5 Mg Tab PO DAILY [facility] Metoprolol Tartrate 12.5 mg 05/26/20 07:00 05/26/20 06:00 Metoprolol Tartrate 12.5 Mg Tab PO 12.5 mg BID@0700,1600 [facility] Administration Naloxone HCl 0.2 mg 05/25/20 14:29 Naloxone 0.4 Mg/Ml 1 Ml Vial IV Q2M PRN Opioid Reversal Ondansetron HCl 4 mg 05/25/20 14:29 Ondansetron 4 Mg/2 Ml Vial IVP Q8H PRN Nausea And Vomiting Pantoprazole Sodium 40 mg 05/26/20 07:30 05/26/20 05:59 Pantoprazole 40 Mg Tablet PO 40 mg [id number] JORI Administration Spironolactone 25 mg 05/26/20 09:00 Spironolactone 25 Mg Tab PO BID [facility]I Intake and Output 05/25/20 05/26/20 05/26/20 22:59 06:59 14:59 Intake Total 71.679 Output Total 200 Balance 71.679 -200 Intake: Intake, IV Titration 71.679 Amount Diltiazem 125 mg In 8.833 Sodium Chloride 0.9% 100 ml @ 5 MG/HR 5 mls/hr IV .Q24H [facility] Rx#:[id number] Heparin Sod,Pork in 0.45% 62.846 NaCl 25,000 unit In 0.45 % NaCl 1 250ml.bag @ 10.5 UNITS/KG/HR 10.002 mls/ hr IV .Q24H [facility] Rx#: [id number] Output: Urine 200 Other: Voiding Method Diaper Bedpan Diaper # Voids 1 Weight 95.254 kg 48.5 kg 05/26/20 04:34 05/26/20 04:34 Assessment and Plan Assessment: Assessment #1 acute asthma exacerbation #2 possible underlying pneumonia #3 atrial fibrillation with RVR #4 multiple comorbid conditions Plan #1 continue heparin IV for now #2 start the patient on oral anticoagulation down the line and DC the heparin IV #3 consider starting the patient on calcium channel ana by mouth for heart rate control and stop the metoprolol in view of the wheezing and asthma exacerbation #4 no need to have an echocardiogram because recent echo showed normal LV funct ion #5 follow-up with the patient
[2020-05-26] MEDS: metOLazone 5 MG TAB PO SCH (10:15)
[2020-05-26] MEDS: SPIRONOLACTONE 25 MG TAB PO SCH ×2 (10:15→20:07)
--- NOTE | 2020-05-26 10:48 | ECHOF ---
Referral Reason:afib MEASUREMENTS -------- HEIGHT: 170.2 cm WEIGHT: 48.1 kg BP: 118/71 RVIDd: 2.8 cm (< 3.3) IVSd: 1.5 cm (0.6 - 1.1) LVIDd: 5.0 cm (3.9 - 5.3) LVPWd: 1.4 cm (0.6 - 1.1) IVSs: 1.9 cm LVIDs: 3.5 cm LVPWs: 2.0 cm LA Diam: 4.0 cm (2.7 - 3.8) LAESV Index (A-L): 45.54 ml/m Ao Diam: 3.7 cm (2.0 - 3.7) AV Cusp: 1.8 cm (1.5 - 2.6) MV EXCURSION: 10.065 mm (> 18.000) MV EF SLOPE: 61 mm/s (70 - 150) EPSS: 1.7 cm AV maxP.90 mmHg AV meanP.47 mmHg RAP: 15.00 mmHg RVSP: 48.29 mmHg FINDINGS -------- Atrial fibrillation. This was a technically adequate study. The left ventricular size is normal. There is moderate concentric left ventricular hypertrophy. O verall left ventricular systolic function is severely impaired with, an EF between 20 - 25 %. The right ventricle is normal in size. LA is severely dilated >40 ml/m2 The right atrium is normal in size. Interatrial and interventricular septum intact. The aortic valve is bicuspid. There is mild aortic valve sclerosis. Peak/mean gradient across the Aortic Valve is 10.90mmHg / 5.47mmHg. The mitral valve leaflets are mildly thickened. Mild mitral annular calcification present. Mild m itral regurgitation is present. Mild tricuspid regurgitation present. There is moderate pulmonary hypertension. The right ventric ular systolic pressure, as measured by Doppler, is 48.29mmHg. The pulmonic valve was not well visualized. The aortic root size is normal. The ascending aorta is dilated measuring up to 42 mm The inferior vena cava is dilated with no significant inspiratory collapse which is consistent estima alyce right atrial pressure of >15 mmHg. There is no pericardial effusion. CONCLUSIONS -------- 1. The left ventricular size is normal. 2. There is moderate concentric left ventricular hypertrophy. 3. Overall left ventricular systolic function is severely impaired with, an EF between 20 - 25 %. 4. The right ventricle is normal in size. 5. LA is severely dilated >40 ml/m2 6. The aortic valve is bicuspid. 7. There is mild aortic valve sclerosis. 8. Peak/mean gradient across the Aortic Valve is 10.90mmHg / 5.47mmHg. 9. The mitral valve leaflets are mildly thickened. 10. Mild mitral annular calcification present. 11. Mild mitral regurgitation is present. 12. Mild tricuspid regurgitation present. 13. There is moderate pulmonary hypertension. 14. The right ventricular systolic pressure, as measured by Doppler, is 48.29mmHg. 15. The pulmonic valve was not well visualized. 16. The aortic root size is normal. 17. The ascending aorta is dilated measuring up to 42 mm 18. The inferior vena cava is dilated with no significant inspiratory collapse which is consistent es timated right atrial pressure of >15 mmHg. 19. There is no pericardial effusion. COUNTY ADMINISTRATOR: Luz Maria Rocha RDCS
[2020-05-26] MEDS ORDERED: DILTIAZEM CD 180 MG CAP.ER.24H PO STA (11:15)
--- NOTE | 2020-05-26 11:21 | US ---
EXAMINATION TYPE: US venous doppler duplex LE DATE OF EXAM: 05/26/2020 11:01 AM COMPARISON: US 2020 CLINICAL HISTORY: dvt. SIDE PERFORMED: Bilateral TECHNIQUE: The lower extremity deep venous system is examined utilizing real time linear array sonog titi with graded compression, doppler sonography and color-flow sonography. VESSELS IMAGED: Common Femoral Vein Deep Femoral Vein Greater Saphenous Vein * Femoral Vein Popliteal Vein Small Saphenous Vein * Proximal Calf Veins (* superficial vessels) Right Leg: Appears negative for DVT Left Leg: Positive for DVT from CFV to proximal calf veins IMPRESSION: DVT left lower extremity as noted.
[2020-05-26] MEDS: PIPERACILLIN-TAZOBACTAM 3.375 GM in SODIUM CHLORIDE 0.9% 100 ML IVPB SCH ×2 (11:55→17:20)
[2020-05-26] MEDS: HEPARIN SOD,PORK IN 0.45% NACL 25,000 UNIT in 0.45% NACL 1 250ML.BAG IV SCH (12:03)
--- NOTE | 2020-05-26 12:15 | P.CNPUL ---
History of Present Illness Consult date: 05/26/20 Requesting physician: Jelly Cohen Reason for consult: dyspnea, abnormal CXR/CT Chief complaint: Shortness of breath History of present illness: This is a 70-year-old female patient with a known history of chronic bronchial asthma, obesity, hypertension, hypothyroidism. She had recently been admitted here for an acute hypoxic respiratory failure secondary to underlying pneumonia, asthma exacerbation and diastolic congestive heart failure. Ejection fraction 55-60%. She was discharged on 2020 4-year-old medical [place] for subacute rehabilitation. She will be presented here to the emergency room yesterday with continued complaints of worsening shortness of breath, cough and congestion. Chest x-ray revealed some mild lower lobe infiltrates. White count 9.8. Hemoglobin 11.5. Sodium 132. Potassium 4.7. Creatinine 1.67. Coronavirus not detected. ProBNP 5270. TSH 6.17. Free T4 2 0.85. D-dimer 7.18. Venous Doppler reveals positive DVT in the left lower extremity. She was also found to be in atrial fibrillation with a rapid ventricular response. She is on a Cardizem drip at 10 mg per hour. Heparin drip. She is seen today in consultation on the selective care unit. She is currently sitting up in bed. Awake and alert in no acute distress. She is maintaining O2 saturations in the 90s on 10 L high flow nasal cannula. She's afebrile. She's been initiated on DuoNeb inhalations. Antibiotics in the form of ceftriaxone and azithromycin. Review of Systems REVIEW OF SYSTEMS: CONSTITUTIONAL: Denies any recent significant weight loss or weight gain. EYES: Denies change in vision. EARS, NOSE, MOUTH, THROAT: Denies headaches, denies sore throat. CARDIOVASCULAR: Denies chest pain, palpitations or syncopal episodes. RESPIRATORY: Positive for shortness of breath, cough, congestion no hemoptysis. GASTROINTESTINAL: Denies change in appetite, denies abdominal pain GENITOURINARY: Denies hematuria, denies infections. MUSKULOSKELETAL: Denies pain, denies swelling. INTEGUMENTARY: Denies rash, denies eczema. NEUROLOGICAL: Denies recent memory loss, no recent seizure activity. PSYCHIATRIC: Denies anxiety, denies depression. HEMATOLOGIC/LYMPHATIC: Denies anemia, denies enlarged lymph nodes. Past Medical History Past Medical History: Asthma, Hypertension, Pneumonia, Thyroid Disorder Additional Past Medical History / Comment(s): hyperthyroid, chest tube left, History of Any Multi-Drug Resistant Organisms: None Reported Past Surgical History: Section Additional Past Surgical History / Comment(s): thyroidectomy, Past Anesthesia/Blood Transfusion Reactions: No Reported Reaction Past Psychological History: No Psychological Hx Reported Smoking Status: Never smoker Past Alcohol Use History: Occasional Past Drug Use History: None Reported - Past Family History Father Family Medical History: Hypertension Mother Family Medical History: Coronary Artery Disease (CAD) Medications and Allergies Home Medications Medication Instructions Recorded Confirmed Type Levothyroxine Sodium [Tirosint] 200 mcg PO DAILY 04/23/20 05/25/20 History amLODIPine [Norvasc] 5 mg PO DAILY tab 05/03/20 05/25/20 Rx Albuterol Nebulized [Ventolin 2.5 mg INHALATION RT-Q4H PRN 05/25/20 05/25/20 History Nebulized] Aspirin 81 mg PO HS 05/25/20 05/25/20 History Lansoprazole [Prevacid] 15 mg PO DAILY 05/25/20 05/25/20 History Levofloxacin [Levaquin] 500 mg PO DAILY 05/25/20 05/25/20 History Losartan [Cozaar] 50 mg PO HS 05/25/20 05/25/20 History Metoprolol Tartrate [Lopressor] 12.5 mg PO BID@0700,1600 05/25/20 05/25/20 History Allergies Allergy/AdvReac Type Severity Reaction Status Date / Time furosemide [From Lasix] Allergy Anaphylaxis Verified 05/25/20 14:45 methimazole Allergy Anaphylaxis Verified 05/25/20 14:45 Sulfa (Sulfonamide Allergy Anaphylaxis Verified 05/25/20 14:45 Antibiotics) Physical Exam Vitals: Vital Signs Temp Pulse Pulse Resp BP BP Pulse Ox 05/26/20 11:22 90 05/26/20 11:07 92 05/26/20 08:05 97.6 F 95 20 118/71 96 05/26/20 07:51 96 05/26/20 07:37 96 05/26/20 03:56 95 05/26/20 03:48 98 F 94 20 97/68 95 05/26/20 00:47 150 H 28 H 05/26/20 00:42 95 05/26/20 00:25 94 L 05/26/20 00:15 80 05/26/20 00:00 97.8 F 136 H 150 H 28 H 146/95 94 L 05/25/20 20:00 97.9 F 91 18 95/71 95 05/25/20 17:19 97.1 F L 104 H 18 111/96 97 05/25/20 16:38 116 H 106/71 05/25/20 16:06 130 H 18 112/81 95 05/25/20 15:26 97.9 F 98 16 108/66 99 05/25/20 15:10 130 H 18 118/73 96 05/25/20 14:38 130 H 18 108/95 95 05/25/20 14:14 120 H 18 100/73 95 05/25/20 13:29 144 H 18 105/61 95 05/25/20 13:06 134 H 05/25/20 12:57 141 H 05/25/20 12:34 97.9 F 150 H 18 108/80 96 Intake and Output 05/25/20 05/26/20 05/26/20 22:59 06:59 14:59 Intake Total 71.679 Output Total 200 Balance 71.679 -200 Intake: Intake, IV Titration 71.679 Amount Diltiazem 125 mg In 8.833 Sodium Chloride 0.9% 100 ml @ 5 MG/HR 5 mls/hr IV .Q24H JORI Rx#:[id number] Heparin Sod,Pork in 0.45% 62.846 NaCl 25,000 unit In 0.45 % NaCl 1 250ml.bag @ 10.5 UNITS/KG/HR 10.002 mls/ hr IV .Q24H JORI Rx#: [id number] Output: Urine 200 Other: Voiding Method Diaper Bedpan Bedpan Diaper Diaper # Voids 1 1 Weight 95.254 kg 48.5 kg GENERAL EXAM: Alert, obese 70-year-old female patient, on 10 L high flow nasal cannula comfortable in no apparent distress. HEAD: Normocephalic. EYES: Normal reaction of pupils, equal size. NOSE: Clear with pink turbinates. THROAT: No erythema or exudates. NECK: No masses, no JVD. CHEST: No chest wall deformity. LUNGS: Equal air entry with crackles in the bilateral posterior bases CVS: S1 and S2 normal with no audible murmur, regular rhythm. ABDOMEN: No hepatosplenomegaly, normal bowel sounds, no guarding or rigidity. SPINE: No scoliosis or deformity SKIN: No rashes CENTRAL NERVOUS SYSTEM: No focal deficits, tone is normal in all 4 extremities. EXTREMITIES: There is edema of the left lower extremity. No clubbing, no cyanosis. Peripheral pulses are intact. Results - Laboratory Findings CBC and BMP: 05/26/20 04:34 05/26/20 04:34 PT/INR, D-dimer PT 11.1 sec (9.0-12.0) 05/26/20 04:34 INR 1.0 (<1.2) 05/26/20 04:34 D-Dimer 7.18 mg/L FEU (<0.60) H 05/25/20 12:52 Abnormal lab findings: Abnormal Labs 05/25/20 05/25/20 05/25/20 12:52 12:52 12:52 Neutrophils # Lymphocytes # 0.5 L ESR APTT D-Dimer Sodium 133 L Potassium 5.6 H Carbon Dioxide 20 L BUN 37 H Creatinine 1.63 H Glucose 130 H Calcium Magnesium 2.4 H AST 45 H ALT 38 H Lactate Dehydrogenase C-Reactive Protein Total Protein 6.1 L Albumin 3.1 L TSH Free T4 Urine Appearance Cloudy H Urine Protein Trace H Urine Mucus Rare H 05/25/20 05/25/20 05/25/20 12:52 12:52 12:52 Neutrophils # Lymphocytes # ESR APTT D-Dimer 7.18 H Sodium Potassium Carbon Dioxide BUN Creatinine Glucose Calcium Magnesium AST ALT Lactate Dehydrogenase 1270 H C-Reactive Protein 64.7 H Total Protein Albumin TSH 6.170 H Free T4 2.85 H Urine Appearance Urine Protein Urine Mucus 05/25/20 05/25/20 05/26/20 20:28 20:28 04:34 Neutrophils # 8.1 H Lymphocytes # 0.5 L ESR 41 H APTT 36.0 H D-Dimer Sodium Potassium Carbon Dioxide BUN Creatinine Glucose Calcium Magnesium AST ALT Lactate Dehydrogenase C-Reactive Protein Total Protein Albumin TSH Free T4 Urine Appearance Urine Protein Urine Mucus 05/26/20 05/26/20 04:34 04:34 Neutrophils # Lymphocytes # ESR APTT 54.3 H D-Dimer Sodium 132 L Potassium Carbon Dioxide BUN 37 H Creatinine 1.67 H Glucose 154 H Calcium 8.1 L Magnesium AST ALT 40 H Lactate Dehydrogenase C-Reactive Protein Total Protein 5.4 L Albumin 2.8 L TSH Free T4 Urine Appearance Urine Protein Urine Mucus - Diagnostic Findings Chest x-ray: image reviewed Assessment and Plan Assessment: 1 Acute hypoxic respiratory failure secondary to possible healthcare acquired pneumonia, asthma exacerbation, diastolic congestive heart failure, possible pulmonary embolism, atrial fibrillation 2 New onset atrial fibrillation, on a heparin drip 3 Left lower extremity DVT 4 Recent hospitalization for hypoxic respiratory failure 5 Acute exacerbation of diastolic congestive heart failure 6 Hypothyroidism 7 Hypertension 8 History of chronic bronchial asthma Plan: The patient was seen and evaluated by Dr. Balderrama Discontinued AirVo, changed to high flow nasal cannula Obtain Doppler of the lower extremities, left DVT Continue heparin drip Continue Cardizem drip Change antibiotics to IV Zosyn Add Aldactone and Zaroxolyn Continue bronchodilators Follow-up chest x-ray in a.m. We will continue to follow and make further recommendations based on her clini natalya status I, the cosigning physician, performed a history & physical examination of the patient. Lungs sounds with crackles in the bilateral posterior bases. Maintaining good O2 saturations in the 90s on 10 L high flow nasal cannula. I discussed the assessment and plan of care with my nurse practitioner, Mini John. I attest to the above consultation as dictated by her. Time with Patient: Greater than 30
--- NOTE | 2020-05-26 14:42 | PN ---
PROGRESS NOTE DATE OF SERVICE: 05/26/2020 This 70-year-old woman who was admitted with shortness of breath, was thought to have acute asthma acute exacerbation. Patient also had right lower lobe pneumonia and history of sepsis recently. The patient was seen by multiple consultants. The patient has been closely monitored. The patient also had atrial fibrillation, was on Cardizem. Cardiology following the patient closely. Pulmonary is concerned for possible healthcare-associated pneumonia. The venous Doppler showed significant left leg DVT. The pulmonary perfusion imaging was showing only low probability. D-dimer was elevated to 7.18. Patient is being closely monitored at this time. The free T4 is elevated and TSH also elevated indicating possible sick euthyroid syndrome state at this time. PAST MEDICAL HISTORY: Reviewed. REVIEW OF SYSTEMS: CARDIOVASCULAR SYSTEM: No angina. RESPIRATORY SYSTEM: As mentioned earlier. GI: As mentioned earlier. : No dysuria. NERVOUS SYSTEM: No numbness or weakness. CURRENT MEDICATIONS: The current medications are reviewed and include Tylenol, [place], DuoNeb, Xanax, Cardizem CD, heparin. Doses are reviewed. PHYSICAL EXAMINATION: The patient is alert and oriented x3. Pulse 95, blood pressure 118/71, respiration 20, temperature 97.6, pulse ox 96% on high-flow oxygen. HEENT: Conjunctivae normal. NECK: No jugular venous distention. CARDIOVASCULAR: S1, S2 muffled. RESPIRATORY: Breath sounds diminished at the bases. Scattered rhonchi and crackles. ABDOMEN: Soft, nontender. LEGS: No edema. No swelling. NERVOUS SYSTEM: No focal deficits. LABS: Sodium 132, potassium 4.7. Other labs are noted as mentioned earlier. The chest x-ray which was personally reviewed by me showed evidence of right lower lobe pneumonia. Chest CT showed patchy opacity. The patient also had some pleural effusion also. ASSESSMENT: 1. Acute asthma acute exacerbation with bilateral pneumonia right more than left possibly hospital-acquired pneumonia. 2. Atrial fibrillation with fast ventricular rate, present on admission. 3. Acute left leg deep vein thrombosis. 4. Acute hypoxic respiratory failure secondary to pneumonia. 5. History of recent right lower lobe pneumonia with sepsis. 6. Gait dysfunction. 7. Chronic kidney disease stage 3. 8. Hyperkalemia. 9. Hyponatremia. 10.Elevated AST, ALT. 11.Gait dysfunction. 12.Obesity with body mass index 32.9. 13.History of asthma. 14.Hypertension. 15.History of pneumonia. 16.History of hyperthyroidism. 17.History of left chest tube insertion. 18.History of thyroidectomy. RECOMMENDATIONS AND DISCUSSION: Recommend to continue current medications, continue symptomatic treatment. Continue with broad-spectrum IV antibiotics. Currently patient is on IV Zosyn. Will follow the cultures. Intensive bronchodilators. Otherwise we will continue to monitor. Cardiology and Pulmonology has been consulted. Prognosis guarded because of multiple complex medical issues. Further recommendations to follow. We will monitor the potassium closely. See orders for further details. MMODL / IJN: [id number] /
[2020-05-27] MEDS ORDERED: DILTIAZEM DRIP BOLUS FROM BAG 1 MG SOLN IV ONE (00:29)
[2020-05-27] MEDS: DILTIAZEM 125 MG in SODIUM CHLORIDE 0.9% 100 ML IV SCH ×2 (00:44→10:25)
[2020-05-27] MEDS: PIPERACILLIN-TAZOBACTAM 3.375 GM in SODIUM CHLORIDE 0.9% 100 ML IVPB SCH ×3 (01:42→18:19)
[2020-05-27] MEDS: IPRATROPIUM-ALBUTEROL 3 ML NEB INHALATION SCH ×6 (03:41→23:56)
[2020-05-27] MEDS: LEVOTHYROXINE 100 MCG TAB PO SCH (06:17)
[2020-05-27] MEDS: PANTOPRAZOLE 40 MG TABLET PO SCH (06:18)
[2020-05-27 08:01] LABS: Basophils # (A) 0.1 k/uL (0-0.2); Basophils % (A) 1 %; Eosinophils # (A) 0.1 k/uL (0-0.7); Eosinophils % (A) 1 %; HCT 35.1 % (34.0-46.0); HGB 11.2 gm/dL (11.4-16.0); Hypochromasia Slight; Lymphocytes # (A) 0.7 k/uL (1.0-4.8); Lymphocytes % (A) 8 %; MCH 30.9 pg (25.0-35.0); MCHC 32.1 g/dL (31.0-37.0); MCV 96.4 fL (80.0-100.0); Mean Platelet Volume 8.1; Monocytes # (A) 0.6 k/uL (0-1.0); Monocytes % (A) 7 %; Neutrophils % (A) 82 %; Platelet Count 293 k/uL (150-450); RBC 3.64 m/uL (3.80-5.40); RDW 13.2 % (11.5-15.5); WBC 8.5 k/uL (3.8-10.6)
--- NOTE | 2020-05-27 08:02 | XR ---
EXAMINATION TYPE: XR chest 1V portable DATE OF EXAM: 05/27/2020 Comparison: 05/26/2020 Clinical History: 70-year-old female CHF, pneumonia Findings: Heart remains enlarged. Suspect a continued small left effusion. Consolidation especially throughout the mid and lower lungs is relatively similar. Patchy interstitial opacities in the upper lung slight ly improved. Impression: Patchy interstitial opacities in the upper lungs are slightly improved but mid and lower lung consoli dation and small left effusion persists.
[2020-05-27 08:04] LABS: INR 1.1 (<1.2); Partial Thromboplastin Time 39.4 sec (22.0-30.0); Prothrombin Time 11.2 sec (9.0-12.0)
[2020-05-27] MEDS: SPIRONOLACTONE 25 MG TAB PO SCH ×2 (08:32→20:45)
[2020-05-27] MEDS: metOLazone 5 MG TAB PO SCH (08:36)
[2020-05-27 08:37] LABS: Albumin 2.8 g/dL (3.5-5.0); Calcium 8.2 mg/dL (8.4-10.2); Potassium 4.1 mmol/L (3.5-5.1); Total Bilirubin 0.7 mg/dL (0.2-1.3); Total Protein 5.2 g/dL (6.3-8.2)
[2020-05-27] MEDS ORDERED: DILTIAZEM CD 180 MG CAP.ER.24H PO SCH (09:00)
[2020-05-27] MEDS: METOPROLOL TARTRATE 25 MG TAB PO SCH ×2 (10:24→20:44)
[2020-05-27 11:19] LABS: Glucose,Whole Blood 131 mg/dL (75-99)
--- NOTE | 2020-05-27 11:51 | P.PN ---
Subjective Progress Note Date: 05/27/20 Principal diagnosis: Acute hypoxic respiratory failure This is a 70-year-old female patient with a known history of chronic bronchial asthma, obesity, hypertension, hypothyroidism. She had recently been admitted here for an acute hypoxic respiratory failure secondary to underlying pneumonia, asthma exacerbation and diastolic congestive heart failure. Ejection fraction 55-60%. She was discharged on 2020 4-year-old medical [place] for subacute rehabilitation. She will be presented here to the emergency room yesterday with continued complaints of worsening shortness of breath, cough and congestion. Chest x-ray revealed some mild lower lobe infiltrates. White count 9.8. Hemoglobin 11.5. Sodium 132. Potassium 4.7. Creatinine 1.67. Coronavirus not detected. ProBNP 5270. TSH 6.17. Free T4 2 0.85. D-dimer 7.18. Venous Doppler reveals positive DVT in the left lower extremity. She was also found to be in atrial fibrillation with a rapid ventricular response. She is on a Cardizem drip at 10 mg per hour. Heparin drip. She is seen today in consultation on the selective care unit. She is currently sitting up in bed. Awake and alert in no acute distress. She is maintaining O2 saturations in the 90s on 10 L high flow nasal cannula. She's afebrile. She's been initiated on DuoNeb inhalations. Antibiotics in the form of ceftriaxone and azithromycin. The patient is seen today May 27 2020 in follow-up on the selective care unit. She is currently resting in bed. She is quite dyspneic with minimal exertion. She is requiring AirVo high flow oxygen at 45 L 60% FiO2 with O2 saturation 68%. Chest x-ray continues show increasing right lower lobe infiltrate with congestive heart failure and bilateral effusions. She is currently on a Cardizem drip at 7.5 mg per hour. Heparin drip per weight dose protocol. She is on Zaroxolyn and Aldactone. Remains in atrial fibrillation. Blood culture reveals no growth to date. White count 8.5. Hemoglobin 11.2. Sodium 132. Potassium 4.1. Creatinine 1.6. Glucose 173. Calcitonin 0.28. She was initiated on Zosyn. Remains on bronchodilators. Objective - Vital Signs Vital signs: Vital Signs Temp 98.7 F 05/27/20 08:36 Pulse 90 05/27/20 11:39 Resp 22 02/18/21 08:36 BP 119/69 05/27/20 10:23 Pulse Ox 92 L 05/27/20 08:36 Intake & Output 05/26/20 05/27/20 05/27/20 18:59 06:59 18:59 Intake Total 404.592 573.625 Balance 404.592 573.625 Weight 95.254 kg Intake: Intake, IV Titration 164.592 333.625 Amount Diltiazem 125 mg In 96.833 Sodium Chloride 0.9% 100 ml @ 10 MG/HR 10 mls/hr IV .[id number] JORI Rx#: [id number] Heparin Sod,Pork in 0.45% 164.592 236.792 NaCl 25,000 unit In 0.45 % NaCl 1 250ml.bag @ 10.5 UNITS/KG/HR 10.002 mls/ hr IV .Q24H JORI Rx#: [id number] Oral 240 240 Other: Voiding Method Bedpan Bedside Commode Bedside Commode Diaper Bedpan Bedpan Diaper Diaper # Voids 1 1 # Bowel Movements 1 - Exam GENERAL EXAM: Alert, obese 70-year-old female patient, on AirVo high flow oxygen at 45 L and 60% FiO2, dyspneic on minimal exertion. HEAD: Normocephalic. EYES: Normal reaction of pupils, equal size. NOSE: Clear with pink turbinates. THROAT: No erythema or exudates. NECK: No masses, no JVD. CHEST: No chest wall deformity. LUNGS: Equal air entry with crackles in the bilateral posterior bases CVS: S1 and S2 normal with no audible murmur, irregular rhythm. ABDOMEN: No hepatosplenomegaly, normal bowel sounds, no guarding or rigidity. SPINE: No scoliosis or deformity SKIN: No rashes CENTRAL NERVOUS SYSTEM: No focal deficits, tone is normal in all 4 extremities. EXTREMITIES: There is edema of the left lower extremity. No clubbing, no cyanosis. Peripheral pulses are intact. - Labs CBC & Chem 7: 05/27/20 07:26 05/27/20 07:26 Labs: Abnormal Lab Results - Last 24 Hours (Table) 05/26/20 05/27/20 05/27/20 Range/Units 04:34 07:26 07:26 RBC 3.64 L (3.80-5.40) m/uL Hgb 11.2 L (11.4-16.0) gm/dL Lymphocytes # 0.7 L (1.0-4.8) k/uL APTT 39.4 H (22.0-30.0) sec Sodium (137-145) mmol/L BUN (7-17) mg/dL Creatinine (0.52-1.04) mg/dL Glucose (74-99) mg/dL POC Glucose (mg/dL) (75-99) mg/dL Calcium (8.4-10.2) mg/dL ALT (4-34) U/L Total Protein (6.3-8.2) g/dL Albumin (3.5-5.0) g/dL Procalcitonin 0.28 H (0.02-0.09) ng/mL 05/27/20 05/27/20 Range/Units 07:26 11:18 RBC (3.80-5.40) m/uL Hgb (11.4-16.0) gm/dL Lymphocytes # (1.0-4.8) k/uL APTT (22.0-30.0) sec Sodium 132 L (137-145) mmol/L BUN 30 H (7-17) mg/dL Creatinine 1.66 H (0.52-1.04) mg/dL Glucose 133 H (74-99) mg/dL POC Glucose (mg/dL) 131 H (75-99) mg/dL Calcium 8.2 L (8.4-10.2) mg/dL ALT 35 H (4-34) U/L Total Protein 5.2 L (6.3-8.2) g/dL Albumin 2.8 L (3.5-5.0) g/dL Procalcitonin (0.02-0.09) ng/mL Microbiology - Last 24 Hours (Table) 05/25/20 14:25 Blood Culture - Preliminary Blood No Growth after 24 hours 05/25/20 14:25 Blood Culture - Preliminary Blood No Growth after 24 hours Assessment and Plan Assessment: 1 Acute hypoxic respiratory failure secondary to possible healthcare acquired pneumonia, asthma exacerbation, diastolic congestive heart failure, possible pulmonary embolism, atrial fibrillation 2 New onset atrial fibrillation, on a heparin drip 3 Left lower extremity DVT 4 Recent hospitalization for hypoxic respiratory failure 5 Acute exacerbation of diastolic congestive heart failure 6 Hypothyroidism 7 Hypertension 8 History of chronic bronchial asthma Plan: The patient was seen and evaluated by Dr. Balderrama Chest x-ray and labs reviewed She is quite dyspneic and on AirVo high flow oxygen at 45 L 68% FiO2 Titrate the FiO2 to maintain O2 saturations greater than 90% We will transfer her to the intensive care unit for closer monitoring Continue heparin drip Continue Cardizem drip Continue Zosyn, bronchodilators Continue diuretics Follow-up chest x-ray in a.m. We will continue to follow and make further recommendations based on her clinical status I, the cosigning physician, performed a history & physical examination of the patient. Lungs sounds with crackles in the bilateral posterior bases. Maintaining good O2 saturations in the 90s on 68% FiO2 via AirVo. I discussed the assessment and plan of care with my nurse practitioner, Mini John. I attest to the above note as dictated by her.
--- NOTE | 2020-05-27 12:16 | P.PN ---
Subjective Progress Note Date: 05/27/20 HISTORY OF PRESENT ILLNESS: Patient examined this morning at the bedside. She denies chest pain or pressure. She reports shortness of breath. She is on Airvo. She remains in atrial fibrillation with uncontrolled ventricular rates. She remains on IV heparin. She also is on IV Cardizem at 7.5 mg an hour. Echocardiogram completed revealed ejection fraction 20-25%. PHYSICAL EXAM: VITAL SIGNS: Reviewed. GENERAL: Well-developed in no acute distress. NECK: Supple. No JVD or thyromegaly LUNGS: Respirations even and unlabored. Lungs diminished with bibasilar rales HEART: tachycardic. Irregular rate and rhythm. S1 and S2 heard. EXTREMITIES: Normal range of motion. No clubbing or cyanosis. Peripheral pulses intact. trace bilateral lower extremity edema. ASSESSMENT: Shortness of breath Possible pneumonia Acute asthma exacerbation New-onset atrial fibrillation with RVR Acute exacerbation of chronic systolic heart failure, ejection fraction 20-25%, previous LV function 55-60% last month PLAN: Add metoprolol 25mg BID Attempt to wean off Cardizem drip secondary to cardiomyopathy Prescription sent to the pharmacy for Eliquis. Case management consulted for insurance coverage. If Eliquis is covered, will begin Eliquis and discontinue IV heparin. Continue IV heparin in the meantime Continue Zaroxolyn and Aldactone. Patient has an ALLERGY to Lasix. Daily weight Accurate I&O Monitor kidney function Further recommendations pending patient course Nurse practitioner note has been reviewed by physician. Signing provider agrees with the documented findings, assessment, and plan of care. Objective - Vital Signs Vital signs: Vital Signs Temp 98.7 F 05/27/20 08:36 Pulse 90 05/27/20 11:39 Resp 22 05/27/20 08:36 BP 119/69 05/27/20 10:23 Pulse Ox 92 L 05/27/20 08:36 Intake & Output 05/26/20 05/27/20 05/27/20 18:59 06:59 18:59 Intake Total 404.592 573.625 Balance 404.592 573.625 Weight 95.254 kg Intake: Intake, IV Titration 164.592 333.625 Amount Diltiazem 125 mg In 96.833 Sodium Chloride 0.9% 100 ml @ 10 MG/HR 10 mls/hr IV .[id number] JORI Rx#: [id number] Heparin Sod,Pork in 0.45% 164.592 236.792 NaCl 25,000 unit In 0.45 % NaCl 1 250ml.bag @ 10.5 UNITS/KG/HR 10.002 mls/ hr IV .Q24H JORI Rx#: [id number] Oral 240 240 Other: Voiding Method Bedpan Bedside Commode Bedside Commode Diaper Bedpan Bedpan Diaper Diaper # Voids 1 1 # Bowel Movements 1 - Labs CBC & Chem 7: 05/27/20 07:26 05/27/20 07:26 Labs: Abnormal Lab Results - Last 24 Hours (Table) 05/26/20 05/27/20 05/27/20 Range/Units 04:34 07:26 07:26 RBC 3.64 L (3.80-5.40) m/uL Hgb 11.2 L (11.4-16.0) gm/dL Lymphocytes # 0.7 L (1.0-4.8) k/uL APTT 39.4 H (22.0-30.0) sec Sodium (137-145) mmol/L BUN (7-17) mg/dL Creatinine (0.52-1.04) mg/dL Glucose (74-99) mg/dL POC Glucose (mg/dL) (75-99) mg/dL Calcium (8.4-10.2) mg/dL ALT (4-34) U/L Total Protein (6.3-8.2) g/dL Albumin (3.5-5.0) g/dL Procalcitonin 0.28 H (0.02-0.09) ng/mL 05/27/20 05/27/20 Range/Units 07:26 11:18 RBC (3.80-5.40) m/uL Hgb (11.4-16.0) gm/dL Lymphocytes # (1.0-4.8) k/uL APTT (22.0-30.0) sec Sodium 132 L (137-145) mmol/L BUN 30 H (7-17) mg/dL Creatinine 1.66 H (0.52-1.04) mg/dL Glucose 133 H (74-99) mg/dL POC Glucose (mg/dL) 131 H (75-99) mg/dL Calcium 8.2 L (8.4-10.2) mg/dL ALT 35 H (4-34) U/L Total Protein 5.2 L (6.3-8.2) g/dL Albumin 2.8 L (3.5-5.0) g/dL Procalcitonin (0.02-0.09) ng/mL Microbiology - Last 24 Hours (Table) 05/25/20 14:25 Blood Culture - Preliminary Blood No Growth after 24 hours 05/25/20 14:25 Blood Culture - Preliminary Blood No Growth after 24 hours
--- NOTE | 2020-05-27 14:57 | PN ---
PROGRESS NOTE DATE OF SERVICE: 05/27/2020 This 70-year-old woman who was admitted with multiple medical problems including acute asthma, acute exacerbation, bilateral pneumonia, right more the left and severely hypoxic. The patient was transferred to ICU per Dr. Balderrama. Airvo has been started and the patient closely monitored. Patient also had atrial fibrillation with a fast ventricular rate. Cardiology following the patient closely. Most recent chest x-ray shows significant pneumonia on the right side which was personally reviewed by me. PAST MEDICAL HISTORY: Reviewed. REVIEW OF SYSTEMS: Could not be taken, the patient is mildly confused. CURRENT MEDICATIONS: Current medications are Tylenol, [place], DuoNeb, Xanax, diltiazem, Lopressor. Protonix. Doses are reviewed. PHYSICAL EXAMINATION: Patient is alert and oriented x2. Pulse 123, blood pressure 106/58, respiration 22, temperature 98.7, pulse ox 92% on Airvo. HEENT: Conjunctivae normal. NECK: No jugular venous distention. CARDIOVASCULAR: S1, S2 muffled. RESPIRATORY: Breath sounds diminished at the bases. A few scattered rhonchi and crackles. ABDOMEN: Soft, nontender. LEGS: No edema. No swelling. NERVOUS SYSTEM: No focal deficits. LABS: WBC 8.5, hemoglobin 11.2, sodium 132, creatinine is 1.66. ASSESSMENT: 1. Acute asthma acute exacerbation with bilateral pneumonia right more than the left, possibly hospital-acquired pneumonia. 2. Atrial fibrillation with fast ventricular rate, present on admission. 3. Acute left leg deep vein thrombosis. 4. Acute hypoxic respiratory failure secondary to pneumonia. 5. History of recent right lower lobe pneumonia with sepsis. 6. Gait dysfunction. 7. Chronic kidney disease stage 3. 8. Hyperkalemia. 9. Hyponatremia. 10.Elevated AST, ALT. 11.Gait dysfunction. 12.Obesity with body mass index 32.9. 13.History of asthma. 14.Hypertension. 15.History of pneumonia. 16.History of hyperthyroidism. 17.History of left-sided chest tube insertion. 18.History of thyroidectomy. RECOMMENDATIONS AND DISCUSSION: I recommend to continue current medications, continue symptomatic treatment. Continue bronchodilators. Continue with empiric antibiotics. Cultures are negative at this time. Otherwise, Cardizem. Guarded prognosis because of multiple complex medical issues. Further recommendations to follow. The patient is on IV Zosyn currently. MMODL / IJN: [id number] /
[2020-05-27] MEDS: HEPARIN SODIUM,PORCINE 5,000 UNIT/ML 1 ML VIAL IV PRN (18:20)
[2020-05-27] MEDS: HEPARIN SOD,PORK IN 0.45% NACL 25,000 UNIT in 0.45% NACL 1 250ML.BAG IV SCH (18:22)
[2020-05-28] MEDS: PIPERACILLIN-TAZOBACTAM 3.375 GM in SODIUM CHLORIDE 0.9% 100 ML IVPB SCH ×3 (03:00→18:59)
[2020-05-28] MEDS: IPRATROPIUM-ALBUTEROL 3 ML NEB INHALATION SCH ×5 (03:36→21:20)
[2020-05-28 04:51] LABS: Basophils # (A) 0.1 k/uL (0-0.2); Basophils % (A) 1 %; Eosinophils # (A) 0.3 k/uL (0-0.7); Eosinophils % (A) 4 %; HCT 34.6 % (34.0-46.0); HGB 11.2 gm/dL (11.4-16.0); Hypochromasia Slight; Lymphocytes # (A) 1.1 k/uL (1.0-4.8); Lymphocytes % (A) 13 %; MCH 30.8 pg (25.0-35.0); MCHC 32.4 g/dL (31.0-37.0); MCV 94.9 fL (80.0-100.0); Mean Platelet Volume 7.6; Monocytes # (A) 0.7 k/uL (0-1.0); Monocytes % (A) 8 %; Neutrophils # (A) 6.2 k/uL (1.3-7.7); Neutrophils % (A) 73 %; Platelet Count 325 k/uL (150-450); RBC 3.64 m/uL (3.80-5.40); RDW 13.2 % (11.5-15.5); WBC 8.4 k/uL (3.8-10.6)
[2020-05-28 05:03] LABS: Albumin 2.9 g/dL (3.5-5.0); Calcium 8.5 mg/dL (8.4-10.2); Potassium 4.1 mmol/L (3.5-5.1); Total Bilirubin 0.6 mg/dL (0.2-1.3); Total Protein 5.7 g/dL (6.3-8.2)
[2020-05-28 05:15] LABS: INR 1.1 (<1.2); Prothrombin Time 11.4 sec (9.0-12.0)
[2020-05-28 05:24] LABS: Partial Thromboplastin Time 103.6 sec (22.0-30.0)
[2020-05-28] MEDS: PANTOPRAZOLE 40 MG TABLET PO SCH (07:06)
[2020-05-28] MEDS: LEVOTHYROXINE 100 MCG TAB PO SCH (07:06)
[2020-05-28] MEDS: DILTIAZEM 125 MG in SODIUM CHLORIDE 0.9% 100 ML IV SCH ×2 (07:07→18:54)
--- NOTE | 2020-05-28 07:42 | XR ---
EXAMINATION TYPE: XR chest 1V portable DATE OF EXAM: 05/28/2020 COMPARISON: 05/27/2020 INDICATION: CHF, pneumonia TECHNIQUE: Single frontal view of the chest is obtained. FINDINGS: The heart size is enlarged. The pulmonary vasculature is normal. Right lower lobe infiltrate is present. Retrocardiac infiltrate appears to be present. A small left p leural effusion may be present. Findings stable from comparison IMPRESSION: 1. Bibasilar infiltrates and small left pleural effusion. Correlate for atelectasis or pneumonia. Con gestive heart failure could be considered.
--- NOTE | 2020-05-28 09:17 | P.PN ---
Subjective Progress Note Date: 05/28/20 Principal diagnosis: Shortness of breath This is a 70-year-old female patient who was admitted initially with shortness of breath and she was diagnosed with a pneumonia along with asthma exacerbation. She was diagnosed with atrial fibrillation with RVR and that was a new diagno sis to her. Also she was diagnosed with acute exacerbation of heart failure with reduced ejection fraction with the echo showed an EF between 20-25%. The patient was transferred yesterday to the intensive care unit because she was more short of breath. She was seen this morning. She continues to be on oxygen. She continues to have shortness of breath. She continues to be in atrial fibrillation was relatively controlled heart rate. But she is on Cardizem IV. I'm going to increase the dose of metoprolol and try to wean her from the Cardizem IV. She is also on treatment for asthma exacerbation and also she is on treatment for pneumonia. The chest x-ray showed findings consistent with heart failure. She is on Lasix IV. She is also on Aldactone. Objective - Vital Signs Vital signs: Vital Signs Temp 98.7 F 05/28/20 04:00 Pulse 90 05/28/20 07:37 Resp 47 H 05/28/20 07:00 BP 103/69 05/28/20 07:00 Pulse Ox 93 L 05/28/20 07:00 Intake & Output 05/27/20 05/28/20 05/28/20 18:59 06:59 18:59 Intake Total 1031.278 482.861 98.462 Output Total 520 1205 150 Balance 511.278 -722.139 -51.538 Weight 103.2 kg Intake: IV 120 10 0.9 NS KVO 120 10 Intake, IV Titration 431.278 242.861 88.462 Amount Diltiazem 125 mg In 180.833 41 Sodium Chloride 0.9% 100 ml @ 10 MG/HR 10 mls/hr IV .[id number] [facility] Rx#: [id number] Heparin Sod,Pork in 0.45% 250.445 101.861 88.462 NaCl 25,000 unit In 0.45 % NaCl 1 250ml.bag @ 10.5 UNITS/KG/HR 10.002 mls/ hr IV .Q24H [facility] Rx#: [id number] Piperacillin-Tazobactam 3 100 .375 gm In Sodium Chloride 0.9% 100 ml @ 25 mls/hr IVPB Q8H [facility] Rx#: [id number] Oral 600 120 Output: Urine 520 1205 150 Other: Voiding Method Indwelling Catheter Indwelling Catheter - Constitutional General appearance: Present: no acute distress - Respiratory Respiratory: bilateral: diminished - Cardiovascular Rhythm: irregularly irregular Heart sounds: normal: S1, S2 - Labs CBC & Chem 7: 05/28/20 04:30 05/28/20 04:30 Labs: Abnormal Lab Results - Last 24 Hours (Table) 05/27/20 05/27/20 05/27/20 Range/Units 11:18 15:00 23:53 RBC (3.80-5.40) m/uL Hgb (11.4-16.0) gm/dL APTT 39.3 H 82.7 H (22.0-30.0) sec Sodium (137-145) mmol/L BUN (7-17) mg/dL Creatinine (0.52-1.04) mg/dL POC Glucose (mg/dL) 131 H (75-99) mg/dL Total Protein (6.3-8.2) g/dL Albumin (3.5-5.0) g/dL 05/28/20 05/28/20 05/28/20 Range/Units 04:30 04:30 04:30 RBC 3.64 L (3.80-5.40) m/uL Hgb 11.2 L (11.4-16.0) gm/dL APTT 103.6 H* (22.0-30.0) sec Sodium 130 L (137-145) mmol/L BUN 29 H (7-17) mg/dL Creatinine 1.82 H (0.52-1.04) mg/dL POC Glucose (mg/dL) (75-99) mg/dL Total Protein 5.7 L (6.3-8.2) g/dL Albumin 2.9 L (3.5-5.0) g/dL Microbiology - Last 24 Hours (Table) 05/25/20 14:25 Blood Culture - Preliminary Blood No Growth after 48 hours 05/25/20 14:25 Blood Culture - Preliminary Blood No Growth after 48 hours Assessment and Plan Assessment: Assessment #1 acute asthma exacerbation #2 possible underlying pneumonia #3 atrial fibrillation with RVR #4 multiple comorbid conditions Plan #1 continue the current medical regimen #2 continue Lasix IV #3 continue monitoring the kidney function and electrolytes #4 increase the dose of metoprolol #5 try to wean the patient from Cardizem IV #6 consider oral anticoagulation
--- NOTE | 2020-05-28 09:53 | CDI ---
Documentation Clarification Form Date: 05/28/2020 09:20:35 AM From: Pastora Mac RN CCDS Admit Date: 05/25/2020 02:27:00 PM Patient Name: Marleni Layton Visit Number: [id number] Discharge Date: ATTENTION: The Clinical Documentation Specialists (CDI) and [facility] Coding Staff appreciate your assistance in clarifying documentation. Please respond to the clarification below the line at the bottom and electronically sign. The CDI & [facility] Coding staff will review the response and follow-up if needed. Please note: Queries are made part of the Legal Health Record. If you have any questions, please contact the author of this message via ITS. Dr. Naveen Aranda, Hospital acquired pneumonia is documented in Internal Medicine Progress notes 05/26 & 05/27 History/Risk Factors: 70-year-old female presents to ED via EMS from Subacute Rehab for shortness of breath. Per H&P 05/25 Clinical Indicators: Vital signs 05/25: B/P 108/80, HR 150, Temp 97.9 F Oral, RR 18, SpO2 96% room air Labs 05/25: Wbc 8.7, Neutrophils 7.2, Lymphocytes 0.5, 05/26 Procalcitonin 0.28, BNP 5270. CXR 05/25: Mild bibasilar infiltrates. Correlate for atelectasis. Lung/Breathing assessment: Breath sounds diminished at the bases. A few scattered rhonchi and crackles. Per H&P 05/25 Treatment: Antibiotics: 05/25 Azithromycin 500mg IVPB X1, 05/25 Rocephin 2gm Ivpb x1, 05/26 Piperacillin 3.375gm IVPB Q8H O2 Breathing Tx: 05/25 Duoneb 0.5mg Inhalation x1; 05/25 Duoneb 0.5mg Inhalation Q4H [facility] and QID PRN. In order to capture the severity of condition, please specify if you are treating for: Gram Negative Pneumonia Other Bacterial Pneumonia (please specify) Other, please specify Unable to determine (Last Revision: July 2017) pt is been treated for suspected gram Negative Pneumonia MTDD
[2020-05-28] MEDS: METOPROLOL TARTRATE 25 MG TAB PO SCH ×3 (10:18→20:25)
[2020-05-28] MEDS: SPIRONOLACTONE 25 MG TAB PO SCH ×2 (10:59→20:25)
[2020-05-28] MEDS: metOLazone 5 MG TAB PO SCH (11:00)
--- NOTE | 2020-05-28 12:19 | P.PN ---
Subjective Progress Note Date: 05/28/20 Principal diagnosis: Acute hypoxic respiratory failure secondary to pneumonia, acute diastolic congestive heart failure, pulmonary embolism, and acute exacerbation of asthma. This is a 70-year-old female patient with a known history of chronic bronchial asthma, obesity, hypertension, hypothyroidism. She had recently been admitted here for an acute hypoxic respiratory failure secondary to underlying pneumonia, asthma exacerbation and diastolic congestive heart failure. Ejection fraction 55-60%. She was discharged on 2020 4-year-old medical [place] for subacute rehabilitation. She will be presented here to the emergency room yesterday with continued complaints of worsening shortness of breath, cough and congestion. Chest x-ray revealed some mild lower lobe infiltrates. White count 9.8. Hemoglobin 11.5. Sodium 132. Potassium 4.7. Creatinine 1.67. Coronavirus not detected. ProBNP 5270. TSH 6.17. Free T4 2 0.85. D-dimer 7.18. Venous Doppler reveals positive DVT in the left lower extremity. She was also found to be in atrial fibrillation with a rapid ventricular response. She is on a Cardizem drip at 10 mg per hour. Heparin drip. She is seen today in consultation on the selective care unit. She is currently sitting up in bed. Awake and alert in no acute distress. She is maintaining O2 saturations in the 90s on 10 L high flow nasal cannula. She's afebrile. She's been initiated on DuoNeb inhalations. Antibiotics in the form of ceftriaxone and azithromycin. The patient is seen today May 27 2020 in follow-up on the selective care unit. She is currently resting in bed. She is quite dyspneic with minimal exertion. She is requiring AirVo high flow oxygen at 45 L 60% FiO2 with O2 saturation 68%. Chest x-ray continues show increasing right lower lobe infiltrate with congestive heart failure and bilateral effusions. She is currently on a Cardizem drip at 7.5 mg per hour. Heparin drip per weight dose protocol. She is on Zaroxolyn and Aldactone. Remains in atrial fibrillation. Blood culture reveals no growth to date. White count 8.5. Hemoglobin 11.2. Sodium 132. Potassium 4.1. Creatinine 1.6. Glucose 173. Calcitonin 0.28. She was initiated on Zosyn. Remains on bronchodilators. Patient was reevaluated today on 05/28/2020, patient remains in the ICU, remains on high flow oxygen utilizing airvo, FiO2 is at 70%, and I cut it down to 60%, she is on 50 L high flow. O2 saturation is in the high 90s. Patient remains on Cardizem at 5 mg per hour for her atrial fibrillation. Remains on Zosyn for her pneumonia remains on bronchodilators for her asthma remains on diuretics including Zaroxolyn and Aldactone for diastolic congestive heart failure. Patient remains on heparin for her DVT and possible pulmonary embolism Patient is about the same, noticed a slight rise in his creatinine up to 1.82. Chest x- ray is showing slight improvement compared to her chest x-ray a few days ago. However considering the patient is still requiring significant amount of FiO2, I plan to keep her in the ICU. Objective - Vital Signs Vital signs: Vital Signs Temp 98.4 F 05/28/20 08:00 Pulse 100 05/28/20 11:18 Resp 24 05/28/20 11:00 BP 116/78 05/28/20 11:00 Pulse Ox 94 L 05/28/20 11:00 Intake & Output 05/27/20 05/28/20 05/28/20 18:59 06:59 18:59 Intake Total 1031.278 482.861 238.462 Output Total 520 1205 700 Balance 511.278 -722.139 -461.538 Weight 103.2 kg Intake: IV 120 150 0.9 NS KVO 120 50 Piperacillin-Tazobactam 3 100 .375 gm In Sodium Chloride 0.9% 100 ml @ 25 mls/hr IVPB Q8H [facility] Rx#: [id number] Intake, IV Titration 431.278 242.861 88.462 Amount Diltiazem 125 mg In 180.833 41 Sodium Chloride 0.9% 100 ml @ 10 MG/HR 10 mls/hr IV .[id number] [facility] Rx#: [id number] Heparin Sod,Pork in 0.45% 250.445 101.861 88.462 NaCl 25,000 unit In 0.45 % NaCl 1 250ml.bag @ 10.5 UNITS/KG/HR 10.002 mls/ hr IV .Q24H [facility] Rx#: [id number] Piperacillin-Tazobactam 3 100 .375 gm In Sodium Chloride 0.9% 100 ml @ 25 mls/hr IVPB Q8H [facility] Rx#: [id number] Oral 600 120 Output: Urine 520 1205 700 Other: Voiding Method Indwelling Catheter Indwelling Catheter - Exam GENERAL EXAM: Alert, obese 70-year-old female patient, on AirVo high flow oxygen as noted earlier. HEAD: Normocephalic. EYES: Normal reaction of pupils, equal size. NOSE: Clear with pink turbinates. THROAT: No erythema or exudates. NECK: No masses, no JVD. CHEST: No chest wall deformity. LUNGS: Equal air entry with crackles in the bilateral posterior bases CVS: S1 and S2 normal with no audible murmur, irregular rhythm. ABDOMEN: No hepatosplenomegaly, normal bowel sounds, no guarding or rigidity. SPINE: No scoliosis or deformity SKIN: No rashes CENTRAL NERVOUS SYSTEM: No focal deficits, tone is normal in all 4 extremities. EXTREMITIES: There is edema of the left lower extremity. No clubbing, no cyanosis. Peripheral pulses are intact. - Labs CBC & Chem 7: 05/28/20 04:30 05/28/20 04:30 Labs: Abnormal Lab Results - Last 24 Hours (Table) 05/27/20 05/27/20 05/28/20 Range/Units 15:00 23:53 04:30 RBC 3.64 L (3.80-5.40) m/uL Hgb 11.2 L (11.4-16.0) gm/dL APTT 39.3 H 82.7 H (22.0-30.0) sec Sodium (137-145) mmol/L BUN (7-17) mg/dL Creatinine (0.52-1.04) mg/dL Total Protein (6.3-8.2) g/dL Albumin (3.5-5.0) g/dL 05/28/20 05/28/20 Range/Units 04:30 04:30 RBC (3.80-5.40) m/uL Hgb (11.4-16.0) gm/dL APTT 103.6 H* (22.0-30.0) sec Sodium 130 L (137-145) mmol/L BUN 29 H (7-17) mg/dL Creatinine 1.82 H (0.52-1.04) mg/dL Total Protein 5.7 L (6.3-8.2) g/dL Albumin 2.9 L (3.5-5.0) g/dL Microbiology - Last 24 Hours (Table) 05/25/20 14:25 Blood Culture - Preliminary Blood No Growth after 48 hours 05/25/20 14:25 Blood Culture - Preliminary Blood No Growth after 48 hours Assessment and Plan Assessment: Impression: Acute hypoxic respiratory failure multifactorial, mostly secondary to healthcare acquired pneumonia, diastolic congestive heart failure/acute possible pulmonary embolism, and asthma exacerbation. New onset atrial fibrillation requiring heparin and Cardizem. Left lower extremity DVT, possible pulmonary embolism, however the patient is not a candidate for CT angiogram of the chest because of her renal status. Acute exacerbation of diastolic congestive heart failure. Hypothyroidism. Benign essential hypertension. Morbid obesity. History of chronic bronchial asthma, may be contributing a daily to her shortnes s of breath. But this is felt to be less likely. Acute on chronic kidney injury, could be related to diuretics and some component of prerenal azotemia Recommendation: Continue high flow oxygen and titrate accordingly. Continue antibiotics/Zosyn. Continue heparin. Continue bronchodilators. Continue Cardizem. Continue diuretics including Aldactone and Zaroxolyn. Close monitoring of renal status. We will continue to monitor in the ICU Time with Patient: Less than 30
[2020-05-28] MEDS: HEPARIN SODIUM,PORCINE 5,000 UNIT/ML 1 ML VIAL IV PRN (13:14)
--- NOTE | 2020-05-28 15:33 | P.PN ---
Subjective Progress Note Date: 05/28/20 Principal diagnosis: Acute hypoxic respiratory failure Acute exacerbation of asthma Right lower lobe pneumonia Acute exacerbation diastolic CHF DVT left lower extremity/PE A. fib with RVR Objective - Vital Signs Vital signs: Vital Signs Temp 98.7 F 05/28/20 04:00 Pulse 90 05/28/20 07:37 Resp 47 H 05/28/20 07:00 BP 103/69 05/28/20 07:00 Pulse Ox 93 L 05/28/20 07:00 Intake & Output 05/27/20 05/28/20 05/28/20 18:59 06:59 18:59 Intake Total 1031.278 482.861 98.462 Output Total 520 1205 150 Balance 511.278 -722.139 -51.538 Weight 103.2 kg Intake: IV 120 10 0.9 NS KVO 120 10 Intake, IV Titration 431.278 242.861 88.462 Amount Diltiazem 125 mg In 180.833 41 Sodium Chloride 0.9% 100 ml @ 10 MG/HR 10 mls/hr IV .[id number] [facility] Rx#: [id number] Heparin Sod,Pork in 0.45% 250.445 101.861 88.462 NaCl 25,000 unit In 0.45 % NaCl 1 250ml.bag @ 10.5 UNITS/KG/HR 10.002 mls/ hr IV .Q24H [facility] Rx#: [id number] Piperacillin-Tazobactam 3 100 .375 gm In Sodium Chloride 0.9% 100 ml @ 25 mls/hr IVPB Q8H [facility] Rx#: [id number] Oral 600 120 Output: Urine 520 1205 150 Other: Voiding Method Indwelling Catheter Indwelling Catheter - Exam GENERAL EXAM: Alert, obese 70-year-old female patient, on AirVo high flow oxygen as noted earlier. HEAD: Normocephalic. EYES: Normal reaction of pupils, equal size. NOSE: Clear with pink turbinates. THROAT: No erythema or exudates. NECK: No masses, no JVD. CHEST: No chest wall deformity. LUNGS: Equal air entry with crackles in the bilateral posterior bases CVS: S1 and S2 normal with no audible murmur, irregular rhythm. ABDOMEN: No hepatosplenomegaly, normal bowel sounds, no guarding or rigidity. EXTREMITIES: There is edema of the left lower extremity. No clubbing, no cyanosis. Peripheral pulses are intact. - Labs CBC & Chem 7: 05/28/20 04:30 05/28/20 04:30 Labs: Abnormal Lab Results - Last 24 Hours (Table) 05/27/20 05/27/20 05/27/20 Range/Units 11:18 15:00 23:53 RBC (3.80-5.40) m/uL Hgb (11.4-16.0) gm/dL APTT 39.3 H 82.7 H (22.0-30.0) sec Sodium (137-145) mmol/L BUN (7-17) mg/dL Creatinine (0.52-1.04) mg/dL POC Glucose (mg/dL) 131 H (75-99) mg/dL Total Protein (6.3-8.2) g/dL Albumin (3.5-5.0) g/dL 05/28/20 05/28/20 05/28/20 Range/Units 04:30 04:30 04:30 RBC 3.64 L (3.80-5.40) m/uL Hgb 11.2 L (11.4-16.0) gm/dL APTT 103.6 H* (22.0-30.0) sec Sodium 130 L (137-145) mmol/L BUN 29 H (7-17) mg/dL Creatinine 1.82 H (0.52-1.04) mg/dL POC Glucose (mg/dL) (75-99) mg/dL Total Protein 5.7 L (6.3-8.2) g/dL Albumin 2.9 L (3.5-5.0) g/dL Microbiology - Last 24 Hours (Table) 05/25/20 14:25 Blood Culture - Preliminary Blood No Growth after 48 hours 05/25/20 14:25 Blood Culture - Preliminary Blood No Growth after 48 hours Assessment and Plan Assessment: 1. Acute hypoxic respiratory failure 2. Healthcare associated pneumonia; remains on IV antibiotics in form of Zosyn 3.375 g IV every 8 hours; follow-up on sputum culture and blood cultures 3. Acute exacerbation diastolic CHF Patient remains on diuretic therapy in form of IV Lasix and Aldactone; we will monitor daily weights and strict I&O's; low-salt and fluid restricted diet 4. DVT left lower extremity/possible PE; venous Doppler has been positive for left lower extremity DVT; patient is suspicious for PE but not a candidate for CT angiogram given acute renal injury 5. A. fib with RVR; patient remains on IV heparin and remains on IV Cardizem infusion; cardiology on board with plans to start patient on oral Cardizem and wean off IV Cardizem 6. Acute on chronic kidney disease; slow IV fluid hydration; monitor strict CAMILO's, daily weights, renal function and electrolytes; avoid nephrotoxins 7. Hypothyroidism; levothyroxine 200 MCG daily 8. Essential hypertension; stable on IV Cardizem; metoprolol has been increased by cardiology; continue to monitor closely DVT prophylaxis; SCDs/IV heparin CODE STATUS; full code
[2020-05-28] MEDS: HEPARIN SOD,PORK IN 0.45% NACL 25,000 UNIT in 0.45% NACL 1 250ML.BAG IV SCH (18:55)
[2020-05-28] MEDS ORDERED: METOPROLOL TARTRATE 25 MG TAB PO SCH (21:00)
[2020-05-29] MEDS: IPRATROPIUM-ALBUTEROL 3 ML NEB INHALATION SCH ×6 (01:58→20:31)
[2020-05-29] MEDS: DILTIAZEM 125 MG in SODIUM CHLORIDE 0.9% 100 ML IV SCH (03:17)
[2020-05-29] MEDS: PIPERACILLIN-TAZOBACTAM 3.375 GM in SODIUM CHLORIDE 0.9% 100 ML IVPB SCH ×3 (03:27→18:10)
[2020-05-29 04:02] LABS: Basophils # (A) 0.1 k/uL (0-0.2); Basophils % (A) 1 %; Eosinophils # (A) 0.2 k/uL (0-0.7); Eosinophils % (A) 3 %; HCT 34.6 % (34.0-46.0); HGB 11.4 gm/dL (11.4-16.0); Lymphocytes # (A) 1.1 k/uL (1.0-4.8); Lymphocytes % (A) 15 %; MCH 30.9 pg (25.0-35.0); MCV 93.6 fL (80.0-100.0); Mean Platelet Volume 7.1; Monocytes # (A) 0.6 k/uL (0-1.0); Monocytes % (A) 9 %; Neutrophils # (A) 5.3 k/uL (1.3-7.7); Neutrophils % (A) 71 %; Platelet Count 353 k/uL (150-450); WBC 7.4 k/uL (3.8-10.6)
[2020-05-29 05:22] LABS: Albumin 2.7 g/dL (3.5-5.0); Calcium 9.1 mg/dL (8.4-10.2); Potassium 4.2 mmol/L (3.5-5.1); Total Bilirubin 0.8 mg/dL (0.2-1.3); Total Protein 5.2 g/dL (6.3-8.2)
--- NOTE | 2020-05-29 06:22 | P.PN ---
Subjective Progress Note Date: 05/29/20 Principal diagnosis: Shortness of breath This is a 70-year-old female patient who was admitted initially with shortness of breath and she was diagnosed with a pneumonia along with asthma exacerbation. She was diagnosed with atrial fibrillation with RVR and that was a new diagno sis to her. Also she was diagnosed with acute exacerbation of heart failure with reduced ejection fraction with the echo showed an EF between 20-25%. The patient was transferred yesterday to the intensive care unit because she was more short of breath. The patient was seen today May 292020. She continues to be in atrial fibrillation with a relatively controlled heart rate but she still on small dose of Cardizem IV. I'm going to DC the Cardizem IV and increase the dose of metoprolol to 50 mg by mouth 3 times a day. Beside that she continues to be on heparin IV which I am going to discontinue and start the patient on oral anticoagulation. She is on Aldactone. We will consider adding lisinopril to the current medical regimen as well as down the line once the blood pressure is more stable. The creatinine continues to be stable. She is also getting treatment for asthma and underlying pneumonia. Objective - Vital Signs Vital signs: Vital Signs Temp 97.7 F 05/29/20 04:00 Pulse 93 05/29/20 06:00 Resp 18 05/29/20 06:00 BP 83/65 05/29/20 06:00 Pulse Ox 93 L 05/29/20 06:00 Intake & Output 05/28/20 05/28/20 05/29/20 06:59 18:59 06:59 Intake Total 482.861 405.409 240 Output Total 1205 1750 2035 Balance -722.139 -1344.591 -1795 Weight 103.2 kg Intake: IV 120 220 240 0.9 NS KVO 120 120 240 Piperacillin-Tazobactam 3 100 .375 gm In Sodium Chloride 0.9% 100 ml @ 25 mls/hr IVPB Q8H [facility] Rx#: [id number] Intake, IV Titration 242.861 185.409 Amount Diltiazem 125 mg In 41 39.667 Sodium Chloride 0.9% 100 ml @ 10 MG/HR 10 mls/hr IV .[id number] [facility] Rx#: [id number] Heparin Sod,Pork in 0.45% 101.861 145.742 NaCl 25,000 unit In 0.45 % NaCl 1 250ml.bag @ 10.5 UNITS/KG/HR 10.002 mls/ hr IV .Q24H [facility] Rx#: [id number] Piperacillin-Tazobactam 3 100 .375 gm In Sodium Chloride 0.9% 100 ml @ 25 mls/hr IVPB Q8H [facility] Rx#: [id number] Oral 120 Output: Urine 1205 1750 2035 Other: Voiding Method Indwelling Catheter Indwelling Catheter Indwelling Catheter - Constitutional General appearance: Present: no acute distress - Respiratory Respiratory: bilateral: diminished - Cardiovascular Rhythm: irregularly irregular - Labs CBC & Chem 7: 05/29/20 03:39 05/29/20 03:39 Labs: Abnormal Lab Results - Last 24 Hours (Table) 05/28/20 05/28/20 05/29/20 Range/Units 12:23 19:07 03:39 RBC 3.70 L (3.80-5.40) m/uL APTT 37.2 H 50.9 H (22.0-30.0) sec Sodium (137-145) mmol/L BUN (7-17) mg/dL Creatinine (0.52-1.04) mg/dL Total Protein (6.3-8.2) g/dL Albumin (3.5-5.0) g/dL 05/29/20 05/29/20 Range/Units 03:39 03:39 RBC (3.80-5.40) m/uL APTT 51.1 H (22.0-30.0) sec Sodium 134 L (137-145) mmol/L BUN 25 H (7-17) mg/dL Creatinine 1.68 H (0.52-1.04) mg/dL Total Protein 5.2 L (6.3-8.2) g/dL Albumin 2.7 L (3.5-5.0) g/dL Microbiology - Last 24 Hours (Table) 05/25/20 14:25 Blood Culture - Preliminary Blood No Growth after 72 hours 05/25/20 14:25 Blood Culture - Preliminary Blood No Growth after 72 hours Assessment and Plan Assessment: Assessment #1 acute asthma exacerbation #2 possible underlying pneumonia #3 severe cardiomyopathy #4 atrial fibrillation with controlled heart rate #5 multiple comorbid conditions Plan #1 DC Cardizem IV #2 increase the dose of metoprolol #3 DC heparin IV #4 start the patient on oral anticoagulation #5 continue Aldactone #6 consider adding lisinopril once the blood pressure is more stable
--- NOTE | 2020-05-29 06:37 | XR ---
EXAMINATION TYPE: XR chest 1V portable DATE OF EXAM: 05/29/2020 HISTORY: Shortness of breath. COMPARISON: 05/28/2020 TECHNIQUE: Single view of the chest is submitted. FINDINGS: Demonstrated are scattered senescent parenchymal change. Increasing patchy basilar infiltrates and left-sided pleural effusion. Continued follow-up advised. The heart is stable. Hilar and mediastinal structures are within normal limits. Degenerative changes are seen of the dorsal spine. IMPRESSION: 1. Increasing patchy basilar infiltrates and left-sided pleural effusion. Continued follow-up advise jethro
[2020-05-29] MEDS: PANTOPRAZOLE 40 MG TABLET PO SCH (06:39)
[2020-05-29] MEDS: LEVOTHYROXINE 100 MCG TAB PO SCH (06:39)
[2020-05-29] MEDS: SPIRONOLACTONE 25 MG TAB PO SCH ×2 (09:23→21:11)
[2020-05-29] MEDS: metOLazone 5 MG TAB PO SCH (09:23)
[2020-05-29] MEDS: METOPROLOL TARTRATE 50 MG TAB PO SCH ×3 (09:24→21:30)
[2020-05-29] MEDS: APIXABAN 5 MG TAB PO SCH ×2 (09:24→21:11)
--- NOTE | 2020-05-29 11:58 | P.PN ---
Subjective Progress Note Date: 05/29/20 Principal diagnosis: Acute hypoxic respiratory failure secondary to pneumonia, acute diastolic congestive heart failure, pulmonary embolism, and acute exacerbation of asthma. This is a 70-year-old female patient with a known history of chronic bronchial asthma, obesity, hypertension, hypothyroidism. She had recently been admitted here for an acute hypoxic respiratory failure secondary to underlying pneumonia, asthma exacerbation and diastolic congestive heart failure. Ejection fraction 55-60%. She was discharged on 2020 4-year-old medical [place] for subacute rehabilitation. She will be presented here to the emergency room yesterday with continued complaints of worsening shortness of breath, cough and congestion. Chest x-ray revealed some mild lower lobe infiltrates. White count 9.8. Hemoglobin 11.5. Sodium 132. Potassium 4.7. Creatinine 1.67. Coronavirus not detected. ProBNP 5270. TSH 6.17. Free T4 2 0.85. D-dimer 7.18. Venous Doppler reveals positive DVT in the left lower extremity. She was also found to be in atrial fibrillation with a rapid ventricular response. She is on a Cardizem drip at 10 mg per hour. Heparin drip. She is seen today in consultation on the selective care unit. She is currently sitting up in bed. Awake and alert in no acute distress. She is maintaining O2 saturations in the 90s on 10 L high flow nasal cannula. She's afebrile. She's been initiated on DuoNeb inhalations. Antibiotics in the form of ceftriaxone and azithromycin. The patient is seen today May 27 2020 in follow-up on the selective care unit. She is currently resting in bed. She is quite dyspneic with minimal exertion. She is requiring AirVo high flow oxygen at 45 L 60% FiO2 with O2 saturation 68%. Chest x-ray continues show increasing right lower lobe infiltrate with congestive heart failure and bilateral effusions. She is currently on a Cardizem drip at 7.5 mg per hour. Heparin drip per weight dose protocol. She is on Zaroxolyn and Aldactone. Remains in atrial fibrillation. Blood culture reveals no growth to date. White count 8.5. Hemoglobin 11.2. Sodium 132. Potassium 4.1. Creatinine 1.6. Glucose 173. Calcitonin 0.28. She was initiated on Zosyn. Remains on bronchodilators. Patient was reevaluated today on 05/28/2020, patient remains in the ICU, remains on high flow oxygen utilizing airvo, FiO2 is at 70%, and I cut it down to 60%, she is on 50 L high flow. O2 saturation is in the high 90s. Patient remains on Cardizem at 5 mg per hour for her atrial fibrillation. Remains on Zosyn for her pneumonia remains on bronchodilators for her asthma remains on diuretics including Zaroxolyn and Aldactone for diastolic congestive heart failure. Patient remains on heparin for her DVT and possible pulmonary embolism Patient is about the same, noticed a slight rise in his creatinine up to 1.82. Chest x- ray is showing slight improvement compared to her chest x-ray a few days ago. However considering the patient is still requiring significant amount of FiO2, I plan to keep her in the ICU. Reevaluated today on 05/29/23, patient remains in the ICU, remains on high flow oxygen/ airvo with FiO2 of 65% and flow of 50 L. I titrated that down to 55% and 50 L. Patient is feeling a bit better, continues to have shortness of breath with any activity. Remains on anticoagulation therapy in the form of adequate. Remains on antibiotics in the form of Zosyn and she remains on diuretics. Chest x-ray is showing definite improvement in the right lower lobe, continues to have some consolidation and left lower lobe and some atelectasis. CBC today is relatively normal basic metabolic profile is normal BUN is 25 creatinine is improving down to 1.68 in spite of diuretics. Liver profile is normal. Objective - Vital Signs Vital signs: Vital Signs Temp 97.7 F 05/29/20 04:00 Pulse 88 05/29/20 08:51 Resp 20 05/29/20 07:00 BP 112/74 05/29/20 07:00 Pulse Ox 93 L 05/29/20 07:00 Intake & Output 05/28/20 05/29/20 05/29/20 18:59 06:59 18:59 Intake Total 405.409 240 40 Output Total 1750 5 550 Balance -1344.591 -1795 -510 Intake: IV 220 240 40 0.9 NS KVO 120 240 40 Piperacillin-Tazobactam 3 100 .375 gm In Sodium Chloride 0.9% 100 ml @ 25 mls/hr IVPB Q8H [facility] Rx#: [id number] Intake, IV Titration 185.409 Amount Diltiazem 125 mg In 39.667 Sodium Chloride 0.9% 100 ml @ 10 MG/HR 10 mls/hr IV .[id number] [facility] Rx#: [id number] Heparin Sod,Pork in 0.45% 145.742 NaCl 25,000 unit In 0.45 % NaCl 1 250ml.bag @ 10.5 UNITS/KG/HR 10.002 mls/ hr IV .Q24H [facility] Rx#: [id number] Output: Urine 1750 2035 550 Other: Voiding Method Indwelling Catheter Indwelling Catheter - Exam GENERAL EXAM: Alert, obese 70-year-old female patient, on AirVo HEAD: Normocephalic. EYES: Normal reaction of pupils, equal size. NOSE: Clear with pink turbinates. THROAT: No erythema or exudates. NECK: No masses, no JVD. CHEST: No chest wall deformity. LUNGS: Equal air entry with crackles in the bilateral posterior bases CVS: S1 and S2 normal with no audible murmur, irregular rhythm. ABDOMEN: No hepatosplenomegaly, normal bowel sounds, no guarding or rigidity. SPINE: No scoliosis or deformity SKIN: No rashes CENTRAL NERVOUS SYSTEM: No focal deficits, tone is normal in all 4 extremities. EXTREMITIES: There is edema of the left lower extremity. Asymmetry is noted in both lower extremities with left more swollen than right. No clubbing, no cyanosis. Peripheral pulses are intact. - Labs CBC & Chem 7: 05/29/20 03:39 05/29/20 03:39 Labs: Abnormal Lab Results - Last 24 Hours (Table) 05/28/20 05/28/20 05/29/20 Range/Units 12:23 19:07 03:39 RBC 3.70 L (3.80-5.40) m/uL APTT 37.2 H 50.9 H (22.0-30.0) sec Sodium (137-145) mmol/L BUN (7-17) mg/dL Creatinine (0.52-1.04) mg/dL Total Protein (6.3-8.2) g/dL Albumin (3.5-5.0) g/dL 05/29/20 05/29/20 Range/Units 03:39 03:39 RBC (3.80-5.40) m/uL APTT 51.1 H (22.0-30.0) sec Sodium 134 L (137-145) mmol/L BUN 25 H (7-17) mg/dL Creatinine 1.68 H (0.52-1.04) mg/dL Total Protein 5.2 L (6.3-8.2) g/dL Albumin 2.7 L (3.5-5.0) g/dL Microbiology - Last 24 Hours (Table) 05/25/20 14:25 Blood Culture - Preliminary Blood No Growth after 72 hours 05/25/20 14:25 Blood Culture - Preliminary Blood No Growth after 72 hours Assessment and Plan Assessment: Impression: Acute hypoxic respiratory failure multifactorial, mostly secondary to healthcare acquired pneumonia, diastolic congestive heart failure/acute , possible pulmonary embolism, and asthma exacerbation. New onset atrial fibrillation, patient was placed today on beta blockers and on Eliquis as per cardiology. Left lower extremity DVT, possible pulmonary embolism, however the patient is not a candidate for CT angiogram of the chest because of her renal status. Acute exacerbation of diastolic congestive heart failure. Hypothyroidism. Benign essential hypertension. Morbid obesity. History of chronic bronchial asthma, may be contributing a daily to her shortness of breath. But this is felt to be less likely. Acute on chronic kidney injury, could be related to diuretics and some component of prerenal azotemia Recommendation: Titrate high flow oxygen, maintaining O2 saturation above 90%. Continue antibiotics/Zosyn. Oral anti-coagulation therapy to be started today/Eliquis Continue bronchodilators. Beta blockers for her atrial fibrillation with RVR.. Continue diuretics including Aldactone and Zaroxolyn. Close monitoring of renal status. We will continue to monitor in the ICU Time with Patient: Less than 30
--- NOTE | 2020-05-29 16:04 | P.PN ---
Subjective Progress Note Date: 05/29/20 Principal diagnosis: Acute hypoxic respiratory failure Acute exacerbation of asthma Right lower lobe pneumonia Acute exacerbation diastolic CHF DVT left lower extremity/PE A. fib with RVR 70-year-old female patient with a known history of chronic bronchial asthma, obesity, hypertension, hypothyroidism; recently discharged to [facility] for subacute rehabilitation, presented to the emergency room yesterday with continued complaints of worsening shortness of breath, cough and congestion. Chest x-ray revealed some mild lower lobe infiltrates. White count 9.8. Hemoglobin 11.5. Sodium 132. Potassium 4.7. Creatinine 1.67. Coronavirus not detected. ProBNP 5270. TSH 6.17. Free T4 2 0.85. D-dimer 7.18. Venous Doppler reveals positive DVT in the left lower extremity. She was also found to be in atrial fibrillation with a rapid ventricular response. She is on a Card izem drip at 10 mg per hour. Heparin drip. 05/29/2020 Patient is seen and evaluated at bedside in ICU; somewhat more alert this morning; denies any specific complaints but reports she feels about the same Vital signs are reviewed with temp of 97.7, pulse 88, respiration 20 and blood pressure 112/74; pulse ox 93% on 15 L and FiO2 of 50%; patient remains on IV antibiotics in form of Zosyn; remains on diuretics for congestive heart failure in form of Aldactone and Zaroxolyn; check 60 reveals improvement in right lower lobe infiltrate and left lower lobe consolidation remains unchanged; lab review shows an improved creatinine of 1.68 Etiology is following for atrial fibrillation which remains rate controlled on beta blockers; oral anticoagulation has been initiated Objective - Vital Signs Vital signs: Vital Signs Temp 97.7 F 05/29/20 04:00 Pulse 84 05/29/20 12:08 Resp 20 05/29/20 07:00 BP 112/74 05/29/20 07:00 Pulse Ox 93 L 05/29/20 07:00 Intake & Output 05/28/20 05/29/20 05/29/20 18:59 06:59 18:59 Intake Total 405.409 240 40 Output Total 4574 5 550 Balance -1344.591 -1795 -510 Intake: IV 220 240 40 0.9 NS KVO 120 240 40 Piperacillin-Tazobactam 3 100 .375 gm In Sodium Chloride 0.9% 100 ml @ 25 mls/hr IVPB Q8H [facility] Rx#: [id number] Intake, IV Titration 185.409 Amount Diltiazem 125 mg In 39.667 Sodium Chloride 0.9% 100 ml @ 10 MG/HR 10 mls/hr IV .[id number] [facility] Rx#: [id number] Heparin Sod,Pork in 0.45% 145.742 NaCl 25,000 unit In 0.45 % NaCl 1 250ml.bag @ 10.5 UNITS/KG/HR 10.002 mls/ hr IV .Q24H [facility] Rx#: [id number] Output: Urine 1750 2035 550 Other: Voiding Method Indwelling Catheter Indwelling Catheter - Exam GENERAL EXAM: Alert, obese 70-year-old female patient, on AirVo high flow oxygen as noted earlier. HEAD: Normocephalic. EYES: Normal reaction of pupils, equal size. NOSE: Clear with pink turbinates. THROAT: No erythema or exudates. NECK: No masses, no JVD. CHEST: No chest wall deformity. LUNGS: Equal air entry with crackles in the bilateral posterior bases CVS: S1 and S2 normal with no audible murmur, irregular rhythm. ABDOMEN: No hepatosplenomegaly, normal bowel sounds, no guarding or rigidity. EXTREMITIES: There is edema of the left lower extremity. No clubbing, no cyanosis. Peripheral pulses are intact. - Labs CBC & Chem 7: 05/29/20 03:39 05/29/20 03:39 Labs: Abnormal Lab Results - Last 24 Hours (Table) 05/28/20 05/28/20 05/29/20 Range/Units 12:23 19:07 03:39 RBC 3.70 L (3.80-5.40) m/uL APTT 37.2 H 50.9 H (22.0-30.0) sec Sodium (137-145) mmol/L BUN (7-17) mg/dL Creatinine (0.52-1.04) mg/dL Total Protein (6.3-8.2) g/dL Albumin (3.5-5.0) g/dL 05/29/20 05/29/20 Range/Units 03:39 03:39 RBC (3.80-5.40) m/uL APTT 51.1 H (22.0-30.0) sec Sodium 134 L (137-145) mmol/L BUN 25 H (7-17) mg/dL Creatinine 1.68 H (0.52-1.04) mg/dL Total Protein 5.2 L (6.3-8.2) g/dL Albumin 2.7 L (3.5-5.0) g/dL Microbiology - Last 24 Hours (Table) 05/25/20 14:25 Blood Culture - Preliminary Blood No Growth after 72 hours 05/25/20 14:25 Blood Culture - Preliminary Blood No Growth after 72 hours Assessment and Plan Assessment: 1. Acute hypoxic respiratory failure 2. Healthcare associated pneumonia; remains on IV antibiotics in form of Zosyn 3.375 g IV every 8 hours; follow-up on sputum culture and blood cultures 3. Acute exacerbation diastolic CHF Patient remains on diuretic therapy in form of IV Lasix and Aldactone; we will monitor daily weights and strict I&O's; low-salt and fluid restricted diet 4. DVT left lower extremity/possible PE; venous Doppler has been positive for left lower extremity DVT; patient is suspicious for PE but not a candidate for C T angiogram given acute renal injury 5. A. fib with RVR; patient remains on IV heparin and remains on IV Cardizem infusion; cardiology on board with plans to start patient on oral Cardizem and wean off IV Cardizem 6. Acute on chronic kidney disease; slow IV fluid hydration; monitor strict CAMILO's, daily weights, renal function and electrolytes; avoid nephrotoxins 7. Hypothyroidism; levothyroxine 200 MCG daily 8. Essential hypertension; stable on IV Cardizem; metoprolol has been increased by cardiology; continue to monitor closely DVT prophylaxis; SCDs/IV heparin CODE STATUS; full code
[2020-05-30] MEDS: PIPERACILLIN-TAZOBACTAM 3.375 GM in SODIUM CHLORIDE 0.9% 100 ML IVPB SCH ×3 (03:34→17:35)
[2020-05-30 04:54] LABS: Basophils # (A) 0.1 k/uL (0-0.2); Basophils % (A) 1 %; Eosinophils # (A) 0.2 k/uL (0-0.7); Eosinophils % (A) 2 %; HGB 12.2 gm/dL (11.4-16.0); Hypochromasia Slight; Lymphocytes # (A) 1.2 k/uL (1.0-4.8); Lymphocytes % (A) 14 %; MCH 30.1 pg (25.0-35.0); MCHC 32.1 g/dL (31.0-37.0); MCV 93.8 fL (80.0-100.0); Mean Platelet Volume 7.4; Monocytes # (A) 0.7 k/uL (0-1.0); Monocytes % (A) 9 %; Neutrophils % (A) 72 %; Platelet Count 403 k/uL (150-450); RBC 4.05 m/uL (3.80-5.40); RDW 13.6 % (11.5-15.5); WBC 8.4 k/uL (3.8-10.6)
[2020-05-30 05:10] LABS: Calcium 9.3 mg/dL (8.4-10.2); Potassium 4.5 mmol/L (3.5-5.1); Total Bilirubin 0.7 mg/dL (0.2-1.3); Total Protein 5.5 g/dL (6.3-8.2)
--- NOTE | 2020-05-30 06:58 | XR ---
EXAMINATION TYPE: XR chest 1V portable DATE OF EXAM: 05/30/2020 COMPARISON: 05/29/2020 HISTORY: Shortness of breath TECHNIQUE: Frontal and lateral views of the chest are obtained. FINDINGS: Scattered senescent parenchymal changes noted. Hyperinflation compatible with COPD. Basilar infiltrates as well as a left-sided pleural parenchymal opacity and effusion persists without significant change. Heart size is stable. Mediastinal structures are stable and grossly unremarkable. No evidence for hilar prominence. Degenerative changes dorsal spine. IMPRESSION: 1. Basilar infiltrates as well as a left-sided pleural parenchymal opacity and effusion persists with out significant change.
[2020-05-30] MEDS: PANTOPRAZOLE 40 MG TABLET PO SCH (07:02)
[2020-05-30] MEDS: LEVOTHYROXINE 100 MCG TAB PO SCH (07:02)
--- NOTE | 2020-05-30 07:18 | P.PN ---
Subjective Progress Note Date: 05/30/20 Principal diagnosis: Shortness of breath This is a 70-year-old female patient who was admitted initially with shortness of breath and she was diagnosed with a pneumonia along with asthma exacerbation. She was diagnosed with atrial fibrillation with RVR and that was a new diagno sis to her. Also she was diagnosed with acute exacerbation of heart failure with reduced ejection fraction with the echo showed an EF between 20-25%. The patient was seen today May 302020. She stated that the shortness of breath is a slightly better. She describes pleuritic chest discomfort. She is on oral anticoagulation anyway. Hemodynamically she is stable. She is in atrial fibrillation with a relatively controlled heart rate. Her resting heart rate around 100 beats per minutes. She continues to be on metoprolol at 50 mg by mouth 3 times a day. She is also on Aldactone for the cardiomyopathy. We will consider adding the rest of cardiomyopathy medications including DARON inhibitor once the blood pressure is more stable. Objective - Vital Signs Vital signs: Vital Signs Temp 98.8 F 05/30/20 04:00 Pulse 134 H 05/30/20 07:00 Resp 24 05/30/20 07:00 BP 104/94 05/30/20 07:00 Pulse Ox 95 05/30/20 07:00 Intake & Output 05/29/20 05/30/20 05/30/20 18:59 06:59 18:59 Intake Total 490 1135 10 Output Total 1985 2370 200 Balance -1495 -1235 -190 Weight 97 kg 96.4 kg Intake: IV 340 175 10 0.9 NS KVO 240 150 10 Piperacillin-Tazobactam 3 100 25 .375 gm In Sodium Chloride 0.9% 100 ml @ 25 mls/hr IVPB Q8H [facility] Rx#: [id number] Oral 150 960 Output: Urine 1984 2370 200 Other: Voiding Method Indwelling Catheter Indwelling Catheter - Constitutional General appearance: Present: no acute distress - Respiratory Respiratory: bilateral: diminished - Cardiovascular Rhythm: irregularly irregular Heart sounds: normal: S1, S2 - Labs CBC & Chem 7: 05/30/20 03:43 05/30/20 03:43 Labs: Abnormal Lab Results - Last 24 Hours (Table) 05/30/20 Range/Units 03:43 Sodium 134 L (137-145) mmol/L Carbon Dioxide 31 H (22-30) mmol/L BUN 24 H (7-17) mg/dL Creatinine 1.75 H (0.52-1.04) mg/dL Total Protein 5.5 L (6.3-8.2) g/dL Albumin 3.0 L (3.5-5.0) g/dL Microbiology - Last 24 Hours (Table) 05/25/20 14:25 Blood Culture - Preliminary Blood No Growth after 96 hours 05/25/20 14:25 Blood Culture - Preliminary Blood No Growth after 96 hours Assessment and Plan Assessment: Assessment #1 acute asthma exacerbation #2 possible underlying pneumonia #3 severe cardiomyopathy #4 atrial fibrillation with controlled heart rate #5 multiple comorbid conditions Plan #1 continue the current dose of metoprolol #2 consider starting DARON inhibitor once the blood pressure is more stable #3 continue Aldactone #4 continue oral anticoagulation #5 follow-up with the patient
[2020-05-30] MEDS ORDERED: IPRATROPIUM-ALBUTEROL 3 ML NEB INHALATION SCH (08:00)
--- NOTE | 2020-05-30 09:05 | P.PN ---
Subjective Progress Note Date: 05/30/20 Acute hypoxic respiratory failure secondary to pneumonia, acute diastolic congestive heart failure, pulmonary embolism, and acute exacerbation of asthma. This is a 70-year-old female patient with a known history of chronic bronchial asthma, obesity, hypertension, hypothyroidism. She had recently been admitted here for an acute hypoxic respiratory failure secondary to underlying pneumonia, asthma exacerbation and diastolic congestive heart failure. Ejection fraction 55-60%. She was discharged on 2020 4-year-old medical [place] for subacute rehabilitation. She will be presented here to the emergency room yesterday with continued complaints of worsening shortness of breath, cough and congestion. Chest x-ray revealed some mild lower lobe infiltrates. White count 9.8. Hemoglobin 11.5. Sodium 132. Potassium 4.7. Creatinine 1.67. Coronavirus not detected. ProBNP 5270. TSH 6.17. Free T4 2 0.85. D-dimer 7.18. Venous Doppler reveals positive DVT in the left lower extremity. She was also found to be in atrial fibrillation with a rapid ventricular response. She is on a Cardizem drip at 10 mg per hour. Heparin drip. She is seen today in consultation on the selective care unit. She is currently sitting up in bed. Awake and alert in no acute distress. She is maintaining O2 saturations in the 90s on 10 L high flow nasal cannula. She's afebrile. She's been initiated on DuoNeb inhalations. Antibiotics in the form of ceftriaxone and azithromycin. The patient is seen today May 27 2020 in follow-up on the selective care unit. She is currently resting in bed. She is quite dyspneic with minimal exertion. She is requiring AirVo high flow oxygen at 45 L 60% FiO2 with O2 saturation 68%. Chest x-ray continues show increasing right lower lobe infiltrate with congestive heart failure and bilateral effusions. She is currently on a Cardizem drip at 7.5 mg per hour. Heparin drip per weight dose protocol. She is on Zaroxolyn and Aldactone. Remains in atrial fibrillation. Blood culture reveals no growth to date. White count 8.5. Hemoglobin 11.2. Sodium 132. Potassium 4.1. Creatinine 1.6. Glucose 173. Calcitonin 0.28. She was initiated on Zosyn. Remains on bronchodilators. Patient was reevaluated today on 05/28/2020, patient remains in the ICU, remains on high flow oxygen utilizing airvo, FiO2 is at 70%, and I cut it down to 60%, she is on 50 L high flow. O2 saturation is in the high 90s. Patient remains on Cardizem at 5 mg per hour for her atrial fibrillation. Remains on Zosyn for her pneumonia remains on bronchodilators for her asthma remains on diuretics including Zaroxolyn and Aldactone for diastolic congestive heart failure. Ada tafoya remains on heparin for her DVT and possible pulmonary embolism Patient is about the same, noticed a slight rise in his creatinine up to 1.82. Chest x- ray is showing slight improvement compared to her chest x-ray a few days ago. However considering the patient is still requiring significant amount of FiO2, I plan to keep her in the ICU. Reevaluated today on 05/29/23, patient remains in the ICU, remains on high flow oxygen/ airvo with FiO2 of 65% and flow of 50 L. I titrated that down to 55% and 50 L. Patient is feeling a bit better, continues to have shortness of breath with any activity. Remains on anticoagulation therapy in the form of adequate. Remains on antibiotics in the form of Zosyn and she remains on diuretics. Chest x-ray is showing definite improvement in the right lower lobe, continues to have some consolidation and left lower lobe and some atelectasis. CBC today is relatively normal basic metabolic profile is normal BUN is 25 creatinine is improving down to 1.68 in spite of diuretics. Liver profile is normal. 05/30/2020 and seeing this patient in follow-up. The patient is an acute hypoxic respiratory failure due to combination of pneumonia, CHF, loculated left-sided pleural effusion and she is also morbidly obese with history of bronchial asthma. She came in with worsening shortness of breath and she was also found to be in atrial fibrillation with rapid ventricular response. This morning, she is on high flow oxygen at 50 L with an FiO2 of 45%. Her chest x- ray still showing bilateral lower lobe effusions and consolidations. Nevertheless, there is improvement in comparison with the chest x-ray that was done a few days back. The patient is on IV Zosyn. The pro-calcitonin was 0.28. Her white cell count currently is at 8.4 and the patient is afebrile. She is also being diuresis with Aldactone 25 mg by mouth twice a day and Zaroxolyn 5 mg by mouth daily. Urine output is in order of 200 mL an hour and the net fluid balance is negative more than 3 L over the past 24 hours. Her atrial fibrillation is under suboptimal control. This morning her heart is around 120- 140 irregular and she is on metoprolol. She is also on long-term anticoagulation with Eliquis. Her blood work shows a creatinine of 1.75. Blood culture has been negative for now. Objective - Vital Signs Vital signs: Vital Signs Temp 97.8 F 05/30/20 08:00 Pulse 107 H 05/30/20 08:00 Resp 12 05/30/20 08:00 BP 99/88 05/30/20 08:00 Pulse Ox 96 05/30/20 08:00 Intake & Output 05/29/20 05/30/20 05/30/20 18:59 06:59 18:59 Intake Total 490 1135 20 Output Total 1985 2370 350 Balance -5555 -1235 -330 Weight 97 kg 96.4 kg Intake: IV 340 175 20 0.9 NS KVO 240 150 20 Piperacillin-Tazobactam 3 100 25 .375 gm In Sodium Chloride 0.9% 100 ml @ 25 mls/hr IVPB Q8H [facility] Rx#: [id number] Oral 150 960 Output: Urine 1984 2370 350 Other: Voiding Method Indwelling Catheter Indwelling Catheter - Exam GENERAL EXAM: Alert, obese 70-year-old female patient, on AirVo HEAD: Normocephalic. EYES: Normal reaction of pupils, equal size. NOSE: Clear with pink turbinates. THROAT: No erythema or exudates. NECK: No masses, no JVD. CHEST: No chest wall deformity. LUNGS: Equal air entry with crackles in the bilateral posterior bases CVS: Irregular S1 and S2 normal with no audible murmur, irregular rhythm. The patient is tachycardic consistent with atrial fibrillation with rapid ventricular response ABDOMEN: No hepatosplenomegaly, normal bowel sounds, no guarding or rigidity. SPINE: No scoliosis or deformity SKIN: No rashes CENTRAL NERVOUS SYSTEM: No focal deficits, tone is normal in all 4 extremities. EXTREMITIES: There is edema of the left lower extremity. Asymmetry is noted in both lower extremities with left more swollen than right. No clubbing, no cyanosis. Peripheral pulses are intact. - Labs CBC & Chem 7: 05/30/20 03:43 05/30/20 03:43 Labs: Abnormal Lab Results - Last 24 Hours (Table) 05/30/20 Range/Units 03:43 Sodium 134 L (137-145) mmol/L Carbon Dioxide 31 H (22-30) mmol/L BUN 24 H (7-17) mg/dL Creatinine 1.75 H (0.52-1.04) mg/dL Total Protein 5.5 L (6.3-8.2) g/dL Albumin 3.0 L (3.5-5.0) g/dL Microbiology - Last 24 Hours (Table) 05/25/20 14:25 Blood Culture - Preliminary Blood No Growth after 96 hours 05/25/20 14:25 Blood Culture - Preliminary Blood No Growth after 96 hours Assessment and Plan Plan: 1 Acute hypoxic respiratory failure multifactorial, mostly secondary to CHF as the patient demonstrated a drop in her left ventricle ejection fraction which is down to 20-25% and a sense and the patient developed CHF, bilateral pleural effusion which is somewhat loculated on the left. There is also bilateral pulmonary infiltrates consistent with pneumonia. No indication for pulmonary embolism. Her asthma is currently inactive and stable. 2 New onset atrial fibrillation, patient was placed today on beta blockers and on Eliquis as per cardiology. The patient is receiving metoprolol dose of 50 mg by mouth 3 times a day for rate control in addition to that she is on Eliquis. 3 Left lower extremity DVT, possible pulmonary embolism, however the patient is not a candidate for CT angiogram of the chest because of her renal status. 4 Acute exacerbation of systolic congestive heart failure and the patient has a LVEF of 20-25% 5 Hypothyroidism. 6 Benign essential hypertension. 7 Morbid obesity. 8 History of chronic bronchial asthma, may be contributing a daily to her shortness of breath. But this is felt to be less likely. 9 Acute on chronic kidney injury, could be related to diuretics and some component of prerenal azotemia Recommendation: Titrate high flow oxygen, maintaining O2 saturation above 90%. The patient is currently on 15 L with an FiO2 of 45% Continue antibiotics/Zosyn. Continue diuretics as the patient is diuresing adequately with a combination of Zaroxolyn and Aldactone the patient is a negative fluid balance Oral anti-coagulation therapy to be started today/Eliquis Stop the albuterol nebulized treatments and use it only on an as-needed basis which is probably contributing to her A. fib RVR. Beta blockers for her atrial fibrillation with RVR.. Continue diuretics including Aldactone and Zaroxolyn. Close monitoring of renal status. We will continue to monitor in the ICU
[2020-05-30] MEDS: metOLazone 5 MG TAB PO SCH (09:13)
[2020-05-30] MEDS: METOPROLOL TARTRATE 50 MG TAB PO SCH ×3 (09:13→22:21)
[2020-05-30] MEDS: APIXABAN 5 MG TAB PO SCH ×2 (09:13→20:43)
[2020-05-30] MEDS: SPIRONOLACTONE 25 MG TAB PO SCH ×2 (09:13→20:43)
--- NOTE | 2020-05-30 13:43 | P.PN ---
Subjective Progress Note Date: 05/30/20 Principal diagnosis: Acute hypoxic respiratory failure Acute exacerbation of asthma Right lower lobe pneumonia Acute exacerbation diastolic CHF DVT left lower extremity/PE A. fib with RVR 70-year-old female patient with a known history of chronic bronchial asthma, obesity, hypertension, hypothyroidism; recently discharged to [facility] for subacute rehabilitation, presented to the emergency room yesterday with continued complaints of worsening shortness of breath, cough and congestion. Chest x-ray revealed some mild lower lobe infiltrates. White count 9.8. Hemoglobin 11.5. Sodium 132. Potassium 4.7. Creatinine 1.67. Coronavirus not detected. ProBNP 5270. TSH 6.17. Free T4 2 0.85. D-dimer 7.18. Venous Doppler reveals positive DVT in the left lower extremity. She was also found to be in atrial fibrillation with a rapid ventricular response. She is on a Card izem drip at 10 mg per hour. Heparin drip. 05/29/2020 Patient is seen and evaluated at bedside in ICU; somewhat more alert this morning; denies any specific complaints but reports she feels about the same Vital signs are reviewed with temp of 97.7, pulse 88, respiration 20 and blood pressure 112/74; pulse ox 93% on 15 L and FiO2 of 50%; patient remains on IV antibiotics in form of Zosyn; remains on diuretics for congestive heart failure in form of Aldactone and Zaroxolyn; check 60 reveals improvement in right lower lobe infiltrate and left lower lobe consolidation remains unchanged; lab review shows an improved creatinine of 1.68 Etiology is following for atrial fibrillation which remains rate controlled on beta blockers; oral anticoagulation has been initiated 05/30/2020 Patient is seen and evaluated in ICU for follow-up; patient sitting up in bedside chair and denies any specific complaints Patient remains on high flow nasal cannula at 50 L with an FiO2 of 45%; critical care on board and planning to continue to wean oxygen as able Chest x-ray reveals bilateral pleural effusion and consolidations which is improved from last imaging; pro-calcitonin feels a white blood count of 8.4; creatinine stable at 1.75; blood cultures are negative so far Patient remains on IV Zosyn, being diuresed with Aldactone and Zaroxolyn with negative fluid balance of 3 L or past 24 hours Patient remains in atrial fibrillation and his rate controlled on metoprolol; She is also on long-term anticoagulation with Eliquis Objective - Vital Signs Vital signs: Vital Signs Temp 97.8 F 05/30/20 08:00 Pulse 117 H 05/30/20 09:06 Resp 18 05/30/20 09:00 BP 100/81 05/30/20 09:00 Pulse Ox 97 05/30/20 09:00 Intake & Output 05/29/20 05/30/20 05/30/20 18:59 06:59 18:59 Intake Total 490 1135 30 Output Total 1985 2370 600 Balance -1495 -1235 -570 Weight 97 kg 96.4 kg Intake: IV 340 175 30 0.9 NS KVO 240 150 30 Piperacillin-Tazobactam 3 100 25 .375 gm In Sodium Chloride 0.9% 100 ml @ 25 mls/hr IVPB Q8H [facility] Rx#: [id number] Oral 150 960 Output: Urine 1984 2370 600 Other: Voiding Method Indwelling Catheter Indwelling Catheter - Exam GENERAL EXAM: Alert, obese 70-year-old female patient, on AirVo high flow oxygen as noted earlier. HEAD: Normocephalic. EYES: Normal reaction of pupils, equal size. NOSE: Clear with pink turbinates. THROAT: No erythema or exudates. NECK: No masses, no JVD. CHEST: No chest wall deformity. LUNGS: Equal air entry with crackles in the bilateral posterior bases CVS: S1 and S2 normal with no audible murmur, irregular rhythm. ABDOMEN: No hepatosplenomegaly, normal bowel sounds, no guarding or rigidity. EXTREMITIES: There is edema of the left lower extremity. No clubbing, no cyanosis. Peripheral pulses are intact. - Labs CBC & Chem 7: 05/30/20 03:43 05/30/20 03:43 Labs: Abnormal Lab Results - Last 24 Hours (Table) 05/30/20 Range/Units 03:43 Sodium 134 L (137-145) mmol/L Carbon Dioxide 31 H (22-30) mmol/L BUN 24 H (7-17) mg/dL Creatinine 1.75 H (0.52-1.04) mg/dL Total Protein 5.5 L (6.3-8.2) g/dL Albumin 3.0 L (3.5-5.0) g/dL Microbiology - Last 24 Hours (Table) 05/25/20 14:25 Blood Culture - Preliminary Blood No Growth after 96 hours 05/25/20 14:25 Blood Culture - Preliminary Blood No Growth after 96 hours Assessment and Plan Assessment: 1. Acute hypoxic respiratory failure 2. Healthcare associated pneumonia; remains on IV antibiotics in form of Zosyn 3.375 g IV every 8 hours; follow-up on sputum culture and blood cultures 3. Acute exacerbation diastolic CHF Patient remains on diuretic therapy in form of IV Lasix and Aldactone; we will monitor daily weights and strict I&O's; low-salt and fluid restricted diet 4. DVT left lower extremity/possible PE; venous Doppler has been positive for left lower extremity DVT; patient is suspicious for PE but not a candidate for CT angiogram given acute renal injury 5. A. fib with RVR; patient remains on IV heparin and remains on IV Cardizem infusion; cardiology on board with plans to start patient on oral Cardizem and wean off IV Cardizem 6. Acute on chronic kidney disease; slow IV fluid hydration; monitor strict CAMILO's, daily weights, renal function and electrolytes; avoid nephrotoxins 7. Hypothyroidism; levothyroxine 200 MCG daily 8. Essential hypertension; stable on IV Cardizem; metoprolol has been increased by cardiology; continue to monitor closely DVT prophylaxis; SCDs/IV heparin CODE STATUS; full code
[2020-05-31] MEDS: PIPERACILLIN-TAZOBACTAM 3.375 GM in SODIUM CHLORIDE 0.9% 100 ML IVPB SCH ×3 (02:46→17:46)
[2020-05-31 04:22] LABS: HCT 40.1 % (34.0-46.0); MCH 30.5 pg (25.0-35.0); MCHC 32.5 g/dL (31.0-37.0); MCV 93.8 fL (80.0-100.0); Mean Platelet Volume 7.4; Platelet Count 407 k/uL (150-450); RBC 4.27 m/uL (3.80-5.40); RDW 13.2 % (11.5-15.5); WBC 8.7 k/uL (3.8-10.6)
[2020-05-31 04:43] LABS: Calcium 9.4 mg/dL (8.4-10.2); Potassium 4.6 mmol/L (3.5-5.1)
[2020-05-31] MEDS: LEVOTHYROXINE 100 MCG TAB PO SCH (07:03)
[2020-05-31] MEDS: PANTOPRAZOLE 40 MG TABLET PO SCH (07:03)
[2020-05-31] MEDS: SPIRONOLACTONE 25 MG TAB PO SCH (09:09)
[2020-05-31] MEDS: hydrALAZINE HCL 25 MG TAB PO SCH ×2 (09:09→21:06)
[2020-05-31] MEDS: metOLazone 5 MG TAB PO SCH (09:09)
[2020-05-31] MEDS: APIXABAN 5 MG TAB PO SCH ×2 (09:10→21:06)
[2020-05-31] MEDS: METOPROLOL TARTRATE 50 MG TAB PO SCH ×3 (09:10→21:06)
--- NOTE | 2020-05-31 10:18 | PN ---
PROGRESS NOTE Mrs. Layton is 70-year-old female who presented with symptoms of progressive dyspnea, was diagnosed with pneumonia and congestive heart failure. She is feeling better today. She denies any symptoms of chest pain. She denies any dizziness or palpitation. She is in atrial fibrillation with controlled ventricular response. Her echocardiogram on admission showed ejection fraction of 20-25 percent with mild mitral and tricuspid regurgitation and moderate pulmonary hypertension. Her urine output has been good. She has no evidence of ventricular ectopic activity. She continues to be at this time on Eliquis 5 mg twice a day, metolazone 5 mg daily, metoprolol tartrate 50 mg 3 times a day and spironolactone 25 mg twice a day. PHYSICAL EXAMINATION: VITAL SIGNS: Blood pressure running in the 90s to 100 with a heart rate in the 90s to low of 100. Afebrile. LUNGS: With crackles at the bases, no wheezes. HEART: Irregularly irregular, S1, S2. No S3 with systolic murmur. No diastolic murmur. No rub. ABDOMEN: Soft, nontender, positive bowel sounds, no organomegaly. EXTREMITIES: No edema. LAB DATA: BUN and creatinine 26 and 1.71. Her hemoglobin is 13. Potassium 4.6. IMPRESSION: 1. Respiratory failure with a combination of pneumonia in addition to severe cardiomyopathy. 2. Chronic persistent atrial fibrillation, anticoagulated. 3. Chronic kidney disease, stable. 4. Cardiomyopathy. 5. Possible pulmonary embolism with left deep venous thrombosis. RECOMMENDATION: From the cardiac standpoint, I will cut down the dose of her Aldactone to 25 mg daily, and I will add to her regimen low-dose hydralazine because of the cardiomyopathy. We will continue to follow her renal function closely and depending on her progress, further recommendation will be made. MMODL / IJN: [id number] /
--- NOTE | 2020-05-31 10:33 | P.PN ---
Subjective Progress Note Date: 05/31/20 Principal diagnosis: Acute hypoxic respiratory failure significant pneumonia, acute diastolic CHF, pulmonary embolism and acute exacerbation of asthma This is a 70-year-old female patient with a known history of chronic bronchial asthma, obesity, hypertension, hypothyroidism. She had recently been admitted here for an acute hypoxic respiratory failure secondary to underlying pneumonia, asthma exacerbation and diastolic congestive heart failure. Ejection fraction 55-60%. She was discharged on 2020 4-year-old medical [place] for subacute rehabilitation. She will be presented here to the emergency room yesterday with continued complaints of worsening shortness of breath, cough and congestion. Chest x-ray revealed some mild lower lobe infiltrates. White count 9.8. Hemoglobin 11.5. Sodium 132. Potassium 4.7. Creatinine 1.67. Coronavirus not detected. ProBNP 5270. TSH 6.17. Free T4 2 0.85. D-dimer 7.18. Venous Doppler reveals positive DVT in the left lower extremity. She was also found to be in atrial fibrillation with a rapid ventricular response. She is on a Cardizem drip at 10 mg per hour. Heparin drip. She is seen today in consultation on the selective care unit. She is currently sitting up in bed. Awake and alert in no acute distress. She is maintaining O2 saturations in the 90s on 10 L high flow nasal cannula. She's afebrile. She's been initiated on DuoNeb inhalations. Antibiotics in the form of ceftriaxone and azithromycin. The patient is seen today May 27 2020 in follow-up on the selective care unit. She is currently resting in bed. She is quite dyspneic with minimal exertion. She is requiring AirVo high flow oxygen at 45 L 60% FiO2 with O2 saturation 68%. Chest x-ray continues show increasing right lower lobe infiltrate with congestive heart failure and bilateral effusions. She is currently on a Cardizem drip at 7.5 mg per hour. Heparin drip per weight dose protocol. She is on Zaroxolyn and Aldactone. Remains in atrial fibrillation. Blood culture reveals no growth to date. White count 8.5. Hemoglobin 11.2. Sodium 132. Potassium 4.1. Creatinine 1.6. Glucose 173. Calcitonin 0.28. She was initiated on Zosyn. Remains on bronchodilators. Patient was reevaluated today on 05/28/2020, patient remains in the ICU, remains on high flow oxygen utilizing airvo, FiO2 is at 70%, and I cut it down to 60%, she is on 50 L high flow. O2 saturation is in the high 90s. Patient remains on Cardizem at 5 mg per hour for her atrial fibrillation. Remains on Zosyn for her pneumonia remains on bronchodilators for her asthma remains on diuretics including Zaroxolyn and Aldactone for diastolic congestive heart failure. Patient remains on heparin for her DVT and possible pulmonary embolism Patient is about the same, noticed a slight rise in his creatinine up to 1.82. Chest x- ray is showing slight improvement compared to her chest x-ray a few days ago. However considering the patient is still requiring significant amount of FiO2, I plan to keep her in the ICU. Reevaluated today on 05/29/23, patient remains in the ICU, remains on high flow oxygen/ airvo with FiO2 of 65% and flow of 50 L. I titrated that down to 55% and 50 L. Patient is feeling a bit better, continues to have shortness of breath with any activity. Remains on anticoagulation therapy in the form of adequate. Remains on antibiotics in the form of Zosyn and she remains on diuretics. Chest x-ray is showing definite improvement in the right lower lobe, continues to have some consolidation and left lower lobe and some atelectasis. CBC today is relatively normal basic metabolic profile is normal BUN is 25 creatinine is improving down to 1.68 in spite of diuretics. Liver profile is normal. 05/30/2020 and seeing this patient in follow-up. The patient is an acute hypoxic respiratory failure due to combination of pneumonia, CHF, loculated left-sided pleural effusion and she is also morbidly obese with history of bronchial asthma. She came in with worsening shortness of breath and she was also found to be in atrial fibrillation with rapid ventricular response. This morning, she is on high flow oxygen at 50 L with an FiO2 of 45%. Her chest x- ray still showing bilateral lower lobe effusions and consolidations. Nevertheless, there is improvement in comparison with the chest x-ray that was done a few days back. The patient is on IV Zosyn. The pro-calcitonin was 0.28. Her white cell count currently is at 8.4 and the patient is afebrile. She is also being diuresis with Aldactone 25 mg by mouth twice a day and Zaroxolyn 5 mg by mouth daily. Urine output is in order of 200 mL an hour and the net fluid balance is negative more than 3 L over the past 24 hours. Her atrial fibrillation is under suboptimal control. This morning her heart is around 120- 140 irregular and she is on metoprolol. She is also on long-term anticoagulation with Eliquis. Her blood work shows a creatinine of 1.75. Blood culture has been negative for now. On 05/31/2020 patient seen in follow-up in intensive care unit, she is awake and alert, oriented 3, appears to be no acute distress, breathing much easier comp ared to a few days ago. No altered mentation, no fever or chills. Remains in A. fib with RVR, with a rate of 126. Remains on Airvo at 50 L and FiO2 of 37% pulse ox is around 92-96%, not on any vasopressors, no maintenance IV fluids, IV fluids have been hep-locked. Breathing comfortably, lung sounds reveal diminished breath sounds at the bases, no rhonchi or wheezing, patient does complain of some chest discomfort in the anterior chest with coughing or deep breathing, her incentive spirometer effort is suboptimal, only 500-750 ML on the today. Yesterday's chest x-ray showed basilar infiltrates in the left-sided pleural parenchymal opacity and effusion without significant change. Clinically stable, today's labs have been reviewed, no leukocytosis, white blood cell count is 8.7, hemoglobin is 13, sodium is 134, the rest of electrolytes are within normal limits, renal profile were relatively stable with when necessary of 26 creatinine is 1.7. Patient remains on antibiotics in the form of Zosyn, blood cultures have been negative. Her cough is nonproductive, has not been able to produce a sputum specimen, denies any hemoptysis. Objective - Vital Signs Vital signs: Vital Signs Temp 98.9 F 05/31/20 00:00 Pulse 144 H 05/31/20 09:00 Resp 20 05/31/20 09:00 BP 109/94 05/31/20 09:00 Pulse Ox 96 05/31/20 09:00 Intake & Output 05/30/20 05/31/20 05/31/20 18:59 06:59 18:59 Intake Total 820 610 480 Output Total 1920 2210 450 Balance -1100 -1600 30 Weight 95.2 kg Intake: IV 320 130 0.9 NS KVO 120 30 Piperacillin-Tazobactam 3 200 100 .375 gm In Sodium Chloride 0.9% 100 ml @ 25 mls/hr IVPB Q8H [facility] Rx#: [id number] Oral 500 480 480 Output: Urine 1919 2209 450 Other: Voiding Method Indwelling Catheter Indwelling Catheter Indwelling Catheter - Exam GENERAL EXAM: Alert, very pleasant, 70-year-old white female, on Airvo, at 50 L and FiO2 of 37%, comfortable in no apparent distress. HEAD: Normocephalic/atraumatic. EYES: Normal reaction of pupils, equal size. Conjunctiva pink, sclera white. NOSE: Clear with pink turbinates. THROAT: No erythema or exudates. NECK: No masses, no JVD, no thyroid enlargement, no adenopathy. CHEST: No chest wall deformity. Symmetrical expansion. LUNGS: Equal air entry with no crackles, wheeze, rhonchi or dullness. CVS: Irregular rate and rhythm, normal S1 and S2, no gallops, no murmurs, no rubs ABDOMEN: Soft, nontender. No hepatosplenomegaly, normal bowel sounds, no guarding or rigidity. EXTREMITIES: No clubbing, 1+ lower extremity edema, no cyanosis, 2+ pulses and upper and lower extremities. MUSCULOSKELETAL: Muscle strength and tone normal. SPINE: No scoliosis or deformity SKIN: No rashes CENTRAL NERVOUS SYSTEM: Alert and oriented -3. No focal deficits, tone is normal in all 4 extremities. PSYCHIATRIC: Alert and oriented -3. Appropriate affect. Intact judgment and insight. - Labs CBC & Chem 7: 05/31/20 03:30 05/31/20 03:30 Labs: Abnormal Lab Results - Last 24 Hours (Table) 05/31/20 Range/Units 03:30 Sodium 134 L (137-145) mmol/L BUN 26 H (7-17) mg/dL Creatinine 1.71 H (0.52-1.04) mg/dL Microbiology - Last 24 Hours (Table) 05/25/20 14:25 Blood Culture - Preliminary Blood No Growth after 120 hours 05/25/20 14:25 Blood Culture - Preliminary Blood No Growth after 120 hours Assessment and Plan Plan: Assessment: 1 Acute hypoxic respiratory failure multifactorial, mostly secondary to CHF as the patient demonstrated a drop in her left ventricle ejection fraction which is down to 20-25% and a sense and the patient developed CHF, bilateral pleural effusion which is somewhat loculated on the left. There is also bilateral pulmonary infiltrates consistent with pneumonia. No indication for pulmonary embolism. Her asthma is currently inactive and stable. 2 New onset atrial fibrillation, patient was placed today on beta blockers and on Eliquis as per cardiology. The patient is receiving metoprolol dose of 50 mg by mouth 3 times a day for rate control in addition to that she is on Eliquis. 3 Left lower extremity DVT, possible pulmonary embolism, however the patient is not a candidate for CT angiogram of the chest because of her renal status. 4 Acute exacerbation of systolic congestive heart failure and the patient has a LVEF of 20-25% 5 Hypothyroidism. 6 Benign essential hypertension. 7 Morbid obesity. 8 History of chronic bronchial asthma, may be contributing a daily to her shortness of breath. But this is felt to be less likely. 9 Acute on chronic kidney injury, could be related to diuretics and some component of prerenal azotemia Plan: Continue antibiotics, diuretics, breathing treatments, Eliquis. Rate control medications per cardiology, increase activity as tolerated. Monitor electrolytes and renal profile. today's CXR shows stable findings of yasmany infiltrates and a left-sided pleural parenchymal opacity and effusion. Clinically stable, will continue to monitor the patient in the ICU. I performed a history & physical examination of the patient and discussed their management with my nurse practitioner, Brina Nick. I reviewed the nurse practitioner's note and agree with the documented findings and plan of care. Lung sounds are positive for diminished breath sounds. The findings and the impression was discussed with the patient. I attest to the documentation by the nurse practitioner. Time with Patient: Less than 30
[2020-05-31] MEDS: ALPRAZolam 0.25 MG TAB PO PRN (23:25)
--- NOTE | 2020-05-31 23:44 | P.PN ---
Subjective 70-year-old female patient with a known history of chronic bronchial asthma, obesity, hypertension, hypothyroidism; recently discharged to [facility] for subacute rehabilitation, presented to the emergency room yesterday with continued complaints of worsening shortness of breath, cough and congestion. Chest x-ray revealed some mild lower lobe infiltrates. White count 9.8. Hemoglobin 11.5. Sodium 132. Potassium 4.7. Creatinine 1.67. Coronavirus not detected. ProBNP 5270. TSH 6.17. Free T4 2 0.85. D-dimer 7.18. Venous Doppler reveals positive DVT in the left lower extremity. She was also found to be in atrial fibrillation with a rapid ventricular response. She is on a Cardizem drip at 10 mg per hour. Heparin drip. 05/29/2020 Patient is seen and evaluated at bedside in ICU; somewhat more alert this morning; denies any specific complaints but reports she feels about the same Vital signs are reviewed with temp of 97.7, pulse 88, respiration 20 and blood pressure 112/74; pulse ox 93% on 15 L and FiO2 of 50%; patient remains on IV antibiotics in form of Zosyn; remains on diuretics for congestive heart failure in form of Aldactone and Zaroxolyn; check 60 reveals improvement in right lower lobe infiltrate and left lower lobe consolidation remains unchanged; lab review shows an improved creatinine of 1.68 Etiology is following for atrial fibrillation which remains rate controlled on beta blockers; oral anticoagulation has been initiated 05/30/2020 Patient is seen and evaluated in ICU for follow-up; patient sitting up in bedside chair and denies any specific complaints Patient remains on high flow nasal cannula at 50 L with an FiO2 of 45%; critical care on board and planning to continue to wean oxygen as able Chest x-ray reveals bilateral pleural effusion and consolidations which is improved from last imaging; pro-calcitonin feels a white blood count of 8.4; creatinine stable at 1.75; blood cultures are negative so far Patient remains on IV Zosyn, being diuresed with Aldactone and Zaroxolyn with negative fluid balance of 3 L or past 24 hours Patient remains in atrial fibrillation and his rate controlled on metoprolol; She is also on long-term anticoagulation with Eliquis 05/31/2020 This is a pleasant 70 years old female presenting with respiratory difficulty and distress and found to have a combination of bilateral pulmonary infiltrate for pneumonia as well as acute congestive heart failure with low ejection fraction about 20-25%. Patient is ALLERGIC to Lasix and currently she is on metolazone 5 mg daily and Aldactone 25 mg daily. Also patient is on Eliquis and metoprolol 50 milligrams 3 times a day and Eliquis per mountain guide for her chronic A. fib with RVR. her left leg is positive for DVT however patient is already and Eliquis. Patient also on Zosyn for possible pneumonia Patient has stable respiratory situation, she still needs high-dose off oxygen about 11-13 L/m However because she is stable pulmonary/critical care team felt patient can be moved to the Review of systems CONSTITUTIONAL: No fever, no malaise, no fatigue. HEENT: No recent visual problems or hearing problems. Denied any sore throat. CARDIOVASCULAR: No orthopnea, PND, no palpitations, no syncope. PULMONARY: No chest wall tenderness, no hemoptysis. Active Medications Generic Name Dose Route Start Last Admin Trade Name Freq PRN Reason Stop Dose Admin Acetaminophen 650 mg 05/25/20 14:29 05/26/20 20:07 Acetaminophen Tab 325 Mg Tab PO 650 mg Q6HR PRN Administration Mild Pain or Fever > 100.5 Hydrocodone Bitart/Acetaminophen 1 each 05/25/20 16:53 Hydrocodone/Apap 5-325mg 1 Each Tab PO Q6HR PRN Pain Albuterol/Ipratropium 3 ml 05/25/20 23:22 Ipratropium-Albuterol 3 Ml Neb INHALATION RT-QID PRN Shortness Of Breath Or Wheezing Alprazolam 0.25 mg 05/25/20 16:53 05/31/20 23:25 Alprazolam 0.25 Mg Tab PO 0.25 mg TID PRN Administration Anxiety Apixaban 5 mg 05/29/20 09:00 05/31/20 21:06 Apixaban 5 Mg Tab PO 5 mg BID JORI Administration Hydralazine HCl 25 mg 05/31/20 09:00 05/31/20 21:06 Hydralazine Hcl 25 Mg Tab PO 25 mg BID JORI Administration Piperacillin Sod/Tazobactam 100 mls @ 25 mls/hr 05/26/20 10:15 05/31/20 17:46 Sod 3.375 gm/ Sodium Chloride IVPB 25 mls/hr Q8H JORI Administration Levothyroxine Sodium 200 mcg 05/26/20 06:30 05/31/20 07:03 Levothyroxine 100 Mcg Tab PO 200 mcg DAILY@0630 JORI Administration Metolazone 5 mg 05/26/20 09:00 05/31/20 09:09 Metolazone 5 Mg Tab PO 5 mg DAILY JORI Administration Metoprolol Tartrate 50 mg 05/29/20 09:00 05/31/20 21:06 Metoprolol Tartrate 50 Mg Tab PO 50 mg TID JORI Administration Naloxone HCl 0.2 mg 05/25/20 14:29 Naloxone 0.4 Mg/Ml 1 Ml Vial IV Q2M PRN Opioid Reversal Ondansetron HCl 4 mg 05/25/20 14:29 Ondansetron 4 Mg/2 Ml Vial IVP Q8H PRN Nausea And Vomiting Pantoprazole Sodium 40 mg 05/26/20 07:30 05/31/20 07:03 Pantoprazole 40 Mg Tablet PO 40 mg [id number] JORI Administration Spironolactone 25 mg 05/31/20 09:00 05/31/20 09:09 Spironolactone 25 Mg Tab PO 25 mg DAILY JORI Administration Objective - Vital Signs Vital signs: Vital Signs Temp 98.9 F 05/31/20 00:00 Pulse 112 H 05/31/20 07:00 Resp 36 H 05/31/20 07:00 BP 108/82 05/31/20 07:00 Pulse Ox 92 L 05/31/20 07:52 Intake & Output 05/30/20 05/31/20 05/31/20 18:59 06:59 18:59 Intake Total 820 610 480 Output Total 1920 2210 450 Balance -1100 -1600 30 Weight 95.2 kg Intake: IV 320 130 0.9 NS KVO 120 30 Piperacillin-Tazobactam 3 200 100 .375 gm In Sodium Chloride 0.9% 100 ml @ 25 mls/hr IVPB Q8H [facility] Rx#: [id number] Oral 500 480 480 Output: Urine 1920 2210 450 Other: Voiding Method Indwelling Catheter Indwelling Catheter Indwelling Catheter - Exam GENERAL: The patient is alert and oriented x3, not in any acute distress. Well developed, well nourished. HEENT: Pupils are round and equally reacting to light. EOMI. No scleral icterus. No conjunctival pallor. Normocephalic, atraumatic. No pharyngeal erythema. No thyromegaly. CARDIOVASCULAR: S1 and S2 present. No murmurs, rubs, or gallops. -PULMONARY: Chest is clear to auscultation, decreased air entry with scattered wheezing ABDOMEN: Soft, nontender, nondistended, normoactive bowel sounds. No palpable organomegaly. MUSCULOSKELETAL: No joint swelling or deformity. EXTREMITIES: No cyanosis, clubbing, or pedal edema. NEUROLOGICAL: Gross neurological examination did not reveal any focal deficits. SKIN: No rashes. no petechiae. - Labs CBC & Chem 7: 05/31/20 03:30 05/31/20 03:30 Labs: Abnormal Lab Results - Last 24 Hours (Table) 05/31/20 Range/Units 03:30 Sodium 134 L (137-145) mmol/L BUN 26 H (7-17) mg/dL Creatinine 1.71 H (0.52-1.04) mg/dL Microbiology - Last 24 Hours (Table) 05/25/20 14:25 Blood Culture - Preliminary Blood No Growth after 120 hours 05/25/20 14:25 Blood Culture - Preliminary Blood No Growth after 120 hours Assessment and Plan Assessment: 1. Acute hypoxic respiratory failure 2. Healthcare associated pneumonia; remains on IV antibiotics in form of Zosyn 3.375 g IV every 8 hours; follow-up on sputum culture and blood cultures 3. Acute systolic CHF Patient remains on diuretic therapy in form of metolazone and Aldactone; we will monitor daily weights and strict I&O's; low-salt and fluid restricted diet 4. DVT left lower extremity/possible PE; venous Doppler has been positive for left lower extremity DVT; patient is suspicious for PE is low as she is low probability perfusion scan. Patient is not a candidate for CT angiogram given acute renal injury 5. A. fib with RVR; patient remains on Eliquis and metoprolol; cardiology team on board 6. Chronic kidney disease 7. Hypothyroidism; levothyroxine 200 MCG daily 8. Essential hypertension; stable on IV Cardizem; metoprolol has been increased by cardiology; continue to monitor closely DVT prophylaxis; SCDs/Eliquis CODE STATUS; full code Prognosis is guarded
[2020-06-01] MEDS: PIPERACILLIN-TAZOBACTAM 3.375 GM in SODIUM CHLORIDE 0.9% 100 ML IVPB SCH ×2 (03:44→09:27)
[2020-06-01] MEDS: PANTOPRAZOLE 40 MG TABLET PO SCH (06:32)
[2020-06-01] MEDS: LEVOTHYROXINE 100 MCG TAB PO SCH (06:32)
[2020-06-01 08:36] LABS: Calcium 9.4 mg/dL (8.4-10.2); Potassium 4.6 mmol/L (3.5-5.1)
[2020-06-01] MEDS: hydrALAZINE HCL 25 MG TAB PO SCH ×2 (09:26→20:15)
[2020-06-01] MEDS: SPIRONOLACTONE 25 MG TAB PO SCH (09:26)
[2020-06-01] MEDS: APIXABAN 5 MG TAB PO SCH ×2 (09:26→20:15)
[2020-06-01] MEDS: METOPROLOL TARTRATE 50 MG TAB PO SCH ×3 (09:26→20:15)
[2020-06-01] MEDS: metOLazone 5 MG TAB PO SCH (09:27)
--- NOTE | 2020-06-01 09:30 | P.PN ---
Subjective 70-year-old female patient with a known history of chronic bronchial asthma, obesity, hypertension, hypothyroidism; recently discharged to [facility] for subacute rehabilitation, presented to the emergency room yesterday with continued complaints of worsening shortness of breath, cough and congestion. Chest x-ray revealed some mild lower lobe infiltrates. White count 9.8. Hemoglobin 11.5. Sodium 132. Potassium 4.7. Creatinine 1.67. Coronavirus not detected. ProBNP 5270. TSH 6.17. Free T4 2 0.85. D-dimer 7.18. Venous Doppler reveals positive DVT in the left lower extremity. She was also found to be in atrial fibrillation with a rapid ventricular response. She is on a Cardizem drip at 10 mg per hour. Heparin drip. 05/29/2020 Patient is seen and evaluated at bedside in ICU; somewhat more alert this morning; denies any specific complaints but reports she feels about the same Vital signs are reviewed with temp of 97.7, pulse 88, respiration 20 and blood pressure 112/74; pulse ox 93% on 15 L and FiO2 of 50%; patient remains on IV antibiotics in form of Zosyn; remains on diuretics for congestive heart failure in form of Aldactone and Zaroxolyn; check 60 reveals improvement in right lower lobe infiltrate and left lower lobe consolidation remains unchanged; lab review shows an improved creatinine of 1.68 Etiology is following for atrial fibrillation which remains rate controlled on beta blockers; oral anticoagulation has been initiated 05/30/2020 Patient is seen and evaluated in ICU for follow-up; patient sitting up in bedside chair and denies any specific complaints Patient remains on high flow nasal cannula at 50 L with an FiO2 of 45%; critical care on board and planning to continue to wean oxygen as able Chest x-ray reveals bilateral pleural effusion and consolidations which is improved from last imaging; pro-calcitonin feels a white blood count of 8.4; creatinine stable at 1.75; blood cultures are negative so far Patient remains on IV Zosyn, being diuresed with Aldactone and Zaroxolyn with negative fluid balance of 3 L or past 24 hours Patient remains in atrial fibrillation and his rate controlled on metoprolol; She is also on long-term anticoagulation with Eliquis 05/31/2020 This is a pleasant 70 years old female presenting with respiratory difficulty and distress and found to have a combination of bilateral pulmonary infiltrate for pneumonia as well as acute congestive heart failure with low ejection fraction about 20-25%. Patient is ALLERGIC to Lasix and currently she is on metolazone 5 mg daily and Aldactone 25 mg daily. Also patient is on Eliquis and metoprolol 50 milligrams 3 times a day and Eliquis per director of accreditation for her chronic A. fib with RVR. her left leg is positive for DVT however patient is already and Eliquis. Patient also on Zosyn for possible pneumonia Patient has stable respiratory situation, she still needs high-dose off oxygen about 11-13 L/m However because she is stable pulmonary/critical care team felt patient can be moved to the 06/01/2020 Patient is seen and selected unit today. She is lying in bed, breathing quietly. Her breathing rate is 18-20, she is slightly tachycardic 111. Her oxygen requirement down to 6 L/m via high flow nasal cannula. Patient is afebrile. BMP showing sodium 135 and creatinine slightly up at 1.9 She remains on metolazone 5 mg daily and Aldactone 25 mg daily. She is ALLERGIC to Lasix. We'll keep monitoring her creatinine. Remains on Zosyn for possible pneumonia. She is also on Eliquis. For her history of chronic A. fib and RVR also for her left leg DVT. She has ventilation/perfusion scan with low probability for PE. Also she has chronic kidney disease stage III. Review of systems CONSTITUTIONAL: No fever, no malaise, no fatigue. HEENT: No recent visual problems or hearing problems. Denied any sore throat. CARDIOVASCULAR: No orthopnea, PND, no palpitations, no syncope. PULMONARY: No chest wall tenderness, no hemoptysis. Active Medications Generic Name Dose Route Start Last Admin Trade Name Freq PRN Reason Stop Dose Admin Acetaminophen 650 mg 05/25/20 14:29 05/26/20 20:07 Acetaminophen Tab 325 Mg Tab PO 650 mg Q6HR PRN Administration Mild Pain or Fever > 100.5 Hydrocodone Bitart/Acetaminophen 1 each 05/25/20 16:53 Hydrocodone/Apap 5-325mg 1 Each Tab PO Q6HR PRN Pain Albuterol/Ipratropium 3 ml 05/25/20 23:22 Ipratropium-Albuterol 3 Ml Neb INHALATION RT-QID PRN Shortness Of Breath Or Wheezing Alprazolam 0.25 mg 05/25/20 16:53 05/31/20 23:25 Alprazolam 0.25 Mg Tab PO 0.25 mg TID PRN Administration Anxiety Apixaban 5 mg 05/29/20 09:00 05/31/20 21:06 Apixaban 5 Mg Tab PO 5 mg BID JORI Administration Hydralazine HCl 25 mg 05/31/20 09:00 05/31/20 21:06 Hydralazine Hcl 25 Mg Tab PO 25 mg BID JORI Administration Piperacillin Sod/Tazobactam 100 mls @ 25 mls/hr 05/26/20 10:15 06/01/20 03:44 Sod 3.375 gm/ Sodium Chloride IVPB 25 mls/hr Q8H JROI Administration Levothyroxine Sodium 200 mcg 05/26/20 06:30 06/01/20 06:32 Levothyroxine 100 Mcg Tab PO 200 mcg DAILY@0630 JORI Administration Metolazone 5 mg 05/26/20 09:00 05/31/20 09:09 Metolazone 5 Mg Tab PO 5 mg DAILY JORI Administration Metoprolol Tartrate 50 mg 05/29/20 09:00 05/31/20 21:06 Metoprolol Tartrate 50 Mg Tab PO 50 mg TID JORI Administration Naloxone HCl 0.2 mg 05/25/20 14:29 Naloxone 0.4 Mg/Ml 1 Ml Vial IV Q2M PRN Opioid Reversal Ondansetron HCl 4 mg 05/25/20 14:29 Ondansetron 4 Mg/2 Ml Vial IVP Q8H PRN Nausea And Vomiting Pantoprazole Sodium 40 mg 05/26/20 07:30 06/01/20 06:32 Pantoprazole 40 Mg Tablet PO 40 mg [id number] JORI Administration Spironolactone 25 mg 05/31/20 09:00 05/31/20 09:09 Spironolactone 25 Mg Tab PO 25 mg DAILY JORI Administration Objective - Vital Signs Vital signs: Vital Signs Temp 98.2 F 06/01/20 04:00 Pulse 111 H 06/01/20 04:00 Resp 20 06/01/20 04:00 BP 121/95 06/01/20 04:00 Pulse Ox 98 06/01/20 08:04 Intake & Output 0206/01/20 06/01/20 18:59 06:59 18:59 Intake Total 580 Output Total 1200 350 Balance -620 -350 Weight 92.9 kg Intake: IV 100 Piperacillin-Tazobactam 3 100 .375 gm In Sodium Chloride 0.9% 100 ml @ 25 mls/hr IVPB Q8H [facility] Rx#: [id number] Oral 480 Output: Urine 1200 350 Other: Voiding Method Indwelling Catheter Bedside Commode # Bowel Movements 1 - Exam GENERAL: The patient is alert and oriented x3, not in any acute distress. Well developed, well nourished. HEENT: Pupils are round and equally reacting to light. EOMI. No scleral icterus. No conjunctival pallor. Normocephalic, atraumatic. No pharyngeal erythema. No thyromegaly. CARDIOVASCULAR: S1 and S2 present. No murmurs, rubs, or gallops. -PULMONARY: Chest is clear to auscultation, decreased air entry with scattered wheezing ABDOMEN: Soft, nontender, nondistended, normoactive bowel sounds. No palpable organomegaly. MUSCULOSKELETAL: No joint swelling or deformity. EXTREMITIES: No cyanosis, clubbing, or pedal edema. NEUROLOGICAL: Gross neurological examination did not reveal any focal deficits. SKIN: No rashes. no petechiae. - Labs CBC & Chem 7: 05/31/20 03:30 06/01/20 06:51 Labs: Abnormal Lab Results - Last 24 Hours (Table) 06/01/20 Range/Units 06:51 Sodium 135 L (137-145) mmol/L Chloride 97 L (98-107) mmol/L BUN 31 H (7-17) mg/dL Creatinine 1.90 H (0.52-1.04) mg/dL Microbiology - Last 24 Hours (Table) 05/25/20 14:25 Blood Culture - Final Blood No Growth after 144 hours 05/25/20 14:25 Blood Culture - Final Blood No Growth after 144 hours Assessment and Plan Assessment: 1. Acute hypoxic respiratory failure 2. Healthcare associated pneumonia; remains on IV antibiotics in form of Zosyn 3.375 g IV every 8 hours; follow-up on sputum culture and blood cultures 3. Acute systolic CHF Patient remains on diuretic therapy in form of metolazone and Aldactone; we will monitor daily weights and strict I&O's; low-salt and fluid restricted diet 4. DVT left lower extremity/possible PE; venous Doppler has been positive for left lower extremity DVT; patient is suspicious for PE is low as she is low probability perfusion scan. Patient is not a candidate for CT angiogram given acute renal injury 5. A. fib with RVR; patient remains on Eliquis and metoprolol; cardiology team on board 6. Chronic kidney disease 7. Hypothyroidism; levothyroxine 200 MCG daily 8. Essential hypertension; stable on IV Cardizem; metoprolol has been increased by cardiology; continue to monitor closely DVT prophylaxis; SCDs/Eliquis CODE STATUS; full code Prognosis is guarded
--- NOTE | 2020-06-01 13:29 | P.PN ---
Subjective This is a pleasant 70-year-old female with symptoms of progressive dyspnea with pneumonia and congestive heart failure. She is seen and examined sitting up in bed in no acute distress. She is quite tearful and concerned about palpitations. She states earlier this morning she felt multiple episodes of rapid heartbeat. Telemetry tracings indicate she is in atrial fibrillation with variable ventricular rates. She denies symptoms of chest pain or shortness of breath. Blood pressure 112/80 heart rate 75 afebrile maintaining oxygen saturation on high flow nasal cannula. Laboratory data reviewed, sodium 135, potassium 4.6, creatinine 1.9. Currently maintained on Zaroxolyn 5 mg daily, Aldactone 25 mg daily, metoprolol 50 mg 3 times a day, hydralazine 25 mg twice a day and Eliquis 5 mg twice a day. GENERAL: Well-appearing, well-nourished and in no acute distress. NECK: Supple without JVD or thyromegaly. LUNGS: Bibasilar crackles, faint. Respiration equal and unlabored. No wheezes or rhonchi. HEART: Irregular rate and rhythm with systolic ejection murmur at the base, no rubs or gallops. S1 and S2 heard. EXTREMITIES: Normal range of motion, no edema. No clubbing or cyanosis. Peripheral pulses intact. ASSESSMENT Respiratory failure with combination of pneumonia and cardiomyopathy Chronic persistent atrial fibrillation Chronic kidney disease Cardiomyopathy Possible pulmonary embolism with left DVT PLAN Continue current medical regimen. Add imdur to for preload reduction. Continue beta blockers for rate control, may increase as blood pressure will tolerate. Nurse Practitioner note has been reviewed, I agree with a documented findings and plan of care. Patient was seen and examined. Objective - Vital Signs Vital signs: Vital Signs Temp 97.2 F L 06/01/20 08:01 Pulse 75 06/01/20 08:01 Resp 20 06/01/20 04:00 BP 122/80 06/01/20 08:01 Pulse Ox 98 06/01/20 08:04 Intake & Output 05/31/20 06/01/20 06/01/20 18:59 06:59 18:59 Intake Total 580 115 Output Total 1200 350 Balance -620 -350 115 Weight 92.9 kg Intake: IV 100 Piperacillin-Tazobactam 3 100 .375 gm In Sodium Chloride 0.9% 100 ml @ 25 mls/hr IVPB Q8H [facility] Rx#: [id number] Oral 480 115 Output: Urine 1200 350 Other: Voiding Method Indwelling Catheter Bedside Commode # Bowel Movements 1 - Labs CBC & Chem 7: 05/31/20 03:30 06/01/20 06:51 Labs: Abnormal Lab Results - Last 24 Hours (Table) 06/01/20 Range/Units 06:51 Sodium 135 L (137-145) mmol/L Chloride 97 L (98-107) mmol/L BUN 31 H (7-17) mg/dL Creatinine 1.90 H (0.52-1.04) mg/dL Microbiology - Last 24 Hours (Table) 05/25/20 14:25 Blood Culture - Final Blood No Growth after 144 hours 05/25/20 14:25 Blood Culture - Final Blood No Growth after 144 hours
--- NOTE | 2020-06-01 14:15 | P.PN ---
Subjective Progress Note Date: 06/01/20 Principal diagnosis: Acute hypoxic respiratory failure significant pneumonia, acute diastolic CHF, pulmonary embolism and acute exacerbation of asthma This is a 70-year-old female patient with a known history of chronic bronchial asthma, obesity, hypertension, hypothyroidism. She had recently been admitted here for an acute hypoxic respiratory failure secondary to underlying pneumonia, asthma exacerbation and diastolic congestive heart failure. Ejection fraction 55-60%. She was discharged on 2020 4-year-old medical [place] for subacute rehabilitation. She will be presented here to the emergency room yesterday with continued complaints of worsening shortness of breath, cough and congestion. Chest x-ray revealed some mild lower lobe infiltrates. White count 9.8. Hemoglobin 11.5. Sodium 132. Potassium 4.7. Creatinine 1.67. Coronavirus not detected. ProBNP 5270. TSH 6.17. Free T4 2 0.85. D-dimer 7.18. Venous Doppler reveals positive DVT in the left lower extremity. She was also found to be in atrial fibrillation with a rapid ventricular response. She is on a Cardizem drip at 10 mg per hour. Heparin drip. She is seen today in consultation on the selective care unit. She is currently sitting up in bed. Awake and alert in no acute distress. She is maintaining O2 saturations in the 90s on 10 L high flow nasal cannula. She's afebrile. She's been initiated on DuoNeb inhalations. Antibiotics in the form of ceftriaxone and azithromycin. The patient is seen today May 27 2020 in follow-up on the selective care unit. She is currently resting in bed. She is quite dyspneic with minimal exertion. She is requiring AirVo high flow oxygen at 45 L 60% FiO2 with O2 saturation 68%. Chest x-ray continues show increasing right lower lobe infiltrate with congestive heart failure and bilateral effusions. She is currently on a Cardizem drip at 7.5 mg per hour. Heparin drip per weight dose protocol. She is on Zaroxolyn and Aldactone. Remains in atrial fibrillation. Blood culture reveals no growth to date. White count 8.5. Hemoglobin 11.2. Sodium 132. Potassium 4.1. Creatinine 1.6. Glucose 173. Calcitonin 0.28. She was initiated on Zosyn. Remains on bronchodilators. Patient was reevaluated today on 05/28/2020, patient remains in the ICU, remains on high flow oxygen utilizing airvo, FiO2 is at 70%, and I cut it down to 60%, she is on 50 L high flow. O2 saturation is in the high 90s. Patient remains on Cardizem at 5 mg per hour for her atrial fibrillation. Remains on Zosyn for her pneumonia remains on bronchodilators for her asthma remains on diuretics including Zaroxolyn and Aldactone for diastolic congestive heart failure. Patient remains on heparin for her DVT and possible pulmonary embolism Patient is about the same, noticed a slight rise in his creatinine up to 1.82. Chest x- ray is showing slight improvement compared to her chest x-ray a few days ago. However considering the patient is still requiring significant amount of FiO2, I plan to keep her in the ICU. Reevaluated today on 05/29/23, patient remains in the ICU, remains on high flow oxygen/ airvo with FiO2 of 65% and flow of 50 L. I titrated that down to 55% and 50 L. Patient is feeling a bit better, continues to have shortness of breath with any activity. Remains on anticoagulation therapy in the form of adequate. Remains on antibiotics in the form of Zosyn and she remains on diuretics. Chest x-ray is showing definite improvement in the right lower lobe, continues to have some consolidation and left lower lobe and some atelectasis. CBC today is relatively normal basic metabolic profile is normal BUN is 25 creatinine is improving down to 1.68 in spite of diuretics. Liver profile is normal. 05/30/2020 and seeing this patient in follow-up. The patient is an acute hypoxic respiratory failure due to combination of pneumonia, CHF, loculated left-sided pleural effusion and she is also morbidly obese with history of bronchial asthma. She came in with worsening shortness of breath and she was also found to be in atrial fibrillation with rapid ventricular response. This morning, she is on high flow oxygen at 50 L with an FiO2 of 45%. Her chest x- ray still showing bilateral lower lobe effusions and consolidations. Nevertheless, there is improvement in comparison with the chest x-ray that was done a few days back. The patient is on IV Zosyn. The pro-calcitonin was 0.28. Her white cell count currently is at 8.4 and the patient is afebrile. She is also being diuresis with Aldactone 25 mg by mouth twice a day and Zaroxolyn 5 mg by mouth daily. Urine output is in order of 200 mL an hour and the net fluid balance is negative more than 3 L over the past 24 hours. Her atrial fibrillation is under suboptimal control. This morning her heart is around 120- 140 irregular and she is on metoprolol. She is also on long-term anticoagulation with Eliquis. Her blood work shows a creatinine of 1.75. Blood culture has been negative for now. On 05/31/2020 patient seen in follow-up in intensive care unit, she is awake and alert, oriented 3, appears to be no acute distress, breathing much easier comp ared to a few days ago. No altered mentation, no fever or chills. Remains in A. fib with RVR, with a rate of 126. Remains on Airvo at 50 L and FiO2 of 37% pulse ox is around 92-96%, not on any vasopressors, no maintenance IV fluids, IV fluids have been hep-locked. Breathing comfortably, lung sounds reveal diminished breath sounds at the bases, no rhonchi or wheezing, patient does complain of some chest discomfort in the anterior chest with coughing or deep breathing, her incentive spirometer effort is suboptimal, only 500-750 ML on the today. Yesterday's chest x-ray showed basilar infiltrates in the left-sided pleural parenchymal opacity and effusion without significant change. Clinically stable, today's labs have been reviewed, no leukocytosis, white blood cell count is 8.7, hemoglobin is 13, sodium is 134, the rest of electrolytes are within normal limits, renal profile were relatively stable with when necessary of 26 creatinine is 1.7. Patient remains on antibiotics in the form of Zosyn, blood cultures have been negative. Her cough is nonproductive, has not been able to produce a sputum specimen, denies any hemoptysis. On 06/01/2020 patient seen in follow-up. Doing much better today, her FiO2 requirement has significantly improved in the last 24 hours and she is currently down to 3 L of oxygen her pulse ox is 99%, she is breathing much easier, she has been diuresed, she continues to be in negative fluid balance, -970 over the last 24 hours, upper and lower extremity edema has significantly improved. She is on oral Eliquis for anticoagulation for history of A. fib, heart rate is controlled, no cognitive chest pain, no cough, no phlegm production, BUN is 31, creatinine is 1.9. Patient is on Zosyn for empiric antibiotic coverage. She hasn't had a new chest x-ray in the last couple days. Her last one was on 05/30/2020 going basilar infiltrates and left-sided opacity and pleural effusion. Patient is participating with physical therapy. Her diuretics have been adjusted, patient does remains on Aldactone 25 mg daily, Zaroxolyn has been discontinued. Objective - Vital Signs Vital signs: Vital Signs Temp 97.2 F L 06/01/20 08:01 Pulse 131 H 06/01/20 12:00 Resp 20 06/01/20 04:00 BP 122/80 06/01/20 08:01 Pulse Ox 95 06/01/20 12:00 Intake & Output 05/31/20 06/01/20 06/01/20 18:59 06:59 18:59 Intake Total 580 115 Output Total 1200 350 250 Balance -620 -350 -135 Weight 92.9 kg Intake: IV 100 Piperacillin-Tazobactam 3 100 .375 gm In Sodium Chloride 0.9% 100 ml @ 25 mls/hr IVPB Q8H [facility] Rx#: [id number] Oral 480 115 Output: Urine 1200 350 250 Other: Voiding Method Indwelling Catheter Bedside Commode # Bowel Movements 1 - Exam GENERAL EXAM: Alert, very pleasant, 70-year-old white female, 3 L of oxygen the pulse ox of 99%, comfortable in no apparent distress. HEAD: Normocephalic/atraumatic. EYES: Normal reaction of pupils, equal size. Conjunctiva pink, sclera white. NOSE: Clear with pink turbinates. THROAT: No erythema or exudates. NECK: No masses, no JVD, no thyroid enlargement, no adenopathy. CHEST: No chest wall deformity. Symmetrical expansion. LUNGS: Equal air entry with no crackles, wheeze, rhonchi or dullness. CVS: Irregular rate and rhythm, normal S1 and S2, no gallops, no murmurs, no rubs ABDOMEN: Soft, nontender. No hepatosplenomegaly, normal bowel sounds, no guarding or rigidity. EXTREMITIES: No clubbing, trace edema in lower extremities, no cyanosis, 2+ pulses and upper and lower extremities. MUSCULOSKELETAL: Muscle strength and tone normal. SPINE: No scoliosis or deformity SKIN: No rashes CENTRAL NERVOUS SYSTEM: Alert and oriented -3. No focal deficits, tone is normal in all 4 extremities. PSYCHIATRIC: Alert and oriented -3. Appropriate affect. Intact judgment and insight. - Labs CBC & Chem 7: 05/31/20 03:30 06/01/20 06:51 Labs: Abnormal Lab Results - Last 24 Hours (Table) 06/01/20 Range/Units 06:51 Sodium 135 L (137-145) mmol/L Chloride 97 L (98-107) mmol/L BUN 31 H (7-17) mg/dL Creatinine 1.90 H (0.52-1.04) mg/dL Microbiology - Last 24 Hours (Table) 05/25/20 14:25 Blood Culture - Final Blood No Growth after 144 hours 05/25/20 14:25 Blood Culture - Final Blood No Growth after 144 hours Assessment and Plan Plan: Assessment: 1 Acute hypoxic respiratory failure multifactorial, mostly secondary to CHF as the patient demonstrated a drop in her left ventricle ejection fraction which is down to 20-25% and a sense and the patient developed CHF, bilateral pleural effusion which is somewhat loculated on the left. There is also bilateral pulmonary infiltrates consistent with pneumonia. No indication for pulmonary embolism. Her asthma is currently inactive and stable. 2 New onset atrial fibrillation, patient was placed today on beta blockers and on Eliquis as per cardiology. The patient is receiving metoprolol dose of 50 mg by mouth 3 times a day for rate control in addition to that she is on Eliquis. 3 Left lower extremity DVT, possible pulmonary embolism, however the patient is not a candidate for CT angiogram of the chest because of her renal status. 4 Acute exacerbation of systolic congestive heart failure and the patient has a LVEF of 20-25% 5 Hypothyroidism. 6 Benign essential hypertension. 7 Morbid obesity. 8 History of chronic bronchial asthma, may be contributing a daily to her shortness of breath. But this is felt to be less likely. 9 Acute on chronic kidney injury, could be related to diuretics and some component of prerenal azotemia Plan: We'll obtain follow-up chest x-ray, wean FiO2, patient has made significant improvement in her FiO2 requirement, currently on room air, signs are stable, we'll switch IV antibiotics to oral Augmentin, diuretics have been discontinued with the exception of Aldactone, increase activity as tolerated, she is working with physical therapy. She is doing much better, breathing much easier. Cultures have been negative. Possible discharge home next 24 hours I performed a history & physical examination of the patient and discussed their management with my nurse practitioner, Brina Nick. I reviewed the nurse practitioner's note and agree with the documented findings and plan of care. Lung sounds are positive for diminished breath sounds. The findings and the impression was discussed with the patient. I attest to the documentation by the nurse practitioner. Time with Patient: Less than 30
--- NOTE | 2020-06-01 14:55 | XR ---
EXAMINATION TYPE: XR chest 1V portable DATE OF EXAM: 06/01/2020 CLINICAL HISTORY: Difficulty breathing progress study. TECHNIQUE: Single AP portable upright view of the chest is obtained. COMPARISON: Chest x-ray from 2 days earlier and older studies. FINDINGS: Persistent cardiomegaly. Improved interstitial edema and left greater than right pleural e ffusions. Osseous structures remain intact. IMPRESSION: Improved interstitial edema and left greater than right pleural effusions along with biba silar opacities. Tiny residual left pleural effusion and left basilar acute atelectasis and/or infilt rate remain present.
[2020-06-01] MEDS: ISOSORBIDE MONONITRATE ER 30 MG TAB.ER.24H PO SCH (16:00)
[2020-06-01] MEDS: AMOXIC-POT CLAV 875-125MG 1 EACH TAB PO SCH (20:15)
[2020-06-02] MEDS: ALPRAZolam 0.25 MG TAB PO PRN ×2 (05:01→21:07)
[2020-06-02] MEDS: LEVOTHYROXINE 100 MCG TAB PO SCH (05:01)
[2020-06-02] MEDS: PANTOPRAZOLE 40 MG TABLET PO SCH (05:01)
[2020-06-02 08:47] LABS: Calcium 9.3 mg/dL (8.4-10.2); Potassium 4.3 mmol/L (3.5-5.1)
[2020-06-02] MEDS: SPIRONOLACTONE 25 MG TAB PO SCH (09:26)
[2020-06-02] MEDS: AMOXIC-POT CLAV 875-125MG 1 EACH TAB PO SCH ×2 (09:26→21:07)
[2020-06-02] MEDS: hydrALAZINE HCL 25 MG TAB PO SCH ×2 (09:26→21:07)
[2020-06-02] MEDS: METOPROLOL TARTRATE 50 MG TAB PO SCH ×2 (09:26→21:07)
[2020-06-02] MEDS: APIXABAN 5 MG TAB PO SCH ×2 (09:26→21:07)
[2020-06-02] MEDS: ISOSORBIDE MONONITRATE ER 30 MG TAB.ER.24H PO SCH (09:26)
[2020-06-02] MEDS ORDERED: METOPROLOL TARTRATE 50 MG TAB PO STA (10:44)
--- NOTE | 2020-06-02 10:46 | P.PN ---
Subjective This is a pleasant 70-year-old female with symptoms of progressive dyspnea with pneumonia and congestive heart failure. She is seen and examined sitting up on the edge of the bed. She is again very tearful today and concern about her health when she goes home. She has no specific complaints of chest pain or shortness of breath however she continues to feel frequent palpitations. Her plan at going home is to go to a friend's in home rehab AF home. She is concerned how she is going to get in her 's car upon discharge. Blood pressure 107/62 heart rate this morning is 76 at rest and goes up to 135 with activity. According to the nursing staff she has a 2-3 person assist. Laboratory data reviewed, sodium 133, potassium 4.3, creatinine 2.08. Currently maintained on Aldactone 25 mg daily, Lopressor 50 mg 3 times a day, Imdur 30 mg daily, hydralazine 25 mg twice a day and Eliquis 5 mg twice a day. GENERAL: Well-appearing, well-nourished and in no acute distress. NECK: Supple without JVD or thyromegaly. LUNGS: Bibasilar crackles, faint. Respiration equal and unlabored. No wheezes or rhonchi. HEART: Irregular rate and rhythm with systolic ejection murmur at the base, no rubs or gallops. S1 and S2 heard. EXTREMITIES: Normal range of motion, no edema. No clubbing or cyanosis. Peripheral pulses intact. ASSESSMENT Respiratory failure with combination of pneumonia and cardiomyopathy Chronic persistent atrial fibrillation Chronic kidney disease Cardiomyopathy Possible pulmonary embolism with left DVT PLAN Increase lopressor to 100 mg BID, give an additional dose of 50 mg now. Ongoing telemetry monitoring. Nurse Practitioner note has been reviewed, I agree with a documented findings and plan of care. Patient was seen and examined. Objective - Vital Signs Vital signs: Vital Signs Temp 97 F L 06/02/20 08:00 Pulse 76 06/02/20 08:00 Resp 18 06/02/20 08:00 BP 107/62 06/02/20 08:00 Pulse Ox 97 06/02/20 08:00 Intake & Output 06/01/20 06/02/20 06/02/20 18:59 06:59 18:59 Intake Total 315 Output Total 250 Balance 65 Weight 92.9 kg 91.2 kg Intake: Oral 315 Output: Urine 250 Other: Voiding Method Bedside Commode Bedside Commode # Voids 1 1 # Bowel Movements 1 - Labs CBC & Chem 7: 05/31/20 03:30 06/02/20 07:18 Labs: Abnormal Lab Results - Last 24 Hours (Table) 06/02/20 Range/Units 07:18 Sodium 133 L (137-145) mmol/L Chloride 96 L (98-107) mmol/L BUN 35 H (7-17) mg/dL Creatinine 2.08 H (0.52-1.04) mg/dL Glucose 102 H (74-99) mg/dL
--- NOTE | 2020-06-02 11:25 | P.PN ---
Subjective Progress Note Date: 06/02/20 Principal diagnosis: Acute hypoxic respiratory failure significant pneumonia, acute diastolic CHF, pulmonary embolism and acute exacerbation of asthma This is a 70-year-old female patient with a known history of chronic bronchial asthma, obesity, hypertension, hypothyroidism. She had recently been admitted here for an acute hypoxic respiratory failure secondary to underlying pneumonia, asthma exacerbation and diastolic congestive heart failure. Ejection fraction 55-60%. She was discharged on 2020 4-year-old medical [facility] for subacute rehabilitation. She will be presented here to the emergency room yesterday with continued complaints of worsening shortness of breath, cough and congestion. Chest x-ray revealed some mild lower lobe infiltrates. White count 9.8. Hemoglobin 11.5. Sodium 132. Potassium 4.7. Creatinine 1.67. Coronavirus not detected. ProBNP 5270. TSH 6.17. Free T4 2 0.85. D-dimer 7.18. Venous Doppler reveals positive DVT in the left lower extremity. She was also found to be in atrial fibrillation with a rapid ventricular response. She is on a Cardizem drip at 10 mg per hour. Heparin drip. She is seen today in consultation on the selective care unit. She is currently sitting up in bed. Awake and alert in no acute distress. She is maintaining O2 saturations in the 90s on 10 L high flow nasal cannula. She's afebrile. She's been initiated on DuoNeb inhalations. Antibiotics in the form of ceftriaxone and azithromycin. The patient is seen today May 27 2020 in follow-up on the selective care unit. She is currently resting in bed. She is quite dyspneic with minimal exertion. She is requiring AirVo high flow oxygen at 45 L 60% FiO2 with O2 saturation 68%. Chest x-ray continues show increasing right lower lobe infiltrate with congestive heart failure and bilateral effusions. She is currently on a Cardizem drip at 7.5 mg per hour. Heparin drip per weight dose protocol. She is on Zaroxolyn and Aldactone. Remains in atrial fibrillation. Blood culture reveals no growth to date. White count 8.5. Hemoglobin 11.2. Sodium 132. Potassium 4.1. Creatinine 1.6. Glucose 173. Calcitonin 0.28. She was initiated on Zosyn. Remains on bronchodilators. Patient was reevaluated today on 05/28/2020, patient remains in the ICU, remains on high flow oxygen utilizing airvo, FiO2 is at 70%, and I cut it down to 60%, she is on 50 L high flow. O2 saturation is in the high 90s. Patient remains on Cardizem at 5 mg per hour for her atrial fibrillation. Remains on Zosyn for her pneumonia remains on bronchodilators for her asthma remains on diuretics including Zaroxolyn and Aldactone for diastolic congestive heart failure. Patient remains on heparin for her DVT and possible pulmonary embolism Patient is about the same, noticed a slight rise in his creatinine up to 1.82. Chest x- ray is showing slight improvement compared to her chest x-ray a few days ago. However considering the patient is still requiring significant amount of FiO2, I plan to keep her in the ICU. Reevaluated today on 05/29/23, patient remains in the ICU, remains on high flow oxygen/ airvo with FiO2 of 65% and flow of 50 L. I titrated that down to 55% and 50 L. Patient is feeling a bit better, continues to have shortness of breath with any activity. Remains on anticoagulation therapy in the form of adequate. Remains on antibiotics in the form of Zosyn and she remains on diuretics. Chest x-ray is showing definite improvement in the right lower lobe, continues to have some consolidation and left lower lobe and some atelectasis. CBC today is relatively normal basic metabolic profile is normal BUN is 25 creatinine is improving down to 1.68 in spite of diuretics. Liver profile is normal. 05/30/2020 and seeing this patient in follow-up. The patient is an acute hypoxic respiratory failure due to combination of pneumonia, CHF, loculated left-sided pleural effusion and she is also morbidly obese with history of bronchial asthma. She came in with worsening shortness of breath and she was also found to be in atrial fibrillation with rapid ventricular response. This morning, she is on high flow oxygen at 50 L with an FiO2 of 45%. Her chest x- ray still showing bilateral lower lobe effusions and consolidations. Nevertheless, there is improvement in comparison with the chest x-ray that was done a few days back. The patient is on IV Zosyn. The pro-calcitonin was 0.28. Her white cell count currently is at 8.4 and the patient is afebrile. She is also being diuresis with Aldactone 25 mg by mouth twice a day and Zaroxolyn 5 mg by mouth daily. Urine output is in order of 200 mL an hour and the net fluid balance is negative more than 3 L over the past 24 hours. Her atrial fibrillation is under suboptimal control. This morning her heart is around 120- 140 irregular and she is on metoprolol. She is also on long-term anticoagulation with Eliquis. Her blood work shows a creatinine of 1.75. Blood culture has been negative for now. On 05/31/2020 patient seen in follow-up in intensive care unit, she is awake and alert, oriented 3, appears to be no acute distress, breathing much easier comp ared to a few days ago. No altered mentation, no fever or chills. Remains in A. fib with RVR, with a rate of 126. Remains on Airvo at 50 L and FiO2 of 37% pulse ox is around 92-96%, not on any vasopressors, no maintenance IV fluids, IV fluids have been hep-locked. Breathing comfortably, lung sounds reveal diminished breath sounds at the bases, no rhonchi or wheezing, patient does complain of some chest discomfort in the anterior chest with coughing or deep breathing, her incentive spirometer effort is suboptimal, only 500-750 ML on the today. Yesterday's chest x-ray showed basilar infiltrates in the left-sided pleural parenchymal opacity and effusion without significant change. Clinically stable, today's labs have been reviewed, no leukocytosis, white blood cell count is 8.7, hemoglobin is 13, sodium is 134, the rest of electrolytes are within normal limits, renal profile were relatively stable with when necessary of 26 creatinine is 1.7. Patient remains on antibiotics in the form of Zosyn, blood cultures have been negative. Her cough is nonproductive, has not been able to produce a sputum specimen, denies any hemoptysis. On 06/01/2020 patient seen in follow-up. Doing much better today, her FiO2 requirement has significantly improved in the last 24 hours and she is currently down to 3 L of oxygen her pulse ox is 99%, she is breathing much easier, she has been diuresed, she continues to be in negative fluid balance, -970 over the last 24 hours, upper and lower extremity edema has significantly improved. She is on oral Eliquis for anticoagulation for history of A. fib, heart rate is controlled, no cognitive chest pain, no cough, no phlegm production, BUN is 31, creatinine is 1.9. Patient is on Zosyn for empiric antibiotic coverage. She hasn't had a new chest x-ray in the last couple days. Her last one was on 05/30/2020 going basilar infiltrates and left-sided opacity and pleural effusion. Patient is participating with physical therapy. Her diuretics have been adjusted, patient does remains on Aldactone 25 mg daily, Zaroxolyn has been discontinued. On 06/02/2020 patient seen in follow-up on selective care unit, she is on room air, her pulse ox is 97%, breathing much improved, the patient is afebrile. She has been diuresed, no edema in the lower extremities, patient is in negative fluid balance. She is working with physical therapy, she is weak, she is requiring extensive assistance with transfers from chair to bed, and walking with walker. Remains in A. fib, rate is controlled, vital signs have been stable, no fever or chills, today's chest x-ray showed improved interstitial edema and bilateral pleural effusions. Blood cultures have shown no growth, patient has been transitioned to oral antibiotics, she is on anticoagulation in the form of Eliquis for history of A. fib and left lower extremity DVT. Objective - Vital Signs Vital signs: Vital Signs Temp 97 F L 06/02/20 08:00 Pulse 76 06/02/20 08:00 Resp 18 06/02/20 08:00 BP 107/62 06/02/20 08:00 Pulse Ox 97 06/02/20 08:00 Intake & Output 06/01/20 06/02/20 06/02/20 18:59 06:59 18:59 Intake Total 315 Output Total 250 Balance 65 Weight 92.9 kg 91.2 kg Intake: Oral 315 Output: Urine 250 Other: Voiding Method Bedside Commode Bedside Commode # Voids 1 1 # Bowel Movements 1 - Exam GENERAL EXAM: Alert, very pleasant, 70-year-old white female, on room air, with a pulse ox of 97%, comfortable in no apparent distress. HEAD: Normocephalic/atraumatic. EYES: Normal reaction of pupils, equal size. Conjunctiva pink, sclera white. NOSE: Clear with pink turbinates. THROAT: No erythema or exudates. NECK: No masses, no JVD, no thyroid enlargement, no adenopathy. CHEST: No chest wall deformity. Symmetrical expansion. LUNGS: Equal air entry with no crackles, wheeze, rhonchi or dullness. CVS: Irregular rate and rhythm, normal S1 and S2, no gallops, no murmurs, no rubs ABDOMEN: Soft, nontender. No hepatosplenomegaly, normal bowel sounds, no guarding or rigidity. EXTREMITIES: No clubbing, trace edema in lower extremities, no cyanosis, 2+ pulses and upper and lower extremities. MUSCULOSKELETAL: Muscle strength and tone normal. SPINE: No scoliosis or deformity SKIN: No rashes CENTRAL NERVOUS SYSTEM: Alert and oriented -3. No focal deficits, tone is normal in all 4 extremities. PSYCHIATRIC: Alert and oriented -3. Appropriate affect. Intact judgment and insight. - Labs CBC & Chem 7: 05/31/20 03:30 06/02/20 07:18 Labs: Abnormal Lab Results - Last 24 Hours (Table) 06/02/20 Range/Units 07:18 Sodium 133 L (137-145) mmol/L Chloride 96 L (98-107) mmol/L BUN 35 H (7-17) mg/dL Creatinine 2.08 H (0.52-1.04) mg/dL Glucose 102 H (74-99) mg/dL Assessment and Plan Plan: Assessment: 1 Acute hypoxic respiratory failure multifactorial, mostly secondary to CHF as the patient demonstrated a drop in her left ventricle ejection fraction which is down to 20-25% and a sense and the patient developed CHF, bilateral pleural effusion which is somewhat loculated on the left. There is also bilateral pulmonary infiltrates consistent with pneumonia. No indication for pulmonary embolism. Her asthma is currently inactive and stable. 2 New onset atrial fibrillation, patient was placed today on beta blockers and on Eliquis as per cardiology. The patient is receiving metoprolol dose of 50 mg by mouth 3 times a day for rate control in addition to that she is on Eliquis. 3 Left lower extremity DVT, possible pulmonary embolism, however the patient is not a candidate for CT angiogram of the chest because of her renal status. 4 Acute exacerbation of systolic congestive heart failure and the patient has a LVEF of 20-25% 5 Hypothyroidism. 6 Benign essential hypertension. 7 Morbid obesity. 8 History of chronic bronchial asthma, may be contributing a daily to her shortness of breath. But this is felt to be less likely. 9 Acute on chronic kidney injury, could be related to diuretics and some component of prerenal azotemia Plan: Patient is on room air today, vital signs have been stable, no fever or chills, she has been transitioned to oral antibiotics, today's chest x-ray shows improvement in the appearance of interstitial edema, with persistent small bilateral pleural effusions, patient remains on Aldactone, she has been sufficiently diuresed. She's had no acute events overnight, she generally weak, requiring extensive assistance with mobility. She is reluctant to go back to ECF or rehabilitation and she is planning on going to her friend's house for rehab. She will need outpatient follow-up with Dr. Alexis in 7-10 days. I performed a history & physical examination of the patient and discussed their management with my nurse practitioner, Brina Nick. I reviewed the nurse practitioner's note and agree with the documented findings and plan of care. Lung sounds are positive for diminished breath sounds. The findings and the impression was discussed with the patient. I attest to the documentation by the nurse practitioner. Time with Patient: Less than 30
[2020-06-02] MEDS: DILTIAZEM ORAL 30 MG TAB PO SCH ×2 (17:02→21:07)
--- NOTE | 2020-06-02 21:12 | P.PN ---
Subjective 70-year-old female patient with a known history of chronic bronchial asthma, obesity, hypertension, hypothyroidism; recently discharged to [facility] for subacute rehabilitation, presented to the emergency room yesterday with continued complaints of worsening shortness of breath, cough and congestion. Chest x-ray revealed some mild lower lobe infiltrates. White count 9.8. Hemoglobin 11.5. Sodium 132. Potassium 4.7. Creatinine 1.67. Coronavirus not detected. ProBNP 5270. TSH 6.17. Free T4 2 0.85. D-dimer 7.18. Venous Doppler reveals positive DVT in the left lower extremity. She was also found to be in atrial fibrillation with a rapid ventricular response. She is on a Cardizem drip at 10 mg per hour. Heparin drip. 05/29/2020 Patient is seen and evaluated at bedside in ICU; somewhat more alert this morning; denies any specific complaints but reports she feels about the same Vital signs are reviewed with temp of 97.7, pulse 88, respiration 20 and blood pressure 112/74; pulse ox 93% on 15 L and FiO2 of 50%; patient remains on IV antibiotics in form of Zosyn; remains on diuretics for congestive heart failure in form of Aldactone and Zaroxolyn; check 60 reveals improvement in right lower lobe infiltrate and left lower lobe consolidation remains unchanged; lab review shows an improved creatinine of 1.68 Etiology is following for atrial fibrillation which remains rate controlled on beta blockers; oral anticoagulation has been initiated 05/30/2020 Patient is seen and evaluated in ICU for follow-up; patient sitting up in bedside chair and denies any specific complaints Patient remains on high flow nasal cannula at 50 L with an FiO2 of 45%; critical care on board and planning to continue to wean oxygen as able Chest x-ray reveals bilateral pleural effusion and consolidations which is improved from last imaging; pro-calcitonin feels a white blood count of 8.4; creatinine stable at 1.75; blood cultures are negative so far Patient remains on IV Zosyn, being diuresed with Aldactone and Zaroxolyn with negative fluid balance of 3 L or past 24 hours Patient remains in atrial fibrillation and his rate controlled on metoprolol; She is also on long-term anticoagulation with Eliquis 05/31/2020 This is a pleasant 70 years old female presenting with respiratory difficulty and distress and found to have a combination of bilateral pulmonary infiltrate for pneumonia as well as acute congestive heart failure with low ejection fraction about 20-25%. Patient is ALLERGIC to Lasix and currently she is on metolazone 5 mg daily and Aldactone 25 mg daily. Also patient is on Eliquis and metoprolol 50 milligrams 3 times a day and Eliquis per entry level business analyst for her chronic A. fib with RVR. her left leg is positive for DVT however patient is already and Eliquis. Patient also on Zosyn for possible pneumonia Patient has stable respiratory situation, she still needs high-dose off oxygen about 11-13 L/m However because she is stable pulmonary/critical care team felt patient can be moved to the 06/01/2020 Patient is seen and selected unit today. She is lying in bed, breathing quietly. Her breathing rate is 18-20, she is slightly tachycardic 111. Her oxygen requirement down to 6 L/m via high flow nasal cannula. Patient is afebrile. BMP showing sodium 135 and creatinine slightly up at 1.9 She remains on metolazone 5 mg daily and Aldactone 25 mg daily. She is ALLERGIC to Lasix. We'll keep monitoring her creatinine. Remains on Zosyn for possible pneumonia. She is also on Eliquis. For her history of chronic A. fib and RVR also for her left leg DVT. She has ventilation/perfusion scan with low probability for PE. Also she has chronic kidney disease stage III. 06/02/2020 Patient was lying in bed not in respiratory distress she was breathing quietly. She was saturating 90s on room air. She was hemodynamically stable however she was still tachycardic with heart rate about 200 225. Restoril vitals are stable Laps looks his stable as well with creatinine 2.0 and sodium 133. Extremities on metolazone and Aldactone. Also she is on Augmentin by egg candler here for discharge However entry level business analyst increased her dose of metoprolol 200 mg twice daily. Also she is on Cardizem 30 mg 3 times a day, heart rate came down to 90s after that. Blood pressure remains stable and normal lateral keep monitoring for 24 hours. Patient denies depression Physical therapy recommended subacute rehab. Patient weakness and deconditioning however she was so adamant not to go to rehab and instead she wants To go to a friend's house. Also she refused to be discharged today stating that her is busy and cannot come today. As per staff stated that he cannot take care of her. Risks of bleeding associated with Ina are explained for the patient however she still refuses to go to rehab Possible discharge in 24-48 hours if she remains stable Objective - Vital Signs Vital signs: Vital Signs Temp 97.8 F 06/02/20 20:00 Pulse 124 H 06/02/20 20:00 Resp 17 06/02/20 20:00 BP 124/63 06/02/20 20:00 Pulse Ox 96 06/02/20 20:00 Intake & Output 06/02/20 06/02/20 06/03/20 06:59 18:59 06:59 Intake Total 440 Balance 440 Weight 91.2 kg Intake: IV 80 0.9 NS KVO 80 Oral 360 Other: Voiding Method Bedside Commode Bedside Commode Bedside Commode # Voids 1 1 # Bowel Movements 1 - Exam GENERAL: The patient is alert and oriented x3, not in any acute distress. Well developed, well nourished. HEENT: Pupils are round and equally reacting to light. EOMI. No scleral icterus. No conjunctival pallor. Normocephalic, atraumatic. No pharyngeal erythema. No thyromegaly. CARDIOVASCULAR: S1 and S2 present. No murmurs, rubs, or gallops. -PULMONARY: Chest is clear to auscultation, decreased air entry with scattered wheezing ABDOMEN: Soft, nontender, nondistended, normoactive bowel sounds. No palpable organomegaly. MUSCULOSKELETAL: No joint swelling or deformity. EXTREMITIES: No cyanosis, clubbing, or pedal edema. NEUROLOGICAL: Gross neurological examination did not reveal any focal deficits. SKIN: No rashes. no petechiae. - Labs CBC & Chem 7: 05/31/20 03:30 06/02/20 07:18 Labs: Abnormal Lab Results - Last 24 Hours (Table) 06/02/20 Range/Units 07:18 Sodium 133 L (137-145) mmol/L Chloride 96 L (98-107) mmol/L BUN 35 H (7-17) mg/dL Creatinine 2.08 H (0.52-1.04) mg/dL Glucose 102 H (74-99) mg/dL Assessment and Plan Assessment: 1. Acute hypoxic respiratory failure, improved and currently she is on room air 2. Healthcare associated pneumonia; change antibiotic to Augmentin 3.375 g IV every 8 hours 3. Acute systolic CHF Patient remains on diuretic therapy in form of metolazone and Aldactone 4. DVT left lower extremity/less likely PE; venous Doppler has been positive for left lower extremity DVT; patient is suspicious for PE is low as she is low probability perfusion scan. Patient is not a candidate for CT angiogram given acute renal injury. Currently she is on Eliquis 5. A. fib with RVR; patient remains on Eliquis and metoprolol; cardiology team on board, the patient received extra doses of metoprolol today 6. Chronic kidney disease 7. Hypothyroidism; levothyroxine 200 MCG daily 8. Essential hypertension; stable on IV Cardizem; metoprolol has been increased by cardiology; continue to monitor closely 9. Deconditioning and generalized weakness, patient adamantly refusing ECF for rehab and she has since to go to [facility] DVT prophylaxis; SCDs/Eliquis CODE STATUS; full code Prognosis is guarded
[2020-06-03] MEDS: PANTOPRAZOLE 40 MG TABLET PO SCH (06:42)
[2020-06-03] MEDS: LEVOTHYROXINE 100 MCG TAB PO SCH ×2 (06:42→08:43)
[2020-06-03] MEDS: METOPROLOL TARTRATE 50 MG TAB PO SCH ×2 (08:35→20:46)
[2020-06-03] MEDS: SPIRONOLACTONE 25 MG TAB PO SCH (08:35)
[2020-06-03] MEDS: AMOXIC-POT CLAV 875-125MG 1 EACH TAB PO SCH ×2 (08:35→20:46)
[2020-06-03] MEDS: hydrALAZINE HCL 25 MG TAB PO SCH (08:36)
[2020-06-03] MEDS: DILTIAZEM ORAL 30 MG TAB PO SCH (08:36)
[2020-06-03] MEDS: ISOSORBIDE MONONITRATE ER 30 MG TAB.ER.24H PO SCH (08:36)
[2020-06-03] MEDS: APIXABAN 5 MG TAB PO SCH ×2 (08:36→20:46)
[2020-06-03 09:43] LABS: Calcium 9.6 mg/dL (8.4-10.2); Potassium 4.6 mmol/L (3.5-5.1)
[2020-06-03] MEDS: AMIODARONE 200 MG TAB PO SCH ×2 (11:30→20:47)
--- NOTE | 2020-06-03 11:54 | P.PN ---
Subjective This is a pleasant 70-year-old female with symptoms of progressive dyspnea with pneumonia and congestive heart failure. She is seen and examined sitting up in bed in no acute distress. She continues to be tearful and frustrated. Overall she does not feel good, she cannot verbalize her symptoms just that she doesn't feel good. Her heart rates continue to be variably controlled. She has frequent episodes of RVR mostly with any activity or stressful situations. She denies any chest pain, shortness of breath or dizziness. Blood pressure 93/60 heart rate 74 afebrile and maintaining oxygen saturation on room air. Laboratory data reviewed, sodium 135, potassium 4.6, creatinine 2.09. Currently maintained on Eliquis 5 mg twice a day, hydralazine 25 mg twice a day, Imdur 30 mg daily, metoprolol 100 mg twice a day and Aldactone 25 mg daily. GENERAL: Well-appearing, well-nourished and in no acute distress. NECK: Supple without JVD or thyromegaly. LUNGS: Clear to auscultation b/l. Respiration equal and unlabored. No wheezes, rales or rhonchi. HEART: Irregular rate and rhythm with systolic ejection murmur at the base, no rubs or gallops. S1 and S2 heard. EXTREMITIES: Normal range of motion, no edema. No clubbing or cyanosis. P eripheral pulses intact. ASSESSMENT Respiratory failure with combination of pneumonia and cardiomyopathy Chronic persistent atrial fibrillation Acute on chronic kidney disease Cardiomyopathy Possible pulmonary embolism with left DVT PLAN Add oral amiodarone to her daily regimen. Ongoing telemetry monitoring. Follow renal function in the morning. If her symptoms continue to persist despite oral regimen we may consider FAMILIA/cardioversion. Further recommendations to follow based on clinical course. Nurse Practitioner note has been reviewed, I agree with a documented findings and plan of care. Patient was seen and examined. Objective - Vital Signs Vital signs: Vital Signs Temp 97.8 F 06/02/20 20:00 Pulse 74 06/03/20 03:05 Resp 16 06/03/20 03:05 BP 93/60 06/03/20 03:05 Pulse Ox 95 06/03/20 03:05 Intake & Output 06/02/20 06/03/20 06/03/20 18:59 06:59 18:59 Intake Total 440 600 Balance 440 600 Intake: IV 80 0.9 NS KVO 80 Oral 360 600 Other: Voiding Method Bedside Commode Bedside Commode # Voids 1 2 # Bowel Movements 1 - Labs CBC & Chem 7: 05/31/20 03:30 06/03/20 08:29 Labs: Abnormal Lab Results - Last 24 Hours (Table) 06/03/20 Range/Units 08:29 Sodium 135 L (137-145) mmol/L Chloride 96 L (98-107) mmol/L BUN 41 H (7-17) mg/dL Creatinine 2.09 H (0.52-1.04) mg/dL Glucose 144 H (74-99) mg/dL
--- NOTE | 2020-06-03 12:54 | P.PN ---
Subjective Progress Note Date: 06/03/20 Principal diagnosis: Acute hypoxic respiratory failure significant pneumonia, acute diastolic CHF, pulmonary embolism and acute exacerbation of asthma This is a 70-year-old female patient with a known history of chronic bronchial asthma, obesity, hypertension, hypothyroidism. She had recently been admitted here for an acute hypoxic respiratory failure secondary to underlying pneumonia, asthma exacerbation and diastolic congestive heart failure. Ejection fraction 55-60%. She was discharged on 2020 4-year-old medical [place] for subacute rehabilitation. She will be presented here to the emergency room yesterday with continued complaints of worsening shortness of breath, cough and congestion. Chest x-ray revealed some mild lower lobe infiltrates. White count 9.8. Hemoglobin 11.5. Sodium 132. Potassium 4.7. Creatinine 1.67. Coronavirus not detected. ProBNP 5270. TSH 6.17. Free T4 2 0.85. D-dimer 7.18. Venous Doppler reveals positive DVT in the left lower extremity. She was also found to be in atrial fibrillation with a rapid ventricular response. She is on a Cardizem drip at 10 mg per hour. Heparin drip. She is seen today in consultation on the selective care unit. She is currently sitting up in bed. Awake and alert in no acute distress. She is maintaining O2 saturations in the 90s on 10 L high flow nasal cannula. She's afebrile. She's been initiated on DuoNeb inhalations. Antibiotics in the form of ceftriaxone and azithromycin. The patient is seen today May 27 2020 in follow-up on the selective care unit. She is currently resting in bed. She is quite dyspneic with minimal exertion. She is requiring AirVo high flow oxygen at 45 L 60% FiO2 with O2 saturation 68%. Chest x-ray continues show increasing right lower lobe infiltrate with congestive heart failure and bilateral effusions. She is currently on a Cardizem drip at 7.5 mg per hour. Heparin drip per weight dose protocol. She is on Zaroxolyn and Aldactone. Remains in atrial fibrillation. Blood culture reveals no growth to date. White count 8.5. Hemoglobin 11.2. Sodium 132. Potassium 4.1. Creatinine 1.6. Glucose 173. Calcitonin 0.28. She was initiated on Zosyn. Remains on bronchodilators. Patient was reevaluated today on 05/28/2020, patient remains in the ICU, remains on high flow oxygen utilizing airvo, FiO2 is at 70%, and I cut it down to 60%, she is on 50 L high flow. O2 saturation is in the high 90s. Patient remains on Cardizem at 5 mg per hour for her atrial fibrillation. Remains on Zosyn for her pneumonia remains on bronchodilators for her asthma remains on diuretics including Zaroxolyn and Aldactone for diastolic congestive heart failure. Patient remains on heparin for her DVT and possible pulmonary embolism Patient is about the same, noticed a slight rise in his creatinine up to 1.82. Chest x- ray is showing slight improvement compared to her chest x-ray a few days ago. However considering the patient is still requiring significant amount of FiO2, I plan to keep her in the ICU. Reevaluated today on 05/29/23, patient remains in the ICU, remains on high flow oxygen/ airvo with FiO2 of 65% and flow of 50 L. I titrated that down to 55% and 50 L. Patient is feeling a bit better, continues to have shortness of breath with any activity. Remains on anticoagulation therapy in the form of adequate. Remains on antibiotics in the form of Zosyn and she remains on diuretics. Chest x-ray is showing definite improvement in the right lower lobe, continues to have some consolidation and left lower lobe and some atelectasis. CBC today is relatively normal basic metabolic profile is normal BUN is 25 creatinine is improving down to 1.68 in spite of diuretics. Liver profile is normal. 05/30/2020 and seeing this patient in follow-up. The patient is an acute hypoxic respiratory failure due to combination of pneumonia, CHF, loculated left-sided pleural effusion and she is also morbidly obese with history of bronchial asthma. She came in with worsening shortness of breath and she was also found to be in atrial fibrillation with rapid ventricular response. This morning, she is on high flow oxygen at 50 L with an FiO2 of 45%. Her chest x- ray still showing bilateral lower lobe effusions and consolidations. Nevertheless, there is improvement in comparison with the chest x-ray that was done a few days back. The patient is on IV Zosyn. The pro-calcitonin was 0.28. Her white cell count currently is at 8.4 and the patient is afebrile. She is also being diuresis with Aldactone 25 mg by mouth twice a day and Zaroxolyn 5 mg by mouth daily. Urine output is in order of 200 mL an hour and the net fluid balance is negative more than 3 L over the past 24 hours. Her atrial fibrillation is under suboptimal control. This morning her heart is around 120- 140 irregular and she is on metoprolol. She is also on long-term anticoagulation with Eliquis. Her blood work shows a creatinine of 1.75. Blood culture has been negative for now. On 05/31/2020 patient seen in follow-up in intensive care unit, she is awake and alert, oriented 3, appears to be no acute distress, breathing much easier comp ared to a few days ago. No altered mentation, no fever or chills. Remains in A. fib with RVR, with a rate of 126. Remains on Airvo at 50 L and FiO2 of 37% pulse ox is around 92-96%, not on any vasopressors, no maintenance IV fluids, IV fluids have been hep-locked. Breathing comfortably, lung sounds reveal diminished breath sounds at the bases, no rhonchi or wheezing, patient does complain of some chest discomfort in the anterior chest with coughing or deep breathing, her incentive spirometer effort is suboptimal, only 500-750 ML on the today. Yesterday's chest x-ray showed basilar infiltrates in the left-sided pleural parenchymal opacity and effusion without significant change. Clinically stable, today's labs have been reviewed, no leukocytosis, white blood cell count is 8.7, hemoglobin is 13, sodium is 134, the rest of electrolytes are within normal limits, renal profile were relatively stable with when necessary of 26 creatinine is 1.7. Patient remains on antibiotics in the form of Zosyn, blood cultures have been negative. Her cough is nonproductive, has not been able to produce a sputum specimen, denies any hemoptysis. On 06/01/2020 patient seen in follow-up. Doing much better today, her FiO2 requirement has significantly improved in the last 24 hours and she is currently down to 3 L of oxygen her pulse ox is 99%, she is breathing much easier, she has been diuresed, she continues to be in negative fluid balance, -970 over the last 24 hours, upper and lower extremity edema has significantly improved. She is on oral Eliquis for anticoagulation for history of A. fib, heart rate is controlled, no cognitive chest pain, no cough, no phlegm production, BUN is 31, creatinine is 1.9. Patient is on Zosyn for empiric antibiotic coverage. She hasn't had a new chest x-ray in the last couple days. Her last one was on 05/30/2020 going basilar infiltrates and left-sided opacity and pleural effusion. Patient is participating with physical therapy. Her diuretics have been adjusted, patient does remains on Aldactone 25 mg daily, Zaroxolyn has been discontinued. On 06/02/2020 patient seen in follow-up on selective care unit, she is on room air, her pulse ox is 97%, breathing much improved, the patient is afebrile. She has been diuresed, no edema in the lower extremities, patient is in negative fluid balance. She is working with physical therapy, she is weak, she is requiring extensive assistance with transfers from chair to bed, and walking with walker. Remains in A. fib, rate is controlled, vital signs have been stable, no fever or chills, today's chest x-ray showed improved interstitial edema and bilateral pleural effusions. Blood cultures have shown no growth, patient has been transitioned to oral antibiotics, she is on anticoagulation in the form of Eliquis for history of A. fib and left lower extremity DVT. On 06/03/2020 patient seen in follow-up on selective care unit. She is on room air, breathing comfortably, pulse ox is 95%, she's been afebrile, lung sounds are clear, with some minimal crackles at the bases, remains in A. fib, the rate is controlled, she has been switched from Cardizem to amiodarone by cardiology, she remains on Eliquis. She's had no acute events overnight, today's labs have been reviewed. Patient has been transitioned to oral antibiotics, she's been diuresed, currently just on Aldactone. Her last chest x-ray was on 06/01/2020 showing improvement in interstitial edema, small bilateral pleural effusions, and left basilar Atelectasis or infiltrate. Clinically has been stable, no cognitive chest pain, no worsening dyspnea, cough or phlegm production, no hemoptysis. Patient has been participating in physical therapy. Objective - Vital Signs Vital signs: Vital Signs Temp 97.8 F 06/02/20 20:00 Pulse 74 06/03/20 03:05 Resp 16 06/03/20 03:05 BP 93/60 06/03/20 03:05 Pulse Ox 95 06/03/20 03:05 Intake & Output 06/02/20 06/03/20 06/03/20 18:59 06:59 18:59 Intake Total 440 600 Balance 440 600 Intake: IV 80 0.9 NS KVO 80 Oral 360 600 Other: Voiding Method Bedside Commode Bedside Commode # Voids 1 2 # Bowel Movements 1 - Exam GENERAL EXAM: Alert, very pleasant, 70-year-old white female, on room air, with a pulse ox of 97%, comfortable in no apparent distress. HEAD: Normocephalic/atraumatic. EYES: Normal reaction of pupils, equal size. Conjunctiva pink, sclera white. NOSE: Clear with pink turbinates. THROAT: No erythema or exudates. NECK: No masses, no JVD, no thyroid enlargement, no adenopathy. CHEST: No chest wall deformity. Symmetrical expansion. LUNGS: Equal air entry with no crackles, wheeze, rhonchi or dullness. CVS: Irregular rate and rhythm, normal S1 and S2, no gallops, no murmurs, no rubs ABDOMEN: Soft, nontender. No hepatosplenomegaly, normal bowel sounds, no guarding or rigidity. EXTREMITIES: No clubbing, trace edema in lower extremities, no cyanosis, 2+ pulses and upper and lower extremities. MUSCULOSKELETAL: Muscle strength and tone normal. SPINE: No scoliosis or deformity SKIN: No rashes CENTRAL NERVOUS SYSTEM: Alert and oriented -3. No focal deficits, tone is normal in all 4 extremities. PSYCHIATRIC: Alert and oriented -3. Appropriate affect. Intact judgment and insight. - Labs CBC & Chem 7: 05/31/20 03:30 06/03/20 08:29 Labs: Abnormal Lab Results - Last 24 Hours (Table) 06/03/20 Range/Units 08:29 Sodium 135 L (137-145) mmol/L Chloride 96 L (98-107) mmol/L BUN 41 H (7-17) mg/dL Creatinine 2.09 H (0.52-1.04) mg/dL Glucose 144 H (74-99) mg/dL Assessment and Plan Plan: Assessment: 1 Acute hypoxic respiratory failure multifactorial, mostly secondary to CHF as the patient demonstrated a drop in her left ventricle ejection fraction which is down to 20-25% and a sense and the patient developed CHF, bilateral pleural effusion which is somewhat loculated on the left. There is also bilateral pulmonary infiltrates consistent with pneumonia. No indication for pulmonary embolism. Her asthma is currently inactive and stable. 2 New onset atrial fibrillation, patient was placed today on beta blockers and on Eliquis as per cardiology. The patient is receiving metoprolol dose of 50 mg by mouth 3 times a day for rate control in addition to that she is on Eliquis. 3 Left lower extremity DVT, possible pulmonary embolism, however the patient is not a candidate for CT angiogram of the chest because of her renal status. 4 Acute exacerbation of systolic congestive heart failure and the patient has a LVEF of 20-25% 5 Hypothyroidism. 6 Benign essential hypertension. 7 Morbid obesity. 8 History of chronic bronchial asthma, may be contributing a daily to her shortness of breath. But this is felt to be less likely. 9 Acute on chronic kidney injury, could be related to diuretics and some component of prerenal azotemia Plan: Vital signs have been stable, no fever or chills, no dyspnea, patient is on room air, she can finish outpatient course of oral Augmentin, increase activity as tolerated, from pulmonary perspective patient is stable for discharge home today. She'll need outpatient follow-up with Dr. Hickey in 7-10 days I performed a history & physical examination of the patient and discussed their management with my nurse practitioner, Brina Nick. I reviewed the nurse practitioner's note and agree with the documented findings and plan of care. Lung sounds are positive for diminished breath sounds. The findings and the impression was discussed with the patient. I attest to the documentation by the nurse practitioner. Time with Patient: Less than 30
--- NOTE | 2020-06-03 13:01 | P.PN ---
Subjective 70-year-old female patient with a known history of chronic bronchial asthma, obesity, hypertension, hypothyroidism; recently discharged to [facility] for subacute rehabilitation, presented to the emergency room yesterday with continued complaints of worsening shortness of breath, cough and congestion. Chest x-ray revealed some mild lower lobe infiltrates. White count 9.8. Hemoglobin 11.5. Sodium 132. Potassium 4.7. Creatinine 1.67. Coronavirus not detected. ProBNP 5270. TSH 6.17. Free T4 2 0.85. D-dimer 7.18. Venous Doppler reveals positive DVT in the left lower extremity. She was also found to be in atrial fibrillation with a rapid ventricular response. She is on a Cardizem drip at 10 mg per hour. Heparin drip. 05/29/2020 Patient is seen and evaluated at bedside in ICU; somewhat more alert this morning; denies any specific complaints but reports she feels about the same Vital signs are reviewed with temp of 97.7, pulse 88, respiration 20 and blood pressure 112/74; pulse ox 93% on 15 L and FiO2 of 50%; patient remains on IV antibiotics in form of Zosyn; remains on diuretics for congestive heart failure in form of Aldactone and Zaroxolyn; check 60 reveals improvement in right lower lobe infiltrate and left lower lobe consolidation remains unchanged; lab review shows an improved creatinine of 1.68 Etiology is following for atrial fibrillation which remains rate controlled on beta blockers; oral anticoagulation has been initiated 05/30/2020 Patient is seen and evaluated in ICU for follow-up; patient sitting up in bedside chair and denies any specific complaints Patient remains on high flow nasal cannula at 50 L with an FiO2 of 45%; critical care on board and planning to continue to wean oxygen as able Chest x-ray reveals bilateral pleural effusion and consolidations which is improved from last imaging; pro-calcitonin feels a white blood count of 8.4; creatinine stable at 1.75; blood cultures are negative so far Patient remains on IV Zosyn, being diuresed with Aldactone and Zaroxolyn with negative fluid balance of 3 L or past 24 hours Patient remains in atrial fibrillation and his rate controlled on metoprolol; She is also on long-term anticoagulation with Eliquis 05/31/2020 This is a pleasant 70 years old female presenting with respiratory difficulty and distress and found to have a combination of bilateral pulmonary infiltrate for pneumonia as well as acute congestive heart failure with low ejection fraction about 20-25%. Patient is ALLERGIC to Lasix and currently she is on metolazone 5 mg daily and Aldactone 25 mg daily. Also patient is on Eliquis and metoprolol 50 milligrams 3 times a day and Eliquis per rent control office manager for her chronic A. fib with RVR. her left leg is positive for DVT however patient is already and Eliquis. Patient also on Zosyn for possible pneumonia Patient has stable respiratory situation, she still needs high-dose off oxygen about 11-13 L/m However because she is stable pulmonary/critical care team felt patient can be moved to the 06/01/2020 Patient is seen and selected unit today. She is lying in bed, breathing quietly. Her breathing rate is 18-20, she is slightly tachycardic 111. Her oxygen requirement down to 6 L/m via high flow nasal cannula. Patient is afebrile. BMP showing sodium 135 and creatinine slightly up at 1.9 She remains on metolazone 5 mg daily and Aldactone 25 mg daily. She is ALLERGIC to Lasix. We'll keep monitoring her creatinine. Remains on Zosyn for possible pneumonia. She is also on Eliquis. For her history of chronic A. fib and RVR also for her left leg DVT. She has ventilation/perfusion scan with low probability for PE. Also she has chronic kidney disease stage III. 06/02/2020 Patient was lying in bed not in respiratory distress she was breathing quietly. She was saturating 90s on room air. She was hemodynamically stable however she was still tachycardic with heart rate about 200 225. Restoril vitals are stable Laps looks his stable as well with creatinine 2.0 and sodium 133. Extremities on metolazone and Aldactone. Also she is on Augmentin by principal ios developer here for discharge However rent control office manager increased her dose of metoprolol 200 mg twice daily. Also she is on Cardizem 30 mg 3 times a day, heart rate came down to 90s after that. Blood pressure remains stable and normal lateral keep monitoring for 24 hours. Patient denies depression Physical therapy recommended subacute rehab. Patient weakness and deconditioning however she was so adamant not to go to rehab and instead she wants To go to a friend's house. Also she refused to be discharged today stating that her is busy and cannot come today. As per staff stated that he cannot take care of her. Risks of bleeding associated with Eliquis are explained for the patient however she still refuses to go to rehab Possible discharge in 24-48 hours if she remains stable 06/03/2020 Patient lying in bed on room air, no chest pain or dyspnea however she still complaining about her heart rate, and this morning her heart rate was 70-90s, I discussed the case with cardiology team more than once this morning, initially the plan was for her to be cleared by cardiology team for discharge however on reviewing the monitor it looks like her heart rate jumped at time up to 150. Amiodarone 200 mg twice daily was added this morning and will keep monitoring her and telemetry. If her symptoms and heart rate are not controlled and cardiology team are planning for a FAMILIA and cardioversion. Cardizem was discontinued by cardiology team Also I discussed the case with her Mr. Layton upon patient wishes called before me at [phone] and I discussed the whole case with him and her medication and the recommendation, still the patient and refused for the patient to go to rehab risks including but not limited to fall, bleeding into the brain, bleeding from other sites and organs and/or . Also there was concern about her transportation, I discussed the case with our apartment maintenance manager and plan for her is to provide an ambulance for transportation to her weakness. Patient also will provide nebulizer for her Review of systems CONSTITUTIONAL: No fever, no malaise, no fatigue. HEENT: No recent visual problems or hearing problems. Denied any sore throat. CARDIOVASCULAR: No orthopnea, PND, no palpitations, no syncope. PULMONARY: No shortness of breath, no cough, no hemoptysis. GASTROINTESTINAL: No diarrhea, no nausea, no vomiting, no abdominal pain. Normoactive bowel sounds. NEUROLOGICAL: No headaches, no weakness, no numbness. Active Medications Generic Name Dose Route Start Last Admin Trade Name Freq PRN Reason Stop Dose Admin Acetaminophen 650 mg 05/25/20 14:29 05/26/20 20:07 Acetaminophen Tab 325 Mg Tab PO 650 mg Q6HR PRN Administration Mild Pain or Fever > 100.5 Hydrocodone Bitart/Acetaminophen 1 each 05/25/20 16:53 Hydrocodone/Apap 5-325mg 1 Each Tab PO Q6HR PRN Pain Albuterol/Ipratropium 3 ml 05/25/20 23:22 Ipratropium-Albuterol 3 Ml Neb INHALATION RT-QID PRN Shortness Of Breath Or Wheezing Alprazolam 0.25 mg 05/25/20 16:53 06/02/20 21:07 Alprazolam 0.25 Mg Tab PO 0.25 mg TID PRN Administration Anxiety Amiodarone HCl 200 mg 06/03/20 11:15 06/03/20 11:30 Amiodarone 200 Mg Tab PO 200 mg BID JORI Administration Amoxicillin/Clavulanate Potassium 1 each 06/01/20 21:00 06/03/20 08:35 Amoxic-Pot Clav 875-125mg 1 Each Tab PO 1 each Q12HR JORI Administration Apixaban 5 mg 05/29/20 09:00 06/03/20 08:36 Apixaban 5 Mg Tab PO 5 mg BID JORI Administration Hydralazine HCl 25 mg 05/31/20 09:00 06/03/20 08:36 Hydralazine Hcl 25 Mg Tab PO 25 mg BID JORI Administration Isosorbide Mononitrate 30 mg 06/01/20 13:30 06/03/20 08:36 Isosorbide Mononitrate Er 30 Mg Tab.Er.24h PO 30 mg DAILY JORI Administration Levothyroxine Sodium 200 mcg 05/26/20 06:30 06/03/20 08:43 Levothyroxine 100 Mcg Tab PO 200 mcg DAILY@0630 JORI Administration Metoprolol Tartrate 100 mg 06/02/20 21:00 06/03/20 08:35 Metoprolol Tartrate 50 Mg Tab PO 100 mg BID JORI Administration Naloxone HCl 0.2 mg 05/25/20 14:29 Naloxone 0.4 Mg/Ml 1 Ml Vial IV Q2M PRN Opioid Reversal Ondansetron HCl 4 mg 05/25/20 14:29 Ondansetron 4 Mg/2 Ml Vial IVP Q8H PRN Nausea And Vomiting Pantoprazole Sodium 40 mg 05/26/20 07:30 06/03/20 06:42 Pantoprazole 40 Mg Tablet PO Not Given [id number] JORI Spironolactone 25 mg 05/31/20 09:00 06/03/20 08:35 Spironolactone 25 Mg Tab PO 25 mg DAILY JORI Administration Objective - Vital Signs Vital signs: Vital Signs Temp 97.8 F 06/02/20 20:00 Pulse 74 06/03/20 03:05 Resp 16 06/03/20 03:05 BP 93/60 06/03/20 03:05 Pulse Ox 95 06/03/20 03:05 Intake & Output 06/02/20 06/03/20 06/03/20 18:59 06:59 18:59 Intake Total 440 600 Balance 440 600 Intake: IV 80 0.9 NS KVO 80 Oral 360 600 Other: Voiding Method Bedside Commode Bedside Commode # Voids 1 2 # Bowel Movements 1 - Exam GENERAL: The patient is alert and oriented x3, not in any acute distress. Well developed, well nourished. HEENT: Pupils are round and equally reacting to light. EOMI. No scleral icterus. No conjunctival pallor. Normocephalic, atraumatic. No pharyngeal erythema. No thyromegaly. CARDIOVASCULAR: S1 and S2 present. No murmurs, rubs, or gallops. -PULMONARY: Chest is clear to auscultation, decreased air entry with scattered wheezing ABDOMEN: Soft, nontender, nondistended, normoactive bowel sounds. No palpable organomegaly. MUSCULOSKELETAL: No joint swelling or deformity. EXTREMITIES: No cyanosis, clubbing, or pedal edema. NEUROLOGICAL: Gross neurological examination did not reveal any focal deficits. SKIN: No rashes. no petechiae. - Labs CBC & Chem 7: 05/31/20 03:30 06/03/20 08:29 Labs: Abnormal Lab Results - Last 24 Hours (Table) 06/03/20 Range/Units 08:29 Sodium 135 L (137-145) mmol/L Chloride 96 L (98-107) mmol/L BUN 41 H (7-17) mg/dL Creatinine 2.09 H (0.52-1.04) mg/dL Glucose 144 H (74-99) mg/dL Assessment and Plan Assessment: 1. A. fib with RVR; patient remains on Eliquis and metoprolol; cardiology team on board, the added amiodarone and metoprolol. Keep Joaquin telemetry if patient remains uncontrolled and FAMILIA/cardioversion will be considered by rent control office manager 2. Healthcare associated pneumonia; change antibiotic to Augmentin 3. Acute systolic CHF, Patient remains on diuretic therapy in form of metolazone and Aldactone 4. DVT left lower extremity/less likely PE; venous Doppler has been positive for left lower extremity DVT; patient is suspicious for PE is low as she is low probability perfusion scan. Patient is not a candidate for CT angiogram given acute renal injury. Currently she is on Eliquis 5. Acute hypoxic respiratory failure, improved and currently she is on room air 6. Chronic kidney disease 7. Hypothyroidism; levothyroxine 200 MCG daily 8. Essential hypertension; stable on IV Cardizem; metoprolol has been increased by cardiology; continue to monitor closely 9. Deconditioning and generalized weakness, patient adamantly refusing ECF for rehab and she has since to go to [facility] DVT prophylaxis; SCDs/Eliquis CODE STATUS; full code Prognosis is guarded
[2020-06-04] MEDS: hydrALAZINE HCL 25 MG TAB PO SCH ×3 (00:13→20:11)
[2020-06-04] MEDS: PANTOPRAZOLE 40 MG TABLET PO SCH (06:33)
[2020-06-04] MEDS: LEVOTHYROXINE 100 MCG TAB PO SCH (06:34)
[2020-06-04 07:50] LABS: Calcium 9.3 mg/dL (8.4-10.2)
[2020-06-04] MEDS ORDERED: PROPOFOL 10 MG/ML 20 ML VIAL IV ONE (10:22)
[2020-06-04] MEDS ORDERED: LIDOCAINE 1% INJ 10MG/ML (20 ML MDV) ONE (10:22)
[2020-06-04] MEDS ORDERED: SODIUM CHLORIDE 0.9% 500 ML 500 ML IV ONE (10:31)
--- NOTE | 2020-06-04 10:59 | P.PN ---
Subjective 70-year-old female patient with a known history of chronic bronchial asthma, obesity, hypertension, hypothyroidism; recently discharged to [facility] for subacute rehabilitation, presented to the emergency room yesterday with continued complaints of worsening shortness of breath, cough and congestion. Chest x-ray revealed some mild lower lobe infiltrates. White count 9.8. Hemoglobin 11.5. Sodium 132. Potassium 4.7. Creatinine 1.67. Coronavirus not detected. ProBNP 5270. TSH 6.17. Free T4 2 0.85. D-dimer 7.18. Venous Doppler reveals positive DVT in the left lower extremity. She was also found to be in atrial fibrillation with a rapid ventricular response. She is on a Cardizem drip at 10 mg per hour. Heparin drip. 05/29/2020 Patient is seen and evaluated at bedside in ICU; somewhat more alert this morning; denies any specific complaints but reports she feels about the same Vital signs are reviewed with temp of 97.7, pulse 88, respiration 20 and blood pressure 112/74; pulse ox 93% on 15 L and FiO2 of 50%; patient remains on IV antibiotics in form of Zosyn; remains on diuretics for congestive heart failure in form of Aldactone and Zaroxolyn; check 60 reveals improvement in right lower lobe infiltrate and left lower lobe consolidation remains unchanged; lab review shows an improved creatinine of 1.68 Etiology is following for atrial fibrillation which remains rate controlled on beta blockers; oral anticoagulation has been initiated 05/30/2020 Patient is seen and evaluated in ICU for follow-up; patient sitting up in bedside chair and denies any specific complaints Patient remains on high flow nasal cannula at 50 L with an FiO2 of 45%; critical care on board and planning to continue to wean oxygen as able Chest x-ray reveals bilateral pleural effusion and consolidations which is improved from last imaging; pro-calcitonin feels a white blood count of 8.4; creatinine stable at 1.75; blood cultures are negative so far Patient remains on IV Zosyn, being diuresed with Aldactone and Zaroxolyn with negative fluid balance of 3 L or past 24 hours Patient remains in atrial fibrillation and his rate controlled on metoprolol; She is also on long-term anticoagulation with Eliquis 05/31/2020 This is a pleasant 70 years old female presenting with respiratory difficulty and distress and found to have a combination of bilateral pulmonary infiltrate for pneumonia as well as acute congestive heart failure with low ejection fraction about 20-25%. Patient is ALLERGIC to Lasix and currently she is on metolazone 5 mg daily and Aldactone 25 mg daily. Also patient is on Eliquis and metoprolol 50 milligrams 3 times a day and Eliquis per journeyman lineman for her chronic A. fib with RVR. her left leg is positive for DVT however patient is already and Eliquis. Patient also on Zosyn for possible pneumonia Patient has stable respiratory situation, she still needs high-dose off oxygen about 11-13 L/m However because she is stable pulmonary/critical care team felt patient can be moved to the 06/01/2020 Patient is seen and selected unit today. She is lying in bed, breathing quietly. Her breathing rate is 18-20, she is slightly tachycardic 111. Her oxygen requirement down to 6 L/m via high flow nasal cannula. Patient is afebrile. BMP showing sodium 135 and creatinine slightly up at 1.9 She remains on metolazone 5 mg daily and Aldactone 25 mg daily. She is ALLERGIC to Lasix. We'll keep monitoring her creatinine. Remains on Zosyn for possible pneumonia. She is also on Eliquis. For her history of chronic A. fib and RVR also for her left leg DVT. She has ventilation/perfusion scan with low probability for PE. Also she has chronic kidney disease stage III. 06/02/2020 Patient was lying in bed not in respiratory distress she was breathing quietly. She was saturating 90s on room air. She was hemodynamically stable however she was still tachycardic with heart rate about 200 225. Restoril vitals are stable Laps looks his stable as well with creatinine 2.0 and sodium 133. Extremities on metolazone and Aldactone. Also she is on Augmentin by claim adjuster here for discharge However journeyman lineman increased her dose of metoprolol 200 mg twice daily. Also she is on Cardizem 30 mg 3 times a day, heart rate came down to 90s after that. Blood pressure remains stable and normal lateral keep monitoring for 24 hours. Patient denies depression Physical therapy recommended subacute rehab. Patient weakness and deconditioning however she was so adamant not to go to rehab and instead she wants To go to a friend's house. Also she refused to be discharged today stating that her is busy and cannot come today. As per staff stated that he cannot take care of her. Risks of bleeding associated with Eliquis are explained for the patient however she still refuses to go to rehab Possible discharge in 24-48 hours if she remains stable 06/03/2020 Patient lying in bed on room air, no chest pain or dyspnea however she still complaining about her heart rate, and this morning her heart rate was 70-90s, I discussed the case with cardiology team more than once this morning, initially the plan was for her to be cleared by cardiology team for discharge however on reviewing the monitor it looks like her heart rate jumped at time up to 150. Amiodarone 200 mg twice daily was added this morning and will keep monitoring her and telemetry. If her symptoms and heart rate are not controlled and cardiology team are planning for a FAMILIA and cardioversion. Cardizem was discontinued by cardiology team Also I discussed the case with her Mr. Layton upon patient wishes called before me at [phone] and I discussed the whole case with him and her medication and the recommendation, still the patient and refused for the patient to go to rehab risks including but not limited to fall, bleeding into the brain, bleeding from other sites and organs and/or . Also there was concern about her transportation, I discussed the case with our health spa manager and plan for her is to provide an ambulance for transportation to her weakness. Patient also will provide nebulizer for her 06/04/2020 Patient is with no new complaints today. Heart rate still was going high today at 120. Cardiology team on the case and the planning for a FAMILIA and cardioversion later on today Creatinine remains stable at 2.0, sodium 134. She remains on Augmentin, Eliquis 5 mg, with co-pay of $42 and one FREE month prescription is going to be provided for her Aspirin was discontinued. She is also on metoprolol and amiodarone Objective - Vital Signs Vital signs: Vital Signs Temp 98 F 06/04/20 04:05 Pulse 120 H 06/04/20 10:32 Resp 18 06/04/20 10:32 BP 111/68 06/04/20 10:32 Pulse Ox 96 06/04/20 10:32 Intake & Output 06/03/20 06/04/20 06/04/20 18:59 06:59 18:59 Intake Total 1400 120 0 Balance 1400 120 0 Weight 91.172 kg 91.172 kg Intake: Oral 1400 120 0 Other: Voiding Method Bedside Commode Bedside Commode Diaper Incontinent # Voids 1 1 # Bowel Movements 1 - Exam GENERAL: The patient is alert and oriented x3, not in any acute distress. Well developed, well nourished. HEENT: Pupils are round and equally reacting to light. EOMI. No scleral icterus. No conjunctival pallor. Normocephalic, atraumatic. No pharyngeal erythema. No thyromegaly. CARDIOVASCULAR: S1 and S2 present. No murmurs, rubs, or gallops. -PULMONARY: Chest is clear to auscultation, decreased air entry with scattered wheezing ABDOMEN: Soft, nontender, nondistended, normoactive bowel sounds. No palpable organomegaly. MUSCULOSKELETAL: No joint swelling or deformity. EXTREMITIES: No cyanosis, clubbing, or pedal edema. NEUROLOGICAL: Gross neurological examination did not reveal any focal deficits. SKIN: No rashes. no petechiae. - Labs CBC & Chem 7: 05/31/20 03:30 06/04/20 07:18 Labs: Abnormal Lab Results - Last 24 Hours (Table) 06/04/20 Range/Units 07:18 Sodium 134 L (137-145) mmol/L BUN 40 H (7-17) mg/dL Creatinine 2.08 H (0.52-1.04) mg/dL Glucose 119 H (74-99) mg/dL Assessment and Plan Assessment: 1. A. fib with RVR; patient remains on Eliquis and metoprolol; cardiology team on board, the added amiodarone and metoprolol. Keep [place] telemetry if patient remains uncontrolled and FAMILIA/cardioversion will be considered by journeyman lineman today 2. Healthcare associated pneumonia; change antibiotic to Augmentin 3. Acute systolic CHF, Patient remains on diuretic therapy in form of metolazone and Aldactone 4. DVT left lower extremity/less likely PE; venous Doppler has been positive for left lower extremity DVT; patient is suspicious for PE is low as she is low probability perfusion scan. Patient is not a candidate for CT angiogram given acute renal injury. Currently she is on Eliquis 5. Acute hypoxic respiratory failure, improved and currently she is on room air 6. Chronic kidney disease 7. Hypothyroidism; levothyroxine 200 MCG daily 8. Essential hypertension; stable on IV Cardizem; metoprolol has been increased by cardiology; continue to monitor closely 9. Deconditioning and generalized weakness, patient adamantly refusing ECF for rehab and she has since to go to [facility] DVT prophylaxis; SCDs/Eliquis CODE STATUS; full code Prognosis is guarded
--- NOTE | 2020-06-04 11:41 | P.PN ---
Subjective This is a pleasant 70-year-old female with symptoms of progressive dyspnea with pneumonia and congestive heart failure. She is seen and examined sitting up in bed in no acute distress. She continues to be in atrial fibrillation with variable ventricular rates. She is on high-dose beta blockers along with amiodarone and continues to feel tired, weak and fluttering in the chest. Blood pressure 111/68 heart rate 121 afebrile maintaining oxygen saturation on room air. GENERAL: Well-appearing, well-nourished and in no acute distress. NECK: Supple without JVD or thyromegaly. LUNGS: Clear to auscultation b/l. Respiration equal and unlabored. No wheezes, rales or rhonchi. HEART: Irregular rate and rhythm with systolic ejection murmur at the base, no rubs or gallops. S1 and S2 heard. EXTREMITIES: Normal range of motion, no edema. No clubbing or cyanosis. Peripheral pulses intact. ASSESSMENT Respiratory failure with combination of pneumonia and cardiomyopathy Chronic persistent atrial fibrillation Acute on chronic kidney disease Cardiomyopathy, could be related to atrial fibrillation Possible pulmonary embolism with left DVT PLAN Recommend proceeding with FAMILIA cardioversion. This was discussed with the patient and her . She is agreeable to move forward. Further recommendations to follow based upon clinical course. Nurse Practitioner note has been reviewed, I agree with a documented findings and plan of care. Patient was seen and examined. Objective - Vital Signs Vital signs: Vital Signs Temp 98 F 06/04/20 10:56 Pulse 71 06/04/20 11:15 Resp 16 06/04/20 11:15 BP 101/60 06/04/20 11:15 Pulse Ox 96 06/04/20 11:15 Intake & Output 06/03/20 06/04/20 06/04/20 18:59 06:59 18:59 Intake Total 1400 120 200 Balance 1400 120 200 Weight 91.172 kg 91.172 kg Intake: IV 200 Oral 1400 120 0 Other: Voiding Method Bedside Commode Bedside Commode Diaper Incontinent # Voids 1 1 # Bowel Movements 1 - Labs CBC & Chem 7: 05/31/20 03:30 06/04/20 07:18 Labs: Abnormal Lab Results - Last 24 Hours (Table) 06/04/20 Range/Units 07:18 Sodium 134 L (137-145) mmol/L BUN 40 H (7-17) mg/dL Creatinine 2.08 H (0.52-1.04) mg/dL Glucose 119 H (74-99) mg/dL
[2020-06-04] MEDS: ISOSORBIDE MONONITRATE ER 30 MG TAB.ER.24H PO SCH (11:51)
[2020-06-04] MEDS: METOPROLOL TARTRATE 50 MG TAB PO SCH ×2 (11:51→20:11)
--- NOTE | 2020-06-04 13:39 | P.TEE ---
Description of Procedure(s): Procedure performed: Transesophageal Echocardiogram with color flow doppler, pulsed wave doppler and continuous wave doppler, moderate conscious sedation Moderate conscious sedation: Moderate conscious sedation was supplied by anesthesia, see anesthesia note for full details Complications: none Indications: Symptomatic Afib, ZAVALETA History: Patient is a pleasant 70-year-old female with history of asthma, hypertension, pneumonia, hyperthyroidism status post thyroidectomy, previous chest tube of the left side, asthma, aortic aneurysm, who was diagnosed with new-onset of atrial fibrillation and decrease in ejection fraction to 20-25%. We had initially seen patient in April for symptoms of shortness breath and was found to have non-STEMI however felt more related to sepsis with elevated pro-calcitonin, acute kidney injury. Patient had prolonged hospitalization in April and her shortness breath was slowly improving. Unfortunately she went to rehabilitation and then came back with more shortness breath and was diagnosed with a new onset of atrial fibrillation and cardiomyopathy. She has had mildly elevated A. fib with RVR and continued symptoms of shortness breath and therefore recommendations were for a FAMILIA and cardioversion. PROCEDURE: After the risks, benefits and alternatives of the above mentioned pro cedure was explained in detail with the patient, informed consent was obtained. Patient was brought to the lab in a fasting state. Patient was given sedation by anesthesia. The throat was sprayed with Hurricane to anesthetize the throat. A lubricated Omni probe was then introduced into the esophagus and stomach and multiple views were obtained. 2D echo with color flow doppler, pulsed wave dop pler and continuous wave doppler was utilized. Agitated saline bubbles were injected to assess for any intra-atrial shunt. The probe was then removed. Synchronized cardioversion was performed with 200J resulting in normal sinus rhythm. Patient tolerated the procedure well. Patient was transferred to the post procedure area in stable and satisfactory condition. FINDINGS: 1. Aortic valve is bicuspid with fusion of the right and non coronary cusps. There is mild aortic sclerosis without significant stenosis. There is trace aortic regurgitation. 2. The mitral valve is normal-appearing with trace mitral regurgitation. 3. Tricuspid valve appears to be normal with trace tricuspid regurgitation. 4. The interatrial septum is intact. No evidence of PFO. 5. Left atrial appendage has no thrombus. 6. Left ventricular size appears to be normal. There is global hypokinesis with left ventricular ejection fraction 25-30% 7. Left atrium is moderately dilated. 8. There is an ascending aortic aneurysm measuring 4.1cm at the sinotubular junction and 4.7cm at the ascending aorta.
[2020-06-04] MEDS: SPIRONOLACTONE 25 MG TAB PO SCH (14:04)
[2020-06-04] MEDS: AMOXIC-POT CLAV 875-125MG 1 EACH TAB PO SCH ×2 (14:04→20:11)
[2020-06-04] MEDS: APIXABAN 5 MG TAB PO SCH ×2 (14:04→20:12)
[2020-06-04] MEDS: AMIODARONE 200 MG TAB PO SCH ×2 (14:05→20:12)
[2020-06-05] MEDS: PANTOPRAZOLE 40 MG TABLET PO SCH (05:50)
[2020-06-05] MEDS: LEVOTHYROXINE 100 MCG TAB PO SCH (05:50)
[2020-06-05] MEDS: METOPROLOL TARTRATE 50 MG TAB PO SCH ×2 (08:54→20:10)
[2020-06-05] MEDS: ISOSORBIDE MONONITRATE ER 30 MG TAB.ER.24H PO SCH (08:55)
[2020-06-05] MEDS: hydrALAZINE HCL 25 MG TAB PO SCH ×2 (08:55→20:10)
[2020-06-05] MEDS: APIXABAN 5 MG TAB PO SCH ×2 (08:55→20:10)
[2020-06-05] MEDS: AMIODARONE 200 MG TAB PO SCH ×2 (08:55→20:10)
[2020-06-05] MEDS: AMOXIC-POT CLAV 875-125MG 1 EACH TAB PO SCH ×2 (08:55→20:10)
[2020-06-05] MEDS: SPIRONOLACTONE 25 MG TAB PO SCH (08:55)
--- NOTE | 2020-06-05 10:29 | P.PN ---
Subjective 70-year-old female patient with a known history of chronic bronchial asthma, obesity, hypertension, hypothyroidism; recently discharged to [facility] for subacute rehabilitation, presented to the emergency room yesterday with continued complaints of worsening shortness of breath, cough and congestion. Chest x-ray revealed some mild lower lobe infiltrates. White count 9.8. Hemoglobin 11.5. Sodium 132. Potassium 4.7. Creatinine 1.67. Coronavirus not detected. ProBNP 5270. TSH 6.17. Free T4 2 0.85. D-dimer 7.18. Venous Doppler reveals positive DVT in the left lower extremity. She was also found to be in atrial fibrillation with a rapid ventricular response. She is on a Cardizem drip at 10 mg per hour. Heparin drip. 05/29/2020 Patient is seen and evaluated at bedside in ICU; somewhat more alert this morning; denies any specific complaints but reports she feels about the same Vital signs are reviewed with temp of 97.7, pulse 88, respiration 20 and blood pressure 112/74; pulse ox 93% on 15 L and FiO2 of 50%; patient remains on IV antibiotics in form of Zosyn; remains on diuretics for congestive heart failure in form of Aldactone and Zaroxolyn; check 60 reveals improvement in right lower lobe infiltrate and left lower lobe consolidation remains unchanged; lab review shows an improved creatinine of 1.68 Etiology is following for atrial fibrillation which remains rate controlled on beta blockers; oral anticoagulation has been initiated 05/30/2020 Patient is seen and evaluated in ICU for follow-up; patient sitting up in bedside chair and denies any specific complaints Patient remains on high flow nasal cannula at 50 L with an FiO2 of 45%; critical care on board and planning to continue to wean oxygen as able Chest x-ray reveals bilateral pleural effusion and consolidations which is improved from last imaging; pro-calcitonin feels a white blood count of 8.4; creatinine stable at 1.75; blood cultures are negative so far Patient remains on IV Zosyn, being diuresed with Aldactone and Zaroxolyn with negative fluid balance of 3 L or past 24 hours Patient remains in atrial fibrillation and his rate controlled on metoprolol; She is also on long-term anticoagulation with Eliquis 05/31/2020 This is a pleasant 70 years old female presenting with respiratory difficulty and distress and found to have a combination of bilateral pulmonary infiltrate for pneumonia as well as acute congestive heart failure with low ejection fraction about 20-25%. Patient is ALLERGIC to Lasix and currently she is on metolazone 5 mg daily and Aldactone 25 mg daily. Also patient is on Eliquis and metoprolol 50 milligrams 3 times a day and Eliquis per assistant warehouse manager for her chronic A. fib with RVR. her left leg is positive for DVT however patient is already and Eliquis. Patient also on Zosyn for possible pneumonia Patient has stable respiratory situation, she still needs high-dose off oxygen about 11-13 L/m However because she is stable pulmonary/critical care team felt patient can be moved to the 06/01/2020 Patient is seen and selected unit today. She is lying in bed, breathing quietly. Her breathing rate is 18-20, she is slightly tachycardic 111. Her oxygen requirement down to 6 L/m via high flow nasal cannula. Patient is afebrile. BMP showing sodium 135 and creatinine slightly up at 1.9 She remains on metolazone 5 mg daily and Aldactone 25 mg daily. She is ALLERGIC to Lasix. We'll keep monitoring her creatinine. Remains on Zosyn for possible pneumonia. She is also on Eliquis. For her history of chronic A. fib and RVR also for her left leg DVT. She has ventilation/perfusion scan with low probability for PE. Also she has chronic kidney disease stage III. 06/02/2020 Patient was lying in bed not in respiratory distress she was breathing quietly. She was saturating 90s on room air. She was hemodynamically stable however she was still tachycardic with heart rate about 200 225. Restoril vitals are stable Laps looks his stable as well with creatinine 2.0 and sodium 133. Extremities on metolazone and Aldactone. Also she is on Augmentin by leg assembler here for discharge However assistant warehouse manager increased her dose of metoprolol 200 mg twice daily. Also she is on Cardizem 30 mg 3 times a day, heart rate came down to 90s after that. Blood pressure remains stable and normal lateral keep monitoring for 24 hours. Patient denies depression Physical therapy recommended subacute rehab. Patient weakness and deconditioning however she was so adamant not to go to rehab and instead she wants To go to a friend's house. Also she refused to be discharged today stating that her is busy and cannot come today. As per staff stated that he cannot take care of her. Risks of bleeding associated with Eliquis are explained for the patient however she still refuses to go to rehab Possible discharge in 24-48 hours if she remains stable 06/03/2020 Patient lying in bed on room air, no chest pain or dyspnea however she still complaining about her heart rate, and this morning her heart rate was 70-90s, I discussed the case with cardiology team more than once this morning, initially the plan was for her to be cleared by cardiology team for discharge however on reviewing the monitor it looks like her heart rate jumped at time up to 150. Amiodarone 200 mg twice daily was added this morning and will keep monitoring her and telemetry. If her symptoms and heart rate are not controlled and cardiology team are planning for a FAMILIA and cardioversion. Cardizem was discontinued by cardiology team Also I discussed the case with her Mr. Layton upon patient wishes called before me at [phone] and I discussed the whole case with him and her medication and the recommendation, still the patient and refused for the patient to go to rehab risks including but not limited to fall, bleeding into the brain, bleeding from other sites and organs and/or . Also there was concern about her transportation, I discussed the case with our plant hr manager and plan for her is to provide an ambulance for transportation to her weakness. Patient also will provide nebulizer for her 06/04/2020 Patient is with no new complaints today. Heart rate still was going high today at 120. Cardiology team on the case and the planning for a FAMILIA and cardioversion later on today Creatinine remains stable at 2.0, sodium 134. She remains on Augmentin, Eliquis 5 mg, with co-pay of $42 and one FREE month prescription is going to be provided for her Aspirin was discontinued. She is also on metoprolol and amiodarone 06/05/2020 Patient with no chest pain or dyspnea. She is lying in bed. Breathing quietly. No specific complaints. Yesterday she underwent FAMILIA performed no thrombosis of the left atrial appendage followed by cardioversion. Her heart rate is 60 to 70s however it has paroxysmal tachycardia for example around 101. [employer] are still following the case closely. Patient still medically ready for discharge, Although patient with no significant symptoms however her heart rate is controlled As per staff, assistant warehouse manager are blunted for possible cardiac cath heart rate remains open down, we'll follow assistant warehouse manager recommendation Follow them that she remains on Eliquis 5 mg and Augmentin. Her metoprolol dose is adjusted by assistant warehouse manager to 50 mg twice daily and also she is on amiodarone. She is also on diuretics metolazone 5 mg and Aldactone 25 mg daily Objective - Vital Signs Vital signs: Vital Signs Temp 97.5 F L 06/05/20 08:00 Pulse 96 06/05/20 08:00 Resp 16 06/05/20 08:00 BP 136/88 06/05/20 08:00 Pulse Ox 96 06/05/20 08:00 Intake & Output 06/04/20 06/05/20 06/05/20 18:59 06:59 18:59 Intake Total 440 240 Output Total 480 Balance 440 -480 240 Weight 91.172 kg 90.8 kg Intake: IV 200 Oral 240 240 Output: Urine 480 Other: Voiding Method Bedside Commode Bedside Commode Diaper Diaper Incontinent Incontinent # Voids 1 1 - Exam GENERAL: The patient is alert and oriented x3, not in any acute distress. Well developed, well nourished. HEENT: Pupils are round and equally reacting to light. EOMI. No scleral icterus. No conjunctival pallor. Normocephalic, atraumatic. No pharyngeal erythema. No thyromegaly. CARDIOVASCULAR: S1 and S2 present. No murmurs, rubs, or gallops. -PULMONARY: Chest is clear to auscultation, decreased air entry with scattered wheezing ABDOMEN: Soft, nontender, nondistended, normoactive bowel sounds. No palpable organomegaly. MUSCULOSKELETAL: No joint swelling or deformity. EXTREMITIES: No cyanosis, clubbing, or pedal edema. NEUROLOGICAL: Gross neurological examination did not reveal any focal deficits. SKIN: No rashes. no petechiae. - Labs CBC & Chem 7: 05/31/20 03:30 06/04/20 07:18 Assessment and Plan Assessment: 1. A. fib with RVR; patient remains on Eliquis and metoprolol; cardiology team on board, the added amiodarone and metoprolol. Status post cardioversion will be considered by assistant warehouse manager today. Still with episodic tachycardia and assistant warehouse manager team for 2. Healthcare associated pneumonia; change antibiotic to Augmentin 3. Acute systolic CHF, Patient remains on diuretic therapy in form of metolazone and Aldactone 4. DVT left lower extremity/less likely PE; venous Doppler has been positive for left lower extremity DVT; patient is suspicious for PE is low as she is low probability perfusion scan. Patient is not a candidate for CT angiogram given acute renal injury. Currently she is on Eliquis 5. Acute hypoxic respiratory failure, improved and currently she is on room air 6. Chronic kidney disease 7. Hypothyroidism; levothyroxine 200 MCG daily 8. Essential hypertension; stable on IV Cardizem; metoprolol has been increased by cardiology; continue to monitor closely 9. Deconditioning and generalized weakness, patient adamantly refusing ECF for rehab and she has since to go to [facility] DVT prophylaxis; SCDs/Eliquis CODE STATUS; full code Prognosis is guarded
--- NOTE | 2020-06-05 12:32 | PN ---
PROGRESS NOTE Mrs. Layton is a 70-year-old female who presented with symptoms of dyspnea and evidence of pneumonia. She was in atrial fibrillation and there was evidence of cardiomyopathy. She underwent FAMILIA guided cardioversion yesterday with yazidism of normal sinus rhythm. She continued to be in sinus mechanism with short bursts of atrial fibrillation. Her echocardiogram showed an ejection fraction of 25% to 30% She had a bicuspid aortic valve with perfusion of the right and noncoronary cusp with trace aortic regurgitation and mitral regurgitation. She had no evidence of patent foramina ovale. She had mild dilatation of the ascending aorta. Her breathing is better. She denies any dizziness or palpitation. She is going to be on Eliquis 5 mg twice a day, amiodarone 200 mg twice a day, metoprolol tartrate 50 mg twice a day, spironolactone 25 mg daily, isosorbide mononitrate 30 mg daily, hydralazine 25 mg twice a day. PHYSICAL EXAMINATION: VITAL SIGNS: Blood pressure 136/80 with a heart rate in the 70s-80s. LUNGS: With few crackles, improved. HEART: Regular rate and rhythm S1, S2. No S3 with systolic murmur. No diastolic murmur. ABDOMEN: Soft, nontender. EXTREMITIES: No edema. LAB DATA: Lab data revealed BUN and creatinine 40 and 2.08, potassium 4.0. Her NT proBNP is 5950, which is somewhat similar to what she had before. IMPRESSION: 1. Atrial fibrillation, back in sinus mechanism, status post FAMILIA guided cardioversion. 2. Severe cardiomyopathy, new. 3. Pneumonia. 4. Chronic kidney disease. 5. Bicuspid aortic valve. RECOMMENDATION: We will continue present therapy, increase her activity. From the cardiac standpoint she is stable on her present medical regimen. She will follow up as an outpatient with Dr. Hlils. MMODL / IJN: [id number] /
[2020-06-06] MEDS: LEVOTHYROXINE 100 MCG TAB PO SCH (05:35)
[2020-06-06] MEDS: PANTOPRAZOLE 40 MG TABLET PO SCH (05:35)
[2020-06-06] MEDS: APIXABAN 5 MG TAB PO SCH ×2 (09:32→20:39)
[2020-06-06] MEDS: SPIRONOLACTONE 25 MG TAB PO SCH (09:32)
[2020-06-06] MEDS: METOPROLOL TARTRATE 50 MG TAB PO SCH ×2 (09:32→20:39)
[2020-06-06] MEDS: hydrALAZINE HCL 25 MG TAB PO SCH ×2 (09:33→20:39)
[2020-06-06] MEDS: AMIODARONE 200 MG TAB PO SCH ×2 (09:33→20:39)
[2020-06-06] MEDS: AMOXIC-POT CLAV 875-125MG 1 EACH TAB PO SCH ×2 (09:33→20:39)
[2020-06-06] MEDS: ISOSORBIDE MONONITRATE ER 30 MG TAB.ER.24H PO SCH (09:33)
--- NOTE | 2020-06-06 11:46 | PN ---
PROGRESS NOTE Mrs. Layton is a 70-year-old female who presented with pneumonia and symptoms of congestive heart failure and evidence of atrial fibrillation with impairment of left ventricular systolic function. She underwent FAMILIA guided cardioversion with pentecostalism of normal sinus rhythm. She was found to have a bicuspid aortic valve with preserved opening with severely impaired systolic function. She is feeling better overall. She has continued to be dyspneic although not as severely. She denies any chest pain. She denies any dizziness or palpitation. She denies any nausea. She continues to be on amiodarone 200 mg twice a day, Eliquis 5 mg twice a day, hydralazine 25 mg twice a day, isosorbide mononitrate 30 mg daily, metoprolol tartrate 50 mg 3 times a day and spironolactone 25 mg daily. PHYSICAL EXAMINATION: Blood pressure 123/70 with a heart in 60. LUNGS: With few crackles at the bases. HEART: Regular rate and rhythm S1, S2. No S3 with systolic murmur. ABDOMEN: Soft, nontender. EXTREMITIES: No significant edema. LAB DATA: Lab data revealed BUN and creatinine 40 and 2.08, potassium 4.0. IMPRESSION: 1. Pneumonia, improving. 2. Symptoms of congestive heart failure with systolic dysfunction. 3. Atrial fibrillation back in sinus mechanism. 4. Chronic kidney disease. 5. Bicuspid aortic valve. RECOMMENDATION: I will decrease the dose of her beta ana. Continue the rest of medical regimen. From the cardiac standpoint, she should be able to be discharged home and followed as an outpatient with Dr. Hills. MMODL / IJN: [id number] /
--- NOTE | 2020-06-06 21:35 | P.DS ---
Providers Date of admission: 05/25/20 14:27 Attending physician: Jelly Cohen Consults: 05/25/20 14:29 Consult Physician Urgent Consulting Provider: Oliver Hills Consult Reason/Comments: New-onset A. fib, RVR Do you want consulting provider notified?: Yes 05/25/20 21:12 Consult Physician Routine Consulting Provider: Kelsey Hickey Consult Reason/Comments: SOB Do you want consulting provider notified?: Yes, Notify in am Primary care physician: Stated None Hospital Course: Diagnoses: 1. A. fib with RVR; status post cardioversion 2. Healthcare associated pneumonia; change antibiotic to Augmentin 3. Acute systolic CHF 4. DVT left lower extremity/less likely PE; venous Doppler has been positive for left lower extremity DVT; patient is suspicious for PE is low as she is low probability perfusion scan. Patient is not a candidate for CT angiogram given acute renal injury. Currently she is on Eliquis 5. Acute hypoxic respiratory failure, improved and currently she is on room air 6. Chronic kidney disease 7. Hypothyroidism 8. Essential hypertension; stable 9. Deconditioning and generalized weakness, patient adamantly refusing ECF for rehab and she has since to go to a friend's house Hospital course: This is a pleasant 70 years old female presenting with respiratory difficulty and distress and found to have a combination of bilateral pulmonary infiltrate for pneumonia as well as acute congestive heart failure with low ejection fraction about 20-25%. Patient is ALLERGIC to Lasix and she was treated with on metolazone 5 mg daily and Aldactone 25 mg daily. Also patient is on Eliquis and metoprolol . her left leg is positive for DVT however patient is already and Eliquis. Patient also was treated with Zosyn for possible pneumonia and searched Augmentin by chipper Patient with A. fib and RVR and heart rate was difficult to control by rn complex care despite several attempts, eventually rn complex care recommended FAMILIA and cardioversion which was done on 06/04, after that patient tolerated the procedure were heart rate been better controlled Patient is severely weak and deconditioned however she adamantly refused to go to rehab given her previous experience and she wants to go to a friend's house. Risks including but not limited full and bleeding were explained for the patient and her on several occasions. On the day of discharge patient remains stable with no chest pain or dyspnea or significant coughing. No diarrhea. No headache. No fever Patient was cleared for discharge by rn complex care and chipper Problems and management plan were discussed with the patient and he verbalized understanding and acceptance Patient was found stable and can be discharged home and guarded prognosis however he needs follow-up as an outpatient. Patient was instructed to follow up with PCP within one week and patient agrees (patient does not have a PCP and wants to see visiting physician who sees her friend Patient was instructed to follow up with chipper Dr. Hickey and rn complex care Dr. Hills in 1 week and she agrees to call and make her own appointment Physical exam Gen: patient is a AAOx3, no distress CVS: S1-S2, RRR, no murmur Lungs: B/L CTA, no wheezing Abdomen: soft, no distention, no tenderness, positive bowel sounds Extremity: no leg edema or induration Time spent more than 35 minutes Patient Condition at Discharge: Fair Plan - Discharge Summary Discharge Rx Participant: Yes New Discharge Prescriptions: New Apixaban [Eliquis] 5 mg PO BID #60 tab Spironolactone [Aldactone] 25 mg PO DAILY #30 tab Amoxic-Pot Clav 875-125Mg [Augmentin 875-125] 1 each PO Q12HR 7 Days #14 tab Isosorbide Mononitrate ER [Imdur] 30 mg PO DAILY #30 tab.er.24h Albuterol Inhaler [Ventolin Hfa Inhaler] 1 puff INHALATION QID PRN #1 bottle PRN Reason: Shortness Of Breath Or Wheezing hydrALAZINE HCL [Apresoline] 25 mg PO BID #60 tab Amiodarone [Cordarone] 200 mg PO BID #60 tab Metoprolol Tartrate [Lopressor] 50 mg PO BID #60 tab Continue Lansoprazole [Prevacid] 15 mg PO DAILY #30 cap Levothyroxine Sodium [Tirosint] 200 mcg PO DAILY #30 cap Albuterol Nebulized [Ventolin Nebulized] 2.5 mg INHALATION RT-Q4H PRN #1 neb PRN Reason: ASTHMA Discontinued amLODIPine [Norvasc] 5 mg PO DAILY tab Metoprolol Tartrate [Lopressor] 12.5 mg PO BID@0700,1600 Losartan [Cozaar] 50 mg PO HS Levofloxacin [Levaquin] 500 mg PO DAILY Aspirin 81 mg PO HS Discharge Medication List Apixaban [Eliquis] 5 mg PO BID #60 tab 05/27/20 [Rx] Albuterol Inhaler [Ventolin Hfa Inhaler] 1 puff INHALATION QID PRN #1 bottle 06/03/20 [Rx] Albuterol Nebulized [Ventolin Nebulized] 2.5 mg INHALATION RT-Q4H PRN #1 neb 06/03/20 [Rx] Amoxic-Pot Clav 875-125Mg [Augmentin 875-125] 1 each PO Q12HR 7 Days #14 tab 06/03/20 [Rx] Isosorbide Mononitrate ER [Imdur] 30 mg PO DAILY #30 tab.er.24h 06/03/20 [Rx] Lansoprazole [Prevacid] 15 mg PO DAILY #30 cap 06/03/20 [Rx] Levothyroxine Sodium [Tirosint] 200 mcg PO DAILY #30 cap 06/03/20 [Rx] Spironolactone [Aldactone] 25 mg PO DAILY #30 tab 06/03/20 [Rx] Amiodarone [Cordarone] 200 mg PO BID #60 tab 06/06/20 [Rx] Metoprolol Tartrate [Lopressor] 50 mg PO BID #60 tab 06/06/20 [Rx] hydrALAZINE HCL [Apresoline] 25 mg PO BID #60 tab 06/06/20 [Rx] Follow up Appointment(s)/Referral(s): Jeremiah Robert MD [STAFF PHYSICIAN] - 1 Week (suggested primary care doctor) Tanner Dos Santos MD [REFERRING] - 1 Week (suggested primary care doctor) Oliver Hills DO [STAFF PHYSICIAN] - 1 Week (rn complex care ) None,Stated [Primary Care Provider] - 1-2 days Alicia Elizabeth MD [STAFF PHYSICIAN] - 1 Week (suggested primary care doctor) Kelsey Hickey MD [STAFF PHYSICIAN] - 1 Week (chipper ) Patient Instructions/Handouts: A-fib (Atrial Fibrillation) (DC), Pneumonia (DC) Activity/Diet/Wound Care/Special Instructions: Notify Marlen at [facility] when patient is going to be discharged - [phone]. Patient needs to take all prescriptions with her to the [facility] home. Patient will need to go by EMS, signed physician certification statement in chart. Patient can self administer medications at the [facility] home heart healthy diet Activity is restricted until you see your doctor Recommend using side rails on hospital bed and gait belt to assist with transfers and mobility Referral sent to [facility] for primary care while at [facility] - need to follow up with them - [phone] - your Patient needs nebulizer at discharge for dx: asthma Heart healthy diet activity restriction until you see your doctor Discharge Disposition: HOME WITH HOME HEALTH SERVICES
[2020-06-07] MEDS: PANTOPRAZOLE 40 MG TABLET PO SCH (06:30)
[2020-06-07] MEDS: LEVOTHYROXINE 100 MCG TAB PO SCH (06:30)
[2020-06-07] MEDS: AMOXIC-POT CLAV 875-125MG 1 EACH TAB PO SCH (10:09)
[2020-06-07] MEDS: METOPROLOL TARTRATE 50 MG TAB PO SCH (10:09)
[2020-06-07] MEDS: ISOSORBIDE MONONITRATE ER 30 MG TAB.ER.24H PO SCH (10:09)
[2020-06-07] MEDS: APIXABAN 5 MG TAB PO SCH (10:09)
[2020-06-07] MEDS: AMIODARONE 200 MG TAB PO SCH (10:09)
[2020-06-07] MEDS: hydrALAZINE HCL 25 MG TAB PO SCH (10:09)
[2020-06-07] MEDS: SPIRONOLACTONE 25 MG TAB PO SCH (10:09)
--- NOTE | 2020-06-07 11:04 | P.DS ---
Providers Date of admission: 05/25/20 14:27 Attending physician: Jelly Cohen Consults: 05/25/20 14:29 Consult Physician Urgent Consulting Provider: Oliver Hills Consult Reason/Comments: New-onset A. fib, RVR Do you want consulting provider notified?: Yes 05/25/20 21:12 Consult Physician Routine Consulting Provider: Kelsey Hickey Consult Reason/Comments: SOB Do you want consulting provider notified?: Yes, Notify in am Primary care physician: Stated None Hospital Course: Diagnoses: 1. A. fib with RVR; status post cardioversion 2. Healthcare associated pneumonia; change antibiotic to Augmentin 3. Acute systolic CHF 4. DVT left lower extremity/less likely PE; venous Doppler has been positive for left lower extremity DVT; patient is suspicious for PE is low as she is low probability perfusion scan. Patient is not a candidate for CT angiogram given acute renal injury. Currently she is on Eliquis 5. Acute hypoxic respiratory failure, improved and currently she is on room air 6. Chronic kidney disease 7. Hypothyroidism 8. Essential hypertension; stable 9. Deconditioning and generalized weakness, patient adamantly refusing ECF for rehab and she has since to go to a friend's house Hospital course: This is a pleasant 70 years old female presenting with respiratory difficulty and distress and found to have a combination of bilateral pulmonary infiltrate for pneumonia as well as acute congestive heart failure with low ejection fraction about 20-25%. Patient is ALLERGIC to Lasix and she was treated with on metolazone 5 mg daily and Aldactone 25 mg daily. Also patient is on Eliquis and metoprolol . her left leg is positive for DVT however patient is already and Eliquis. Patient also was treated with Zosyn for possible pneumonia and searched Augmentin by bell ringer Patient with A. fib and RVR and heart rate was difficult to control by hyperion administrator despite several attempts, eventually hyperion administrator recommended FAMILIA and cardioversion which was done on 06/04, after that patient tolerated the procedure were heart rate been better controlled Patient is severely weak and deconditioned however she adamantly refused to go to rehab given her previous experience and she wants to go to a friend's house. Risks including but not limited full and bleeding were explained for the patient and her on several occasions. On the day of discharge patient remains stable with no chest pain or dyspnea or significant coughing. No diarrhea. No headache. No fever Patient was cleared for discharge by hyperion administrator and bell ringer Problems and management plan were discussed with the patient and he verbalized understanding and acceptance Patient was found stable and can be discharged home and guarded prognosis however he needs follow-up as an outpatient. Patient was instructed to follow up with PCP within one week and patient agrees (patient does not have a PCP and wants to see visiting physician who sees her friend Patient was instructed to follow up with bell ringer Dr. Hickey and hyperion administrator Dr. Hills in 1 week and she agrees to call and make her own appointment note: Patient can't self administer medication by herself while she is at friend's (and confirmed to me she have done this before just prior this hospitalization) -Upon patient request, handwritten prescriptions are provided for the patient with brand names and MUKESH , patient states that her will take her prescription to [facility] pharmacy and she got them filled there. and i told pt if they she has any issue with script to call our medical floor for help and she agrees Physical exam Gen: patient is a AAOx3, no distress CVS: S1-S2, RRR, no murmur Lungs: B/L CTA, no wheezing Abdomen: soft, no distention, no tenderness, positive bowel sounds Extremity: no leg edema or induration Time spent more than 35 minutes Patient Condition at Discharge: Fair Plan - Discharge Summary Discharge Rx Participant: Yes New Discharge Prescriptions: New Apixaban [Eliquis] 5 mg PO BID #60 tab Spironolactone [Aldactone] 25 mg PO DAILY #30 tab Amoxic-Pot Clav 875-125Mg [Augmentin 875-125] 1 each PO Q12HR 7 Days #14 tab Isosorbide Mononitrate ER [Imdur] 30 mg PO DAILY #30 tab.er.24h Albuterol Inhaler [Ventolin Hfa Inhaler] 1 puff INHALATION QID PRN #1 bottle PRN Reason: Shortness Of Breath Or Wheezing hydrALAZINE HCL [Apresoline] 25 mg PO BID #60 tab Amiodarone [Cordarone] 200 mg PO BID #60 tab Metoprolol Tartrate [Lopressor] 50 mg PO BID #60 tab Continue Lansoprazole [Prevacid] 15 mg PO DAILY #30 cap Levothyroxine Sodium [Tirosint] 200 mcg PO DAILY #30 cap Albuterol Nebulized [Ventolin Nebulized] 2.5 mg INHALATION RT-Q4H PRN #1 neb PRN Reason: ASTHMA Discontinued amLODIPine [Norvasc] 5 mg PO DAILY tab Metoprolol Tartrate [Lopressor] 12.5 mg PO BID@0700,1600 Losartan [Cozaar] 50 mg PO HS Levofloxacin [Levaquin] 500 mg PO DAILY Aspirin 81 mg PO HS Discharge Medication List Apixaban [Eliquis] 5 mg PO BID #60 tab 05/27/20 [Rx] Albuterol Inhaler [Ventolin Hfa Inhaler] 1 puff INHALATION QID PRN #1 bottle 06/03/20 [Rx] Albuterol Nebulized [Ventolin Nebulized] 2.5 mg INHALATION RT-Q4H PRN #1 neb 06/03/20 [Rx] Amoxic-Pot Clav 875-125Mg [Augmentin 875-125] 1 each PO Q12HR 7 Days #14 tab 06/03/20 [Rx] Isosorbide Mononitrate ER [Imdur] 30 mg PO DAILY #30 tab.er.24h 06/03/20 [Rx] Lansoprazole [Prevacid] 15 mg PO DAILY #30 cap 06/03/20 [Rx] Levothyroxine Sodium [Tirosint] 200 mcg PO DAILY #30 cap 06/03/20 [Rx] Spironolactone [Aldactone] 25 mg PO DAILY #30 tab 06/03/20 [Rx] Amiodarone [Cordarone] 200 mg PO BID #60 tab 06/06/20 [Rx] Metoprolol Tartrate [Lopressor] 50 mg PO BID #60 tab 06/06/20 [Rx] hydrALAZINE HCL [Apresoline] 25 mg PO BID #60 tab 06/06/20 [Rx] Follow up Appointment(s)/Referral(s): Jeremiah Robert MD [STAFF PHYSICIAN] - 1 Week (suggested primary care doctor) Tanner Dos Santos MD [REFERRING] - 1 Week (suggested primary care doctor) Oliver Hills DO [STAFF PHYSICIAN] - 1 Week (hyperion administrator ) None,Stated [Primary Care Provider] - 1-2 days Alicia Elizabeth MD [STAFF PHYSICIAN] - 1 Week (suggested primary care doctor) Kelsey Hickey MD [STAFF PHYSICIAN] - 1 Week (bell ringer ) Patient Instructions/Handouts: A-fib (Atrial Fibrillation) (DC), Pneumonia (DC) Activity/Diet/Wound Care/Special Instructions: Notify Marlen at [facility] Home when patient is going to be discharged - [phone]. Patient needs to take all prescriptions with her to the [facility] home. Patient will need to go by EMS, signed physician certification statement in chart. Patient can self administer medications at the [facility] home heart healthy diet Activity is restricted until you see your doctor Recommend using side rails on hospital bed and gait belt to assist with transfers and mobility Referral sent to [facility] for primary care while at [facility] Home - need to follow up with them - [phone] - your Patient needs nebulizer at discharge for dx: asthma Heart healthy diet activity restriction until you see your doctor Discharge Disposition: HOME WITH HOME HEALTH SERVICES
[2020-06-07 12:49] VITALS: BP 109/57; PULSE 59; RESP 20; TEMP 97.6
[2020-06-07 14:45] VITALS: BMI 31.2
== END 2020-06-07 17:29 | disposition home or self-care (01) | DRG 308 ==
LOC: EC 12:29 → 3SCARD 14:27 → 2SICU 05-27 11:10 → 3SCARD 05-31 16:56
PROVIDERS: ADMIT Hospitalist; ATTEND Hospitalist
PROC: 5A0955A Assistance with Respiratory Ventilation, Greater than 96 Consecutive Hours, High Flow/Velocity Cannula (ICD-10-PCS; principal; 2020-05-26)
PROC: 05HD33Z Insertion of Infusion Device into Right Cephalic Vein, Percutaneous Approach (ICD-10-PCS; 2020-05-28 10:20)
PROC: B24BZZ4 Ultrasonography of Heart with Aorta, Transesophageal (ICD-10-PCS; 2020-06-04)
PROC: 5A2204Z Restoration of Cardiac Rhythm, Single (ICD-10-PCS; 2020-06-04)
DX: I48.19 Other persistent atrial fibrillation (principal); J15.6 Pneumonia due to other Gram-negative bacteria; J96.01 Acute respiratory failure with hypoxia; I50.43 Acute on chronic combined systolic (congestive) and diastolic (congestive) heart failure; J45.901 Unspecified asthma with (acute) exacerbation; N17.9 Acute kidney failure, unspecified; I13.0 Hypertensive heart and chronic kidney disease with heart failure and stage 1 through stage 4 chronic kidney disease, or unspecified chronic kidney disease; E87.1 Hypo-osmolality and hyponatremia; I82.4Z2 Acute embolism and thrombosis of unspecified deep veins of left distal lower extremity; Q23.1 Congenital insufficiency of aortic valve; J98.11 Atelectasis; I42.9 Cardiomyopathy, unspecified; I27.20 Pulmonary hypertension, unspecified; I77.810 Thoracic aortic ectasia; N18.30 Chronic kidney disease, stage 3 unspecified; E66.01 Morbid (severe) obesity due to excess calories; Z20.822 Contact with and (suspected) exposure to COVID-19; E87.5 Hyperkalemia; I08.1 Rheumatic disorders of both mitral and tricuspid valves; E89.0 Postprocedural hypothyroidism; R26.9 Unspecified abnormalities of gait and mobility; Z68.32 Body mass index [BMI] 32.0-32.9, adult; Z79.82 Long term (current) use of aspirin; Z79.890 Hormone replacement therapy; Z79.899 Other long term (current) drug therapy; Z87.01 Personal history of pneumonia (recurrent); Z86.19 Personal history of other infectious and parasitic diseases; Z98.891 History of uterine scar from previous surgery; Z98.890 Other specified postprocedural states; Z88.2 Allergy status to sulfonamides; Z88.8 Allergy status to other drugs, medicaments and biological substances; Z82.49 Family history of ischemic heart disease and other diseases of the circulatory system
CPT/HCPCS: 36410; 36415; 71045; 71046; 71250; 76937; 78580; 80048; 80053; 81001; 82565; 83605; 83615; 83735; 83880; 84145; 84439; 84443; 84484; 85025; 85027; 85379; 85610; 85652; 85730; 86140; 87040; 87635; 92960; 93005; 93306; 93312; 93970; 94640; 94760; 96361; 96365; 96366; 96367; 96368; 96375; 96376; 99291

== ENCOUNTER → 2020-09-16 | Outpatient (CLI) | payer OTHER ==
[2020-09-16 22:45] LABS: Basophils # (A) 0.13 X 10*3/uL (0.00-0.10); Basophils % (A) 1.1 %; Eosinophils # (A) 0.27 X 10*3/uL (0.04-0.35); Eosinophils % (A) 2.4 %; HCT 44.9 % (37.2-46.3); HGB 14.7 g/dL (12.0-15.0); Lymphocytes # (A) 1.39 X 10*3/uL (0.90-5.00); Lymphocytes % (A) 12.2 %; MCH 31.5 pg (27.0-32.0); MCHC 32.7 g/dL (32.0-37.0); MCV 96.4 fL (80.0-97.0); Mean Platelet Volume 10.9 fL (9.5-12.2); Monocytes # (A) 1.28 X 10*3/uL (0.20-1.00); Monocytes % (A) 11.2 %; Neutrophils # (A) 8.29 X 10*3/uL (1.80-7.70); Neutrophils % (A) 72.7 %; Platelet Count 269 X 10*3/uL (140-440); RBC 4.66 X 10*6/uL (4.10-5.20); RDW 13.1 % (11.5-14.5); WBC 11.41 X 10*3/uL (4.50-10.00)
[2020-09-17 05:30] LABS: African American GFR (CKD) 27.3 (60.0-200.0); Albumin 4.3 g/dL (3.80-4.90); Albumin/Globulin Ratio 1.79 (1.60-3.17); Anion Gap 13.1 mmol/L (4.00-12.00); BUN/Creat Ratio 20.95 Ratio (12.00-20.00); Calcium 10.1 mg/dL (8.7-10.3); Carbon Dioxide 18.9 mmol/L (21.6-31.8); Globulin 2.4 g/dL (1.6-3.3); Non-African American GFR(CKD) 23.6 (60.0-200.0); Potassium 5.2 mmol/L (3.5-5.5); Total Bilirubin 0.6 mg/dL (0.2-1.2); Total Protein 6.7 g/dL (6.2-8.2)
== END | disposition home or self-care (01) ==
LOC: LABWHC1 15:47
PROVIDERS: ATTEND Internal Medicine Critical Care Medicine
DX: N18.30 Chronic kidney disease, stage 3 unspecified (principal)
CPT/HCPCS: 36415; 80053; 82306; 85025

== ENCOUNTER → 2021-01-11 | Outpatient (CLI) | payer OTHER ==
[2021-01-12 15:36] LABS: African American GFR (CKD) 27.7 (60.0-200.0); Anion Gap 15.1 mmol/L (4.00-12.00); BUN/Creat Ratio 21.44 Ratio (12.00-20.00); Blood Urea Nitrogen 44.6 mg/dL (9.0-27.0); Carbon Dioxide 19.7 mmol/L (21.6-31.8); Non-African American GFR(CKD) 23.9 (60.0-200.0); Phosphorus 4.2 mg/dL (2.4-5.1); Potassium 5.7 mmol/L (3.5-5.5)
== END | disposition home or self-care (01) ==
LOC: LABWHC1 15:37
PROVIDERS: ATTEND Internal Medicine
DX: R06.09 Other forms of dyspnea (principal); R53.83 Other fatigue
CPT/HCPCS: 36415; 80069; 82306